=== PATIENT | male | born 1975 | race Caucasian/White ===

== ENCOUNTER 2019-04-15 22:13 | Emergency (ER) | payer MEDICAID, SELFPAY ==
[2019-04-15 22:14] VITALS: BP 164/92; BP 170/93; PULSE 93; PULSE 95; RESP 16; RESP 22; TEMP 36.7; O2SAT 95; O2SAT 96; BMI 19.8
--- NOTE | 2019-04-15 22:59 | ED.VIS.GEN ---
History of Present Illness Chief Complaint: Weakness Informant: Patient Narrative: Patient stated that he had nausea and vomiting tonight. He woke up from a sleep this evening and felt nauseated had multiple episodes of emesis. He currently does not feel like he needs to puke anymore. He thinks he got it all out. He denies any abdominal pain. Patient stated he is an alcoholic and drinks up to 30 beers per day. Today he had an appointment to have an MRI of his brain in the morning. They are working him up for possible Parkinson's per patient. Patient stated for the last year plus he has had shakes worse in his lower extremities. Patient stated he denies any cirrhosis of his liver but thinks he is done some damage to his liver and kidneys due to his excessive alcohol use. Today he only drank 3 beers. He does not think he is withdrawing at this time but is concerned that he may. Past Medical History - Allergies and Home Meds Allergies/Adverse Reactions: Allergies hydrocodone Allergy (Verified 04/15/19 22:20) Hives Primary Care Physician: Sandeep Stovall DO [NON CLINICAL AFFILIATE] - Jean Burnett MD [NON-STAFF] - [employer] [STAFF PHYSICIAN] - Prior records reviewed: Yes Past Medical History: - - Alcoholism Surgical History: noncontributory Lives: With Family Alcohol: Heavy Drugs: None Review of Systems General: Denies: Chills, Fever, Sweats Eyes: Denies: Visual changes - bilaterally, Diplopia ENT: Denies: Rhinorrhea, Sore throat Cardiovascular: Denies: Chest pain, Palpitations Respiratory: Denies: Dyspnea, Cough, Dyspnea on exertion Gastrointestinal: Reports: Nausea, Vomiting. Denies: Abdominal pain, Diarrhea, Melena, Hematochezia Genitourinary: Denies: Dysuria, Hematuria, Frequency Musculoskeletal: Denies: Back pain, Extremity Pain Skin: Denies: Rash, Wounds Neurological: Reports: Weakness, - - Chronic tremor to his lower extremities. Denies: Headache, Numbness Physical Exam Vital Signs/Narrative: Vital Signs Temp Pulse Resp BP Pulse Ox 04/15/19 22:14 98.1 F 93 22 H 170/93 H 95 General: Well nourished, Well developed, No Acute Distress Head: Normocephalic, Atraumatic Eyes: Perrl, EOMI ENT: Moist mucous membranes, No rhinorrhea Neck: Supple, Nontender Cardiovascular: Regular rate, Regular rhythm, No murmurs Respiratory: No distress, CTA bilaterally, Chest nontender Abdomen: Soft, Nontender, Nondistended, Normal bowel sounds Back: Nontender, Normal Inspection Extremities: Nontender, No edema, - - Mild tremor to the bilateral lower extremities. He does come and go. Skin: Normal color, No rash Neurological: Alert, Oriented x3, Cranial nerves II-XII grossly intact, Normal Strength, Normal Sensation Psychological: Normal affect, Normal Mood Diagnostic/Tx/Re-eval - Medical Decision Making Given IV fluids and Zofran. Given a dose of Ativan to keep him out of withdrawal. Lab work obtained patient felt much better after treatment. Was able to fall asleep. No further vomiting. Lab work shows evidence of alcoholic liver disease bili bilirubin is 1.2. AST is 89. Alk phos 128. Patient has low platelets at 53,000. Nothing to compare this to in our system. I have a feeling this is from his early liver cirrhosis. He is instructed to follow-up as an outpatient. Will be given a referral to gastroenterology. We will also follow-up with his family doctor. Instructed to try to curb his drinking. Given information for outpatient referral. I do not feel he needs to be admitted and he is not having any signs of withdrawal. While at rest he has no tremor. Amada the case also with his who is aware of the lab findings and referral patterns for outpatient follow-up ED Disposition - Plan for ED Patient: Disposition: Home or Assisted Living Diagnosis: Cirrhosis, Alcoholism, Nausea and vomiting, Thrombocytopenia Instructions: Understanding Alcoholism, Cirrhosis of the Liver Prescriptions: Ondansetron [Zofran Odt] 4 mg PO Q8H PRN PRN #10 tab PRN Reason: Nausea Prescription Printed Referrals: Jean Burnett MD [NON-STAFF] - Sandeep Stovall DO [NON CLINICAL AFFILIATE] - [employer] [STAFF PHYSICIAN] -
[2019-04-15] MEDS: Ondansetron 4 MG/2 ML Vial IV (23:12)
[2019-04-15] MEDS: LORazepam 2 MG/ML Syringe IV (23:12)
[2019-04-15] MEDS: 0.9% Normal Saline 1,000 ML 1000 ML IV (23:12)
[2019-04-15 23:14] VITALS: BP 154/92; PULSE 78; RESP 16; O2SAT 94
[2019-04-15 23:26] LABS: Absolute Lymphocyte Count 2.73 X10^3/ul (0.83-4.51); Absolute Neutrophil Count 2.4 X10^3/uL (2.0-7.7); Basophil% 1.7 % (0-1); Eosinophil# 0.23 X10^3/uL; Eosinophils% 3.9 % (0-5); Hematocrit 44.8 % (40-54); Hemoglobin 15.5 g/dl (13.0-16.5); Lymphocyte # 2.73 X10^3/ul (4.0); Lymphocyte % 45.8 % (19-41); Mean Corp Hgb Conc 34.6 g/gl (32-36); Mean Corpuscular Hgb 33.3 pg (27.0-32.0); Mean Corpuscular Volume 96.3 fL (80-94); Mean Platelet Vol. 11.4 fl (6.2-12.0); Monocyte# 0.48 X10^3/uL; Monocyte% 8.1 % (0-10); Neutrophil # 2.41 X10^3/uL (2.7-7.7); Neutrophil % 40.3 % (47-70); POSITIVE COUNT NO; POSITIVE DIFFERENTIAL NO; POSITIVE MORPHOLOGY NO; Platelet Count 53 K/mm3 (150-450); RBC Distribution Width SD 49.5 fl (35.1-43.9); Red Blood Count 4.65 M/mm3 (4.6-6.2)
[2019-04-15 23:35] LABS: ALB/GLOB Ratio 0.6 RATIO (0.9-2.4); AST(SGOT) 89 U/L (15-37); Alanine Aminotransfer ALT/SGPT 49 U/L (16-61); Albumin, Serum 3.3 g/dL (3.2-5.0); Alkaline Phosphatase 128 U/L (45-117); Anion Gap 8 (5-15); BUN 3 mg/dL (7-18); BUN/Creat Ratio 4.5 RATIO (10-20); Calcium,Total 8.7 mg/dL (8.5-10.1); Chloride 104 mmol/L (98-107); Creatinine, Serum 0.67 mg/dL (0.70-1.30); EST Glomerular Filtration Rate 137 mL/min (>60); Est Glom Filt Rate - Afr Amer 166 mL/min (>60); Estimated Creatinine Clearance 131.94 ml/min; Globulin 5.7 g/dL (2.2-4.2); Glucose 112 mg/dL (74-106); Lipase 283 U/L (73-393); Potassium 3.6 mmol/L (3.5-5.1); Sodium Level 138 mmol/L (136-145)
[2019-04-16] VITALS: BP 121/70; PULSE 77; RESP 16; O2SAT 93
[2019-04-16 01:00] VITALS: BP 128/86; PULSE 86; RESP 16
[2019-04-16 01:08] VITALS: BP 122/86; PULSE 80; RESP 16
== END 2019-04-16 01:17 | disposition home or self-care (01) ==
PROVIDERS: Emergency Provider Emergency Medicine; Family Provider Family Medicine; PCP Family Medicine
DX: K70.30 Alcoholic cirrhosis of liver without ascites (principal); F10.20 Alcohol dependence, uncomplicated; D69.6 Thrombocytopenia, unspecified; R11.2 Nausea with vomiting, unspecified
CPT/HCPCS: 80053; 83690; 85025; 96361; 96374; 96375; 99285; J7030; J2405

== ENCOUNTER 2019-04-18 17:16 | Observation (INO) | payer MEDICAID, SELFPAY ==
[2019-04-18 17:18] VITALS: BP 159/93; PULSE 95; RESP 17; TEMP 36.9; O2SAT 96; BMI 22.4
--- NOTE | 2019-04-18 17:22 | ED.RN ---
PT IS BEING ASSESSED BY PROVIDER. PT DENIES CURRENT THOUGHTS OF HURTING HIMSELF OR OTHER NOW. HAS HAD THOUGHT IN PAST BUT NOT NOW. PT IS STUTTERING WORDS AND DIFFICULT TO UNDERSTAND. DR. RAMSEY DENIES HAVING SITTER AT BEDSIDE.
--- NOTE | 2019-04-18 17:25 | ED.VISSUMM ---
- ER Visit Summary Date of Service: 04/18/19 Chief Complaint: Questionable alcohol withdrawal, request detox History of Present Illness: The patient is a 43 M who presents with questionable alcohol withdrawal and requesting detox. He states he normally drinks 15-18 beers a day. He only drinks 6 today. He has never been to rehab before. He wants to go to rehab and get detox from alcohol because he is tired of the drinking. He denies any history of any withdrawal seizures. He states that he keeps defecating on himself. He had an outpatient MRI and the [facility] is working him up for Parkinson's. He was seen here a few days ago for weakness and told the physician at that time he drinks 30 beers a day. Physical Examination: Vital signs reviewed. HEENT exam unremarkable. Heart is regular rate and rhythm without murmurs. Lungs are clear to auscultation. Abdomen is soft and nontender. Extremities reveal no edema. Skin exam normal. Neurologic exam normal, other than the fact that he is acutely intoxicated Test Results: CAT scan of the head unremarkable. Labs show a platelet count of 56 which is chronic. Total bilirubin 0.61, AST is 85, alkaline phosphatase 123. His alcohol level is 468 Emergency Department Course and Treatment: The patient states that he only drank 6 beers today but he is so intoxicated because he continuously drinks every day all day. He did fall in the bathroom here in the emergency department so a CAT scan of his head was obtained and was unremarkable. He states that he cannot stop drinking at home because he gets very symptomatic very quickly. I discussed with the hospitalist and she was willing to admit the patient and will start treatment when he starts having symptoms of withdrawal. Treatment Plan: [] Disposition: Admit Impression: Alcohol intoxication, dependence, weakness, thrombocytopenia This note was generated with Zapya[employer] software. It may contain incorrect words, spelling, and punctuation that were not noted in review of the chart prior to signing ED Disposition - Plan for ED Patient: Referrals: David Rouse MD [Primary Care Provider] -
--- NOTE | 2019-04-18 17:41 | CT_ITS ---
STUDY: CT BRAIN WITHOUT CONTRAST REASON FOR EXAM: Male, 43 years old. Alcohol withdrawal. RADIATION DOSAGE (If Supplied By Facility): CTDIvol = ( 44.99 ) mGy, DLP = ( 779.24 ) mGycm TECHNIQUE: Transaxial CT imaging of the brain was performed without administration of intravenous contrast material. Individualized dose optimization techniques were used for this CT. COMPARISON: No relevant priors. FINDINGS: Normal soft tissue structures. Normal calvarium. Normal size ventricles and extra-axial spaces for the patient's age. Normal white matter tracts of the cerebral hemispheres. Normal basal ganglia and thalami. Normal brainstem. Normal cerebellum. There is no intracranial hemorrhage. There are no findings of an acute ischemic infarction. Normal visualized paranasal sinuses. CT/Brain/Head without Contrast IMPRESSION: No acute intracranial process. Electronically Signed: Marla Barba MD at 18:23 EDT Tel , Service support ,
[2019-04-18 17:43] LABS: Absolute Lymphocyte Count 3.69 X10^3/ul (0.83-4.51); Absolute Neutrophil Count 2.6 X10^3/uL (2.0-7.7); Basophil# 0.12 X10^3/uL; Basophil% 1.7 % (0-1); Eosinophil# 0.29 X10^3/uL; Eosinophils% 4.1 % (0-5); Hematocrit 44.4 % (40-54); Hemoglobin 15.2 g/dl (13.0-16.5); Lymphocyte # 3.69 X10^3/ul (4.0); Mean Corp Hgb Conc 34.2 g/gl (32-36); Mean Corpuscular Hgb 33.2 pg (27.0-32.0); Mean Corpuscular Volume 96.9 fL (80-94); Mean Platelet Vol. 11.7 fl (6.2-12.0); Monocyte# 0.44 X10^3/uL; Monocyte% 6.2 % (0-10); Neutrophil # 2.56 X10^3/uL (2.7-7.7); POSITIVE COUNT NO; POSITIVE DIFFERENTIAL NO; POSITIVE MORPHOLOGY NO; Platelet Count 56 K/mm3 (150-450); RBC Distribution Width SD 49.9 fl (35.1-43.9); Red Blood Count 4.58 M/mm3 (4.6-6.2); White Blood Count 7.1 K/mm3 (4.4-11.0)
--- NOTE | 2019-04-18 17:54 | ED.RN ---
pt was assisted to bathroom to have bowel movement. Pt refused help. raising voice and cussing at RN. Pt was refusing to have bowel movement with staff in the room. pt set in front of toilet and assisted standing for toilet. RN stood with door open. Loud noise heard. pt fell striking head on sink plumbing. denies pain or concerns from falling. Dr. Rodriguez aware. CT ordered. Edward RN, Imelda RN in to help get patient up from floor. bruising noted to l posterior arm, r elbow. Pt family tells nurse at this time pt has already fallen 2 x times.
[2019-04-18 18:00] LABS: AST(SGOT) 85 U/L (15-37); Alanine Aminotransfer ALT/SGPT 41 U/L (16-61); Albumin, Serum 3.2 g/dL (3.2-5.0); Alkaline Phosphatase 123 U/L (45-117); Anion Gap 6 (5-15); BUN 1 mg/dL (7-18); BUN/Creat Ratio 1.4 RATIO (10-20); Bilirubin, Direct 0.61 mg/dL (0.00-0.30); Calcium,Total 8.4 mg/dL (8.5-10.1); Chloride 106 mmol/L (98-107); EST Glomerular Filtration Rate 130 mL/min (>60); Est Glom Filt Rate - Afr Amer 157 mL/min (>60); Estimated Creatinine Clearance 127.24 ml/min; Globulin 5.6 g/dL (2.2-4.2); Glucose 120 mg/dL (74-106); Lipase 230 U/L (73-393); Potassium 3.5 mmol/L (3.5-5.1); Protein, Total 8.8 g/dL (6.4-8.2); Sodium Level 140 mmol/L (136-145)
[2019-04-18 18:17] VITALS: BP 172/140; PULSE 97; RESP 18; O2SAT 98
--- NOTE | 2019-04-18 19:30 | HP.PCM_ITS ---
Problem List (1) Alcohol withdrawal delirium, acute, hyperactive Status: Acute (2) Alcohol abuse Status: Chronic (3) Tobacco use Status: Chronic (4) GERD (gastroesophageal reflux disease) Status: Chronic History of Present Illness Date of Admission: 04/18/19 Chief Complaint: Acute EtOH Withdrawal The patient is a 43 y/o M w/ PMHx: GERD, EtOH Abuse (15-18 Tall boys daily), Tobacco use who presents to the [facility] on 04/18/19 w/ noted acute EtOH withdrawal, onset starting in the afternoon with self imposed reduction in his intake secondary to desired treatment with last EtOH intake 1-3 hours prior to ED presentation with onset of nausea, tremors, agitation, tactile disturbances. Patient interested in attaining sober status. He notes that he has been through EtOH withdrawal once prior and denied any history of seizures but does note as with his current status he does tend to be extremely irritated and angry. Discussed admission and treatment plan to which patient was amenable with planned [facility] program evaluation on Saturday given presentation. Work-up in the ED included T 98.4, heart rate 95, BP 159/93, respiratory rate 17, 96% on room air, CBC with WBC 7.1, hemoglobin 15.2, platelet 56 without market left shift, CMP with glucose 120, direct bilirubin 0.61, AST 85, ALT 41, alk phos 123, lipase 230, initial ethyl alcohol upon presentation for 468 with increased CIWA scoring upon evaluation per Hospitalist with evidence initiation of withdrawal given heavy EtOH intake history as noted. Past Medical History Past Medical History (Chronic Problems): Chronic Problems Alcohol abuse (Chronic) Tobacco use (Chronic) GERD (gastroesophageal reflux disease) (Chronic) Allergies hydrocodone Allergy (Verified 04/18/19 17:21) Hives Home Medications: Ambulatory Orders Medication Instructions Recorded NK 04/18/19 Surgical History: no surgical history Psychiatric History: No pertinent psych hx Lives: Spouse/ Significant Other Smoking Status: Current every day smoker - 1/2-1 ppd cigarette tobacco use QOD. Tobacco Use: Cigarettes Alcohol: Heavy - 12-18 Tall Boys (5.8%) daily Drugs: None - *Family History Maternal History Items: - - Patient notes a maternal family history of heart disease. Paternal History Items: - - Patient notes a paternal family history of heart disease, MD, colon cancer, possibly Parkinson's disease. Review of Systems Constitutional: Reports: Anorexia, Malaise, Weakness, Fatigue. Denies: Chills, Fever, Weight Change HEENT: Reports: Visual Changes. Denies: Head Aches, Sinus Congestion, Sinus Drainage Cardiovascular: Denies: Chest Pain, Palpitations Respiratory: Denies: Cough, Shortness of breath at rest, Sputum production Gastrointestinal: Denies: Abdominal Pain, Nausea, Vomiting Genitourinary: Denies: Dysuria Musculoskeletal: Reports: Back Pain, Joint Pain. Denies: Joint Tenderness Skin: Denies: Rash, Wounds Neurological: Reports: Balance problems, Tremor. Denies: Focal weakness, Numbness, Tingling Psychiatric: Reports: Anxiety. Denies: Depression, Homicidal Ideations, Suicidal Ideations Hematologic/ Lymphatic: Reports: Easy Bruising, Easy Bleeding VTE Information - Inpt Only VTE Present on Admission: No VTE Mechan Device Prophylaxis: SCD's VTE Pharm Prophylaxis ordered?: No Reason prophylaxis not ordered:: Medical Contraindication Patient Problems: Active and Suspected Problems Alcohol withdrawal delirium, acute, hyperactive (Acute) Subjective: Seated upright in the ED bed, agitated, irritable, tremors evident. Objective: Physical Examination: General: awake, alert, oriented to place, person, year, irritable, agitated, tremors evident, intermittently cooperative, seated upright in ED bed. Skin: normal color, turgor, no icterus, cyanosis. HEENT: AT/NC, EOMI, PERRLA, dry MM, no carotid bruits or JVD noted. Lungs: CTA bilaterally, poor effort, moderate decrease BL bases, no rales, ronchi or wheezing. Heart: Mildly tachycardic with regular rhythm; no gallop, rub audible. Abdomen: soft, NTTP, ND, normal BS, + HM. Extremities: no cyanosis, clubbing, or edema. Neurological: patient awake, alert, oriented as noted; cognitive function suspected to be decreased from baseline intact; pupils equally reactive to light and accomodation; cranial nerves II-XII grossly normal, moving all 4 extremities, no focal deficits, strength severely global decrease secondary to acute presentation, tremors evident, agitated, anxious. Psychiatric: affect appears agitated, anxious, no acute evidence of depressive feelings. - Physical Exam Vital Signs Temp Pulse Resp BP Pulse Ox 98.4 F 97 18 172/140 H 98 04/18/19 17:18 04/18/19 18:17 04/18/19 18:17 04/18/19 18:17 04/18/19 18:17 Oxygen Delivery Method Room Air Weight: 147 lb 4.301 oz Body Mass Index (BMI) 22.4 Laboratory Tests Past 24 Hrs 04/18/19 04/18/19 04/18/19 17:30 17:30 17:30 WBC 7.1 RBC 4.58 L Hgb 15.2 Hct 44.4 MCV 96.9 H MCH 33.2 H MCHC 34.2 RDW 14.0 RDW Differential 49.9 H Plt Count 56 L MPV 11.7 Immature Gran % (Auto) 0.000 Neut % (Auto) 36.0 L Lymph % (Auto) 52.0 H Crook % (Auto) 6.2 Eos % (Auto) 4.1 Baso % (Auto) 1.7 H Absolute Neuts (auto) 2.6 Absolute Lymphs (auto) 3.69 Total Counted Not Reportable Sodium 140 Potassium 3.5 Chloride 106 Carbon Dioxide 28.0 Anion Gap 6 BUN 1 L Creatinine 0.70 Estim Creat Clear Calc 127.24 Est GFR (MDRD) Af Amer 157 Est GFR (MDRD) Non-Af 130 BUN/Creatinine Ratio 1.4 L Glucose 120 H Calcium 8.4 L Total Bilirubin 0.90 Direct Bilirubin 0.61 H AST 85 H ALT 41 Alkaline Phosphatase 123 H Total Protein 8.8 H Albumin 3.2 Globulin 5.6 H Lipase 230 Ethyl Alcohol 468.0 H* Assessment/Plan All Active Problems Alcohol withdrawal delirium, acute, hyperactive (Acute) Intoxication (Acute) The patient is a 43 y/o M w/ PMHx: GERD, EtOH Abuse (15-18 Tall boys daily), Tobacco use who presents to the [facility] on 04/18/19 w/ noted acute EtOH withdrawal, onset starting in the afternoon with self imposed reduction in his intake secondary to desired treatment with last EtOH intake 1-3 hours prior to ED presentation with onset of nausea, tremors, agitation, tactile disturbances. (1) Acute EtOH Withdrawal: Will admit to [facility] on telemetry, routine labs obtained per ED as noted, will initiate and continue on [facility] service protocol with taper course of librium, as needed Seroquel, Catapres, Bentyl, Vistaril, IV fluids, IV antiemetics, Tylenol as needed for pain. Once patient clinically improved and completion of taper nearing will plan [facility] assistance for transition to next level of rehabilitation care. Mag, phos pending. Maintain on CIWA protocol. (2) Tobacco Abuse: Encouraged cessation, inpatient consultation per RT, NR if desired. (3) GERD: Famotidine. (4) Chronic Thrombocytopenia: Admission Plts 56, likely chronic, secondary to EtOH abuse. (5) DVT prophylaxis: TEDs, hold any chemoprophylaxis given thrombocytopenia, likely chronic. Code Visit Inpatient E&M: 87569 Init Hosp L3
[2019-04-18 19:36] VITALS: BP 156/111; RESP 18; O2SAT 97
[2019-04-18 20:25] LABS: Amphetamine Urine VISTA NEGATIVE (<1000 ng/mL); Barbiturate Urine VISTA NEGATIVE (< 200 ng/mL); Benzodiazepine Urine VISTA NEGATIVE (< 200 ng/mL); Cocaine Urine VISTA NEGATIVE (< 300 ng/mL); Ecstacy Urine VISTA NEGATIVE (< 500 ng/mL); Methadone Urine VISTA NEGATIVE (< 300 ng/mL); PCP Urine VISTA NEGATIVE (< 25 ng/mL); THC Urine VISTA NEGATIVE (< 50 ng/mL); Vista UDS pH Range 6
[2019-04-18 20:37] VITALS: BMI 19.5
[2019-04-18 21:00] VITALS: BP 137/86; PULSE 84; RESP 16; TEMP 36.7
[2019-04-18 21:09] VITALS: BMI 19.6
[2019-04-18 21:13] LABS: Magnesium 1.9 mg/dL (1.6-2.6); Phosphorus 3.2 mg/dL (2.5-4.9)
[2019-04-18 21:20] VITALS: O2SAT 97
[2019-04-18] MEDS: 0.9% NaCl Peripheral Flush Adult/Peds IV (21:21)
[2019-04-18] MEDS: Lactated Ringers 1,000 ML 125 ML IV (21:21)
[2019-04-18] MEDS: chlordiazePOXIDE 25 MG Capsule PO (21:22)
[2019-04-18] MEDS: hydrOXYzine PAM 25 MG Capsule 50 MG PO (21:22)
[2019-04-18] MEDS: Ibuprofen 600 MG Tablet PO (21:38)
[2019-04-18] MEDS: Methocarbamol 750 MG Tablet PO (21:38)
[2019-04-18] MEDS: traZODone 50 MG Tablet PO (22:10)
[2019-04-18] MEDS: Famotidine 20 MG Tablet PO (22:10)
[2019-04-19 01:08] VITALS: BP 114/73; PULSE 82; RESP 16; TEMP 36.6
[2019-04-19] MEDS: chlordiazePOXIDE 25 MG Capsule PO ×4 (03:14→22:54)
[2019-04-19 05:01] VITALS: BP 103/61; PULSE 89; RESP 16; TEMP 36.9
[2019-04-19] MEDS: 0.9% NaCl Peripheral Flush Adult/Peds IV (05:05)
[2019-04-19] MEDS: Famotidine 20 MG Tablet PO ×2 (08:15→22:54)
[2019-04-19] MEDS: Folic Acid 1 MG Tablet PO (08:15)
[2019-04-19] MEDS: Methocarbamol 750 MG Tablet PO ×2 (08:15→19:43)
[2019-04-19] MEDS: Multivitamins,Therapeutic Tablet 1 TABLET PO (08:15)
[2019-04-19] MEDS: Thiamine Hydrochloride 100 MG Tablet PO (08:15)
[2019-04-19 08:22] VITALS: BP 109/70; PULSE 85; RESP 16; TEMP 36.8; O2SAT 95
--- NOTE | 2019-04-19 08:57 | PCM.PROGNOTE ---
Patient Problems: Active and Suspected Problems Alcohol withdrawal delirium, acute, hyperactive (Acute) Subjective: The patient is a 43-year-old male with a past medical history of GERD, ethanol abuse and tobacco dependence who presented to the emergency department at [facility] on 04/18/2019 complaining of nausea, tremors, agitation, tactile disturbances. His last ingestion of EtOH was 1 to 3 hours prior to presenting to the emergency room and he was cutting down in an effort to get sober. He denies any history of seizures with alcohol withdrawal in the past. He was agreeable to admission to the [facility]. Vital signs at presentation to the emergency room were temp 98.4, pulse rate 95, blood pressure 159/93, respiratory rate 17 and he was 96 to 90% saturated on room air. CBC was remarkable for a low platelet count at 56,000. CMP showed a total bilirubin of 0.9, AST of 85, ALT of 41 and an alkaline phosphatase of 123. Lipase was 230. Magnesium and phosphorus were within normal limits. Ethyl alcohol level was 468. He was admitted to [facility] with a diagnosis of acute alcohol withdrawal however he was intoxicated at the time of presentation to the emergency room and was not in alcohol withdrawal. CT brain in the emergency department showed no acute intracranial process. He is interested in [facility] and the [facility] protocol for medical stabilization for alcohol withdrawal was initiated. He will be seen by the [facility] marketing representative on Saturday. Afebrile since admission Vital signs stable He has been drinking since he was 15. He drinks everyday, usually 14 beers a day. Has never had a seizure. Has never been to rehab or AA. Recently he has been having problems with gait instability and has had multiple falls. He was seen at the [facility] outpatient center and an MRI of the brain was ordered and was done at the [facility] facility but, they do not know the results. He has an appt with a neurologist on May 09. He has been forgetful and tremulous. Tells me that he has been diagnosed with cirrhosis but, does not know how this dx was made. Bilirubin is normal and his transaminases are only mildly elevated. PT/INR was not checked. There is a very strong FH of alcoholism. He has also recently been incontinent. Has not been eating properly and is losing weight. - Physical Exam General: Alert, Cooperative, - - very tremulous HEENT: Atraumatic, PERRLA, EOMI, Normocephalic Oral: Moist Mucosa Neck: Supple, No JVD, Trachea Midline Lungs: Clear to auscultation - anterior Cardiovascular: Regular rate, Regular Rhythm, Normal S1, Normal S2, No murmurs, No rub noted, No Gallop Abdomen: Soft, Non Tender, Non-Distended, Hepatomegaly Extremities: No clubbing, No cyanosis, No edema Skin: - - Multiple bruises on his extremities in varying stages of healing Musculoskeletal: Muscle Wasting Neurological: Cranial nerves II-XII grossly intact, Neuro grossly intact, - - having trouble with finger nose and heel aquino but, not clear if this is due to alcohol withdrawal or neurologic disease Psych/Mental Status: Flat Affect Vital Signs Temp Pulse Resp BP Pulse Ox 98.3 F 85 16 109/70 95 04/19/19 08:22 04/19/19 08:22 04/19/19 08:22 04/19/19 08:22 04/19/19 08:22 Oxygen Delivery Method Room Air Weight: 144 lb 6.444 oz Body Mass Index (BMI) 19.5 Intake and Output for Last 24 Hours 04/17/19 04/18/19 04/19/19 23:59 23:59 23:59 Intake Total 1352 / 1352 Balance 1352 / 1352 Laboratory Tests Past 24 Hrs 04/18/19 04/18/19 04/18/19 17:30 17:30 17:30 WBC 7.1 RBC 4.58 L Hgb 15.2 Hct 44.4 MCV 96.9 H MCH 33.2 H MCHC 34.2 RDW 14.0 RDW Differential 49.9 H Plt Count 56 L MPV 11.7 Immature Gran % (Auto) 0.000 Neut % (Auto) 36.0 L Lymph % (Auto) 52.0 H Hand % (Auto) 6.2 Eos % (Auto) 4.1 Baso % (Auto) 1.7 H Absolute Neuts (auto) 2.6 Absolute Lymphs (auto) 3.69 Total Counted Not Reportable Sodium 140 Potassium 3.5 Chloride 106 Carbon Dioxide 28.0 Anion Gap 6 BUN 1 L Creatinine 0.70 Estim Creat Clear Calc 127.24 Est GFR (MDRD) Af Amer 157 Est GFR (MDRD) Non-Af 130 BUN/Creatinine Ratio 1.4 L Glucose 120 H Calcium 8.4 L Phosphorus Magnesium Total Bilirubin 0.90 Direct Bilirubin 0.61 H AST 85 H ALT 41 Alkaline Phosphatase 123 H Total Protein 8.8 H Albumin 3.2 Globulin 5.6 H Lipase 230 Urine Opiates Screen Urine Methadone Screen Ur Barbiturates Screen Ur Phencyclidine Scrn Ur Amphetamines Screen U Methamphetamin-MDMA U Benzodiazepines Scrn Urine Cocaine Screen U Cannabinoids Screen Ur Drug Screen Comment Ethyl Alcohol 468.0 H* 04/18/19 04/18/19 17:30 19:56 WBC RBC Hgb Hct MCV MCH MCHC RDW RDW Differential Plt Count MPV Immature Gran % (Auto) Neut % (Auto) Lymph % (Auto) Hand % (Auto) Eos % (Auto) Baso % (Auto) Absolute Neuts (auto) Absolute Lymphs (auto) Total Counted Sodium Potassium Chloride Carbon Dioxide Anion Gap BUN Creatinine Estim Creat Clear Calc Est GFR (MDRD) Af Amer Est GFR (MDRD) Non-Af BUN/Creatinine Ratio Glucose Calcium Phosphorus 3.2 Magnesium 1.9 Total Bilirubin Direct Bilirubin AST ALT Alkaline Phosphatase Total Protein Albumin Globulin Lipase Urine Opiates Screen NEGATIVE Urine Methadone Screen NEGATIVE Ur Barbiturates Screen NEGATIVE Ur Phencyclidine Scrn NEGATIVE Ur Amphetamines Screen NEGATIVE U Methamphetamin-MDMA NEGATIVE U Benzodiazepines Scrn NEGATIVE Urine Cocaine Screen NEGATIVE U Cannabinoids Screen NEGATIVE Ur Drug Screen Comment Ethyl Alcohol Medical Necessity - Tobacco Use Smoking Status: Current every day smoker Tobacco Use: Cigarettes Assessment/Plan All Active Problems Alcohol withdrawal delirium, acute, hyperactive (Acute) Intoxication (Acute) Impressions 1. Alcohol intoxication 2. Alcohol dependence 3. encephalopathy - suspect this is likely due to ETOH. Wernicke's? He has cerebral atrophy and ventriculomegaly 4. alcoholic hepatitis - lab is not really consistent with cirrhosis....will check a PT/INR 5. [id number] enhancing lesion in the L internal auditory canal suspicious for Schwannoma on MRI recently. Also with mild generalized parenchymal loss and ventriculomegaly 6. thrombocytopenia - likely secondary to the toxic effects of ETOH on BM Continue chlordiazepoxide taper Continue thiamine and folic acid continue PT/OT Will need to consult for schwannoma Will meet with the [facility] rep tomorrow Code Visit Inpatient E&M: 47891 Subs Hosp L2
[2019-04-19 11:03] VITALS: BP 134/83; PULSE 66; RESP 16; TEMP 36.8; O2SAT 93
--- NOTE | 2019-04-19 11:56 | CT_ITS ---
STUDY: CT ABDOMEN AND PELVIS WITH CONTRAST REASON FOR EXAM: Male, 43 years old. Hepatomegaly RADIATION DOSAGE (If Supplied By Facility): CTDIvol = ( 10.63 ) mGy, DLP = ( 414.25 ) mGycm TECHNIQUE: Transaxial images were obtained from the dome of the diaphragm to the symphysis pubis without oral contrast. 100CC IV Isovue 300 was administered. Sagittal and coronal images were reconstructed. Individualized dose optimization techniques were used for this CT. COMPARISON: None. FINDINGS: There is a small right pleural effusion associated with minimal dependent consolidation within the right lower lobe. The visualized portions of the heart are within normal limits. There is decreased attenuation of the liver which is heterogenous. There is free fluid within the right upper quadrant. There is mild gallbladder wall thickening and increased enhancement associated with pericholecystic fluid. There are scattered calcifications within the spleen consistent with underlying granulomas. Normal pancreas. There are prominent gastrohepatic lymph nodes Normal bilateral adrenal glands. Normal right kidney. Normal left kidney. Normal visualized stomach. Normal small intestine. The colon is incompletely distended. There is circumferential wall thickening of the ascending, distal descending and sigmoid colon. The appendix is visualized and appears normal. There is diffuse atherosclerotic calcification of the abdominal aorta, without a demonstrated aneurysm. Normal inferior vena cava. Normal retroperitoneum. Normal urinary bladder. There is free fluid within the pelvis. Normal abdominal wall. There are diffuse degenerative changes of the visualized thoracic and lumbar spine. CT/Abdomen/Pelvis WITH Contrast IMPRESSION: Heterogenous liver that is partially low in attenuation, may be secondary to fatty infiltration and/or hepatic congestion. Free fluid within the right upper quadrant and pelvis. Mild gallbladder wall thickening and pericholecystic fluid which may be reactive however consider right upper quadrant ultrasound for further evaluation. Prominent gastrohepatic lymph nodes, likely reactive. Atherosclerosis. Circumferential wall thickening of the ascending, descending and sigmoid colon which may be partially secondary to its incompletely distended state however cannot exclude a history of colitis. Small right pleural effusion associated with dependent consolidation within the right lower lobe. Electronically Signed: Marla Barba MD at 16:02 EDT Tel , Service support ,
[2019-04-19 12:25] LABS: International Normalized Ratio 1.4; Prothrombin Time (Protime)PT. 17.1 SECONDS (11.7-14.9)
--- NOTE | 2019-04-19 13:16 | NURSING ---
pt to ct scan
[2019-04-19] MEDS: Ibuprofen 600 MG Tablet PO (13:47)
[2019-04-19 13:58] VITALS: BP 140/83; PULSE 71; RESP 16; TEMP 37.1; O2SAT 97
[2019-04-19 19:57] VITALS: BP 135/77; PULSE 62; RESP 18; TEMP 37.3
[2019-04-19] MEDS: traZODone 50 MG Tablet PO (22:54)
[2019-04-20] VITALS (8 sets, daily range): BP systolic 114–147; BP diastolic 63–84; PULSE 46–75; RESP 16–18; TEMP 36.7–37.5; O2SAT 96–99
[2019-04-20] MEDS: chlordiazePOXIDE 25 MG Capsule PO ×3 (06:55→22:10)
[2019-04-20] MEDS: Thiamine Hydrochloride 100 MG Tablet PO (09:54)
[2019-04-20] MEDS: Famotidine 20 MG Tablet PO ×2 (09:54→22:10)
[2019-04-20] MEDS: Folic Acid 1 MG Tablet PO (09:54)
[2019-04-20] MEDS: Multivitamins,Therapeutic Tablet 1 TABLET PO (09:54)
[2019-04-20] MEDS: Methocarbamol 750 MG Tablet PO ×2 (09:58→19:39)
[2019-04-20] MEDS: Ibuprofen 600 MG Tablet PO (09:59)
[2019-04-20] MEDS: Dicyclomine 10 MG Capsule 20 MG PO (15:08)
[2019-04-20] MEDS: QUEtiapine 25 MG Tablet PO (15:08)
--- NOTE | 2019-04-20 20:19 | PCM.PROGNOTE ---
Patient Problems: Active and Suspected Problems Alcohol withdrawal delirium, acute, hyperactive (Acute) Subjective: Afebrile, vital signs stable. 96 to 99% saturated on room air. refusing PT and also refusing to get up to the recliner. No hallucinations. Having some tremulousness. No nausea and no vomiting. No diarrhea, denies abdominal pain. - Physical Exam General: Alert, Oriented x3, Cooperative, - - Lying in bed when I entered the room and he appears to be very calm Oral: Moist Mucosa Lungs: Clear to auscultation Cardiovascular: Regular rate, Regular Rhythm, Normal S1, Normal S2, No murmurs, No Gallop Abdomen: Bowel Sounds Present, Soft, Non Tender, Non-Distended Extremities: No clubbing, No cyanosis, No edema Neurological: Cranial nerves II-XII grossly intact Vital Signs Temp Pulse Resp BP Pulse Ox 98.8 F 75 18 114/63 99 04/20/19 18:00 04/20/19 18:00 04/20/19 18:00 04/20/19 18:00 04/20/19 14:56 Oxygen Delivery Method Room Air Weight: 144 lb 6.444 oz Body Mass Index (BMI) 19.5 Intake and Output for Last 24 Hours 04/18/19 04/19/19 04/20/19 23:59 23:59 23:59 Intake Total 1952 / 1952 1540 / 1540 Output Total 500 / 500 450 / 450 Balance 1452 / 1452 1090 / 1090 Medical Necessity - Tobacco Use Smoking Status: Current every day smoker Tobacco Use: Cigarettes Assessment/Plan All Active Problems Alcohol withdrawal delirium, acute, hyperactive (Acute) Intoxication (Acute) Impressions 1. Alcohol intoxication 2. Alcohol dependence 3. encephalopathy - suspect this is likely due to ETOH. Wernicke's? He has cerebral atrophy and ventriculomegaly 4. alcoholic hepatitis - lab is not really consistent with cirrhosis....will check a PT/INR 5. [id number] enhancing lesion in the L internal auditory canal suspicious for Schwannoma on MRI recently. Also with mild generalized parenchymal loss and ventriculomegaly 6. thrombocytopenia - likely secondary to the toxic effects of ETOH on BM 7. Fatty infiltration of the liver 8. Free fluid in the right upper quadrant and pelvis likely secondary to ascites related to liver disease. Small right pleural effusion. Continue chlordiazepoxide taper Continue thiamine and folic acid continue PT/OT - pt refusing Dr. Smith does not do surgery for schwannoma....the pt has an appt to see a neurosurgeon in [place] and he was encouraged to keep that appt. Code Visit Inpatient E&M: 31456 Subs Hosp L2
[2019-04-20] MEDS: traZODone 50 MG Tablet PO (22:10)
[2019-04-21] MEDS: 0.9% NaCl Peripheral Flush Adult/Peds IV ×2 (00:56→05:02)
[2019-04-21 02:08] VITALS: BP 149/76; PULSE 61; RESP 16; TEMP 36.7
[2019-04-21] MEDS: QUEtiapine 25 MG Tablet PO (02:11)
[2019-04-21] MEDS: hydrOXYzine PAM 25 MG Capsule 50 MG PO (04:10)
[2019-04-21] MEDS: LORazepam 2 MG/ML Syringe 1 MG IV (05:02)
--- NOTE | 2019-04-21 22:25 | PCM.DC.SUM ---
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 Electronically Signed: Marla Barba MD at 18:23 EDT Tel , Service support , Abdomen/Pelvis CT 04/19/19 11:56 IMPRESSION: Heterogenous liver that is partially low in attenuation, may be secondary to fatty infiltration and/or hepatic congestion. Free fluid within the right upper quadrant and pelvis. Mild gallbladder wall thickening and pericholecystic fluid which may be reactive however consider right upper quadrant ultrasound for further evaluation. Prominent gastrohepatic lymph nodes, likely reactive. Atherosclerosis. Circumferential wall thickening of the ascending, descending and sigmoid colon which may be partially secondary to its incompletely distended state however cannot exclude a history of colitis. Small right pleural effusion associated with dependent consolidation within the right lower lobe. Electronically Signed: Marla Barba MD at 16:02 EDT Tel , Service support , Consultations 04/18/19 20:34 Consult: [facility] Routine Consulting Provider: Consulted Physician Type:: Other * Specify below * Reason for consult:: EtOH acute withdrawal admit Operations: None Procedures: None Summary of Care Provided: The patient is a 43-year-old male with a past medical history of GERD, long standing ethanol abuse (started at the age of 15) and tobacco dependence who presented to the emergency department at [facility] on 04/18/2019 complaining of nausea, tremors, agitation, tactile disturbances. His last ingestion of EtOH was 1 to 3 hours prior to presenting to the emergency room and he was cutting down in an effort to get sober. He denied any history of seizures with alcohol withdrawal in the past. He was agreeable to admission to the [facility]. Vital signs at presentation to the emergency room were temp 98.4, pulse rate 95, blood pressure 159/93, respiratory rate 17 and he was 96 to 90% saturated on room air. CBC was remarkable for a low platelet count at 56,000. CMP showed a total bilirubin of 0.9, AST of 85, ALT of 41 and an alkaline phosphatase of 123. Lipase was 230. Magnesium and phosphorus were within normal limits. Ethyl alcohol level was 468. He was admitted to [facility] with a diagnosis of acute alcohol withdrawal however he was intoxicated at the time of presentation to the emergency room and was not in alcohol withdrawal. CT brain in the emergency department showed no acute intracranial process but, there was cerebral atrophy and ventriculomegaly. The [facility] protocol for ETOH withdrawal was initiated. He told me that he recently had an MRI of his head at [facility] for ataxia and we were able to obtain the report and it showed a 5mm X 3mm schwannoma in the L internal auditory canal. I discussed the results of the MRI with the pt and he told me he already had an appt with a neurosurgeon at the [facility] on 05/09. He seemed to be doing well with the Librium taper but at 05:48 on 04/21 he decided to leave A. I suspect he was just starting to have withdrawal sx since the ETOH at admission was 468 and he was intoxicated and not in withdrawal at admission. He left prior to me arriving at his room to discuss DC with him. - Physical Exam Vital Signs Temp Pulse Resp BP Pulse Ox 98.0 F 61 16 149/76 H 99 04/21/19 02:08 04/21/19 02:08 04/21/19 02:08 04/21/19 02:08 04/20/19 14:56 Oxygen Delivery Method Room Air Weight: 144 lb 6.444 oz Body Mass Index (BMI) 19.5 Intake and Output for Last 24 Hours 04/19/19 04/20/19 04/21/19 23:59 23:59 23:59 Intake Total 195 / 1951 1540 / 1540 1000 / 1000 Output Total 500 / 500 450 / 450 1600 / 1600 Balance 1452 / 1452 1090 / 1090 -600 / -600 Home Medications: Medications to take at Discharge NK 04/18/19 Primary Care Physician: David Rouse MD [Primary Care Provider] - Disposition: Against Medical Advice Minutes spent on discharge:: 20 Patient Condition:: Poor Medical Necessity - Tobacco Use Smoking Status: Current every day smoker Tobacco Use: Cigarettes Meaningful Use Info Meaningful Use Diagnoses (Choose all that apply): None applicable Code Visit Inpatient E&M: 13988 Disch Hosp
--- OUTSIDE RECORDS SUMMARY | 2019-07-20 09:41 | XMS RPT_ITS | CCD ---
:1975 External Reference #:[id number] Author Organization [facility] Care Team Providers Name Role Phone Unavailable Unavailable Unavailable Results Result Name Value Range Unit Interpretation Flag Date Location progress on 2019-06 PROGRESS HNO ID: [id number] Normal 07-10-2019 [facility] Author: Tanya Rojas LPN ([id number]) Service: ? Author Type: ? Type: Progress Notes Filed: 07/10/2019 9:44 AM Note Text: Patient presents for Twinrix vaccine. Denies any problems at this time. Tolerated injection well. Tanya Rojas LPN cnnurse on [facility] Nurse Visit (FAMPWS) Normal [address] [place] [address] [facility] CHRISTOPHER SMITH ([id number]) [address] [facility] Time Provider Department ([id number]) 07/10/19 10:00 AM MT NURSE FAMPWS During your visit today, we recorded the following informati on about you: Tanya Rojas LPN 07/10/2019 9:44 AM Signed Patient presents for Twinrix vaccine. Denies any problems at this time. Tolerated injection well. Tanya Rojas LPN Referring Provider: NELSY ROUSE) [[id number]] Allergies As of Date: 07/10/2019 Noted Allergy Reaction VICODIN (HYDROCODONE-ACETAMINOPHE*04/03/2019 4 - Hives Date Reviewed: 06/24/2019 Reviewed by: Asya Moore MA - Fully Assessed Reason for Visit: Imm/Inj [58] Primary Visit Diagnosis:Need for vaccination [Z23] Prescriptions as of 07/10/2019 Sig: UMECLIDINIUM 62.5 MCG/ACTUATI* Inhale 1 Puff as instructed o * ALBUTEROL SULFATE HFA 90 MCG/* Inhale 2 Puffs as instructed * Patient not taking: Reported on 06/24/2019 THIAMINE HCL (VITAMIN B1) 100* Take 1 tablet by mouth once d * Problem List As Of Date 07/10/2019 Noted Resolved ASTHMA UNSPECIFIED [J45.909] INVALID FOR* ALLERGIC RHINITIS NOS [J30.9] INVALID FOR* TOBACCO USE DISORDER [F17.200] INVALID FOR* Ataxia [R27.0] INVALID FOR* Moderate protein-calorie malnutrition (HCC) [E4*INVALID FOR* Hepatitis C [B19.20] Alcohol abuse [F10.10] HTN (hypertension) [I10] Liver lesion [K76.9] INVALID FOR* More... Myelomalacia (HCC) [G95.89] More... 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 Performed By: #### UTOX2 ### #[facility], [place] [phone] Barbiturates, Urine Negative Negative Normal 06-24-2019 [facility] ([id number]) Comment: Result Comment: Cutoff thres hold at 200 ng/mL. Performed By: #### UTOX2 ### #[facility], [place] [phone] Benzodiazepines, Ur Negative Negative Normal 06-24-2019 [facility] ([id number]) Comment: Result Comment: Cutoff thres hold at 200 ng/mL. Performed By: #### UTOX2 ### #[facility] [address], [place] [phone] Cannabinoids, Urine Negative Negative Normal 06-24-2019 [facility] ([id number]) Comment: Result Comment: Cutoff thres hold at 50 ng/mL. Performed By: #### UTOX2 ### #[place] [address] [address] [place] [phone] Cocaine, Urine Negative Negative Normal 06-24-2019 [facility] ([id number]) Comment: Result Comment: Cutoff thres hold at 300 ng/mL. Performed By: #### UTOX2 ### #[place] [phone] Ethanol, Urine <11 <11 Normal 06-24-2019 [facility] ([id number]) Comment: Performed By: #### UTOX2 ### #[place] [phone] Opiates, Urine Negative Negative Normal 06-24-2019 [facility] ([id number]) Comment: Result Comment: Cutoff thres hold at 300 ng/mL. Performed By: #### UTOX2 ### #[place] [phone] Oxycodone, Urine Negative Negative Normal 06-24-2019 [facility] ([id number]) Comment: Result Comment: Cutoff thres hold at 100 ng/mL. Comment: Immunoassay screen only. Mixed C[employer] Liv[employer] Farmer ss reactivity with other substances can occur with immunoassay screening. Detection of any drug(s) in this urine toxicology panel is presumptive only. These tests are for med ical purposes only and shoul d not be used for compliance monitoring, legal, or forensic use. Samples should be within nor mal physiological conditions (e.g. pH). This assay does not include adulteration/specimen validity testing. In clinical settings, confir matory testing is at the practitioner's discretion [1]. If clinically indicated, confirmation by high specificity, quantitative methodology, which includes adulteration/speci men validity testing, may be requested on the same specimen through Client Services ([phone]) if contacted within 48 hours of initial testing. [1]Substance Abuse and [facility] Services Administration (2012). Clinical Drug Testing in Primary Care Technical Assistance Publication Series 32. Department of Health and Human Services, [place], p.10. Performed By: #### UTOX2 ### #[facility] [address] [place], [place] [phone] Phencyclidine, Urine Negative Negative Normal 9 [facility] ([id number]) Comment: Result Comment: Cutoff thres hold at 25 ng/mL. Performed By: #### UTOX2 ### #[facility] [address] [place], [place] [phone] progress on 2019-05 PROGRESS HNO ID: [id number] Normal 06-24-2019 [facility] Author: Stephanie Swann [place] ([id number]) Service: ? Author Type: Nurse Practitioner Type: Progress Notes Filed: 06/30/2019 4:25 PM Note Text: NAME: Christopher Smith AGE: [age] year old Patient is referred in consultation by Nelsy Hearn) Chelsey steel for an opinion regarding Hepatitis C and my final recommendations w ill be communicated back to the requesting physician by way of lissette ed Medical Record. PRESENTING COMPLAINT AND HISTORY HPI: Christopher Smith is a pleasant 44 year old year old male w ho presents with chronic hepatitis C/ETOH Cirrhosis. The patient's risk factors for the contraction of viral hepatitis include intranasal cocain e use, tattoos, alcohol and high risk sexual behavior. The hepatiti s C [place] 1a [place] [address] [place]/ml. PMHx includes HTN, COPD, Hepatitis C, Alcohol abuse, Asthma. In the past, the patient underwent a work-up for hepatitis C which included: no workup. He has not been treated for hepatitis C (naive to therapy). Recent MRI Liver shows Cirrhosis, no focal liver l esion found. Mr. Smith was hospitalized from 04/21/2019 to 04/24/2019 for impaired mobility. Per hospital note Mr. Smith has substantial alcoh ol abuse history and was experiencing gait instability and recurrent falls. Per hospital note: Our workup is in process, but current data suggests that Mr. Smith's signs and symptoms are a result of alcohol abuse. 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 Smith's gai t instability - An anatomic variant cerebral arterial system, which leads to an apparent lesion in the corpus callosum but which is not a true abnorm ality according to our Radiologists The patient endorses jaundice and dark colored urine in the past. Patient denies RUQ pain, shortness of breath, signs of fluid retenti on, fever, chills, nausea, pale colored stools, constipation, diarrhea, hematemesis, melena, decreased appetite, muscle wasting, confusion, weigh t loss and fatigue Current MELD Na Score: 10 Complications of Cirrhosis: 1. Ascites: No 2. SBP: No 3. Non-bleeding varices: No 4. Variceal hemorrage: No 5. Portosystemic encephalopathy: No 6. Hepatorenal Syndrome: No 7. Hepatopulmonary Syndrome: No 8. Hepatic hydrothorax: No 9. Recurrent Cholangitis (PSC): No Patient states he has not had a drink in the past two months . He started drinking in his early teens, he drank from morning until he passed out at night, 24 oz cans of beer for at least 15 years. Started doi ng drugs around the same time started with marijuana, and did other d rugs intranasally sporadically if the drugs were around. PAST SURGICAL HISTORY Procedure Laterality Date - NONE PAST MEDICAL HISTORY Diagnosis Date - Alcohol abuse - COPD (chronic obstructive pulmonary disease) (HCC) - Emphysema lung (HCC) - Hepatitis C - HTN (hypertension) - Hyperbilirubinemia - Liver lesion 03/2019 CT - Myelomalacia (HCC) C5/6 - Thrombocytopenia (HCC) - Tobacco use - Unsteady gait - Vestibular schwannoma (HCC) Social History Socioeconomic History Marital status: Spouse name: Not on file Number of children: Not on file Years of education: Not on file Highest education level: Not on file Occupational History Not on file Social Needs Financial resource strain: Not on file Food insecurity: Worry: Not on file Inability: Not on file Transportation needs: Medical: Not on file Non-medical: Not on file Tobacco Use Smoking status: Current Every Day Smoker Packs/day: 1.00 Years: 33.00 Pack years: 33 Types: Cigarettes Quit date: 10/23/2007 Years since quittin.6 Smokeless tobacco: Never Used Substance and Sexual Activity Alcohol use: Not Currently Alcohol/week: 45.0 standard drinks Types: 18 Cans of Beer (12oz) per week Comment: daily - stopped 2 months ago 06/09/2019 Drug use: Not Currently Sexual activity: Not Currently Partners: Female Lifestyle Physical activity: Days per week: Not on file Minutes per session: Not on file Stress: Not on file Relationships Social connections: Talks on phone: Not on file Gets together: Not on file Attends caodaism service: Not on file Active member of club or organization: Not on file Attends meetings of clubs or organizations: Not on file Relationship status: Not on file Intimate partner violence: Fear of current or ex partner: Not on file Emotionally abused: Not on file Physically abused: Not on file Forced sexual activity: Not on file Other Topics Concerns: Not on file Social History Narrative Not on file Current Outpatient Medications Medication Sig Dispense Refill - umeclidinium (INCRUSE ELLIPTA) 62.5 mcg/actuation inhaler Inhale 1 Puff as instructed once daily. 1 Each 5 - albuterol HFA (VENTOLIN HFA) 90 mcg/actuation inhaler Inha le 2 Puffs as instructed every 4 hours as needed. (Patient not taking: Rep orted on 06/24/2019 ) 1 Inhaler 1 - thiamine (VITAMIN B1) 100 mg tablet Take 1 tablet by mouth once daily. 30 tablet 0 No current facility-administered medications for this visit. ALLERGIES Allergen Reactions - Vicodin [Hydrocodon* Hives FAMILY HISTORY Liver Problems: No Colitis: No Colon Cancer: No Other Cancers: No FAMILY HISTORY Problem Relation Age of Onset - other (lung cancer) Mother - Heart disease Father CABG x3 - Colon Cancer Father age 67 - Alcohol/Drug Father alcoholism - Parkinsonism Paternal Grandmother - Skin Cancer Sister - Heart disease Maternal Aunt - Stroke Maternal Aunt - Heart disease Maternal Uncle - Stroke Paternal Uncle - Cancer Paternal Uncle throat GENERAL ROS Colon polyps: No Colon cancer: No Other cancer: No Radiation / Chemotherapy: No Crohn's disease / Ulcerative colitis: No High cholesterol or triglycerides: Yes Ulcers: No Gallstones: No Hepatitis / jaundice: Yes Heart Disease: No Lung Disease: No Liver problems: Yes Thyroid disease: No Kidney stones: No Pancreatitis: Yes Diabetes: No Arthritis: No Rheumatic fever: No Gastrointestinal bleeding: No Depression or other mental illness: No Other personal illness: No PHYSICAL EXAMINATION BP 138/83 Pulse 70 Temp (Src) 98.3 (Oral) Ht 5' 10 (1 .78m) Wt 142 lb 12.8 oz (64.8kg) SpO2 98% BMI 20.49 kg/(m2). General Appearance: Well appearing, alert, in no acute distr ess, well-hydrated, well nourished, in wheelchair Eyes: Conjunctiva and sclera normal Oropharynx: Lips, tongue, and oral mucosa normal. There is n o thrush or oral ulcers. Lungs:breath sounds clear to auscultation bilaterally, no cr ackles, rhonchi, or wheezes Heart: regular rate and rhythm, no murmurs or gallops. Abdomen: not distended, normal bowel sounds, soft and depres sible, no guarding or rebound, no palpable mass, no organomegaly Extremities: no cyanosis or edema, slight tremors Skin: no jaundice, no spider angiomas, no palmar erythema Neuro:alert, oriented x 3, pleasant and in no acute distress , + asterixis Recent Labs: Hemoglobin (g/dL) Date Value 06/09/2019 16.1 Hematocrit (%) Date Value 06/09/2019 50.0 WBC (k/uL) Date Value 06/09/2019 9.03 Glucose (mg/dL) Date Value 06/09/2019 74 Potassium (mmol/L) Date Value 06/09/2019 4.7 Sodium (mmol/L) Date Value 06/09/2019 138 Chloride (mmol/L) Date Value 06/09/2019 102 CO2 (mmol/L) Date Value 06/09/2019 23 Creatinine (mg/dL) Date Value 06/09/2019 0.74 BUN (mg/dL) Date Value 06/09/2019 6 Anion Gap (mmol/L) Date Value 06/09/2019 13 Calcium (mg/dL) Date Value 06/09/2019 10.2 Albumin (g/dL) Date Value 06/09/2019 3.7 (L) Bilirubin, Total (mg/dL) Date Value 06/09/2019 0.6 Bilirubin, Conjug (mg/dL) Date Value 04/21/2019 0.7 (H) Alkaline Phosphatase (U/L) Date Value 06/09/2019 88 AST (U/L) Date Value 06/09/2019 36 ALT (U/L) Date Value 06/09/2019 17 Protein, Total (g/dL) Date Value 06/09/2019 8.4 (H) MELD-Na score: 10 at 04/23/2019 7:46 AM MELD score: 10 at 04/23/2019 7:46 AM Calculated from: Serum Creatinine: 0.79 mg/dL (Rounded to 1 mg/dL) at 04/23/20 19 7:46 AM Serum Sodium: 141 mmol/L (Rounded to 137 mmol/L) at 9 7:46 AM Total Bilirubin: 1.2 mg/dL at 04/23/2019 7:46 AM INR(ratio): 1.3 at 04/21/2019 11:25 PM Age: 43 years Imaging MRI Liver 06/18/2019 IMPRESSION: Cirrhosis. No focal liver lesion is found. Serum alpha-fetop rotein measurement is suggested. FINDINGS: Liver: No focal liver lesion is found. Some of the T1-weight ed imaging sequences show 2 focal bright signal areas posteriorly in th e right lobe of the liver, 4:46, which may be due to flow artifact. No en hancing focal liver lesions are noted. Some generalized inhomogeneity of l iver enhancement is presumably due to fibrosis associated with ci rrhosis. Lobulated liver contour and prominent left and caudate lobes consistent with cirrhosis. Recanalization of the umbilical vein consist ent with some degree of portal venous hypertension. Biliary tract: ? ? ?The common bile duct is normal in course and caliber. ?No filling defect is identified within the common duct. Gallbladder: Unremarkable Pancreatic duct: The visualized portions of the pancreatic d uct are normal. Spleen: No lesion is identified. Pancreas: The pancreas enhances normally and is without foca l lesions. Adrenal glands: No mass is identified Kidneys: The visualized portions of the kidneys are normal. Mildly prominent portacaval lymph nodes are again noted. Thi s can be seen with liver disease. Assessment IMPRESSION Mr. Smith is a 44 year old with chronic hepatitis C genotyp e 1a who comes for treatment recommendations. He had liver fibrosis and act ivity labs drawn that showed Fibrosis stage.F He has had the following liver related complications fatigue and jaundice. He is immune for neither hepatitis A or B. He is here for hepatitis treatment and acc ording to the patient and family, this is the first they have heard about cirrhosis. Recent MRI liver showed cirrhosis, no focal liver lesion. -I have explained the natural history of hepatitis C to the patient and mode of transmission. I have explained the current insurance guidelines regarding treatment of hepatitis C. -Discussed the natural history of liver disease, up to and i ncluding cirrhosis -Long discussion about regular follow up for cirrhosis (at [facility] every 6 months) to include labs, imaging, HCC screening and EV surve illance. Patient is deciding whether he would like to be followed her e or locally. -Discussed a healthy, Mediterranean type diet with lean prot eins, fresh fruits and vegetables, low carb and low sugar -Discussed the importance of NO Alcohol and discussed resour ghada available to help him quit PLAN (K70.30) Alcoholic cirrhosis of liver without ascites (HCC) (primary encounter diagnosis) -Colonoscopy to screen for cancer -EGD Banding to screen for EVs -AMA, DAVIAN, A1A, CMV, EBV IGM, EBV IGG to rule out causes of li8ver disease -US Abd RUQ for liver morphology and HCC screening in six mo nths (B18.2) Chronic hepatitis C without hepatic coma (HCC) -Urine toxicity screen x 3 -HCV Quant for latest viral load -Liver fibrosis and activity for fibrosis level Return to office here or locally in 6 months. During this patient visit I have spent approximately 45 aletha orlin out of 55 in counseling regarding LAF diet, smoking cessation, exercis e, treatment options, medications, test results and coordinating care. Stephanie Swann, PERIANESTHESIA RN,STORAGE MANAGEMENT ARCHITECT June 24, 2019 4:05 PM mitochondrial ab pnl on 2019-06-24 Mitochondrial Ab Pnl Negative Negative Normal 9 [facility] ([id number]) Comment: Result Comment: Normal range : negative at a 1:20 serum dilution. Performed By: #### EBVM, PRADIP O, HCQPCR, ANAIFS, CMVQNT, EBVG, ANABLL, LIVFIB ####[facility] [id number] [place], [place] [phone] liver fibro and acti on 2019-06-24 Alpha2 Macroglobulin 499 106-279 mg/dL High 9 [facility] ([id number]) Comment: Performed By: #### EBVM, PRADIP O, HCQPCR, ANAIFS, CMVQNT, EBVG, ANABLL, LIVFIB ####[facility] [id number], [place] [phone] ALT [Catalytic activity/Vol] 49 9-46 U/L High 0 06-24-2019 [facility] ([id number]) Comment: Performed By: #### EBVM, PRADIP O, HCQPCR, ANAIFS, CMVQNT, EBVG, ANABLL, LIVFIB ####[facility] [id number], [place] [phone] Apolipoprotein A-I 100 94-176 mg/dL Normal 06-24-2019 [facility] [Mass/Vol] [place] ([id number]) Comment: Performed By: #### EBVM, PRADIP O, HCQPCR, ANAIFS, CMVQNT, EBVG, ANABLL, LIVFIB ####[facility] Labor[facility] [id number] [place] [phone] Bilirubin [Mass/Vol] 0.7 0.2-1.2 mg/dL Normal 9 [facility] ([id number]) Comment: Performed By: #### EBVM, PRADIP O, HCQPCR, ANAIFS, CMVQNT, EBVG, ANABLL, LIVFIB ####[facility] [id number] [place], [place] [phone] Fibrosis Interp SEE NOTE Normal 06-24-2019 [facility] ([id number]) Comment: Result Comment: (NOTE) severe fibrosis Fibro Test Score Metavir Sco re 0.00-0.21 F0 no fibrosis 0.22-0.27 F0-F1 0.28-0.31 F1 minimal fibrosi s 0.32-0.48 F1-F2 0.49-0.58 F2 moderate fibros is 0.59-0.72 F3 advanced fibros is 0.73-0.74 F3-F4 0.75-1.00 F4 severe fibrosis Performed By: #### EBVM, PRADIP O, HCQPCR, ANAIFS, CMVQNT, EBVG, ANABLL, LIVFIB ####[facility] [id number] [place] [phone] Fibrosis Score 0.83 Normal 06-24-2019 [facility] ([id number]) Comment: Performed By: #### EBVM, PRADIP O, HCQPCR, ANAIFS, CMVQNT, EBVG, ANABLL, LIVFIB ####[facility] [id number] [place] [address] Fibrosis Stage F4 Normal 06-24-2019 [facility] ([id number]) Comment: Performed By: #### EBVM, PRADIP O, HCQPCR, ANAIFS, CMVQNT, EBVG, ANABLL, LIVFIB ####[facility] [id number] [place] [phone] Footnote SEE NOTE Normal 06-24-2019 [facility] ([id number]) Comment: Result Comment: (NOTE) The reliability of results i s dependent on compliance with the preanalytical and analytical conditions recommended by [employer]. The tests have to be deferre d for: acute hemolysis, acute hepatitis, acute inflammation, extra he patic cholestasis. The advice of a specialist should be sought for interpretation in chronic hemolysis and Gilbert's syndrome. The test interpretation is not validated in liver transplant patients. I solated extreme values of one of the components should lead to ca ution in interpreting the results. In case of discordance between a bio psy result and a test, it is recommended to seek the advice of a spec ialist. The causes of these discordances could be due to a flaw of th e test or to a flaw in the biopsy: i.e. a liver biopsy has a 33% varia bility rate for one fibrosis stage. FibroTest is interpretable f or chronic hepatitis B and C, alcoholic and non alcoholic steatosis. ActiTest is interpretable for chronic hepatitis B and C. The performance characterist ics have been determined by [facility] e, [place]. It has not been cleared or approved by the U .S. Food and Drug Administration. Performance characteristics refer to the analytical performance of the test. [employer], [employer], e associated logo, [employer] and all associated [employer] t[employer] torre are the registered trademarks of [employer]. All critical access hospital democrat torre - (R) and (TM) - are the property of their respective owners. (C) 5353-2092 [employer]. All rights res erved. Test Performed at: [facility] [place] [facility] [address] [facility], [place] [address] Sanam Joyce MD, PhD, ABDIRIZAK Performed By: #### EBVM, PRADIP O, HCQPCR, ANAIFS, CMVQNT, EBVG, ANABLL, LIVFIB ####[facility] [id number] [place] [phone] Gamma glutamyl transferase 59 3-95 U/L Normal [facility] [Catalytic activity/Vol] [place] ([id number]) Comment: Performed By: #### EBVM, PRADIP O, HCQPCR, ANAIFS, CMVQNT, EBVG, ANABLL, LIVFIB ####[facility] [id number] [place], [place] [phone] Haptoglobin 104 43-212 mg/dL Normal 06-24-2019 [facility] ([id number]) Comment: Performed By: #### EBVM, PRADIP O, HCQPCR, ANAIFS, CMVQNT, EBVG, ANABLL, LIVFIB ####[facility] [id number] [place] [phone] NecroinflamAct Grade SEE NOTE Normal 9 [facility] ([id number]) Comment: Result Comment: (NOTE) Result: A1-A2 Performed By: #### EBVM, PRADIP O, HCQPCR, ANAIFS, CMVQNT, EBVG, ANABLL, LIVFIB ####[facility] [id number] [place], [place] [phone] NecroinflamAct Score 0.47 Normal 201 9 [facility] ([id number]) Comment: Performed By: #### EBVM, PRADIP O, HCQPCR, ANAIFS, CMVQNT, EBVG, ANABLL, LIVFIB ####[facility] [id number] [place], [place] [phone] Necroinflamm Interp SEE NOTE Normal 06-24-2019 [facility] ([id number]) Comment: Result Comment: (NOTE) minimal activity ActiTest Score Metavir Score 0.00-0.17 A0 no activity 0.18-0.29 A0-A1 0.30-0.36 A1 minimal activit y 0.37-0.52 A1-A2 0.53-0.60 A2 significant act ivity 0.61-0.62 A2-A3 0.63-1.00 A3 severe activity Performed By: #### EBVM, PRADIP O, HCQPCR, ANAIFS, CMVQNT, EBVG, ANABLL, LIVFIB ####[facility] [id number], [place] [phone] Reference ID [id number] Normal 06-24-2019 [facility] ([id number]) Comment: Performed By: #### EBVM, PRADIP O, HCQPCR, ANAIFS, CMVQNT, EBVG, ANABLL, LIVFIB ####[facility] [id number] [place], [place] [phone] hepatitis c rna on 2019-06-24 Hepatitis C RNA [id number] IU/mL Critically abnormal 05-29 [facility] ([id number]) Comment: Result Comment: INTERPRETATI ON: Positive for HCV RNA by PCR. The Linear Range of this ass ay is 15 IU/mL to 100,000,000 IU/mL. Reference Range: Negative fo r HCV RNA Performed By: #### EBVM, PRADIP O, HCQPCR, ANAIFS, CMVQNT, EBVG, ANABLL, LIVFIB ####[facility] Labor[facility] [id number] [place], [place] [phone] ebv igm antibody on 2019-06-24 EBV VCA IgM <0.2 Normal 06-24-2019 [facility] ([id number]) Comment: Result Comment: AI VALUES AR E INTERPRETED FOLLOWS: NEGATIVE SPECIMENS <=0.8 EQUIVOCAL SPECIMENS 0.9 TO 1 .0 POSITIVE SPECIMENS >=1.1 The magnitude of the reporte d IgM level cannot be correlated to an endpoint titer (or clinical status). Performed By: #### EBVM, PRADIP O, HCQPCR, ANAIFS, CMVQNT, EBVG, ANABLL, LIVFIB ####[facility] [id number] [place], [place] [phone] EBV VCA IgM, Qual Negative Negative Normal 06-24-[address] [facility] ([id number]) Comment: Result Comment: EBV VCA IgM antibodies are not detectable. Performed By: #### EBVM, PRADIP O, HCQPCR, ANAIFS, CMVQNT, EBVG, ANABLL, LIVFIB ####[facility] [id number] [place], [place] [phone] ebv igg antibody on 2019-06-24 EBV VCA IgG >8.0 Normal 06-24-2019 [facility] ([id number]) Comment: Result Comment: AI VALUES AR E INTERPRETED FOLLOWS: NEGATIVE SPECIMENS <=0.8 EQUIVOCAL SPECIMENS 0.9 TO 1 .0 POSITIVE SPECIMENS >=1.1 Antibody index (AI) values r eflect qualitative changes in antibody concentration that cannot be associated with clinical condition or disease state. Performed By: #### EBVM, PRADIP O, HCQPCR, ANAIFS, CMVQNT, EBVG, ANABLL, LIVFIB ####[facility] [id number] [place], [place] [phone] EBV VCA IgG, Positive Negative Critically abnormal 06-24- 019 [facility] ([id number]) Comment: Result Comment: Specimen is positive for EBV VCA IgG antibody. A positive test result presumes a curre nt or past infection with EBV. Other EBV serology assays such as the EBV VCA IgM should be performed to confirm serologic status, active acu te, past or indeterminate infection for EBV-associated infectious mo nonucleosis. Performed By: #### EBVM, PRADIP O, HCQPCR, ANAIFS, CMVQNT, EBVG, ANABLL, LIVFIB ####[facility] [id number] [place], [place] [phone] cnov on 2019-06-24 CNOV Office Visit (GASTA5) Normal 06-24-20 [facility] CHRISTOPHER SMITH ([id number]) 1975 [facility] Date Time Provider Department ([id number]) 06/24/19 4:15 PM STEPHANIE SWANN (CHRISTIANNE) GASTA5 During your visit today, we recorded the following informati on about you: Temperature Pulse Blood pressure Weight 98.3 degrees 70/minute 138/83 64.8 kg Height 1.778 m Stephanie Swann APRN, CNP 06/30/2019 4:25 PM Signed NAME: Christopher Smith AGE: [age] year old Patient is referred in consultation by Nelsy Hearn) Chelsey steel for an opinion regarding Hepatitis C and my final recommendations will be communicated back to the requesting physician by way of shared Medical Re cord. PRESENTING COMPLAINT AND HISTORY HPI: Christopher Smith is a pleasant 44 year old year old male who presents with chronic hepatitis C/ETOH Cirrhosis. The patient's risk facto rs for the contraction of viral hepatit is include intranasal cocaine use, tattoos, alcohol and high risk sexual behavior. The hepatitis C genotype is 1 [place] [address] IU/ml. PMHx includes HTN, COPD, Hepatiti s C, Alcohol abuse, Asthma. In the past, the patient und erwent a work-up for hepatitis C which included: no workup. He has not been treated for hepatitis C (naive to th erapy). Recent MRI Liver shows Cirrhosis, no focal liver lesion found. Mr. Smith was hospitalized from 04/21/20 to 04/24/2019 for impaired mobility. Per hospital note Mr. Smith has substantial alcohol abuse h istory and was experiencing gait instability and recurrent falls. Per hospital note: Our workup is in process, bu t current data suggests that Mr. Smith's signs and symptoms are a result of alcohol abuse. Newly identified fin dings include: - Cerebellar atrophy, which can be a result of alcohol abuse - Alcoholic hepatitis, improving compared with April 03 lab testing - C5/C6 myelomalacia, which we suspect to be a result of rec urrent falls - A 5x3mm left internal auditory canal l esion suspicious for Schwannoma, which we believe to be minimally related to Mr. Smith's gait inst ability - An anatomic variant cerebral arterial system, which leads to an apparent lesion in the corpus callosum but which is not a true abnormality according to our Radiologists The patient endorses jaundice and dark colored urine in the past. Patient denies RUQ pain, shortness of breath, si gns of fluid retention, fever, chills, nausea, pale colored stools, constipation, diarrhea, hematem esis, melena, decreased appetite, muscle wasting, confusion, weight loss a nd fatigue Current MELD Na Score: 10 Complications of Cirrhosis: 1. Ascites: No 2. SBP: No 3. Non-bleeding varices: No 4. Variceal hemorrage: No 5. Portosystemic encephalopathy: No 6. Hepatorenal Syndrome: No 7. Hepatopulmonary Syndrome: No 8. Hepatic hydrothorax: No 9. Recurrent Cholangitis (PSC): No Patient states he has not had a drink in the past two months . He started drinking in his early teens, he drank from morning until he passed out at night, 24 oz cans of beer for at least 15 years. Started d oing drugs around the same time started with marijuana, and did other drugs in tranasally sporadically if the drugs were around. PAST SURGICAL HISTORY Procedure Laterality Date - NONE PAST MEDICAL HISTORY Diagnosis Date - Alcohol abuse - COPD (chronic obstructive pulmonary disease) (HCC) - Emphysema lung (HCC) - Hepatitis C - HTN (hypertension) - Hyperbilirubinemia - Liver lesion 03/2019 CT - Myelomalacia (HCC) C5/6 - Thrombocytopenia (HCC) - Tobacco use - Unsteady gait - Vestibular schwannoma (HCC) Social History Socioeconomic History Marital status: Spouse name: Not on file Number of children: Not on file Years of education: Not on file Highest education level: Not on file Occupational History Not on file Social Needs Financial resource strain: Not on file Food insecurity: Worry: Not on file Inability: Not on file Transportation needs: Medical: Not on file Non-medical: Not on file Tobacco Use Smoking status: Current Every Day Smoker Packs/day: 1.00 Years: 33.00 Pack years: 33 Types: Cigarettes Quit date: 10/23/2007 Years since quittin.6 Smokeless tobacco: Never Used Substance and Sexual Activity Alcohol use: Not Currently Alcohol/week: 45.0 standard drinks Types: 18 Cans of Beer (12oz) per week Comment: daily - stopped 2 months ago 06/09/2019 Drug use: Not Currently Sexual activity: Not Currently Partners: Female Lifestyle Physical activity: Days per week: Not on file Minutes per session: Not on file Stress: Not on file Relationships Social connections: Talks on phone: Not on file Gets together: Not on file Attends caodaism service: Not on file Active member of club or organization: Not on file Attends meetings of clubs or organizations: Not on file Relationship status: Not on file Intimate partner violence: Fear of current or ex partner: Not on file Emotionally abused: Not on file Physically abused: Not on file Forced sexual activity: Not on file Other Topics Concerns: Not on file Social History Narrative Not on file Current Outpatient Medications Medication Sig Dispense Refill - umeclidinium (INCRUSE ELLIPTA) 62.5 mcg/actuation in haler Inhale 1 Puff as instructed once daily. 1 Each 5 - albuterol HFA (VENTOLIN HFA) 90 mcg/actuation inhaler Inha le 2 Puffs as instructed every 4 hours as needed. (Pat ient not taking: Reported on 06/24/2019 ) 1 Inhaler 1 - thiamine (VITAMIN B1) 100 mg tablet Take 1 tablet by once daily. 30 tablet 0 No current facility-administered medications for this visit. ALLERGIES Allergen Reactions - Vicodin [Hydrocodon* Hives FAMILY HISTORY Liver Problems: No Colitis: No Colon Cancer: No Other Cancers: No FAMILY HISTORY Problem Relation Age of Onset - other (lung cancer) Mother - Heart disease Father CABG x3 - Colon Cancer Father age 67 - Alcohol/Drug Father alcoholism - Parkinsonism Paternal Grandmother - Skin Cancer Sister - Heart disease Maternal Aunt - Stroke Maternal Aunt - Heart disease Maternal Uncle - Stroke Paternal Uncle - Cancer Paternal Uncle throat GENERAL ROS Colon polyps: No Colon cancer: No Other cancer: No Radiation / Chemotherapy: No Crohn's disease / Ulcerative colitis: No High cholesterol or triglycerides: Yes Ulcers: No Gallstones: No Hepatitis / jaundice: Yes Heart Disease: No Lung Disease: No Liver problems: Yes Thyroid disease: No Kidney stones: No Pancreatitis: Yes Diabetes: No Arthritis: No Rheumatic fever: No Gastrointestinal bleeding: No Depression or other mental illness: No Other personal illness: No PHYSICAL EXAMINATION BP 138/83 Pulse 70 Temp (Src) 98.3 (Oral) Ht 5' 10 (1.78m) Wt 142 lb 12.8 oz (64.8kg) SpO2 98% BMI 20.49 kg/(m2). General Appearance: Well uriel earing, alert, in no acute distress, well-hydrated, well nourished, in wheelchair Eyes: Conjunctiva and sclera normal Oropharynx: Lips, tongue, and oral mucosa normal. Ther e is no thrush or oral ulcers. Lungs:breath sounds clear to auscultation bilaterally, no crackles, rhonchi, or wheezes Heart: regular rate and rhythm, no murmurs or gallops. Abdomen: not distended, normal bowel marlen nds, soft and depressible, no guarding or rebound, no palpable mass, no organomegaly Extremities: no cyanosis or edema, slight tremors Skin: no jaundice, no spider angiomas, no palmar erythema Neuro:alert, oriented x 3, pleasant and in no acute distress , + asterixis Recent Labs: Hemoglobin (g/dL) Date Value 06/09/2019 16.1 Hematocrit (%) Date Value 06/09/2019 50.0 WBC (k/uL) Date Value 06/09/2019 9.03 Glucose (mg/dL) Date Value 06/09/2019 74 Potassium (mmol/L) Date Value 06/09/2019 4.7 Sodium (mmol/L) Date Value 06/09/2019 138 Chloride (mmol/L) Date Value 06/09/2019 102 CO2 (mmol/L) Date Value 06/09/2019 23 Creatinine (mg/dL) Date Value 06/09/2019 0.74 BUN (mg/dL) Date Value 06/09/2019 6 Anion Gap (mmol/L) Date Value 06/09/2019 13 Calcium (mg/dL) Date Value 06/09/2019 10.2 Albumin (g/dL) Date Value 06/09/2019 3.7 (L) Bilirubin, Total (mg/dL) Date Value 06/09/2019 0.6 Bilirubin, Conjug (mg/dL) Date Value 04/21/2019 0.7 (H) Alkaline Phosphatase (U/L) Date Value 06/09/2019 88 AST (U/L) Date Value 06/09/2019 36 ALT (U/L) Date Value 06/09/2019 17 Protein, Total (g/dL) Date Value 06/09/2019 8.4 (H) MELD-Na score: 10 at 04/23/2019 7:46 AM MELD score: 10 at 04/23/2019 7:46 AM Calculated from: Serum Creatinine: 0.79 mg/dL (Rounded to 1 mg/dL) at 04/23/20 19 7:46 AM Serum Sodium: 141 mmol/L (Rounded to 137 mmol/L) at 9 7:46 AM Total Bilirubin: 1.2 mg/dL at 04/23/2019 7:46 AM INR(ratio): 1.3 at 04/21/2019 11:25 PM Age: 43 years Imaging MRI Liver 06/18/2019 IMPRESSION: Cirrhosis. No focal liver lesion is found. Serum alpha-fetop rotein measurement is suggested. FINDINGS: Liver: No focal liver lesion is found. Some of the T1-weight ed imaging sequences show 2 focal bright signal areas posteriorly in th e right lobe of the liver, 4:46, which may be due to flow artifact. No en hancing focal liver lesions are noted. Some generalized inhomogeneity of l iver enhancement is presumably due to fibrosis associated with ci rrhosis. Lobulated liver contour and prominent left and caudate lobes consistent with cirrhosis. Recanalization of the umbilical vein consist ent with some degree of portal venous hypertension. Biliary tract: ? ? ?The common bile duct is normal in course and caliber. ?No filling defect is identified within the common duct. Gallbladder: Unremarkable Pancreatic duct: The visualized portions of the pancreatic d uct are normal. Spleen: No lesion is identified. Pancreas: The pancreas enhances normally and is without foca l lesions. Adrenal glands: No mass is identified Kidneys: The visualized portions of the kidneys are normal. Mildly prominent portacaval lymph nodes are again noted. Thi s can be seen with liver disease. Assessment IMPRESSION Mr. Smith is a 44 year old with chronic hepatitis C genotype 1a who comes for treatment recommendations. He had liver fibrosis and activity labs drawn that showed Fibrosis stage.F He has had the following liver related complications fatigue and jaundice. He is immune for neither hepatitis A or B. He is here for hepatitis treatment and according to the patient a nd family, this is the first they have heard about cirrhosis. Recent MRI live r showed cirrhosis, no focal liver lesion. -I have explained the [place] history of hepatitis C to the patient and mode of transmission. I have explained the current insurance guideli [facility] regarding treatment of hepatitis C. -Discussed the natural history of liver disease, up to and including cirrhosis -Long discussion about regular follow up for cirrhosis (at [facility] every 6 months) to include labs, imaging, HCC screening and EV surveillance. Patient is deciding whether he would like to be followed here or [facility]. -Discussed a healthy, Mediterranean type diet with lean proteins, fresh fruits and vegetables, low carb and low sugar -Discussed the importance of NO Alcohol and discussed resources available to help him quit PLAN (K70.30) Alcoholic cirrhosis of liver wi thout ascites (HCC) (primary encounter diagnosis) -Colonoscopy to screen for cancer -EGD Banding to screen for EVs -AMA, DAVIAN, A1A, CMV, EBV IGM, EBV IGG to rule out causes of li8ver disease -US Abd RUQ for liver morphology and HCC screening in six mo nt (B18.2) Chronic hepatitis C without hepatic coma (HCC) -Urine toxicity screen x 3 -HCV Quant for latest viral load -Liver fibrosis and activity for fibrosis level Return to office here or locally in 6 months. During this patient visit I have spent approximately 4 5 minutes out of 55 in counseling regarding LAF diet, smoking c essation, exercise, treatment options, medications, test results and coordinating care. Stephanie Swann APRN,STORAGE MANAGEMENT ARCHITECT June 24, 2019 4:05 PM Stephanie Swann APRN,STORAGE MANAGEMENT ARCHITECT 06/24/2019 4:53 PM Addendum How to Prepare for Your Waterman noscopy Using Golytely, Nulytely, Trilyte or Colyte Preparations with Conscious Sedation IMPORTANT - Read These Instructions at Least 2 Weeks B efore your Colonoscopy Lay Instructions: ? Your bowel must be empty so that your doctor can clearly view your colon. Follow all of the instructions in this handout EXACTLY as they are written. If you do NOT follow the directions for when to start drinki ng the bowel preparation, your colonoscopy WILL be cancelled. ? Do NOT eat any solid food the ENTIRE day before your colon oscopy. ? Buy your bowel preparation at least 5 days before your col onoscopy. ? Do NOT mix the solution until the day before your colonosc opy. Designated Campground Caretaker on the Day of Your Exam A responsible family member or friend MUST come with y ou to your colonoscopy and REMAIN in the endoscopy area until y ou are discharged. You are NOT ALLOWED to drive, take a taxi or bus, or leave the Endoscopy C enter ALONE. If you do not have a responsible funeral limousine driver (family member or friend ) with you to take you home, you exam cannot be done with sedation and will be canc elled. Medications Some of the medications you take may need to be stopped or adjusted before your colonoscopy. You MUST call the doctor who ordered any of the following medicines at least 2 weeks before your colonoscopy. ? Blood thinners - such as Coumadin (warfarin), Plavix (clopidogrel), Ticlid (ticlopidine hydrochloride), Agrylin (anagrelide), Xarelto ( Rivaroxaban), Pradaxa (Dabigatran), Eliquis (Apixaban), and Effient (Prasu grel). ? Insulin or diabetes pills. Please call the doctor that monitors your glucose levels. Your insulin dosage may need to be adjusted due to t he diet restrictions required with this bowel pr eparation. (Please bring your diabetes medicines with you on the day of your procedure.) If you take aspirin, take it and ALL other medications presc ribed by your doctor. On the day of your colonoscopy, take your medicati ons with a sip of water. Five (5) Days Before Your Colonoscopy ? Do NOT take medicines that stop diarrhea - such as I modium, Kaopectate, or Pepto Bismol. ? Do NOT take fiber supplements - such as Metamucil, Citruce l, or Perdiem. ? Do NOT take products that contain iron - such as mul ti-vitamins (the label lists what is in the products). ? Do NOT take Vitamin E. Buy the prescription bowel preparation solution at your [facility] pharmacy or drugstore pharmacy. Three (3) Days Before Your Colonoscopy ? Do NOT eat high-fiber food s - such as popcorn, beans, seeds (flax, sunflower, quinoa), multigrain bread, nuts, salad/vegetables, or fresh and dried fruit. One (1) Day Before Your Colonoscopy Only drink clear liquids the ENTIRE DAY before your colono scopy. Do NOT eat any solid foods. Drink at least 8 ounces of clear liquids ev chance hour after waking up. The clear liquids you can drink include: ? Water, apple, or white grape juice; broth; coffee or tea (without milk or creamer); clear carbonated beverages such as vimal carloz or lemon-[place] soda; Gatorade or other sports drinks (not red); Raf-Aid or other flavored drinks (not red). You may eat plain jello or other gelatins (not red) or pop sicles (not red). Do NOT drink alcohol on the day before or the day of the pro cedure. When to Mix and Drink Your Bowel Prep Follow the instructions on the label. After mixi ng, place the solution in the refrigerator for a couple of hours before drinking. You may add the flavor pack that came with the bowel preparation. Do NOT add ice, s ugar or any flavorings to the solution. Morning Appointment (Before 12 noon) Step 1: ? Start drinking the bowel preparation at 6 PM the evening b efore your colonoscopy. Drink an 8-oz glass of bowel preparation every 10 minutes for a total of 8 glasses. ? You may continue to drink clear liquids until bedtime. Step 2: The day of the colonoscopy (4 hours before your exam ). ? Drink an 8-oz glass of bowel preparation every 10 mi nutes for a total of 8 glasses. ? You may continue to drink clear liquids up to 2 hours befo re your exam. If you take aspirin, take it and ALL other presc ribed medicines with a sip of water on the day of your colonoscopy. Afternoon Appointment (After 12 noon) ? Start drinking the bowel preparation at 6 AM the day of your colonoscopy. Drink an 8-oz glass of bowel preparation every 10 minutes. Y ou must finish drinking the solution by 9 AM. ? You may continue to drink clear liquids up to 2 hours befo re your exam. If you take aspirin, take it and ALL other presc ribed medicines with a sip of water on the day of your colonoscopy. Have bloodwork done and urine screen on the first floor toda y Schedule EGD and colonoscopy soon Call me when you complete last urine toxicity screen Schedule return to clinic in six months, here or locally, schedule ultrasound for the same day and have bloodwork drawn. Thank you for allowing me to care for you today, please cont act me Stephanie Swann APRN,STORAGE MANAGEMENT ARCHITECT Return to clinic in 6 months Referring Provider: NELSY ROUSE) [[id number]] Allergies As of Date: 06/24/2019 Noted Allergy Reaction VICODIN (HYDROCODONE-ACETAMINOPHE*04/03/2019 4 - Hives Date Reviewed: 06/24/2019 Reviewed by: Asya Moore MA - Fully Assessed Reason for Visit: New Patient [[id number]] Cmt: Hepatitis C Primary Visit Diagnosis:Alcoholic cirrhosis of liver without ascites (HCC) [K70.30] Other Visit Diagnosis:Chronic hepatitis C without hepa tic coma (HCC) [B18.2] Order(s):[] peg 3350-Electrolytes (GOLYTE LY) 236-22.74-6.74 -5.86 gram suspensionTake 4,000 mL by mouth one time only for 1 dose. R efer to printed prep instructions from your doctor.Disp: 1 BottleRfl : 0 INSERT IV ([place], [place]) [[id number]] Order #: [id number]: 1 FUTURE IV DISCONTINUE [[id number]] Order #: [id number]: 1 FUTURE INSERT IV ([place]) [[id number]] Order #: [id number]: 1 MITOCHONDRIAL AB PNL SCRN [SQMITO] Order #: [id number] FUTUR E DAVIAN BY IFA SCREEN [SQANAIFS] Order #: [id number] FUTURE ALPHA-1 ANTITRYPSIN NAUN [QLUL5OV] Order #: [id number] FUTUR E CMV DNA DETECTION AND QUANT [SQCMVQNT] Order #: [id number] F UTURE VINCE-MARK VCA IGM [SQEBVM] Order #: [id number] FUTURE VINCE-MARK VCA IGG [SQEBVG] Order #: [id number] FUTURE EGD BANDING [[id number]] Order #: [id number] FUTURE COLONOSCOPY SCRN NOT HIGH RISK [[id number]] Order #: [id number] FUTURE TOX SCREEN ROUT UR [SQUTOX2] Order #: [id number] STANDING HCV QUANT RNA BY PCR [SQHCQPCR] Order #: [id number] FUTURE LIVER FIBROSIS AND ACTIVITY [SQLIVFIB] Order #: [id number] F UTURE US ABD RT UPPER QUADRANT [[id number]] Order #: [id number] FUTUR E Prescriptions as of 06/24/2019 Sig: UMECLIDINIUM 62.5 MCG/ACTUATI* Inhale 1 Puff as instructed o * PEG 3350-ELECTROLYTES 236 GRA* Take 4,000 mL by mouth one ti * ALBUTEROL SULFATE HFA 90 MCG/* Inhale 2 Puffs as instructed * Patient not taking: Reported on 06/24/2019 THIAMINE HCL (VITAMIN B1) 100* Take 1 tablet by mouth once d * Problem List As Of Date 06/24/2019 Noted Resolved ASTHMA UNSPECIFIED [J45.909] INVALID FOR* ALLERGIC RHINITIS NOS [J30.9] INVALID FOR* TOBACCO USE DISORDER [F17.200] INVALID FOR* Ataxia [R27.0] INVALID FOR* Moderate protein-calorie malnutrition (HCC) [E4*INVALID FOR* Hepatitis C [B19.20] Alcohol abuse [F10.10] HTN (hypertension) [I10] Liver lesion [K76.9] INVALID FOR* More... Myelomalacia (HCC) [G95.89] More... Tobacco use [Z72.0] Vestibular schwannoma (HCC) [D33.3] COPD (chronic obstructive pulmonary disease) (H* Other instructions from your clinician: How to Prepare for Your Colonoscopy Using Golytely, Nulytely , Trilyte or Colyte Preparations with Conscious Sedation IMPORTANT - Read These Instructions at Least 2 Weeks Before your Colonoscopy Lay Instructions: ? Your bowel must be empty so that your doctor can clearly v iew your colon. Follow all of the instructions in this handout EXACTL Y as they are written. If you do NOT follow the directions for when to start drinki ng the bowel preparation, your colonoscopy WILL be cancelled. ? Do NOT eat any solid food the ENTIRE day before your colon oscopy. ? Buy your bowel preparation at least 5 days before your col onoscopy. ? Do NOT mix the solution until the day before your colonosc opy. Designated Campground Caretaker on the Day of Your Exam A responsible family member or friend MUST come with you to your colonoscopy and REMAIN in the endoscopy area until you are d ischarged. You are NOT ALLOWED to drive, take a taxi or bus, or leave t Endoscopy Center ALONE. If you do not have a responsible funeral limousine driver (famil y member or friend) with you to take you home, you exam cannot be done w ith sedation and will be cancelled. Medications Some of the medications you take may need to be stopped or a djusted before your colonoscopy. You MUST call the doctor who ordered any o f the following medicines at least 2 weeks before your colonoscopy . ? Blood thinners - such as Coumadin (warfarin), Plavix (clop idogrel), Ticlid (ticlopidine hydrochloride), Agrylin (anagrelide), Xa relto (Rivaroxaban), Pradaxa (Dabigatran), Eliquis (Apixaban), and Effient (Prasugrel). ? Insulin or diabetes pills. Please call the doctor that mon itors your glucose levels. Your insulin dosage may need to be adjusted due to the diet restrictions required with this bowel preparation. (Ple ase bring your diabetes medicines with you on the day of your procedur e.) If you take aspirin, take it and ALL other medications presc ribed by your doctor. On the day of your colonoscopy, take your medication s with a sip of water. Five (5) Days Before Your Colonoscopy ? Do NOT take medicines that stop diarrhea - such as Imodium , Kaopectate, or Pepto Bismol. ? Do NOT take fiber supplements - such as Metamucil, Citruce l, or Perdiem. ? Do NOT take products that contain iron - such as multi-vit amins (the label lists what is in the products). ? Do NOT take Vitamin E. Buy the prescription bowel preparation solution at your [facility] pharmacy or drugstore pharmacy. Three (3) Days Before Your Colonoscopy ? Do NOT eat high-fiber foods - such as popcorn, beans, seed s (flax, sunflower, quinoa), multigrain bread, nuts, salad/vegetables , or fresh and dried fruit. One (1) Day Before Your Colonoscopy Only drink clear liquids the ENTIRE DAY before your colonosc opy. Do NOT eat any solid foods. Drink at least 8 ounces of clear liquid s every hour after waking up. The clear liquids you can drink include: ? Water, apple, or white grape juice; broth; coffee or tea ( without milk or creamer); clear carbonated beverages such as vimal carloz o r lemon-sac & [place] soda; Gatorade or other sports drinks (not red); Raf-Aid or other flavored drinks (not red). You may eat plain jello or other gelatins (not red) or popsi cles (not red). Do NOT drink alcohol on the day before or the day of the pro cedure. When to Mix and Drink Your Bowel Prep Follow the instructions on the label. After mixing, place th e solution in the refrigerator for a couple of hours before drinking. You may add the flavor pack that came with the bowel preparation. Do NOT add ice, sugar or any flavorings to the solution. Morning Appointment (Before 12 noon) Step 1: ? Start drinking the bowel preparation at 6 PM the evening b efore your colonoscopy. Drink an 8-oz glass of bowel preparation every 10 minutes for a total of 8 glasses. ? You may continue to drink clear liquids until bedtime. Step 2: The day of the colonoscopy (4 hours before your exam ). ? Drink an 8-oz glass of bowel preparation every 10 minutes for a total of 8 glasses. ? You may continue to drink clear liquids up to 2 hours befo re your exam. If you take aspirin, take it and ALL other prescribed medici kevin with a sip of water on the day of your colonoscopy. Afternoon Appointment (After 12 noon) ? Start drinking the bowel preparation at 6 AM the day of yo ur colonoscopy. Drink an 8-oz glass of bowel preparation every 10 minutes. You must finish drinking the solution by 9 AM. ? You may continue to drink clear liquids up to 2 hours befo re your exam. If you take aspirin, take it and ALL other prescribed medici kevin with a sip of water on the day of your colonoscopy. Have bloodwork done and urine screen on the first floor toda y Schedule EGD and colonoscopy soon Call me when you complete last urine toxicity screen Schedule return to clinic in six months, here or locally, sc jessie ultrasound for the same day and have bloodwork drawn. Thank you for allowing me to care for you today, please cont act me Stephanie Swann APRN, CNP Return to clinic in 6 months Prescriptions ordered this encounter Disp Refills Start End PEG 3350-ELECTROLYTES 236 GRAM-22.74* 1 [place]* 0 06/24/2019 Route: ORAL Sig: Take 4,000 mL by mouth one time only for 1 dose. Refe r to printed prep instructions from your doctor. Follow-up and Disposition History Recorded Encounter Status:Closed by STEPHANIE SWANN CNP on 06/30/19 cmv dna quant by pcr on 2019-06-24 CMV DNA (IU/mL) CMV DNA not detected by Normal 06-24-2019 [facility] PCR. [place] ([id number]) Comment: Result Comment: Linear Range 137 - 9,100,000 IU/mL (2.14 - 6.96 log IU/mL) Reference Range: Negative fo r CMV DNA Performed By: #### EBVM, PRADIP O, HCQPCR, ANAIFS, CMVQNT, EBVG, ANABLL, LIVFIB ####[facility] [id number] [place], [place] [phone] davian ifa titer bill on 2019-06-24 DAVIAN IFA Titer Bill Billed for services Normal 0 06-24-2019 [facility] ([id number]) Comment: Performed By: #### EBVM, PRADIP O, HCQPCR, ANAIFS, CMVQNT, EBVG, ANABLL, LIVFIB ####[facility] [id number] [place], [place] [phone] davian by ifa on 06-24 DAVIAN Pattern Homogeneous Normal 06-24-2019 [facility] ([id number]) Comment: Result Comment: Speckled Performed By: #### EBVM, PRADIP O, HCQPCR, ANAIFS, CMVQNT, EBVG, ANABLL, LIVFIB ####[facility] [id number], [place] [phone] DAVIAN Titer 1:160 Negative Critically abnormal 06-24-2019 [facility] ([id number]) Comment: Performed By: #### EBVM, PRADIP O, HCQPCR, ANAIFS, CMVQNT, EBVG, ANABLL, LIVFIB ####[facility] [id number], [place] [phone] Nuclear Ab IF (S) Positive Negative Critically abnormal [facility] [Titer] [place] ([id number]) Comment: Result Comment: Normal range : negative at <1:80 serum dilution. Performed By: #### EBVM, PRADIP O, HCQPCR, ANAIFS, CMVQNT, EBVG, ANABLL, LIVFIB ####[facility] [id number] [place], [place] [phone] alpha-1 antitryp gen on 2019-06-24 Alpha-1 Antitryp Int Result: No Variant Normal 06-24-2019 [facility] Detected in SERPINA1 [place] ([id number]) (PI*MM) Comment: Result Comment: Interpretation: DNA testing indicates that this patient does not have the S, Z, F, or I alleles of SERPINA1, the alpha-1 antitrypsin gene. Guidance: Genetic consultati on and counseling of at risk family members regarding this laboratory testing may be considered as clinically appropriate. Patients with no variants of SERPINA1 typically hav e serum alpha-1 antitrypsin levels between 102-254 mg/dL. If this patient has a serum alpha-1 antitrypsin level that is not consistent with this genotype and alpha-1 antitrypsin deficiency caused by a rare variant is clinically suspected, consider performing SERPINA1 gene sequencing. (NOTE) Method: Isolated genomic DNA from th e patient's blood specimen is evaluated for four variants in the alp montenegro-1 antitrypsin gene SERPINA1 (RefSeq [id number]; GRCh38/hg38) by multiplex polymerase chain reaction (PCR) followed by melting cu rve analysis. These include the two most common pathogenic variants: S (c.863A>T, p.Smt734Fui, g. [id number]), Z (c.1096G>A, p.Fau478Tlz, g .14980445), and the rarer variants: F (c.739C>T, p.Bjj461Van, g. [id number]), I (c.187C>T, p.Kgn01Spu, g.9 [id number]) Limitations: This Laboratory Developed Te st (LDT) is designed to detect the S, Z, F, and I alleles. The S and Z alleles comprise 95% of non-wild type genotypes. Uncommon variants or Single Nucleotide Polymorphisms may affect binding of LightMix? or LightSNiP? probes and may result in a false negative, false positi ve, or indeterminate result. Absence of the S, Z, F, and I alleles i s interpreted as PI*MM genotype. However, there are over 100 known rare variants of SERPINA1 that are not detected by this LDT. Th erefore, correlation of the genotype with the patient's serum alp montenegro-1 antitrypsin level and clinical manifestations is strongly r ecommended. Frequency of S, Z, F and I A lleles in the general population: S: Heterozygous 2%; Homozygo us 0.04% Z: Heterozygous 1%; Homozygo us 0.01% F: Heterozygous 0.3%; Homozy gous 0.001% I: Heterozygous 0.1%; Homozy gous unknown Allele frequency information was gathered from the [employer] (Ex[employer]) and includ es data from , , , and populations (suppo rting data in references). This LDT was developed and i ts performance characteristics determined by [facility]'s [facility] [place] ([facility]) . It has not been cleared or approved by the FDA. [facility] is regulate d under CLIA as qualified to perform high-complexity testing. Thi s LDT is used for clinical purposes. It should not be regarded as in vestigational or for research. References: Smita RA, Bryanna G, Efren gomes ML, Raffy M, Everett CE, K, Leila DK, Mikala SL, Bess BURRELL, Balbina OLIVO, Marisela C, Dilip J. The Diagnosis and Managemen t of Alpha-1 Antitrypsin Deficiency in the Adult. Chronic Obstr Pu lm Dis. 2016 Apr 02;3(3):668-682. Asher JA, Martinez ON, Jani wood ER, Giovana DG. a1-Antitrypsin phenotypes and associated se rum protein concentrations in a large clinical population. Chest. 2013 Jan;143(4):1000-8. Eugene A, Lu NA, Karely on CR, Radha FJ, Tad SJ, Kalpana AF. Molecular characterisati on of three upjzm-3-npgfhmaepzv deficiency variants: protein ase inhibitor (Pi) nullcardiff (Zov541----Avy); PiMmalton (Prc86----tuzpciwc ) and PiI (Iog39----Mga). Hum Liza. 1988;84(1):55-8. Felicitas EK and Smita RA . Clinical practice. Alpha1-antitrypsin deficiency. N Engl J Med. Apr 21;360(26):0282-57. Sinchon NJ, Koarnoldo F, Donn DANIEL. The significance of the F variant of ghbbp-3-iaausisoigb and uniq ue case report of a PiFF homozygote. BMC Pulm Med. 2013Jun 03;14:132. Balbina OLIVO, Rukhsana FL, and Stephanie Jeffries. Alpha-1 Antitrypsin Deficiency. 2005Aug 23 [Upd ated 2016November 15]. In: Douglas RA, Mike MP, Fabien TO, et al., editors . GeneReviews [Internet]. [place]): [facility], [place]; [phone]. Available from: http://www.ncbi.nlm.nih.gov/ books/LQC9822/ Performed By: #### HA1AT ### #[facility] [id number] [place], [place] [phone] HA1AT Reviewed By Reviewed by Rossi Tello 06-24-2019 [facility] Jhonatan Caldwell, Ph.D Genny marshall ([id number]) ([id number]) Comment: Performed By: #### HA1AT ### #[facility] [id number] [place], [place] [phone] obsolete on 2019-05 OBSOLETE Procedure (PULMWS) Normal 06-23-2019 [place] [facility] CHRISTOPHER SMITH ([id number]) 1975 M [facility] Time Provider Department ([id number]) 06/23/19 3:15 PM RESPIRATORY THERAPIST [facility] WSTRPULMWS During your visit today, we recorded the following informati on about you: Referring Provider: NELSY ROUSE) [[id number]] Allergies As of Date: 06/23/2019 Noted Allergy Reaction VICODIN (HYDROCODONE-ACETAMINOPHE*04/03/2019 4 - Hives Date Reviewed: 06/18/2019 Reviewed by: Sheba (Carlo Churchill - Fully Assessed Reason for Visit: Spirometry [191] Visit Diagnosis:Restrictive lung disease [J98.4] Order(s):LUNG VOLUMES [[id number]] Order #: [id number] Prescriptions as of 06/23/2019 Sig: TIOTROPIUM BROMIDE 2.5 MCG/AC* Inhale 2 Puffs as instructed * ALBUTEROL SULFATE HFA 90 MCG/* Inhale 2 Puffs as instructed * THIAMINE HCL (VITAMIN B1) 100* Take 1 tablet by mouth once d * Problem List As Of Date 06/23/2019 Noted Resolved ASTHMA UNSPECIFIED [J45.909] INVALID FOR* ALLERGIC RHINITIS NOS [J30.9] INVALID FOR* TOBACCO USE DISORDER [F17.200] INVALID FOR* Ataxia [R27.0] INVALID FOR* Moderate protein-calorie malnutrition (HCC) [E4*INVALID FOR* Hepatitis C [B19.20] Alcohol abuse [F10.10] HTN (hypertension) [I10] Liver lesion [K76.9] INVALID FOR* More... Myelomalacia (HCC) [G95.89] More... Tobacco use [Z72.0] Vestibular schwannoma (HCC) [D33.3] COPD (chronic obstructive pulmonary disease) (H* Encounter Status:Closed by OMEGA SHEBA CALLES on 06/23/19 progress on 2019-05 PROGRESS HNO ID: [id number] Normal 06-18-2019 [facility] Author: Carlo Willard (Rt) ([id number]) Service: ? Author Type: Graphic Technician Type: Progress Notes Filed: 06/18/2019 9:49 AM Note Text: Radiology Service Progress Note DATE OF SERVICE: June 18, 2019 TIME: 9:48 AM PATIENT IDENTITY VERIFICATION COMPLETED USING TWO (2) METHOD S: Patient confirmed name verbally and Date of . PATIENT GENDER DATA: Male PATIENT RELEVANT IMPLANT DATA REVIEWED: Yes ALLERGIES: Reviewed and unchanged CONTRAST ALLERGY: NO. EXAM: MRI - CONTRAST TYPE: GROUP II PERIPHERAL IV DATA: Ambulatory: A peripheral IV was started in the Right forearm with a Angio cath: 22 gauge. RADIOLOGY DEPARTMENT: MR; Exam(s) Completed: Body: Liver (ro utine) SIGNATURE: RT Montse PATIENT NAME: Christopher Smith DATE: June 18, 2019 TIME: 9:48 AM obsolete on 2019-05 OBSOLETE Procedure (PULMWS) Normal 06-18-2019 [place] [facility] CHRISTOPHER SMITH ([id number]) 1975 M [place] Date Time Provider Department () 06/18/19 10:00 AM RESPIRATORY THERAPIST [facility] VAMSHITRSHIRA During your visit today, we recorded the following informati on about you: Pulse Respiration Weight Height 98/minute 16/minute 63.5 kg 1.778 m Referring Provider: NELSY ROUSE) [[id number]] Allergies As of Date: 06/18/2019 Noted Allergy Reaction VICODIN (HYDROCODONE-ACETAMINOPHE*04/03/2019 4 - Hives Date Reviewed: 06/18/2019 Reviewed by: Carlo Flores (Tech) - Fully Assessed Reason for Visit: Spirometry [191] Visit Diagnosis:Pulmonary emphysema, unspecified emphysema type (HCC) [J43.9] Order(s):SPIROMETRY - BASELINE AND POST DILATOR [[id number]] Or jb #: [id number]. #:[id number] Prescriptions as of 06/18/2019 Sig: ALBUTEROL SULFATE HFA 90 MCG/* Inhale 2 Puffs as instructed * THIAMINE HCL (VITAMIN B1) 100* Take 1 tablet by mouth once d * Problem List As Of Date 06/18/2019 Noted Resolved ASTHMA UNSPECIFIED [J45.909] INVALID FOR* ALLERGIC RHINITIS NOS [J30.9] INVALID FOR* TOBACCO USE DISORDER [F17.200] INVALID FOR* Ataxia [R27.0] INVALID FOR* Moderate protein-calorie malnutrition (HCC) [E4*INVALID FOR* Hepatitis C [B19.20] Alcohol abuse [F10.10] HTN (hypertension) [I10] Liver lesion [K76.9] INVALID FOR* More... Myelomalacia (HCC) [G95.89] More... Tobacco use [Z72.0] Vestibular schwannoma (HCC) [D33.3] Encounter Status:Closed by SHEBA DUFF RRT on 06/18/19 mri liver wo/w ivcon on 2019-06-18 MRI LIVER WO/W * * *Final Report* * * Normal [facility] IVCON DATE OF EXAM: Jun 18 2019 9:57AM [place] ([id number]) [facility] 0727 - MRI LIVER WO/W IVCON / PROCEDURE REASON: Myelomalacia (HCC) * * * * Physician Interpretation * * * * MRI of the abdomen without and with intravenous contrast HISTORY: Myelomalacia (HCC) TECHNIQUE: Using the torso phased array coil, axial STIR, T1 weighted in- and jsx-rb-olmxx and coronal HASTE images were obtained. Moises w sensitive imaging through the portal vein was performed, as well. Then , using a 3-D GRE T1 weighted sequence, dynamic images were obtained b efore, during and after the administration of 13 cc intravenous Dotarem. Comparison: None FINDINGS: Liver: No focal liver lesion is found. Some of the T1-weight ed imaging sequences show 2 focal bright signal areas posteriorly in th e right lobe of the liver, 4:46, which may be due to flow artifact. No en hancing focal liver lesions are noted. Some generalized inhomogeneity of l iver enhancement is presumably due to fibrosis associated with ci rrhosis. Lobulated liver contour and prominent left and caudate lobes consistent with cirrhosis. Recanalization of the umbilical vein consist ent with some degree of portal venous hypertension. Biliary tract: The common bile duct is normal in course and caliber. No filling defect is identified within the common duct. Gallbladder: Unremarkable Pancreatic duct: The visualized portions of the pancreatic d uct are normal. Spleen: No lesion is identified. Pancreas: The pancreas enhances normally and is without foca l lesions. Adrenal glands: No mass is identified Kidneys: The visualized portions of the kidneys are normal. Mildly prominent portacaval lymph nodes are again noted. Thi s can be seen with liver disease. IMPRESSION: Cirrhosis. No focal liver lesion is found. Serum alpha-fetop rotein measurement is suggested. Meat Wrapper: PSCB Transcribe Date/Time: Jun 18 2019 11:24A Dictated by : ROJAS MORE MD This examination was interpreted and the report reviewed and electronically signed by: ROJAS MORE MD on Jun 18 2019 11:59AM EST [id number] progress on 2019-05 PROGRESS HNO ID: [id number] Normal 06-15-2019 [facility] Author: Zay Sharpe [place] ([id number]) Service: ? Author Type: Physician Type: Progress Notes Filed: 06/16/2019 11:38 AM Note Text: [facility] - NEW PATIENT EVALUATION Tana Tony APRN.STORAGE MANAGEMENT ARCHITECT [address] [facility] [address] Nelsy Rouse MD [address] [facility] [address] Tony: Thank you for refering Mr. Smith to our clinic today. As yo u know he is a 44 year old right-handed male who is seen in consultation fo r evaluation of ataxia. He is seen along with his family. History of Present Illness: He feels like he has already drunk a twelve-pack and he has not had any alcohol in 2 months. He had a MRI in March that showed at eula st mild generalized atrophy. He has not had issues with his hand fun ction or voice. In addition, the following Movement disorders-associated fea tures were evaluated: loss of balance: Yes: falls: Yes: but not in a few months. cognitive difficulties: No depression: No anxiety: Yes: sometimes urinary problems: No significant speech problems: No swallowing problems: No insomnia: Yes: excessive daytime sleepiness: Yes: Review of Systems: Review of Systems Constitutional: Negative for chills, fatigue, fever and rece nt unintentional weight change. HENT: Negative for drooling, dysphonia, hearing loss and tro uble swallowing. Tinitus L>R Eyes: Positive for vision loss. Negative for visual disturba nce, blurred vision, double vision, glaucoma, ptosis and visual disturban ce. Respiratory: Negative for cough, difficulty breathing, short ness of breath and wheezing. Cardiovascular: Negative for chest pain, leg swelling and pa lpitations. Gastrointestinal: Negative for abdominal pain, blood in stoo l, constipation, diarrhea, melena, nausea and vomiting. Endo/Heme/Allergies: Negative for diabetic symptoms, cold in tolerance, cold intolerance and thyroid problem. Genitourinary: Negative for difficulty urinating, dysuria, e nuresis, hematuria, kidney stones, polyuria and sexual dysfunction. Hematologic/Lymphatic: Positive for bruises/bleeds easily. N egative for anemia and adenopathy. Allergic/Immunologic: Negative for allergic reaction and cayden quent infections. Musculoskeletal: Positive for arthralgias, back pain and nec k pain. Negative for myalgias, muscle weakness and neck stiffness. Skin: Negative for diaphoresis and rash. Allergies: ALLERGIES Allergen Reactions - Vicodin [Hydrocodon* Hives Current Medications: Current Outpatient Medications: albuterol HFA (VENTOLIN HFA) 90 mcg/actuation inhaler Inhale 2 Puffs as instructed every 4 hours as needed. thiamine (VITAMIN B1) 100 mg tablet Take 1 tablet by mouth o nce daily. No current facility-administered medications for this visit. Past Medical and Surgical History: has a past medical history of Alcohol abuse, Emphysema lung (HCC), Hepatitis C, HTN (hypertension), Hyperbilirubinemia, Liver l esion (03/2019), Myelomalacia (HCC), Thrombocytopenia (HCC), Tobac co use, Unsteady gait, and Vestibular schwannoma (HCC). has a past surgical history that includes none. In addition, the patient denies a history of exposure to dop amine receptor blocking agents, denies history of encephalitis/meningitis a nd denies significant exposure to insecticides/ pesticides/ heavy meta ls/ carbon monoxide Social History: Social History Socioeconomic History Marital status: Spouse name: Not on file Number of children: Not on file Years of education: Not on file Highest education level: Not on file Occupational History Not on file Social Needs Financial resource strain: Not on file Food insecurity: Worry: Not on file Inability: Not on file Transportation needs: Medical: Not on file Non-medical: Not on file Tobacco Use Smoking status: Current Every Day Smoker Packs/day: 1.00 Years: 33.00 Pack years: 33 Types: Cigarettes Quit date: 10/23/2007 Years since quittin.6 Smokeless tobacco: Never Used Substance and Sexual Activity Alcohol use: Not Currently Alcohol/week: 45.0 standard drinks Types: 18 Cans of Beer (12oz) per week Comment: daily - stopped 2 months ago 06/09/2019 Drug use: Not Currently Sexual activity: Not Currently Partners: Female Lifestyle Physical activity: Days per week: Not on file Minutes per session: Not on file Stress: Not on file Relationships Social connections: Talks on phone: Not on file Gets together: Not on file Attends caodaism service: Not on file Active member of club or organization: Not on file Attends meetings of clubs or organizations: Not on file Relationship status: Not on file Intimate partner violence: Fear of current or ex partner: Not on file Emotionally abused: Not on file Physically abused: Not on file Forced sexual activity: Not on file Other Topics Concerns: Not on file Social History Narrative Not on file Family History: family history includes Alcohol/Drug in his father; Cancer i n his paternal uncle; Colon Cancer in his father; Heart disease in his fath er, maternal aunt, and maternal uncle; Parkinsonism in his paternal grand mother; Skin Cancer in his sister; Stroke in his maternal aunt and patern al uncle; lung cancer in his mother. In addition, the patient denies any family history of PD/par kinsonism, tremor, other involuntary movement disorders. Objective: Vital Signs: BP 136/90 (BP Site: Left Arm, BP Position: Sitting, BP Cuff Size: Regular Adult) Pulse 90 Ht 177.8 cm (5' 10) Wt 64 kg (141 lb) SpO2 98% BMI 20.23 kg/m? General Medical Examination: General Description of Patient: Well appearing, comfortable and Thin Head:normocephalic, atraumatic Neck:No bruits, full range of movement, supple Cardiac: Regular rate and rhythm, no murmur Extremities: No leg edema, pulses intact, no rash or venous stasis changes. Neurological Exam Mental Status Awake, alert and oriented to person, place and time. Recent and remote memory are intact. Speech is normal. Language is fluent with no aphasia. Attention and concentration are normal. Fund of knowledge is appropriate for level of education. Cranial Nerves CN II: Visual acuity is normal. Visual morgan full to confro ntation. Right funduscopic exam: disc intact. Left funduscopic exam: disc i ntact. CN III, IV, : Extraocular movements intact bilaterally. Ny stagmus present: Normal lids and orbits bilaterally. Pupils equal ro und and reactive to light bilaterally. CN V: Facial sensation is normal. CN VII: Full and symmetric facial movement. CN VIII: Hearing is normal. CN IX, X: Palate elevates symmetrically. Normal gag reflex. CN XI: Shoulder shrug strength is normal. CN XII: Tongue midline without atrophy or fasciculations. He has significant nystagmus to lateral gaze R>L at 15 deg o ff midline. Motor Normal muscle bulk throughout. Normal muscle tone. The follo wing abnormal movements were seen: Strength is 5/5 throughout all four ext remities. Finger dexterity is impaired on the left>right there is no g lobal bradykinesia. Tone is normal. Foot tapping is off L>R. . Sensory Light touch is normal in upper and lower extremities. Propri oception is normal in upper and lower extremities. Reflexes Right Left Brachioradialis 2+ 2+ Biceps 2+ 2+ Triceps 2+ 2+ Patellar 2+ 2+ Achilles 2+ 2+ Plantar Downgoing Downgoing Coordination Right: Vpgtwp-cr-ftdt abnormality: Jfpz-po-sbek abnormality: Left: Xtsynl-kb-esbd abnormality: Aivu-xe-ochh abnormality: Ataxic L>R arm on FNF. There is dysdidokokinesia L>R. Heel t o Damon is off significantly L>R.. Gait Casual gait: Wide stance. Hesitant and ataxic gait. Romberg is present. Severe ataxia, wide based. Assessment and Plan: Mr. Smith is a right-handed 44 year old male with severe at axia and history of signficant alcoholism now sober for 2 months. 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 The following are the current problems noted and addressed d uring this visit: Ataxia (primary encounter diagnosis) Plan: 1. Cerebellar ataxia - I discussed the diagnosis and etiolog y and recommended safety precautions for falls. Medical decision making was high complexity due to patient's , multiple symptoms The total time spent on the patient care was 60 with greater than 50% of the time spent on counseling regarding alcoholic cerebellar degeneration. I tried to answer all of the patient's questions and concern s during this visit. Thank you for allowing me to be part of the clinical care of this patient! I look forward to continued participation in the patient?s c are with you. Please do not hesitate to call with any questions. Sincerely, Zay Sharpe MD [facility] on 2019-06-15 CNOV Office Visit ([id number]) Normal 06-15-20 [place] [facility] CHRISTOPHER SMITH ([id number]) 1975 M [place] Date Time Provider Department ([id number]) 06/15/19 3:00 PM ZAY SHARPE NREU10 During your visit today, we recorded the following informati on about you: Pulse Blood pressure Weight Height 90/minute 136/90 64 kg 1.778 m Zay Sharpe MD 06/16/2019 11:38 AM Signed [facility] - NEW PATIENT EVALUATION Tana Tony, PERIANESTHESIA RN.STORAGE MANAGEMENT ARCHITECT [address] [facility] [place] [address] Nelsy Rouse MD [address] [facility] [id number] Tony: Thank you for refering Mr. Smith to our clinic today. As you know he is a 44 year old right-handed male who is seen in consultation for e valuation of ataxia. He is seen along with his family. History of Present Illness: He feels like he has already drunk a twelve-pack and he has not had any alcohol in 2 months. He had a MRI in March that showed at eula mild generalized atrophy. He has not had issues with his hand f unction or voice. In addition, the following Movement disorders-associated fea tures were evaluated: loss of balance: Yes: falls: Yes: but not in a few months. cognitive difficulties: No depression: No anxiety: Yes: sometimes urinary problems: No significant speech problems: No swallowing problems: No insomnia: Yes: excessive daytime sleepiness: Yes: Review of Systems: Review of Systems Constitutional: Negative for chills, fatigue, fever an d recent unintentional weight change. HENT: Negative for drooling, dysphonia, hearing loss a nd trouble swallowing. Tinitus L>R Eyes: Positive for vision loss. Negative for visual disturba nce, blurred vision, double vision, glaucoma, ptosis and visual disturban ce. Respiratory: Negative for cough, difficu lty breathing, shortness of breath and wheezing. Cardiovascular: Negative for chest pain, leg swelling and pa lpitations. Gastrointestinal: Negative for abdominal pain, blood i n stool, constipation, diarrhea, melena, nausea and vomiting. Endo/Heme/Allergies: Negative for diabetic symptoms, cold intolerance, cold intolerance and thyroid problem. Genitourinary: Negative for difficulty urinating, dysuria, enuresis, hematuria, kidney stones, polyuria and sexual dysfunction. Hematologic/Lymphatic: Positive for brui ses/bleeds easily. Negative for anemia and adenopathy. Allergic/Immunologic: Negative for allergic reac tion and frequent infections. Musculoskeletal: Positive for arthralgias, back pain a nd neck pain. Negative for myalgias, muscle weakness and neck stiffness. Skin: Negative for diaphoresis and rash. Allergies: ALLERGIES Allergen Reactions - Vicodin [Hydrocodon* Hives Current Medications: Current Outpatient Medications: albuterol HFA (VENTOLIN HFA) 90 mcg/actuation inhaler Inhale 2 Puffs as instructed every 4 hours as needed. thiamine (VITAMIN B1) 100 mg tablet Take 1 tablet by mouth o nce daily. No current facility-administered medications for this visit. Past Medical and Surgical History: has a past medical history of Alcohol abuse, Emphysema lung (HCC), Hepatitis C, HTN (hypertension), Hyper bilirubinemia, Liver lesion (03/2019), Myelomalacia (HCC), Thrombocytopenia (HCC), Tobacco use, Unsteady gait, a nd Vestibular schwannoma (HCC). has a past surgical history that includes none. In addition, the patient denies a history of exposure to dop amine receptor blocking agents, denies history of encephalitis/meningitis a nd denies significant exposure to inse cticides/ pesticides/ heavy metals/ carbon monoxide Social History: Social History Socioeconomic History Marital status: Spouse name: Not on file Number of children: Not on file Years of education: Not on file Highest education level: Not on file Occupational History Not on file Social Needs Financial resource strain: Not on file Food insecurity: Worry: Not on file Inability: Not on file Transportation needs: Medical: Not on file Non-medical: Not on file Tobacco Use Smoking status: Current Every Day Smoker Packs/day: 1.00 Years: 33.00 Pack years: 33 Types: Cigarettes Quit date: 10/23/2007 Years since quittin.6 Smokeless tobacco: Never Used Substance and Sexual Activity Alcohol use: Not Currently Alcohol/week: 45.0 standard drinks Types: 18 Cans of Beer (12oz) per week Comment: daily - stopped 2 months ago 06/09/2019 Drug use: Not Currently Sexual activity: Not Currently Partners: Female Lifestyle Physical activity: Days per week: Not on file Minutes per session: Not on file Stress: Not on file Relationships Social connections: Talks on phone: Not on file Gets together: Not on file Attends caodaism service: Not on file Active member of club or organization: Not on file Attends meetings of clubs or organizations: Not on file Relationship status: Not on file Intimate partner violence: Fear of current or ex partner: Not on file Emotionally abused: Not on file Physically abused: Not on file Forced sexual activity: Not on file Other Topics Concerns: Not on file Social History Narrative Not on file Family History: family history includes Alcohol/Drug in his father; Cancer i n his paternal uncle; Colon Cancer in his father; Heart disease in his father, maternal aunt, and maternal uncle; Parkinsonism in his paternal grand mother; Skin Cancer in his sister; Stroke in his maternal aunt and paternal uncle; lung cancer in his mother. In addition, the patient denies any fami ly history of PD/parkinsonism, tremor, other involuntary movement disorders. Objective: Vital Signs: BP 136/90 (BP Site: Left Arm, BP Position: Sitting, BP Cuff Size: Regular Adult) Pulse 90 Ht 177.8 cm (5' 10) Wt 64 kg (141 lb) SpO2 98% BMI 20.23 kg/m? General Medical Examination: General Description of Patient: Well appearing, comfortable and Thin Head:normocephalic, atraumatic Neck:No bruits, full range of movement, supple Cardiac: Regular rate and rhythm, no murmur Extremities: No leg edema, pulses intact, no rash or venou s stasis changes. Neurological Exam Mental Status Awake, alert and oriented to person, place and t larisa. Recent and remote memory are intact. Speech is normal . Language is fluent with no aphasia. Attention and concentration are normal. Fund of knowledge is appropriate f or level of education. Cranial Nerves CN II: Visual acuity is normal. Visual morgan full to confro ntation. Right funduscopic exam: disc intact. Left funduscopic exam: disc i ntact. CN III, IV, : Extraocular movements intact bilateral ly. Nystagmus present: Normal lids and orbits bilaterally. Pupils equal round and reactive to light bilaterally. CN V: Facial sensation is normal. CN VII: Full and symmetric facial movement. CN VIII: Hearing is normal. CN IX, X: Palate elevates symmetrically. Normal gag reflex. CN XI: Shoulder shrug strength is normal. CN XII: Tongue midline without atrophy or fasciculations. He has significant nystagmus to lateral gaze R>L at 15 deg o ff midline. Motor Normal muscle bulk throughout. Normal muscle tone. The follo wing abnormal movements were seen: Strength is 5/5 throughout all four ext remities. Finger dexterity is impaired on the left>right there is no global bradykinesia. Tone is normal. Foot tapping is off L>R. . Sensory Light touch is normal in upper and lower extremities. Proprioception is normal in upper and lower extremities. Reflexes Right Left Brachioradialis 2+ 2+ Biceps 2+ 2+ Triceps 2+ 2+ Patellar 2+ 2+ Achilles 2+ 2+ Plantar Downgoing Downgoing Coordination Right: Eyhqnz-qz-uwpy abnormality: Rwfe-iy-zxgb abnormality: Left: Edgymr-dz-ixog abnormality: Ycsx-lf-kkkw abnormality: Ataxic L>R arm on FNF. There is dysdidokokinesia L>R. Heel t o Damon is off significantly L>R.. Gait Casual gait: Wide stance. Hesitant and ataxic gait. Romberg is present. Severe ataxia, wide based. Assessment and Plan: Mr. Smith is a right-handed 44 year old male with severe ataxia and history of signficant alcoholism now sober for 2 months. He has l eft greater than right appendicular and truncal ataxia and nystagmus consistent wit h alcoholic cerebellar degeneration with an MRI with moderate cerebral a nd cerebellar atrophy. The following are the current problems noted and addressed during this visit: Ataxia (primary encounter diagnosis) Plan: 1. Cerebellar ataxia - I discussed the diagnosis and etiology and recommended safety precautions for falls. Medical decision making was high complexity due to patient's, multiple symptoms The total time spent on the patient care was 60 with g reater than 50% of the time spent on counseling regarding alcoholic cer ebellar degeneration. I tried to answer all of the patient's questions and concerns during this visit. Thank you for allowing me to be part of the clinical c are of this patient! I look forward to continued participation in the patient?s care with you. Please do not hesitate to call with any questions. Sincerely, MD Zay Wolfe MD 06/15/2019 3:15 PM Addendum 1. You have cerebellar ataxia of your arms and legs L>R cons istent with alcoholic cerebellar degeneration for chronic alcohol use. 2. Its important to not drink at all anymore and its e xcellent that you have been abstinent. 3. Use a walker to walk safely Zay Sharpe MD Referring Provider: PODLOGTANA SILVERMAN ([facility]) [[id number]] Allergies As of Date: 06/15/2019 Noted Allergy Reaction VICODIN (HYDROCODONE-ACETAMINOPHE*04/03/2019 4 - Hives Date Reviewed: 06/15/2019 Reviewed by: Tiffanie Swann Ma - Fully Assessed Reason for Visit: New Patient Evaluation [154] Primary Visit Diagnosis:Ataxia [R27.0] Prescriptions as of 06/15/2019 Sig: ALBUTEROL SULFATE HFA 90 MCG/* Inhale 2 Puffs as instructed * THIAMINE HCL (VITAMIN B1) 100* Take 1 tablet by mouth once d * Problem List As Of Date 06/15/2019 Noted Resolved ASTHMA UNSPECIFIED [J45.909] INVALID FOR* ALLERGIC RHINITIS NOS [J30.9] INVALID FOR* TOBACCO USE DISORDER [F17.200] INVALID FOR* Ataxia [R27.0] INVALID FOR* Moderate protein-calorie malnutrition (HCC) [E4*INVALID FOR* Hepatitis C [B19.20] Alcohol abuse [F10.10] HTN (hypertension) [I10] Liver lesion [K76.9] INVALID FOR* More... Myelomalacia (HCC) [G95.89] More... Tobacco use [Z72.0] Vestibular schwannoma (HCC) [D33.3] Other instructions from your clinician: 1. You have cerebellar ataxia of your arms and legs L>R cons istent with alcoholic cerebellar degeneration for chronic alcohol use. 2. Its important to not drink at all anymore and its excelle nt that you have been abstinent. 3. Use a walker to walk safely Zay Sharpe MD Encounter Status:Closed by ZAY SHARPE on 06/16/19 progress on 2019-05 PROGRESS HNO ID: [id number] Normal 06-09-2019 [facility] Author: Nelsy Hearn) Nasim Billings ([id number]) Service: ? Author Type: Physician Type: Progress Notes Filed: 06/09/2019 5:00 PM Note Text: Chief Complaint No chief complaint on file. HPI hCristopher Smith is a 44 year old male who presents here t justa for establish care visit and hospital follow up. Patient recently admitted to [facility] from 04/21 to for alcohol abuse, loss of balance, falls, and LE weakness after signing out of [facility] a few days prior. Hospital course below: HOSPITAL COURSE: Christopher Smith is a 43 year old gentleman with PMHx signif icant for substantial alcohol abuse (15-18 beers per day), tobacco abu se, and recently discovered likely vestibular schwannoma who present ed to [facility] with recurrent falls, progressive gait instability, and bilateral lower extremity weakness. ? Summary By Problem List: #Gait disturbance #BLE weakness #Vertigo #Horizontal Nystagmus #Pseudobulbar affect? - Difficulty walking?and maintaining balance, started 1 year ago getting worse -?Since past 3 weeks?can't walk without support and would fa ll. ?Repeated falls in past 3 weeks. Denies LOC during falls. - Gait slapping?with bounce in step which evolved into marsha bility to lift legs off the floor ie magnetic gait with small shuffling s teps?per family - Per family reported seeing people on the floor and hearing screaming noises while was admitted at the OSH. Continues to have com plete personality change per family which improved moderately wit hin 1-2 days.? - O/E has BLE weakness?5/5 strength, no sensory loss, negati ve babinski, positive for?resting?tremor, altered finger nose test, horiz ontal nystagmus was quite prominent on admission but improved over 24 hours. - Feeling of room spinning while trying to get up on most oc casions and occasionally with his head still - Has hearing loss B/L -could be occupational, says more on R side - Has tinnitus on AND off -high pitched - B/L jerk nystagmus on horizontal movement - EOMI, PERRLA - Labs: Liver enzymes trending down compared to ~3 weeks ago (Tbili 2.6>1.8, ALT 204>26, AST 374>63) - Imaging: MRI Spine demonstrates mild to moderate myelomala palmer at C5/C6 level. MRI brain concerning for L vestibular schwannoma and cerebellar atrophy. - BEM negative for sz's - CT Chest/abdomen/pelvis demonstrates upper lobe paraseptal bullous emphysema along with indeterminate hyperdense lesions in aj er. - Neuro workup: HIV, syphilis IgG negative. Cu and cerulopla smin wnl.? Assessment: - Presumed multifactorial etiology contributing to above pre sentation; Vestibular schwannoma may explain some of the balance issues and hearing loss, however, I suspect that the C5/C6 myelomalacia, cerebe llar atrophy 2/2 alcohol abuse. Plan: - F/u workup as recommended ( HTLV, HTLV, anti-FORREST, Lyme). - Replete Thiamine and folate outpatient - F/u with [facility] brain tumor and NSGY (Dr. John Piper) for possible outpatient surgical intervention. - F/u with PCP to establish home health care ? #Vestibulocochlear Schwannoma - OSH MRI done on 04/15: Parenchymal volume loss with mild ve ntriculomegaly with 5x3mm enhancing lesion in Left internal auditory canal suspicious for vestibular schwannoma w/o mass effect. - Neurosurgery consulted in ED says no acute neurosurgical i ntervention at this time w/ Neurology consult and outpatient follow up Plan: -?No need for acute neurosurgical intervention - Outpatient f/u requested with [facility] center? ? ? #Alcoholism #Thrombocytopenia #Hyperbilirubinemia #Alcoholic hepatitis- improving? -last drink last week per patient - Labs: Liver enzymes trended down compared to ~3 weeks ago (Tbili 2.6>1.8, ALT 204>26, AST 374>63) - ?No concern for DT since VSS -?Platelets 45k with gradual upward trend - T. Bili 1.8, Conjugated Bili 0.7 - ALT 26, AST 63 - Albumin 4.1 - Ammonia WNL, No Asterixis O/E, No RUQ pain - Imaging: CT chest/abdomen/pelvis demonstrates indeterminat e hyperdense lesions in the liver, small volume ascites, portal venous co llaterals suggestive of phTN - Likely consequence of alcoholic hepatitis which is now imp roving. I expect his liver enzymes to continue trending down and plate let counts to rise.? Plan: - Recommend outpatient hepatology f/u (request made) -?CTM - Thiamine repletion outpatient - Counseled patient on alcohol cessation, recommend f/u with PCP for further management ? #Tobacco use Plan: -Recommend smoking cessation according to patient motivation ? #Hip pain -Most likely from fall at OSH - No concerns for fracture Plan: - NTD ? ? Transitions of Care Critical Issues: SPECIALIST FOLLOW-UP: Brain tumor center, PCP, Hepatology, n eurosurgery LAY MEDICATION CHANGES: New Medications: Thiamine ? LABS AND PROCEDURES PENDING AT DISCHARGE: Lyme PCR, HTLV, He darrius metals, Hep C Quant RNA, Anti-FORREST ? CONSULTING TEAMS DURING HOSPITALIZATION: Neurosurgery, Neuro logy ? PATIENT CONDITION AT DISCHARGE: Stable ? DISCHARGE DISPOSITION: Home with Home Health Care Patient following up with PT/OT with home health. Coming out to house every other day. States he is on his feet he is still off ba siomara. Using cane for balance. Has not had any falls since discharge. Has follow up with neurology scheduled for schwannoma in 6 days. Discussed diagnosis of hepatitis C with recent abnormal labs . Denies history of IV drug use or sexual contacts with hep C. Sister has hepatitis C. Not immune to hepatitis B. Does not remember being vaccin ated for hepatitis A. States he has been vaccinated for pneumonia. Reviewed CT abd/pelvis showing liver lesions which require f /u MRI. Also had CT chest showing emphysematous changes. Smoking about a pack per day for more than 30 years. Refusing help with cessation at this time. Admits to dry cough in the morning without SOB or wheezing. Needs repeat blood work to f/u on thrombocytopenia. Denies b leeding/easy bruising symptoms. Patient states that he has been sober from alcohol since linette und 04/21. Is not following up with AA, [facility], or [facility]. Does not wa nt information. States that he does not have any cravings for a lcohol at this time. Past medical history, appointments, medications, allergies r eviewed. Previous Medical History PAST MEDICAL HISTORY Diagnosis Date - Alcohol abuse - Emphysema lung (HCC) - Hepatitis C - HTN (hypertension) - Hyperbilirubinemia - Liver lesion 03/2019 CT - Myelomalacia (HCC) C5/6 - Thrombocytopenia (HCC) - Tobacco use - Unsteady gait - Vestibular schwannoma (HCC) Previous Surgical History No past surgical history on file. Family History FAMILY HISTORY Problem Relation Age of Onset - other (lung cancer) Mother - Heart disease Father - Colon Cancer Father - Parkinsonism Paternal Grandmother Patient Allergies ALLERGIES Allergen Reactions - Vicodin [Hydrocodon* Hives Current Medications Current Outpatient Medications on File Prior to Visit: thiamine (VITAMIN B1) 100 mg tablet Take 1 tablet by mouth t hree times daily for 7 days. thiamine (VITAMIN B1) 100 mg tablet Take 1 tablet by mouth o nce daily. No current facility-administered medications on file prior t o visit. Social History Social History Socioeconomic History Marital status: Spouse name: Not on file Number of children: Not on file Years of education: Not on file Highest education level: Not on file Occupational History Not on file Social Needs Financial resource strain: Not on file Food insecurity: Worry: Not on file Inability: Not on file Transportation needs: Medical: Not on file Non-medical: Not on file Tobacco Use Smoking status: Current Every Day Smoker Packs/day: 1.50 Years: 40.00 Pack years: 60 Types: Cigarettes Quit date: 10/23/2007 Years since quittin.6 Smokeless tobacco: Never Used Substance and Sexual Activity Alcohol use: Not Currently Alcohol/week: 45.0 standard drinks Types: 18 Cans of Beer (12oz) per week Comment: daily - stopped 2 months ago 06/09/2019 Drug use: Not Currently Sexual activity: Not on file Lifestyle Physical activity: Days per week: Not on file Minutes per session: Not on file Stress: Not on file Relationships Social connections: Talks on phone: Not on file Gets together: Not on file Attends caodaism service: Not on file Active member of club or organization: Not on file Attends meetings of clubs or organizations: Not on file Relationship status: Not on file Intimate partner violence: Fear of current or ex partner: Not on file Emotionally abused: Not on file Physically abused: Not on file Forced sexual activity: Not on file Other Topics Concerns: Not on file Social History Narrative Not on file Review of Symptoms REVIEW OF SYSTEMS GENERAL: No weight loss, malaise or fevers RESPIRATORY: See HPI CARDIOVASCULAR: Negative for chest pain, leg swelling, hyper tension, CHF or palpitations GI: No nausea, vomiting, or diarrhea SKIN: Negative for lesions, rash, and itching EXAM: BP 132/86 Pulse 82 Resp 16 Ht 178.5 cm (5' 10.28) W t 64.4 kg (142 lb) BMI 20.22 kg/m? General Appearance: Well appearing, alert, in no acute distr ess, well-hydrated, well nourished.. Skin: Skin color, texture, turgor normal, no suspicious rash es or lesions. Lungs: lungs clear to auscultation. No wheezing, rhonchi, ra les. Heart: RRR without murmur, gallop, or rubs. No ectopy. Abdomen: Normal abdominal exam, Abdomen soft, non-tender. [place] wel sounds normal. No masses, organomegaly. Extremities: No deformities, edema, skin discoloration, club aki or cyanosis. Good capillary refill. . Health Maintenance List ANNUAL PCP TEAM CHRONIC DISEASE VISIT due on 1992 ONE PNEUMOVAX PRIOR TO AGE 65 due on 1993 LIPID SCREEN due on 2009 INFLUENZA(1) due on 06/28/2019 DTAP,TDAP,TD(2 - Td) due on 04/03/2020 BP CONTROLLED (<130/80) due on 04/03/2020 DIABETES SCREEN due on 04/24/2022 Data reviewed Component Latest Ref Rng AND Units 04/21/2019 04/22/2019201804/24/2019 WBC 3.70 - 11.00 k/uL 4.39 3.94 4.94 3.73 RBC 4.20 - 6.00 m/uL 4.73 4.10 (L) 4.15 (L) 4.11 (L) Hemoglobin 13.0 - 17.0 g/dL 15.8 13.7 13.5 13.5 Hematocrit 39.0 - 51.0 % 46.1 41.0 40.6 40.5 MCV 80.0 - 100.0 fL 97.5 100.0 97.8 98.5 MCH 26.0 - 34.0 pG 33.4 33.4 32.5 32.8 MCHC 30.5 - 36.0 g/dL 34.3 33.4 33.3 33.3 RDW-CV 11.5 - 15.0 % 13.7 14.1 13.9 14.0 Platelet Count 150 - 400 k/uL 45 (L) 51 (L) 62 (L) 69 (L) MPV 9.0 - 12.7 fL 12.5 12.6 13.0 (H) 12.9 (H) Neut% % 62.8 Abs Neut (ANC) 1.45 - 7.50 k/uL 2.74 Lymph% % 24.8 Abs Lymph 1.00 - 4.00 k/uL 1.09 Talbot% % 8.0 Abs Talbot <0.87 k/uL 0.35 Eosin% % 3.0 Abs Eosin <0.46 k/uL 0.13 Baso% % 1.4 Abs Baso <0.11 k/uL 0.06 Nucleated Reds 0 /100 WBC 0.0 Absolute nRBC <0.01 k/uL <0.01 <0.01 <0.01 <0.01 Diff Type Auto Diff Color Yellow Savanna (A) Clarity Clear Clear Glucose, Urine Negative mg/dL Negative Bilirubin, Urine Negative Negative Ketones, Urine Negative Negative Specific Meta, Ur 1.005 - 1.030 1.013 Hemoglobin/Blood,Ur Negative Negative pH, Urine 4.5 - 8.0 7.0 Protein, Urine Negative mg/dL Negative Urobilinogen Normal Elevated (A) Nitrites Negative Negative Leukest Negative Negative Comments SEE COMMENT Urine Omar Comment SEE COMMENT WBC, Urine 0 - 5 /HPF 0-5 RBC, Urine 0 - 3 /HPF 0-3 Epithelial Cells /HPF SEE COMMENT Protein, Total 6.3 - 8.0 g/dL 8.7 (H) 7.0 7.1 Albumin 3.9 - 4.9 g/dL 4.1 3.2 (L) 3.0 (L) Calcium 8.5 - 10.2 mg/dL 10.0 8.9 9.0 9.3 Bilirubin, Total 0.2 - 1.3 mg/dL 1.8 (H) 1.2 1.0 Alkaline Phosphatase 38 - 113 U/L 110 92 108 AST 14 - 40 U/L 63 (H) 60 (H) 51 (H) Glucose 74 - 99 mg/dL 105 (H) 89 88 113 (H) BUN 9 - 24 mg/dL 5 (L) 4 (L) 5 (L) 8 (L) Creatinine 0.73 - 1.22 mg/dL 0.67 (L) 0.74 0.79 0.72 (L) Sodium 136 - 144 mmol/L 140 144 141 142 Potassium 3.7 - 5.1 mmol/L 3.7 3.8 4.2 3.8 Chloride 97 - 105 mmol/L 106 (H) 109 (H) 107 (H) 107 (H) CO2 22 - 30 mmol/L 25 24 22 22 Anion Gap 9 - 18 mmol/L 9 11 12 13 ALT 10 - 54 U/L 26 22 19 eGFR- >60 >60 >60 >60 eGFR-All Other Races . >60 >60 >60 >60 Phencyclidine Negative Negative Benzodiazepines Urine Negative Preliminary positive. (A) Cocaine Urine Negative Negative Amphetamines Negative Negative Cannabinoids, Urine Negative Negative Opiates Negative Negative Barbiturates Negative Negative Ethanol, Urine <11 mg/dL <11 Oxycodone, Urine Negative Negative Bilirubin, Conjug <0.2 mg/dL 0.7 (H) Hep B Core Ab, Total Negative Negative Hep C Antibody IA Negative Positive (A) Hep B Surface Ag Negative Negative Hep B Surface Ab, Qual Negative Negative HIV 12 Combo (Ag/Ab) Non Reactive Non Reactive HIV-1/2 AB Test Not Indicated HIV Interpretation Negative Arsenic, Blood 0.0 - 12.0 ug/L <10.0 Lead 0.0 - 4.9 ug/dL <2.0 Mercury Blood 0.0 - 10.0 ug/L <2.5 PT Sec 9.7 - 13.0 sec 13.0 PT INR 0.9 - 1.3 1.3 Syphilis IgG Qualitative Nonreactive Nonreactive Syphilis IgG AI <0.2 Vitamin E-alpha 6.0 - 23.0 mg/L 6.9 Vitamin E-gamma 0.3 - 3.2 mg/L 1.6 Ammonia 16 - 60 umol/L 35 Magnesium 1.7 - 2.3 mg/dL 1.8 APTT 23.0 - 32.4 sec 28.9 Phosphorus 2.7 - 4.8 mg/dL 3.1 Ethanol <11 mg/dL <11 Vitamin B12 232 - 1,245 pg/mL 827 Vitamin B1 (TDP), Whole Blood 84.0 - 213.0 nmol/L 294.0 (H) Folate >4.7 ng/mL 13.4 Ceruloplasmin 15 - 30 mg/dL 23 Copper 70 - 140 ug/dL 101 HTLV I/II Ab Screen Negative Negative TSH 0.400 - 5.500 uU/mL 2.740 Borrelia sp. PCR NOT DETECTED Glutamic Acid Decarboxylase Ab <5.0 IU/mL <5.0 HCV RNA by PCR IU/mL 49 (A) ASSESSMENT/PLAN: 1. Hepatitis C virus infection without hepatic coma, unspeci fied chronicity - ICD9: 070.70, ICD10: B19.20 (primary diagnosis) Obtain genotype and refer to hepatology for treatment. Discu ssed he needs to remain off of alcohol indefinitely. - HEPATITIS C GENOTYPE - CONSULT TO HEPATOLOGY - COMP METABOLIC PANEL 2. Alcohol abuse - ICD9: 305.00, ICD10: F10.10 Sober for 1 1/2 months. Refusing information for AA, [facility], or [facility]. Would like to continue on his own for now. 3. Myelomalacia (HCC) - ICD9: 336.8, ICD10: G95.89 Recommendations per neurology next week. - MRI LIVER WO/W IVCON - IV CONTRAST (RADIOLOGY PROCEDURE) 4. Liver lesion - ICD9: 573.8, ICD10: K76.9 Obtain MRI and refer to hepatology for further evaluation if needed. Discussed with history of hepatitis C could be malignant whi ch is why further imaging is required. - CONSULT TO HEPATOLOGY 5. Tobacco use - ICD9: 305.1, ICD10: Z72.0 - Cessation encouraged. - Physiologic and physical aspects of tobacco addiction as w ell as strategies for quitting were discussed. - Counseling was given focusing on the harmful effects of th is addiction especially given the patient's medical condition(s) which wi ll be worsened because of the chemicals in tobacco. - ALBUTEROL SULFATE HFA 90 MCG/ACTUATION AEROSOL INHALER 6. Vestibular schwannoma (HCC) - ICD9: 225.1, ICD10: D33.3 Recommendations per neurology. 7. Thrombocytopenia (HCC) - ICD9: 287.5, ICD10: D69.6 Denies bruising or easy bleeding symptoms. Recheck CBC. Abst ain from alcohol. - CONSULT TO HEPATOLOGY - CBC + DIFF 8. Pulmonary emphysema, unspecified emphysema type (HCC) - I CD9: 492.8, ICD10: J43.9 Albuterol PRN for dry cough. Obtain PFTs. Recommended smokin g cessation. - ALBUTEROL SULFATE HFA 90 MCG/ACTUATION AEROSOL INHALER - SPIROMETRY - BASELINE AND POST DILATOR 9. Unsteady gait - ICD9: 781.2, ICD10: R26.81 Continue PT/OT and f/u with neurology next week. Continue us e of cane for balance. 10. Essential hypertension - ICD9: 401.9, ICD10: I10 - good control - Encouraged dietary sodium restriction/DASH diet - Recommended regular aerobic exercise. - Reviewed risks of HTN and principles of treatment - Goal of BP <140/90 11. Need for vaccination - ICD9: V05.9, ICD10: Z23 - HEPATITIS A VACCINE ADULT IM - HEPATITIS B VACC ADULT DOSAGE (3 DOSE SCHED) IM USE - HEPA/HEPB VACCINE ADULT IM I spent 40 minutes in the visit, with more than 50% of the t otal [id number] time of the visit in counseling / coordination of care. Nelsy Rouse MD hepatitis c genotype on 2019-06-09 Hep C Genotype 1a Critically abnormal 06-09 [facility] ([id number]) Comment: Performed By: #### Genny RIVERA MP, HEPGEN ####[facility] [id number] [place] [address] [phone] comp metabolic panel on 2019-06-09 Albumin [Mass/Vol] 3.7 3.9-4.9 g/dL Low 06-09-2019 [facility] ([id number]) Comment: Performed By: #### Genny RIVERA MP, HEPGEN ####[facility] [place] [address] [phone] ALP [Catalytic activity/Vol] 88 38-113 U/L Normal 0 06-09-2019 [facility] ([id number]) Comment: Performed By: #### Genny RIVERA MP, HEPGEN ####[facility] [place] [address] [phone] ALT [Catalytic activity/Vol] 17 10-54 U/L Normal 0 06-09-2019 [facility] ([id number]) Comment: Performed By: #### Genny RIVERA MP, HEPGEN ####[facility] [address] [place] [address] [phone] Anion gap [Moles/Vol] 13 9-18 mmol/L Normal 06-09-20 19 [facility] ([id number]) Comment: Performed By: #### Genny RIVERA MP, HEPGEN ####[facility] [address] [address] [phone] AST [Catalytic activity/Vol] 36 14-40 U/L Normal 0 06-09-2019 [facility] ([id number]) Comment: Performed By: #### NICOLE C MP, HEPGEN ####[facility] [address] [address] [phone] Bilirubin [Mass/Vol] 0.6 0.2-1.3 mg/dL Normal 9 [facility] ([id number]) Comment: Performed By: #### Genny RIVERA MP, HEPGEN ####[place] [address] [place] [address] [phone] Calcium [Mass/Vol] 10.2 8.5-10.2 mg/dL Normal 06-09-2019 [facility] ([id number]) Comment: Performed By: #### Genny RIVERA MP, HEPGEN ####[place] [address] [address] [place] [address] [phone] Chloride [Moles/Vol] 102 97-105 mmol/L Normal 9 [facility] ([id number]) Comment: Performed By: #### Genny RIVERA MP, HEPGEN ####[place] [address] [address] [place] [address] [phone] CO2 [Moles/Vol] 23 22-30 mmol/L Normal 06-09-2019 [facility] ([id number]) Comment: Performed By: #### Genny RIVERA MP, HEPGEN ####[place] [address] [place] [address] [phone] Creatinine [Mass/Vol] 0.74 0.73-1.22 mg/dL Normal 06-09-20 19 [facility] ([id number]) Comment: Performed By: #### Genny RIVERA MP, HEPGEN ####[place] [address] [place] [address] [phone] eGFR- Amer. >60 Normal 06-09-2019 [facility] ([id number]) Comment: Performed By: #### Genny RIVERA MP, HEPGEN ####[place] [address] [place] [address] [phone] GFR/1.73 sq M predicted >60 mL/min/{1.73_m2} Normal 06-09-2019 [facility] among non-blacks MDRD [place] ([id number]) (S/P/Bld) [Vol rate/Area] Comment: Result Comment: eGFR (Estima delfin GFR) Units of measure: mL/min/1.73 meters squared eGFR is derived from the ree xpressed MDRD Study equation using the following parameters: serum creatinine, age, gender and race. The creatinine assay has been calibrated to be traceable to IDMS. An eGFR <60 mL/min/1.73m2 fo r >3 months is consistent with chronic kidney disease. Refer to KDOQI guidelines for clinical interpretation. In patients with unstable re nal function, e.g. those with acute kidney injury, the eGFR may not accurately reflect actual GFR. Performed By: #### Genny RIVERA MP, HEPGEN ####[facility] [address] [phone] Glucose [Mass/Vol] 74 74-99 mg/dL Normal 06-09-2019 [facility] ([id number]) Comment: Result Comment: The [place] Diabetes Association (ADA) provides guidance for cutoff values for fasting glucose and random glucose. The ADA defines fasting as no caloric intake for at least 8 hours. Fas ting plasma glucose results between 100 to 125 mg/dL indicate increased risk for diabetes (prediabetes). Fasting plasma glucose resul ts greater than or equal to 126 mg/dL meet the criteria for diagnosis of diabetes. In the absence of unequivocal hyperglycemia, results should be confirmed by repeat testing. In a patient with classic s ymptoms of hyperglycemia or hyperglycemic crisis, random plasma glucose results greater than or equal to 200 mg/dL meet the criteria for diagnosis of diabetes. Reference: Standards of [facility] in Diabetes 2016, [place] Diabetes Association. Diabetes Care. 2016.39(Suppl 1). Performed By: #### Genny RIVERA MP, HEPGEN ####[facility] [address] [place] [address] [phone] Potassium [Moles/Vol] 4.7 3.7-5.1 mmol/L Normal 06-09-20 [facility] (75074) Comment: Performed By: #### Genny RIVERA MP, HEPGEN ####[facility] [address] [place] [address] [phone] Protein [Mass/Vol] 8.4 6.3-8.0 g/dL High 06-09-2019 [facility] ([id number]) Comment: Performed By: #### CBCGenny DWYER MP, HEPGEN ####[facility] [address] [place] [address] [phone] Sodium [Moles/Vol] 138 136-144 mmol/L Normal 06-09-2019 [facility] ([id number]) Comment: Performed By: #### CBCDIF C MP, HEPGEN ####[facility] [address] [place] [address] [phone] Urea nitrogen [Mass/Vol] 6 9-24 mg/dL Low 06-09 [facility] ([id number]) Comment: Performed By: #### CBCDIFGenny MP, HEPGEN ####[facility] [address] [place] [address] [phone] cnov on 2019-06-09 [facility] Office Visit (FAMPWS) Normal 06-09-[address] [place] [address] [facility] CHRISTOPHER SMITH ([id number]) 1975 [facility] Date Time Provider Department ([id number]) 06/09/19 3:00 PM NELSY ROUSE) FAMPWS During your visit today, we recorded the following informati on about you: Pulse Respiration Blood pressure Weight 82/minute 16/minute 132/86 64.4 kg Height 1.785 m Nelsy Rouse MD 06/09/2019 5:00 PM Addendum Chief Complaint No chief complaint on file. JOHNSON Smith is a 44 year old male who presents here today for establish care visit and hospital follow up. Patient recently admitted to [facility] main campus from 04/21 to for alcohol abuse, loss of balance, falls, and LE weakness a fter signing out of [facility] a few days prior. 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 ? Summary By Problem List: #Gait disturbance #BLE weakness #Vertigo #Horizontal Nystagmus #Pseudobulbar affect? - Difficulty walking?and maintaining bal ance, started 1 year ago getting worse -?Since past 3 weeks?can't w alk without support and would fall. ?Repeated falls in past 3 weeks. Denies LOC during falls. - Gait slapping?with bounce in step which evolved into inability to lift legs off the floor ie magnetic gait with small shuffling steps? per family - Per family reported seeing people on the floor and hearing screaming noises while was admitted at the OSH. Continues to have complete personality change per family which improved moderately within 1-2 days.? - O/E has BLE weakness?5/5 strength, no sensory loss, negati ve babinski, positive for?resting?tremor, altered finger nose test, horizontal nystagmus was quite prominent on admission but improved over 24 hours. - Feeling of room spinning while trying to get up on most oc casions and occasionally with his head still - Has hearing loss B/L -could be occupational, says more on R side - Has tinnitus on AND off -high pitched - B/L jerk nystagmus on horizontal movement - EOMI, PERRLA - Labs: Liver enzymes trending down compared to ~3 wee ks ago (Tbili 2.6>1.8, ALT 204>26, AST 374>63) - Imaging: MRI Spine demonst rates mild to moderate myelomalacia at C5/C6 level. MRI brain concerning for L vestibular schwannoma and cerebel lar atrophy. - BEM negative for sz's - CT Chest/abdomen/pelvis demonstrates u pper lobe paraseptal bullous emphysema along with indeterminate hyperdense lesions in liver. - Neuro workup: HIV, syphilis IgG negative. Cu and cerulopla smin wnl.? Assessment: - Presumed multifactorial etiology contributing to above pre sentation; Vestibular schwannoma may explain some o f the balance issues and hearing loss, however, I suspect that the C5/C6 myelom alacia, cerebellar atrophy 2/2 alcohol abuse. Plan: - F/u workup as recommended ( HTLV, HTLV, anti-FORREST, Lyme). - Replete Thiamine and folate outpatient - F/u with [facility] brain tumor and NSGY (Dr. John Piper) for possible outpatient surgical intervention. - F/u with PCP to establish home health care ? #Vestibulocochlear Schwannoma - OSH MRI done on 04/15: Pare nchymal volume loss with mild ventriculomegaly with 5x3mm enhancing lesion in Left internal auditory canal suspi cious for vestibular schwannoma w/o mass effect. - Neurosurgery consulted in ED says no acute neurosurgical intervention at this time w/ Neurology consult and outpatient follow up Plan: -?No need for acute neurosurgical intervention - Outpatient f/u requested with [facility]? ? ? #Alcoholism #Thrombocytopenia #Hyperbilirubinemia #Alcoholic hepatitis- improving? -last drink last week per patient - Labs: Liver enzymes trende d down compared to ~3 weeks ago (Tbili 2.6>1.8, ALT 204>26, AST 374>63) - ?No concern for DT since VSS -?Platelets 45k with gradual upward trend - T. Bili 1.8, Conjugated Bili 0.7 - ALT 26, AST 63 - Albumin 4.1 - Ammonia WNL, No Asterixis O/E, No RUQ pain - Imaging: CT chest/abdomen/pelvis demonstrates indeterminat e hyperdense lesions in the liver, small volume ascites, portal venous co llaterals suggestive of phTN - Likely consequence of alcoholic hepatitis which is n ow improving. I expect his liver enzymes to continue trending down and platelet cou nts to rise.? Plan: - Recommend outpatient hepatology f/u (request made) -?CTM - Thiamine repletion outpatient - Counseled patient on alcohol cessation, recommend f/ u with PCP for further management ? #Tobacco use Plan: -Recommend smoking cessation according to patient motivation ? #Hip pain -Most likely from fall at OSH - No concerns for fracture Plan: - NTD ? ? Transitions of Care Critical Issues: SPECIALIST FOLLOW-UP: Brain tumor center, PCP, Hepatology, n eurosurgery LAY MEDICATION CHANGES: New Medications: Thiamine ? LABS AND PROCEDURES PENDING AT DISCHARGE: Lyme P CR, HTLV, Heavy metals, Hep C Quant RNA, Anti-FORREST ? CONSULTING TEAMS DURING HOSPITALIZATION: Neurosurgery, Neuro logy ? PATIENT CONDITION AT DISCHARGE: Stable ? DISCHARGE DISPOSITION: Home with Home Health Care Patient following up with PT/OT with home health. Coming o ut to house every other day. States he is on his feet he is still off balanc e. Using cane for balance. Has not had any falls since discharge. Has fo llow up with neurology scheduled for schwannoma in 6 days. Discussed diagnosis of hepat itis C with recent abnormal labs. Denies history of IV drug use or sexual contacts with hep C. [place] to[place]o has hepatitis C. Not immune to hepatitis B. Does not remember being vaccinat ed for hepatitis A. States he has been vaccinated for pneumonia. Reviewed CT abd/pelvis showi ng liver lesions which require f/u MRI. Also had CT chest showing emphysematous changes. Smoking about a pack per day for more than 30 years. Refusing help with cessation at this time. Admits to dry cough in the morning without SOB or wheezing. Needs repeat blood work to f/u on thrombocytopenia. Denies b leeding/easy bruising symptoms. Patient states that he has been sober from alcohol sin ce around 04/21. Is not following up with [facility], Michelle, or [facility]. Does not want information. States that he does not have any cravings for alcohol at this time. Past medical history, appointments, medications, allergies r akashwedella. Previous Medical History PAST MEDICAL HISTORY Diagnosis Date - Alcohol abuse - Emphysema lung (HCC) - Hepatitis C - HTN (hypertension) - Hyperbilirubinemia - Liver lesion 03/2019 CT - Myelomalacia (HCC) C5/6 - Thrombocytopenia (HCC) - Tobacco use - Unsteady gait - Vestibular schwannoma (HCC) Previous Surgical History No past surgical history on file. Family History FAMILY HISTORY Problem Relation Age of Onset - other (lung cancer) Mother - Heart disease Father - Colon Cancer Father - Parkinsonism Paternal Grandmother Patient Allergies ALLERGIES Allergen Reactions - Vicodin [Hydrocodon* Hives Current Medications Current Outpatient Medications on File Prior to Visit: thiamine (VITAMIN B1) 100 mg tablet Take 1 tablet by m outh three times daily for 7 days. thiamine (VITAMIN B1) 100 mg tablet Take 1 tablet by mouth o nce daily. No current facility-administered medications on file prior t o visit. Social History Social History Socioeconomic History Marital status: Spouse name: Not on file Number of children: Not on file Years of education: Not on file Highest education level: Not on file Occupational History Not on file Social Needs Financial resource strain: Not on file Food insecurity: Worry: Not on file Inability: Not on file Transportation needs: Medical: Not on file Non-medical: Not on file Tobacco Use Smoking status: Current Every Day Smoker Packs/day: 1.50 Years: 40.00 Pack years: 60 Types: Cigarettes Quit date: 10/23/2007 Years since quittin.6 Smokeless tobacco: Never Used Substance and Sexual Activity Alcohol use: Not Currently Alcohol/week: 45.0 standard drinks Types: 18 Cans of Beer (12oz) per week Comment: daily - stopped 2 months ago 06/09/2019 Drug use: Not Currently Sexual activity: Not on file Lifestyle Physical activity: Days per week: Not on file Minutes per session: Not on file Stress: Not on file Relationships Social connections: Talks on phone: Not on file Gets together: Not on file Attends caodaism service: Not on file Active member of club or organization: Not on file Attends meetings of clubs or organizations: Not on file Relationship status: Not on file Intimate partner violence: Fear of current or ex partner: Not on file Emotionally abused: Not on file Physically abused: Not on file Forced sexual activity: Not on file Other Topics Concerns: Not on file Social History Narrative Not on file Review of Symptoms REVIEW OF SYSTEMS GENERAL: No weight loss, malaise or fevers RESPIRATORY: See HPI CARDIOVASCULAR: Negative for chest pain, leg swelling, hyp ertension, CHF or palpitations GI: No nausea, vomiting, or diarrhea SKIN: Negative for lesions, rash, and itching EXAM: BP 132/86 Pulse 82 Resp 16 Ht 178.5 cm (5' 10.28) W t 64.4 kg (142 lb) BMI 20.22 kg/m? General Appearance: Well uriel earing, alert, in no acute distress, well-hydrated, well nourished.. Skin: Skin color, texture, turgor normal, no suspicious rash es or lesions. Lungs: lungs clear to auscultation. No wheezing, rhonchi, ra les. Heart: RRR without murmur, gallop, or rubs. No ectopy. Abdomen: Normal abdominal exam, Abdomen soft, non-tender. Bowel sounds normal. No masses, organomegaly. Extremities: No deformities, edema, skin discolo ration, clubbing or cyanosis. Good capillary refill. . Health Maintenance List ANNUAL PCP TEAM CHRONIC DISEASE VISIT due on 1992 ONE PNEUMOVAX PRIOR TO AGE 65 due on 1993 LIPID SCREEN due on 2009 INFLUENZA(1) due on 06/28/2019 DTAP,TDAP,TD(2 - Td) due on 04/03/2020 BP CONTROLLED (<130/80) due on 04/03/2020 DIABETES SCREEN due on 04/24/2022 Data reviewed Component Latest Ref Rng AND Units 04/21/2019 04/22/2019201804/24/2019 WBC 3.70 - 11.00 k/uL 4.39 3.94 4.94 3.73 RBC 4.20 - 6.00 m/uL 4.73 4.10 (L) 4.15 (L) 4.11 (L) Hemoglobin 13.0 - 17.0 g/dL 15.8 13.7 13.5 13.5 Hematocrit 39.0 - 51.0 % 46.1 41.0 40.6 40.5 MCV 80.0 - 100.0 fL 97.5 100.0 97.8 98.5 MCH 26.0 - 34.0 pG 33.4 33.4 32.5 32.8 MCHC 30.5 - 36.0 g/dL 34.3 33.4 33.3 33.3 RDW-CV 11.5 - 15.0 % 13.7 14.1 13.9 14.0 Platelet Count 150 - 400 k/uL 45 (L) 51 (L) 62 (L) 69 (L) MPV 9.0 - 12.7 fL 12.5 12.6 13.0 (H) 12.9 (H) Neut% % 62.8 Abs Neut (ANC) 1.45 - 7.50 k/uL 2.74 Lymph% % 24.8 Abs Lymph 1.00 - 4.00 k/uL 1.09 Talbot% % 8.0 Abs Talbot <0.87 k/uL 0.35 Eosin% % 3.0 Abs Eosin <0.46 k/uL 0.13 Baso% % 1.4 Abs Baso <0.11 k/uL 0.06 Nucleated Reds 0 /100 WBC 0.0 Absolute nRBC <0.01 k/uL <0.01 <0.01 <0.01 <0.01 Diff Type Auto Diff Color Yellow Savanna (A) Clarity Clear Clear Glucose, Urine Negative mg/dL Negative Bilirubin, Urine Negative Negative Ketones, Urine Negative Negative Specific Meta, Ur 1.005 - 1.030 1.013 Hemoglobin/Blood,Ur Negative Negative pH, Urine 4.5 - 8.0 7.0 Protein, Urine Negative mg/dL Negative Urobilinogen Normal Elevated (A) Nitrites Negative Negative Leukest Negative Negative Comments SEE COMMENT Urine Omar Comment SEE COMMENT WBC, Urine 0 - 5 /HPF 0-5 RBC, Urine 0 - 3 /HPF 0-3 Epithelial Cells /HPF SEE COMMENT Protein, Total 6.3 - 8.0 g/dL 8.7 (H) 7.0 7.1 Albumin 3.9 - 4.9 g/dL 4.1 3.2 (L) 3.0 (L) Calcium 8.5 - 10.2 mg/dL 10.0 8.9 9.0 9.3 Bilirubin, Total 0.2 - 1.3 mg/dL 1.8 (H) 1.2 1.0 Alkaline Phosphatase 38 - 113 U/L 110 92 108 AST 14 - 40 U/L 63 (H) 60 (H) 51 (H) Glucose 74 - 99 mg/dL 105 (H) 89 88 113 (H) BUN 9 - 24 mg/dL 5 (L) 4 (L) 5 (L) 8 (L) Creatinine 0.73 - 1.22 mg/dL 0.67 (L) 0.74 0.79 0.72 (L) Sodium 136 - 144 mmol/L 140 144 141 142 Potassium 3.7 - 5.1 mmol/L 3.7 3.8 4.2 3.8 Chloride 97 - 105 mmol/L 106 (H) 109 (H) 107 (H) 107 (H) CO2 22 - 30 mmol/L 25 24 22 22 Anion Gap 9 - 18 mmol/L 9 11 12 13 ALT 10 - 54 U/L 26 22 19 eGFR- >60 >60 >60 >60 eGFR-All Other Races . >60 >60 >60 >60 Phencyclidine Negative Negative Benzodiazepines Urine Negative Preliminary positive. (A) Cocaine Urine Negative Negative Amphetamines Negative Negative Cannabinoids, Urine Negative Negative Opiates Negative Negative Barbiturates Negative Negative Ethanol, Urine <11 mg/dL <11 Oxycodone, Urine Negative Negative Bilirubin, Conjug <0.2 mg/dL 0.7 (H) Hep B Core Ab, Total Negative Negative Hep C Antibody IA Negative Positive (A) Hep B Surface Ag Negative Negative Hep B Surface Ab, Qual Negative Negative HIV 12 Combo (Ag/Ab) Non Reactive Non Reactive HIV-1/2 AB Test Not Indicated HIV Interpretation Negative Arsenic, Blood 0.0 - 12.0 ug/L <10.0 Lead 0.0 - 4.9 ug/dL <2.0 Mercury Blood 0.0 - 10.0 ug/L <2.5 PT Sec 9.7 - 13.0 sec 13.0 PT INR 0.9 - 1.3 1.3 Syphilis IgG Qualitative Nonreactive Nonreactive Syphilis IgG AI <0.2 Vitamin E-alpha 6.0 - 23.0 mg/L 6.9 Vitamin E-gamma 0.3 - 3.2 mg/L 1.6 Ammonia 16 - 60 umol/L 35 Magnesium 1.7 - 2.3 mg/dL 1.8 APTT 23.0 - 32.4 sec 28.9 Phosphorus 2.7 - 4.8 mg/dL 3.1 Ethanol <11 mg/dL <11 Vitamin B12 232 - 1,245 pg/mL 827 Vitamin B1 (TDP), Whole Blood 84.0 - 213.0 nmol/L 294.0 (H) Folate >4.7 ng/mL 13.4 Ceruloplasmin 15 - 30 mg/dL 23 Copper 70 - 140 ug/dL 101 HTLV I/II Ab Screen Negative Negative TSH 0.400 - 5.500 uU/mL 2.740 Borrelia sp. PCR NOT DETECTED Glutamic Acid Decarboxylase Ab <5.0 IU/mL <5.0 HCV RNA by PCR IU/mL 49 (A) ASSESSMENT/PLAN: 1. Hepatitis C virus infection without hepatic c nela, unspecified chronicity - ICD9: 070.70, ICD10: B19.20 (primary diagnosis) Obtain genotype and refer to hepatology for treatment. Discussed he needs to remain off of alcohol indefinitely. - HEPATITIS C GENOTYPE - CONSULT TO HEPATOLOGY - COMP METABOLIC PANEL 2. Alcohol abuse - ICD9: 305.00, ICD10: F10.10 Sober for 1 1/2 months. Refusing information for AA, [facility], or [facility]. Would like to continue on his own for now. 3. Myelomalacia (HCC) - ICD9: 336.8, ICD10: G95.89 Recommendations per neurology next week. - MRI LIVER WO/W IVCON - IV CONTRAST (RADIOLOGY PROCEDURE) 4. Liver lesion - ICD9: 573.8, ICD10: K76.9 Obtain MRI and refer to hepatology for f urther evaluation if needed. Discussed with history of hepatitis C could be mal ignant which is why further imaging is required. - CONSULT TO HEPATOLOGY 5. Tobacco use - ICD9: 305.1, ICD10: Z72.0 - Cessation encouraged. - Physiologic and physical aspects of tobacco ad diction as well as strategies for quitting were discussed. - Counseling was given focusing on the harmful effects of th is addiction especially given the patient's medical condition(s) which wi ll be worsened because of the chemicals in tobacco. - ALBUTEROL SULFATE HFA 90 MCG/ACTUATION AEROSOL INHALER 6. Vestibular schwannoma (HCC) - ICD9: 225.1, ICD10: D33.3 Recommendations per neurology. 7. Thrombocytopenia (HCC) - ICD9: 287.5, ICD10: D69.6 Denies bruising or easy bleeding symptoms. Reche ck CBC. Abstain from alcohol. - CONSULT TO HEPATOLOGY - CBC + DIFF 8. Pulmonary emphysema, unspecified emph ysema type (HCC) - ICD9: 492.8, ICD10: J43.9 Albuterol PRN for dry cough. Obtain PFTs. Recommended smokin g cessation. - ALBUTEROL SULFATE HFA 90 MCG/ACTUATION AEROSOL INHALER - SPIROMETRY - BASELINE AND POST DILATOR 9. Unsteady gait - ICD9: 781.2, ICD10: R26.81 Continue PT/OT and f/u with neurology next week. Continue us e of cane for balance. 10. Essential hypertension - ICD9: 401.9, ICD10: I10 - good control - Encouraged dietary sodium restriction/DASH diet - Recommended regular aerobic exercise. - Reviewed risks of HTN and principles of treatment - Goal of BP <140/90 11. Need for vaccination - ICD9: V05.9, ICD10: Z23 - HEPATITIS A VACCINE ADULT IM - HEPATITIS B VACC ADULT DOSAGE (3 DOSE SCHED) IM USE - HEPA/HEPB VACCINE ADULT IM I spent 40 minutes in the visit, with more than 50% of the total [id number] time of the visit in counseling / coordination of care. Nelsy Rouse MD Referring Provider: SELF [[id number]] Allergies As of Date: 06/09/2019 Noted Allergy Reaction VICODIN (HYDROCODONE-ACETAMINOPHE*04/03/2019 4 - Hives Date Reviewed: 06/09/2019 Reviewed by: Nelsy Hearn) Nasim - Fully Assessed Primary Visit Diagnosis:Hepatitis C virus infection without hepatic coma, unspecified chronicity [B19.20] Other Visit Diagnoses:Alcohol abuse [F10.10] Myelomalacia (HCC) [G95.89] Liver lesion [K76.9] Tobacco use [Z72.0] Vestibular schwannoma (HCC) [D33.3] Thrombocytopenia (HCC) [D69.6] Pulmonary emphysema, unspecified emphysema type (HCC) [J43.9] Unsteady gait [R26.81] Essential hypertension [I10] Need for vaccination [Z23] Order(s):HEPATITIS C GENOTYPE [SQHEPGEN] Order #: [id number] FUTURE MRI LIVER WO/W IVCON [[id number]] Order #: [id number] FUTURE iv contrast (will be provided with radiology test)MRI Liver Inject, intravenously, once for 1 dose. No IV access, insert saline lock prior to the beginning of sedation, infusion, injection of i maging exam. Discontinue saline lock post exam. If Pt. has a centra l line or IVAD, may access for administration according to line specif ic nursing protocol. Once exam is complete flush line and de-access acc ording to line specific nursing protocol in the MR contrast administra tion guidelines link.Disp: 1 EachRfl: 0 CONSULT TO HEPATOLOGY [[id number]] Order #: [id number]: 1 COMP METABOLIC PANEL [SQCMP] Order #: [id number] FUTURE CBC + DIFF [SQCBCDIF] Order #: [id number] FUTURE albuterol HFA (VENTOLIN HFA) 90 mcg/actuation inhalerInhale 2 Puffs as instructed every 4 hours as needed.Disp: 1 InhalerRfl: 1 SPIROMETRY - BASELINE AND POST DILATOR [[id number]] Order #: [id number] FUTURE HEPA/HEPB VACCINE ADULT IM [[id number]] Order #: [id number] Prescriptions as of 06/09/2019 Sig: IV CONTRAST (RADIOLOGY PROCED* MRI Liver Inject, intravenous * ALBUTEROL SULFATE HFA 90 MCG/* Inhale 2 Puffs as instructed * THIAMINE HCL (VITAMIN B1) 100* Take 1 tablet by mouth once d * Problem List As Of Date 06/09/2019 Noted Resolved ASTHMA UNSPECIFIED [J45.909] INVALID FOR* ALLERGIC RHINITIS NOS [J30.9] INVALID FOR* TOBACCO USE DISORDER [F17.200] INVALID FOR* Ataxia [R27.0] INVALID FOR* Moderate protein-calorie malnutrition (HCC) [E4*INVALID FOR* Hepatitis C [B19.20] Alcohol abuse [F10.10] HTN (hypertension) [I10] Liver lesion [K76.9] INVALID FOR* More... Myelomalacia (HCC) [G95.89] More... Tobacco use [Z72.0] Vestibular schwannoma (HCC) [D33.3] Prescriptions ordered this encounter Disp Refills Start End IV CONTRAST (RADIOLOGY PROCEDURE) 1 Ea* 0 06/09/2019 019 Class: In Office Sig: MRI Liver Inject, intravenously, once for 1 dose. No IV access, insert saline lock prior to the beginning of sedation, infusion, in jection of imaging exam. Discontinue saline lock post exam. If Pt. has a central line or IVAD, may access for administration according to robert e specific nursing protocol. Once exam is complete flush line and de-ac cess according to line specific nursing protocol in the MR contra st administration guidelines link. ALBUTEROL SULFATE HFA 90 MCG/ACTUATI* 1 In* 1 06/09/2019 Cmt: Generic or brand: dispense inhaler preferre d by patient/insurance unless PHIL flag is selected. Route: INHALATION Sig: Inhale 2 Puffs as instructed every 4 hours as needed. Medications Discontinued During This Encounter thiamine (VITAMIN B1) 100 mg tablet 21 t* 0 04/29/2019 06/09/20 19 Class: Print RX Route: ORAL Sig: Take 1 tablet by mouth three times daily for 7 days. Disc: Reason for discontinue is not on file. Disposition: Return in about 3 months (around 09/09/2019). Follow-up and Disposition History Recorded Encounter Status:Closed by NELSY ROUSE MD on 9 cbc and differential on 2019-06-09 Abs Baso 0.14 <0.11 k/uL High 06-09-2019 [facility] ([id number]) Comment: Performed By: #### CBCDIF, C MP, HEPGEN ####[place] [id number] [address] [phone] Abs Talbot 0.65 <0.87 k/uL Normal 06-09-2019 [facility] ([id number]) Comment: Performed By: #### CBCDIF, C MP, HEPGEN ####[facility] [place] [address] [phone] Abs Neut 4.28 1.45-7.50 k/uL Normal 06-09-2019 [facility] (48271) Comment: Performed By: #### CBCDIF, C MP, HEPGEN ####[facility] [place] [address] [phone] Absolute nRBC <0.01 <0.01 Normal 06-09-2019 [facility] (89200) Comment: Performed By: #### CBCDIF, C MP, HEPGEN ####[facility] [address] [address] [phone] Basophils/100 WBC (Bld) 1.6 % Normal 2018 [facility] (39851) Comment: Performed By: #### CBCDIF, C MP, HEPGEN ####[facility]issa [place] [phone] DTYPE Auto Diff Normal 06-09-2019 [facility] (48709) Comment: Performed By: #### CBCDIF, C MP, HEPGEN ####[place] [address] [address] Eosinophils (Bld) [#/Vol] 0.89 <0.46 k/uL High 05-28 [facility] (11453) Comment: Performed By: #### CBCDIF, C MP, HEPGEN ####[place] [address] [address] [place] [address] Eosinophils/100 WBC (Bld) 9.9 % Normal 05-28 [facility] (09120) Comment: Performed By: #### CBCDIF, C MP, HEPGEN ####[place] [address] [address] [place] [address] Erythrocyte distribution 12.8 11.5-15.0 % Normal 06-09 [facility] width (RBC) [Ratio] [place] (04975) Comment: Performed By: #### CBCDIF, C MP, HEPGEN ####[place] [address] [address] [place] [address] Hematocrit (Bld) [Volume 50.0 39.0-51.0 % Normal 06-09 [facility] fraction] [place] (20680) Comment: Performed By: #### CBCDIF, C MP, HEPGEN ####[place] [address] [address] [place] [address] Hemoglobin (Bld) 16.1 13.0-17.0 g/dL Normal 06-09-2019 [facility] [place] [Mass/Vol] [place] ([id number]) Comment: Performed By: #### CBCDIF, C MP, HEPGEN ####[place] [address]level[place] [address] Lymphocytes (Bld) [#/Vol] 3.05 1.00-4.00 k/uL Normal 05-28 [facility] (74039) Comment: Performed By: #### CBCDIF, C MP, HEPGEN ####[facility] [address]level[address] [place] [address] [phone] Lymphocytes/100 WBC (Bld) 33.8 % Normal 05-28 [facility] (69926) Comment: Performed By: #### CBCDIF, C MP, HEPGEN ####[facility] [address] [phone] MCH (RBC) [Entitic mass] 31.9 26.0-34.0 pG Normal 06-09 [facility] (88334) Comment: Performed By: #### CBCDIF, C MP, HEPGEN ####[place] [address] [address] [place] [address] [phone] MCHC (RBC) [Mass/Vol] 32.2 30.5-36.0 g/dL Normal 06-09-20 [facility] (68332) Comment: Performed By: #### CBCDIF, C MP, HEPGEN ####[place] [address] [address] [address] [phone] MCV (RBC) [Entitic vol] 99.0 80.0-100.0 fL Normal 06-09 [facility] (88721) Comment: Performed By: #### CBCDIF, C MP, HEPGEN ####[place] [address] [place] [address] [phone] Monocytes/100 WBC (Bld) 7.2 % Normal 2018 [facility] (20642) Comment: Performed By: #### CBCDIF, C MP, HEPGEN ####[facility] [place] [address] Neutrophils/100 WBC (Bld) 47.5 % Normal 05-28 [facility] (73916) Comment: Performed By: #### CBCDIF, C MP, HEPGEN ####[facility] [place] [address] [phone] NRBCs 0.0 0 /100 WBC Normal 06-09-2019 [facility] (12410) Comment: Performed By: #### CBCDIF C MP, HEPGEN ####[place] [address] [phone] Platelet mean volume 11.8 9.0-12.7 fL Normal 9 [facility] (d) [Entitic vol] [place] (10239) Comment: Performed By: #### CBCDIF, C MP, HEPGEN ####[place] [address] [phone] Platelets (d) [#/Vol] 162 150-400 k/uL Normal 2018 [facility] (79319) Comment: Performed By: #### CBCDIF, C MP, HEPGEN ####[place] [address] [phone] RBC (Bld) [#/Vol] 5.05 4.20-6.00 m/uL Normal 06-09-[address] [facility] (39738) Comment: Performed By: #### CBCDIF, C MP, HEPGEN ####[place] [address] [phone] WBC (d) [#/Vol] 9.03 3.70-11.00 k/uL Normal 06-09-2019 [facility] (05299) Comment: Performed By: #### CBCDIF, C MP, HEPGEN ####[place] [address] [phone] progress on 2019-03 PROGRESS HNO ID: [id number] Normal 04-24-2019 [place] Author: DO Canelo Garvin Res Service: General Internal Medicine [place] Author Type: Resident ([id number]) Type: Progress Notes Filed: 04/24/2019 8:37 AM Note Text: Attestation signed by Conor Sanford at 04/24/2019 1:06 PM [facility] STAFF PHYSICIAN NOTE OF PERSONAL INVOLVEMENT IN CARE I have reviewed the progress note obtained and documented by the resident and I personally participated in the lay components. Patient dis cussed with house staff on rounds; seen and ex amined separately. The following comments revise or confirm relevant lay components of their note. Please see my addendum to Mr Daniel Smith's discharge summary for my thoughts on his care today. Detailed plan per house staff note. I remain available for questions/discussion, if helpful. SIGNATURE: Conor Sanford MD PAGER: [phone] DATE of SERVICE: 04/24/2019 TIME of SERVICE: 1:05 PM Progress Note (Please page [phone] during the day, and the on-call pager [phone] from 5 PM to 7 AM weekdays and 3 PM to 7 AM weekends) SERVICE DATE: 04/24/2019 SERVICE TIME: 6:36 AM Patient Summary Interval History: - No acute events overnight, HDS - Vitals: Bradycardic (HR 47-60), otherwise VSS. - Imaging: MRI Spine demonstrates mild to moderate myelomala palmer at C5/C6 level. MRI brain concerning for L vestibular schwannoma and cerebellar atrophy. - CT Chest/abdomen/pelvis demonstrates upper lobe paraseptal bullous emphysema along with indeterminate hyperdense lesions in aj er. - Neuro workup: HIV, syphilis IgG negative. Cu and cerulopla smin wnl. Plan: - Appreciate neurosurgery recs, no acute intervention at thi s time. Schedule outpatient f/u with Dr. John Piper and brain tumor center for vestibular schwannoma - Neurology following, appreciate recs. F/u workup as recomm ended (Vitamin E, HTLV, anti-FORREST, Lyme). - Dispo: Skilled for acute rehab but patient would like to g o home today. Will set up home health care. Physical Exam Patient Vitals for the past 24 hrs: BP Temp Temp src Pulse Resp SpO2 04/24/19 0426 148/83 36.4 ?C (97.6 ?F) Oral (!) 53 18 97 % 04/24/19 0014 135/78 36.8 ?C (98.3 ?F) Oral 62 18 97 % 04/23/19 1932 155/83 37 ?C (98.6 ?F) Oral (!) 53 18 100 % 04/23/19 1646 154/71 37 ?C (98.6 ?F) Oral (!) 46 17 100 % 04/23/19 1257 107/60 37 ?C (98.6 ?F) Oral (!) 53 17 100 % 04/23/19 0845 153/69 36.9 ?C (98.4 ?F) Oral (!) 50 17 100 % GENERAL:?Alert, Moderate Distress, Uncooperative,?AAO X 3 ?b ut agitated SKIN:?Positive findings:?Ecchymosis:?Left arm HEAD/SINUSES:?No significant findings EYES:?PERRLA, EOMI, Positives:?Nystagmus improved. NECK:?No jugulovenous distention, Supple, No thyromegaly LUNGS:?Lungs clear to auscultation, Good diaphragmatic excur kristal CARDIAC:?Normal S1 and S2; no rubs, murmurs, or gallops EXTREMITIES:?Left arm echhymosis, no edema, Normal capillary refill NEURO:?Negative findings:?No asterixis,?rapid alternating mo vements normal,?negative babinski, no sensory loss.?2 b/l patellar a nd BrRad reflexes. Light touch/proprioception sensation intact. Finge r to nose intact b/l. CN II-XII grossly intact. Positive findings: disoriented, resting tremor,?altered fing er to nose test,?muscular weakness in BLE , Strength 5/5 in LE and 5/5 in UE. No muscle atrophy. +? Labs CBC, Coags, BMP, Mg, Phos Recent Labs 04/23/19 0746 04/22/19 0747 04/21/19 2325 04/21/19 1510 WBC 4.94 3.94 -- 4.39 HB 13.5 13.7 -- 15.8 HCT 40.6 41.0 -- 46.1 PLT 62* 51* -- 45* INR -- -- 1.3 -- APTT -- -- 28.9 -- NA 141 144 -- 140 K 4.2 3.8 -- 3.7 CHLOR 107* 109* -- 106* CO2 22 24 -- 25 BUN 5* 4* -- 5* CREAT 0.79 0.74 -- 0.67* GLUC 88 89 -- 105* CA 9.0 8.9 -- 10.0 MG -- -- -- 1.8 P -- -- 3.1 -- Liver Function, Amylase, AND Lipase Recent Labs 04/23/19 0746 04/21/19 1510 TPROT 7.0 8.7* ALB 3.2* 4.1 ALT 22 26 AST 60* 63* ALKPHOS 92 110 TBILI 1.2 1.8* Cardiac Enzymes ABGs Assessment and Plan Mr. Smith is a 43 year old Male with PMHx significant for a lcohol abuse,?tobacco abuse and recently diagnosed likely vestibula r schwannoma?who comes in with gait disturbance,?vertigo, and nystagmus. ? #Gait disturbance #BLE weakness #Vertigo #Horizontal Nystagmus #Pseudobulbar affect - Difficulty walking?and maintaining balance, started 1 year ago getting worse -?Since past 3 weeks?can't walk without support and would fa ll. ?Repeated falls in past 3 weeks. Denies LOC during falls. - Gait slapping with bounce in step which evolved into marsha bility to lift legs off the floor ie magnetic gait with small shuffling s teps per family - Per family reported seeing people on the floor and hearing screaming noises while was admitted at the OSH. Continues to have com plete personality change per family. - O/E has BLE weakness 5/5 strength, no sensory loss, negati ve babinski, positive for resting tremor, altered finger nose test, - Feeling of room spinning while trying to get up on most oc casions and occasionally with his head still - Has hearing loss B/L -could be occupational, says more on R side - Has tinnitus on AND off -high pitched - B/L jerk nystagmus on horizontal movement - EOMI, PERRLA - Labs: Liver enzymes trending down compared to ~3 weeks ago (Tbili 2.6>1.8, ALT 204>26, AST 374>63) - Imaging: MRI Spine demonstrates mild to moderate myelomala palmer at C5/C6 level. MRI brain concerning for L vestibular schwannoma and cerebellar atrophy. - CT Chest/abdomen/pelvis demonstrates upper lobe paraseptal bullous emphysema along with indeterminate hyperdense lesions in aj er. - Neuro workup: HIV, syphilis IgG negative. Cu and cerulopla smin wnl. Assessment: - Presumed multifactorial etiology contributing to above pre sentation; Vestibular schwannoma may explain some of the balance issues and hearing loss, however, I suspect that the C5/C6 myelomalacia, cerebe llar atrophy, and even lesion seen in the corpus callosum are all 2/2 alco hol abuse. Primary [employer] lymphoma may also cause corpus callosum lesions, but CLOCCS (cytotoxic lesions of the corpus callosum) 2/2 alcohol toxic ity may also explain this and tie together his other imaging findings and presentation. Plan: - Appreciate neurosurgery recs, no acute intervention at thi s time. Schedule outpatient f/u with Dr. John Piper and brain tumor center for vestibular schwannoma - Neurology following, appreciate recs. F/u workup as recomm ended (Vitamin E, HTLV, anti-FORREST, Lyme). - Replete Thiamine ? #Vestibulocochlear Schwannoma - OSH MRI done on 04/15: Parenchymal volume loss with mild ve ntriculomegaly with 5x3mm enhancing lesion in Left internal auditory canal suspicious for vestibular schwannoma w/o mass effect. - Neurosurgery consulted in ED says no acute neurosurgical i ntervention at this time w/ Neurology consult and outpatient follow up Plan: - No need for acute neurosurgical intervention, will schedul e f/u with [facility] ? ? #Alcoholism #Thrombocytopenia #Hyperbilirubinemia #Alcoholic hepatitis- improving -last drink last week per patient - Labs: Liver enzymes trending down compared to ~3 weeks ago (Tbili 2.6>1.8, ALT 204>26, AST 374>63) - No concern for DT since VSS -?Platelets 45k - T. Bili 1.8, Conjugated Bili 0.7 - ALT 26, AST 63 - Albumin 4.1 - Ammonia WNL, No Asterixis O/E, No RUQ pain Assessment: - Likely consequence of alcoholic hepatitis which is now imp roving. I expect his liver enzymes to continue trending down and plate let counts to rise. Plan: - CTM - Thiamine/folate repletion ? #Tobacco use Plan: -Nicotine patch ? #Hip pain -Most likely from fall at OSH - No concerns for fracture ? ? ? #Code status - Full # Diet - Regular # VTE PPx - SubQ heparin 5000u q12h # Dispo Planning - Pending clinical course ? Molly Dewey DO PGY-1 Internal Medicine Pager # [phone] ? SIGNATURE: Molly Dewey DO PATIENT NAME: Christopher Smith DATE: April 24, 2019 TIME: 6:36 AM PAGER: [phone] Note: These recommendations are not final until staffed by surendra lovell comp metabolic panel on 2019-04-24 Albumin [Mass/Vol] 3.0 3.9-4.9 g/dL Low 04-24-2019 [facility] (21366) Comment: Performed By: #### CMP, CBC ####[address] [phone] ALP [Catalytic activity/Vol] 108 38-113 U/L Normal 0 04-24-2019 [facility] (49867) Comment: Performed By: #### CMP, CBC ####[facility] [place] [address] [phone] ALT [Catalytic activity/Vol] 19 10-54 U/L Normal 0 04-24-2019 [facility] (75519) Comment: Performed By: #### CMP, CBC ####[facility] [place] [address] [phone] Anion gap [Moles/Vol] 13 9-18 mmol/L Normal 04-24-20 19 [facility] (15867) Comment: Performed By: #### CMP, CBC ####[address], [place] [phone] AST [Catalytic activity/Vol] 51 14-40 U/L High 0 04-24-2019 [facility] (53897) Comment: Performed By: #### CMP, CBC ####[place] [address] [address], [place] [phone] Bilirubin [Mass/Vol] 1.0 0.2-1.3 mg/dL Normal 9 [facility] (03628) Comment: Performed By: #### CMP, CBC ####[place] [address] [address] [place], [place] [phone] Calcium [Mass/Vol] 9.3 8.5-10.2 mg/dL Normal 04-24-2019 [facility] (48390) Comment: Performed By: #### CMP, CBC ####[address] [phone] Chloride [Moles/Vol] 107 97-105 mmol/L High 9 [facility] (07085) Comment: Performed By: #### CMP, CBC ####[place] [address] [address] [place], [place] [phone] CO2 [Moles/Vol] 22 22-30 mmol/L Normal 04-24-2019 [facility] (39515) Comment: Performed By: #### CMP, CBC ####[place] [address] [address] [place], [place] [phone] Creatinine [Mass/Vol] 0.72 0.73-1.22 mg/dL Low 04-24-20 19 [facility] (70664) Comment: Performed By: #### CMP, CBC ####[place] [address] [address] [place], [place] [phone] eGFR- Amer. >60 Normal 04-24-2019 [facility] (86017) Comment: Performed By: #### CMP, CBC ####[place] [address] [place], [place] [phone] GFR/1.73 sq M predicted >60 mL/min/{1.73_m2} Normal 04-24-2019 [facility] among non-blacks MDRD [place] (13132) (S/P/Bld) [Vol rate/Area] Comment: Result Comment: eGFR (Estima delfin GFR) Units of measure: mL/min/1.73 meters squared eGFR is derived from the ree xpressed MDRD Study equation using the following parameters: serum creatinine, age, gender and race. The creatinine assay has been calibrated to be traceable to IDMS. An eGFR <60 mL/min/1.73m2 fo r >3 months is consistent with chronic kidney disease. Refer to KDOQI guidelines for clinical interpretation. In patients with unstable re nal function, e.g. those with acute kidney injury, the eGFR may not accurately reflect actual GFR. Performed By: #### CMP, CBC ####[facility] [place], [place] [phone] Glucose [Mass/Vol] 113 74-99 mg/dL High 04-24-2019 [facility] (59283) Comment: Result Comment: The [place] Diabetes Association (ADA) provides guidance for cutoff values for fasting glucose and random glucose. The ADA defines fasting as no caloric intake for at least 8 hours. Fas ting plasma glucose results between 100 to 125 mg/dL indicate increased risk for diabetes (prediabetes). Fasting plasma glucose resul ts greater than or equal to 126 mg/dL meet the criteria for diagnosis of diabetes. In the absence of unequivocal hyperglycemia, results should be confirmed by repeat testing. In a patient with classic s ymptoms of hyperglycemia or hyperglycemic crisis, random plasma glucose results greater than or equal to 200 mg/dL meet the criteria for diagnosis of diabetes. Reference: Standards of [facility] in Diabetes 2016, [place] Diabetes Association. Diabetes Care. 2016.39(Suppl 1). Performed By: #### CMP, CBC ####[facility] [place], [place] [phone] Potassium [Moles/Vol] 3.8 3.7-5.1 mmol/L Normal 06 [facility] (91179) Comment: Performed By: #### CMP, CBC ####[place] [address] [address], [place] [phone] Protein [Mass/Vol] 7.1 6.3-8.0 g/dL Normal 04-24-2019 [facility] (11258) Comment: Performed By: #### CMP, CBC ####[place] [address] [address], [place] [phone] Sodium [Moles/Vol] 142 136-144 mmol/L Normal 04-24-2019 [facility] (06614) Comment: Performed By: #### CMP, CBC ####[place] [address] [address], [place] [phone] Urea nitrogen [Mass/Vol] 8 9-24 mg/dL Low 04-24 [facility] (44377) Comment: Performed By: #### CMP, CBC ####[place] [address] [address], [place] [phone] cbc on 2019-04-24 Absolute nRBC <0.01 <0.01 Normal 04-24-2019 [facility] (15956) Comment: Performed By: #### CMP, CBC ####[address] [phone] Erythrocyte distribution 14.0 11.5-15.0 % Normal 04-24 [facility] width (RBC) [Ratio] [place] (19804) Comment: Performed By: #### CMP, CBC ####[place] [address] [address], [place] [phone] Hematocrit (Bld) [Volume 40.5 39.0-51.0 % Normal 04-24 [facility] fraction] [place] (50689) Comment: Performed By: #### CMP, CBC ####[place] [address] [address], [place] [phone] Hemoglobin (Bld) 13.5 13.0-17.0 g/dL Normal 04-24-2019 [facility] [place] [Mass/Vol] [place] (07306) Comment: Performed By: #### CMP, CBC ####[address], [place] [phone] MCH (RBC) [Entitic mass] 32.8 26.0-34.0 pG Normal 04-24 [facility] (79482) Comment: Performed By: #### CMP, CBC ####[address], [place] [phone] MCHC (RBC) [Mass/Vol] 33.3 30.5-36.0 g/dL Normal 04-24-20 19 [facility] (76051) Comment: Performed By: #### CMP, CBC ####[address], [place] [phone] MCV (RBC) [Entitic vol] 98.5 80.0-100.0 fL Normal 04-24 [facility] (49537) Comment: Performed By: #### CMP, CBC ####[address], [place] [phone] Platelet mean volume (Bld) 12.9 9.0-12.7 fL High [facility] [Entitic vol] (90606 ) Comment: Performed By: #### CMP, CBC ####[address], [place] [phone] Platelets (Bld) [#/Vol] 69 150-400 k/uL Low 2018 [facility] (48151) Comment: Result Comment: No clot dete cted. Performed By: #### CMP, CBC ####[address], [place] [phone] RBC (Bld) [#/Vol] 4.11 4.20-6.00 m/uL Low 04-24-[address] [facility] (12728) Comment: Performed By: #### CMP, CBC ####[facility] [address] [place], [place] [phone] WBC (Bld) [#/Vol] 3.73 3.70-11.00 k/uL Normal 04-24-2019 [facility] (45261) Comment: Performed By: #### CMP, CBC ####[facility] [address] [place], [place] [phone] case managem on 201 07-03-28 CASE MANAGEM HNO ID: [id number] Normal 04-24-20 [facility] Author: Joanna Fang (Sw) [place] ([id number]) Service: ? Author Type: Screwmaker Automatic Type: Care Mgt Progress Note Filed: 04/24/2019 2:26 PM Note Text: CARE MANAGEMENT DISCHARGE NOTE SERVICE DATE: 04/24/2019 SERVICE TIME: 1:57 PM LOS: 3 days Admission Date: 04/21/2019 DISCHARGE ARRANGEMENT (list agency and phone number) [facility] - Nursing, PT, OT, Social Work and Aide Provider: [facility] CAREGIVER ASSESSMENT: Caregiver is ready, willing and able to meet the patient's n eeds as recommended by the inter-professional team? Yes Patient's transition needs and plan for meeting these needs: Pt to have new HHC and assistance from family at home. Does the patient have an acute stroke diagnosis, or has the patient had a stroke during this admission? No HANDOFF COMMUNICATION: Pt to establish new PCP who will follow for HHC orders at d/ c. TRANSPORTATION ARRANGEMENTS: Car w/ . ADDITIONAL CONTACT RESOURCES: N/A Plan for d/c to home today with HHC to be provided by [facility]. DORETHA updated pt, MD, and bedside RN. Please contact Case Management for any additional needs prior to discharge. Than k you! SIGNATURE: ARI Esteban PATIENT NAME: Christopher Smith DATE: April 24, 2019 TIME: 1:57 PM PAGER/CONTACT #: [phone] CASE MANAGEM HNO ID: [id number] Normal 06-28-[address] [place] [address] Author: Joanna Neri) Annalisa Billings ([id number]) Service: ? 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 Has no preference. States to send out based on insurance acceptance . Needs Prior to Discharge: Accepting Facility PT and OT recommends [facility]. Pt and stating that they want to return home and that pt has 24 hour supervision. Pt and are agreeab le to [facility], but are declining [facility] or SNF placement at this time. Referrals se nt based on location and agencies that accept pt's insurance, waiting on responses. Pt's stating she is leaving the hospital today and does n't want to leave him here by himself. Medical Team aware of pt wanting to leave today. Pt also needs PCP to follow for [facility] orders, as his primary c are doctor is no longer practicing. Updated Medical Team with this informa tion. DORETHA will continue to follow for care coordination. Please bandar l or page if any questions or concerns arise. SIGNATURE: ARI Esteban PATIENT NAME: Christopher Smith DATE: April 24, 2019 TIME: 9:22 AM PAGER/CONTACT #: [phone] therapy nt on 04-23 THERAPY HNO ID: [id number] Normal 04-23-2019 [facility] Author: Imelda (Ot/L) [facility] Service: Occupational Therapy [place] Author Type: Occupational Therapist ([id number]) Type: Therapy (PT/OT/Speech/Resp) Filed: 04/23/2019 4:29 PM Note Text: Occupational Therapy Evaluation SERVICE DATE: 04/23/2019 SERVICE TIME: 1526 to 1600 ROOM: [place] [address] Recommended Discharge Disposition: Acute Rehab Justification For Post Acute Needs: Anticipate that patient will require daily (5x/wk) skilled therapy in a post-acute facility nadege tillman at the time of acute hospital discharge;Anticipate patient will tolerate 3 hours of daily therapy at the time of admission to post-acute setting ;Good family support;Living the community premorbidly;Medically complex Anticipated Discharge Needs: Physical Assist at Home;Supervi kristal at Home;Equipment Physical Assist at Home for: Transfers;Finances;Cleaning;Laundry;Ambulation;Medication Management;Stairs;Safety;Self Care;Shopping;Transportation;M eals Supervision at Home due to: Decreased safety awareness OT Recommendations to Nursing: With assist of 1 person;OOB f or meals;To Bathroom for ADL?s /and or Toileting OT 6 Clicks Score: 18 Precautions/Activity Restrictions: Fall Risk;Bed/Chair Alarm ASSESSMENT: 43year old male presenting with gait disturbance ,?vertigo, and nystagmus. Patient demonstrating decreased strength, enduran ce, functional transfers, functional mobility, safety awareness and ability to perform ADLs/IADLs impacting overall independence and safety. Pt. Wo uld benefit from further visual and cognitive assessment. Patient receptive to education provided this date however pt expressing that he wants to leave hospital today and do outpatient ther apy near his home in [place]. Based on patient current level of function, home set up and caregiver support, patient would benefit from ACUTE REHA B discharge. Following in house occupational therapy during current admis kristal, patient would benefit from continued skilled and intensive occupatio nal therapy services to increase overall independence and safety. Patient Disposition at Start of Session: Supine in Bed;Call Adams in Reach;Bed Alarm;Family Present Patient Disposition at End of Session: Supine in Bed;Call Be ll in Reach;Bed Alarm;Family Present Tolerated Full Session Occupational Therapy Problem List: Cognitive Deficit;Educati on Deficit;Pain;Safety Deficits;Impaired Self Care;Decreased Ac tivity Tolerance;Functional Mobility Impairment;Balance Impaired Patient /Caregiver Goals: Go Home Goals for Plan of Care: Able to perform HEP with: Modified Independent Grooming with: Stand By Assistance(standing) Upper Body Bathing with: Set Up Upper Body Dressing with: Set Up Lower Body Bathing with: Minimal Assistance Lower Body Dressing with: Minimal Assistance Toilet Hygiene with: Stand By Assistance Chair Transfer with: Contact Guard Assistance Toilet Transfer with: Contact Guard Assistance Tolerate (minutes of functional activity): 30(EOB or OOB act ivity) Functional Activity with: Contact Guard Assistance Demonstrate Positive Coping Strategies with: Modified Jasmin ndent Demonstrate Competence With Education with: Solange barroso Increased Awareness of Cognitive Impairments as Related to A DL's/IADL's: Verbalized;Demonstrated Progress Toward Goals: Progressing as expected Rehab Potential: Good PLAN: Treatment Frequency (times per week): 3(1) Current admission Treatment Interventions: Education;Self Care / Home Manageme nt;Energy Conservation Training;Strengthening;Functional Mobility Rei nick;Balance Training;Neuromuscular Re-education;Cognitive Training Plan of Care developed with: Patient;Family TREATMENT INTERVENTIONS: Therapy Diagnosis: Decreased activities of daily living (ADL );Reduced mobility-other Interventions Provided: Evaluation;Self Longterm Management (43682) $ Evaluation-Moderate (40478) Billed Units: 1 unit Self Longterm Management (75959) Treatment Minutes: 19 1 unit Skilled Intervention(s): Educated pt on role of OT, POC and recs. Educated pt on AR s etting. Pt. Verbalized understanding of education; pt reporting he wants to d/c to home today. RN aware. Bed mobility-pt educated on technique and sequencing. Cues p rovided for proper tech. Completing with SBA. Functional transfers-pt instructed to push with UE's from st able surface versus pulling on walker. Instructed to feel surface posteri or to legs prior to reaching back with UE's in prep for sitting. Comple ting with MIN A for sit to stand and MOD A for transfers overall. Grooming in standing at sink side with walker-pt performed g rooming task at sink, instructed to bring walker closer to counter top, t o lean body against counter and to place hands on counter surface versus on walker to promote safety. Completing with CGA. Discussed AE and DME for home setting to promote safety and indep with ADL's. Total Timed Code Treatment Minutes: 19 Total Treatment Time (minutes): 34 SUBJECTIVE: Current Hospital Course: Chart reviewed; Mr. 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 PAST MEDICAL HISTORY Diagnosis Date - Alcohol abuse - HTN (hypertension) - Tobacco use Reason for Occupational Therapy Consult: Safety assessment Relevant Past Medical History: Alcohol abuse, HTN, tobacco Patient Report: I want to go home. I have kids who can help me so I don't fall. I don't need to be here. Home Environment Patient Lives With: Family Assistance Available: 24 Hour Entry To Home: With Rail Number Of Stairs Into Home: 14 Number Of Stairs To Bed/Bath: 1 Tub/Shower Type: tubshower Laundry: family does Equipment Owned: Cane;Shower Chair;Wheeled Walker(Can borrow powered w/c if needed) Prior Functional Level: Required Assistance;History of Falls (4 falls in 3 weeks) Assistance Required With: Transfers;Finances;Ambulation;Cleaning;Laundry;Medication Management;Stairs;Safety;Self Care;Shopping;Transportation Prior Functional Level Comments: Ind prior 3 weeks. Needs as sist with all ADLs/amb/stairs since about 3 weeks per pt(Pt. was working ) OBJECTIVE: Cognition/Communication Deficits Orientation Deficits: (intact) Responsiveness: Alert;Awake;Agitated(mild agitation) Follows Commands: 2-step Commands;Cueing Needed Cueing to Follow Commands: Moderate Executive Function Deficits: Safety Awareness;Insight to Deficits;Sequencing;Problem Solving Sequencing Deficit: Minimal impairment Insight to Deficits: Maximum impairment Problem Solving Deficit: Minimal impairment Safety Awareness Deficit: Moderate impairment CURRENT FUNCTIONAL STATUS: Current Activities of Daily Living Assist Level Feeding Set Up Grooming Contact Guard Assistance(standing) Bathing Upper Body Minimal Assistance Bathing Lower Body Moderate Assistance Dressing Upper Body Minimal Assistance Dressing Lower Body Moderate Assistance Toileting Contact Guard Assistance Functional Mobility Assist Level Rolling Supine to Sit Stand By Assistance Sit to Supine Stand By Assistance Scooting Sit to Stand Minimal Assistance Stand to Sit Minimal Assistance Bed to Chair Toilet/Commode Moderate Assistance Functional Mobility Moderate Assistance Wheeled Walker Please see discipline specific clinical documentation [facility] for complete details for this therapy evaluation/treatment. SIGNATURE: Imelda Chowdary OT/Nesha PATIENT NAME: Christopher howard DATE: April 23, 2019 TIME: 4:23 PM THERAPY HNO ID: [id number] Normal 04-23-2019 [facility] Author: Claire (Pt) [facility] Service: Physical Therapy [place] Author Type: Physical Therapist ([id number]) Type: Therapy (PT/OT/Speech/Resp) Filed: 04/23/2019 1:10 PM Note Text: Physical Therapy Evaluation SERVICE DATE: 04/23/2019 SERVICE TIME: 1100 to 1210 ROOM: [place] [address] Recommended Discharge Disposition: Acute Rehab Recommended Discharge Disposition Comments: Currently high f all risk Justification For Post Acute Needs: Anticipate patient will tolerate 3 hours of daily therapy at the time of admission to post-acut e setting;Medically complex;Good sitting tolerance;Good family support Anticipated Discharge Needs: Physical Assist at Home;Supervi kristal at Home;Equipment Physical Assist at Home for: Transfers;Finances;Cleaning;Laundry;Ambulation;Medication Management;Stairs;Safety;Self Care;Shopping;Transportation;M eals Supervision at Home due to: Decreased safety awareness Recommended Discharge Equipment: To Be Determined PT Recommendations to Nursing: Ambulate with device;To bathr oom;Transfer to/from chair;OOB for Meals;With assist of 1 person Device: Wheeled Walker PT 6 Clicks Score: 16 Precautions/Activity Restrictions: Fall Risk;Bed/Chair Alarm ASSESSMENT : Patient presents with onset of gait instability for about 3 weeks. Per MRI has C5-6 myelomalacia and suspected Vestibular Schwannoma. C urrently going through conservative treatment. Per spouse pt was independen t with all ADLs/amb prior to about 3 weeks. Currently ataxic and unstea dy with mobility in upright with need for mod tactile and verbal cue s. Spouse involved and willing to assist. Currently demonstrates impai red balance, strength, functional mobility and activity tolerance. Requir es skilled PT for increasing functional mobility and safety with mobility. Patient Disposition at Start of Session: Supine in Bed;Call Adams in Reach;Family Present Patient Disposition at End of Session: Supine in Bed;Call Be ll in Reach;Family Present Tolerated Full Session Physical Therapy Problem List: Decreased Activity Tolerance; Decreased Strength;Functional Mobility Impairment;Balance Impaired;Saf ety Deficits;Education Deficit Patient /Caregiver Goals: Go Home Goals for Plan of Care: Able to perform HEP with: Set Up Transfer supine to/from sit with: Set Up Transfer sit to/from stand with: Supervision Ambulate with: Stand By Assistance Distance: 300feet Device: Wheeled Walker Ambulate up and down steps with: Contact Guard Assistance Number of steps: 14 Device: Rail;Hand Held Assist Transfer: Demonstrates all functional transfers with Supervi kristal Progress Toward Goals: Progressing as expected Rehab Potential: Excellent PLAN: Treatment Frequency (times per week): 4(1) Current admission Treatment Interventions: Education;Energy Conservation Training;Strengthening;Functional Mobility Training;Balance Training;Neuromuscular Re-education Plan of Care developed with: Patient;Family TREATMENT INTERVENTIONS: Therapy Diagnosis: Ataxic gait Interventions Provided: Evaluation;Therapeutic Activity (37527);Therapeutic Exercise (56354);Gait Training (71609) $ Evaluation-Low (80154) Billed Units: 1 unit Therapeutic Exercise (23423) Treatment Minutes: 15 1 unit Skilled Intervention(s): Instruction in therapeutic exercise Performed VORx1 and VORx 2 exercises. Handout given and explained the importance of cont the exercised to improve with occasional intermittent D izziness. Discussed frequency, technique. Therapeutic Activity (32648) Treatment Minutes: 10 1 unit Skilled Intervention(s):Educated pt on role of PT, need for mobility assessment, Plan of care, D/c needs, fall risk, up with assi stance only. Pt agitated and asking to leave initially. PT attempted to e ducate and with help of spouse's input pt agreeable to work with therap y. Instructed patient in supine to and from sit pushing with up per extremities to sit up with cues on technique. No complain of dizziness. Educated on pause between change on position. Instruction in sit to and from stand technique with proper h and placement and body positioning at edge of bed/chair with cues on techn ique. Performed sit<>stand mass practice with and without the walk er. Performed standing dyn activities without/without walker stepping in p lace, side stepping, postural correction with verbal and tactile cues. Able to use restroom with spouse assisting and cues on trans fers. Educated on up with [facility] staff, using call light. Gait Training (29943) Treatment Minutes: 30 2 units Skilled Intervention(s): Instruction in sequencing, gait pat tern, Instruction in correction of gait deviations, Instruction in use of equipment, cues for sequence and pattern and with verbal and tactile cues on technique. Ambulation short distance without FOREX TRADER with FOREX TRADER and max verbal and tactile cues on sequencing. Performed ambulation with walker with slight improvement in the gait with cont need for cues to clear the lt foot and distance from the walker. Total Timed Code Treatment Minutes: 55 Total Treatment Time (minutes): 70 SUBJECTIVE: Current Hospital Course: Chart reviewed; 43 year old admitte d with gait instability for one year with 3 weeks of precipitous decline as well as hallucinations and personality changes. Exam shows marked at axia and moderate spasticity of lower more than upper limbs. MRI brai n OSH showed suspected vestibular schwannoma - per our review also concer n for enhancing lesion in anterior corpus callosum and significant atrophy including in cerebellum. MRI cervical spine shows C5-6 myelo malacia at level of degenerative changes. Concern for mix of cerebellar ataxia and myelopathy with overlapping cognitive decline and possible p seudobulbar affect. Likely at least some component is related to alcohol abuse. Reason for Physical Therapy Consult : safety assessment Relevant Past Medical History: Alcohol abuse, HTN, tobacco Patient Report: Agreeable to PT session. Spouse present thro ughout the session. Home Environment Patient Lives With: Family Assistance Available: 24 Hour Entry To Home: With Rail Number Of Stairs Into Home: 14 Number Of Stairs To Bed/Bath: 1 Tub/Shower Type: tubshower Laundry: family does Equipment Owned: Cane;Shower Chair;Wheeled Walker(Can borrow powered w/c if needed) Prior Functional Level: Required Assistance;History of Falls (4 falls in 3 weeks) Assistance Required With: Transfers;Finances;Ambulation;Cleaning;Laundry;Medication Management;Stairs;Safety;Self Care;Shopping;Transportation Prior Functional Level Comments: Ind prior 3 weeks. Needs as sist with all ADLs/amb/stairs since about 3 weeks per pt OBJECTIVE: CURRENT FUNCTIONAL STATUS: Current Functional Mobility Assist Level Additional Informat ion Rolling Stand By Assistance Supine to Sit Contact Guard Assistance(leaning to right) Sit to Supine Contact Guard Assistance Scooting Stand By Assistance Sit to Stand Minimal Assistance Stand to Sit Moderate Assistance Bed to Chair Toilet/Commode Minimal Assistance Gait Moderate Assistance(progressed to min assist with walke r) Gait Device: Wheeled Walker Gait Distance (feet): 70feetx 2, 30feet x 2 Stairs (Not safe to assess yet) Curb Step Car Transfer Gait Deviations Left Lower Extremity: Foot clearance decreas ed;Step length decreased General Gait Deviations: Flexed trunk posture;Step length decreased;Umair decreased;Non-functional gait speed;Shuffl ing Gait;Narrow Base of Support(max tactile cues) Balance: Static Sitting;Dynamic Sitting;Static Standing;Nevaeh omar Standing Static Sitting Balance: Supervision Dynamic Sitting Balance: Stand By Assistance Static Standing Balance: Contact Guard Assistance Dynamic Standing Balance: Moderate Assistance JH-HLM: 7: Walk 25 feet or more Please see discipline specific clinical documentation [facility] for complete details for this therapy evaluation/treatment. SIGNATURE: Claire Xiao PT PATIENT NAME: Christopher Smith DATE: April 23, 2019 TIME: 1:00 PM THERAPY HNO ID: [id number] Normal 04-23-2019 [facility] Author: Adrianna ProctorPt) [facility] Service: Physical Therapy [place] Author Type: Physical Therapist ([id number]) Type: Therapy (PT/OT/Speech/Resp) Filed: 04/23/2019 9:22 AM Note Text: PHYSICAL THERAPY MISSED VISIT SERVICE DATE: 04/23/2019 SERVICE TIME: 917 to 917 ROOM: [place] [address] Attempted Evaluation. Patient not seen due to Another servic e at bedside. Physical therapy will re-attempt evaluation as able. SIGNATURE: Adrianna Galvan PT PATIENT NAME: Christopher garcia DATE: April 23, 2019 TIME: 9:21 AM progress on 2019-03 PROGRESS HNO ID: [id number] Normal 04-23-2019 [facility] Author: TAVO Esquivel (Ct) [place] ([id number]) Service: Radiology Author Type: Clinical Graphic Technician Type: Progress Notes Filed: 04/23/2019 9:42 AM Note Text: Radiology Service Progress Note PATIENT NAME: Christopher Smith DATE OF SERVICE: April 23, 2019 TIME: 9:38 AM PATIENT IDENTITY VERIFICATION COMPLETED USING TWO (2) METHOD S: Patient confirmed name verbally, ID Band and Date of . PATIENT GENDER DATA: Male PATIENT RELEVANT IMPLANT DATA REVIEWED: Yes RADIOLOGY DEPARTMENT: CT; Exam(s) Completed: Chest Abdomen P ap PERIPHERAL IV DATA: Inpatient: see LDA documentation SIGNED BY: TAVO Esquivel April 23, 2019 9:38 AM PROGRESS HNO ID: [id number] Normal 04-23-2019 [facility] Author: Molly Dewey DO [place] ([id number]) Service: General Internal Medicine Author Type: Resident Type: Progress Notes Filed: 04/23/2019 8:30 AM Note Text: Attestation signed by Conor Sanford at 04/23/2019 2:15 PM [facility] STAFF PHYSICIAN NOTE OF PERSONAL INVOLVEMENT IN CARE I have reviewed the progress note obtained and documented by the resident and I personally participated in the lay compo adriana. Patient seen and discussed with house staff on rounds. The following comments revise o r confirm relevant lay components of their note. Mr. Smith again expressed his desire to return home d uring our conversation this morning. Our conversation with Koki was more productive; we were able to share with her our hypotheses and our workup in process. I am grateful to our Neurology colleagues for their in volvement. I doubt the hypothesized lymphoma, but pedro deleon obtained a CT this morning. Intracranial lymphoma remains possible. Detailed plan per house staff note. I remain available for questions/discussion, if helpful. SIGNATURE: Conor Sanford MD PAGER: [phone] DATE of SERVICE: 04/23/2019 TIME of SERVICE: 2:04 PM Progress Note (Please page [phone] during the day, and the on-call pager [phone] from 5 PM to 7 AM weekdays and 3 PM to 7 AM weekends) SERVICE DATE: 04/23/2019 SERVICE TIME: 6:16 AM Patient Summary Interval History: - No acute events overnight, HDS - Vitals: Bradycardic (HR 47-60), otherwise VSS. - Labs: Liver enzymes trending down compared to ~3 weeks ago (Tbili 2.6>1.8, ALT 204>26, AST 374>63) - Imaging: MRI Spine demonstrates mild to moderate myelomala palmer at C5/C6 level. MRI brain concerning for L vestibular schwannoma and cerebellar atrophy. Plan: - Presumed multifactorial etiology contributing to above pre sentation; Vestibular schwannoma may explain some of the balance issues and hearing loss, however, I suspect that the C5/C6 myelomalacia, cerebe llar atrophy, and even lesion seen in the corpus callosum are all 2/2 alco hol abuse. Primary PLATFORM CONSULTANT lymphoma may also cause corpus callosum lesions, but CLOCCS (cytotoxic lesions of the corpus callosum) 2/2 alcohol toxic ity may better explain this and tie together his other imaging findings and presentation. - Neurology following, appreciate recs. F/u workup as recomm ended (Vitamin E, Cu, HIV, HTLV, syphlis, HTLV, anti-FORREST, Lyme, CT C/A/P). May consider paraneoplastic panel pending results. Physical Exam Patient Vitals for the past 24 hrs: BP Temp Temp src Pulse Resp SpO2 04/23/19 0500 141/70 36.9 ?C (98.5 ?F) Oral 60 18 97 % 04/22/19 2355 145/85 36.9 ?C (98.5 ?F) Oral 60 18 99 % 04/22/19 1946 108/56 36.9 ?C (98.5 ?F) Oral (!) 52 16 100 % 04/22/19 1557 138/68 36.7 ?C (98.1 ?F) Oral (!) 47 16 100 % 04/22/19 0820 135/65 36.6 ?C (97.9 ?F) Oral (!) 51 18 100 % GENERAL: Alert, Moderate Distress, Uncooperative, AAO X 3 bu t agitated SKIN: Positive findings: Ecchymosis: Left arm HEAD/SINUSES: No significant findings EYES: PERRLA, EOMI, Positives Horizontal Nystagmus NECK: No jugulovenous distention, Supple, No thyromegaly LUNGS: Lungs clear to auscultation, Good diaphragmatic excur kristal CARDIAC: Normal S1 and S2; no rubs, murmurs, or gallops EXTREMITIES: Left arm echhymosis, no edema, Normal capillary refill NEURO: Negative findings: No asterixis, rapid alternating mo vements normal, negative babinski, no sensory loss. Positive finding s: disoriented, intention tremor, altered finger to nose test, muscular weakness in BLE , Strength 5/5 in LE and 5/5 in UE. No muscl e atrophy. +2 b/l patellar and BrRad reflexes. Light touch/proprioception sensation intact. Finger to nose intact b/l. CN II-XII grossly intact. Labs CBC, Coags, BMP, Mg, Phos Recent Labs 04/22/19 0747 04/21/19 2325 04/21/19 1510 WBC 3.94 -- 4.39 HB 13.7 -- 15.8 HCT 41.0 -- 46.1 PLT 51* -- 45* INR -- 1.3 -- APTT -- 28.9 -- NA 144 -- 140 K 3.8 -- 3.7 CHLOR 109* -- 106* CO2 24 -- 25 BUN 4* -- 5* CREAT 0.74 -- 0.67* GLUC 89 -- 105* CA 8.9 -- 10.0 MG -- -- 1.8 P -- 3.1 -- Liver Function, Amylase, AND Lipase Recent Labs 04/21/19 1510 TPROT 8.7* ALB 4.1 ALT 26 AST 63* ALKPHOS 110 TBILI 1.8* Cardiac Enzymes ABGs Imaging MRI Full Spine 04/22/19 No spinal lesion or abnormal enhancement. ? Mild spondylosis of the cervical, thoracic, and lumbar spine without high-grade canal or neural foraminal stenosis. ? Mild T2/IR hyperintensity in the cervical cord at level C5-C 6, likely mild myelomalacia. ? Anatomic Thoracic/Lumbar Variant: [id number] thoracic vertebra e to accommodate counting discrepancies from the craniocervical a nd lumbosacral junctions. L4-5 is considered the level of the i liac crest and there are 5 lumbar-type vertebrae. Type I degenerative e ndplate changes posteriorly and eccentric to the right at C6-C7. RUQ U/S 04/22/19 IMPRESSION: MILD HEPATIC STEATOSIS. NO GALLSTONES OR BILIARY DILATATION. NO SPLENOMEGALY Assessment and Plan Mr. Smith is a 43 year old Male with PMHx significant for a lcohol abuse, tobacco abuse and recently diagnosed likely vestibular schwa nnoma who comes in with gait disturbance, vertigo, and nystagmus. #Gait disturbance #BLE weakness #Vertigo #Horizontal Nystagmus #Pseudobulbar affect - Difficulty walking and maintaining balance, started 1 year ago getting worse - Since past 3 weeks can't walk without support and would fa ll. Repeated falls in past 3 weeks. Denies LOC during falls. - Gait slapping with bounce in step which evolved into marsha bility to lift legs off the floor ie magnetic gait with small shuffling s teps per family - Per family reported seeing people on the floor and hearing screaming noises while was admitted at the OSH. Continues to have com plete personality change per family. - O/E has BLE weakness 5/5 strength, no sensory loss, negati ve babinski, positive for resting tremor, altered finger nose test, - Feeling of room spinning while trying to get up on most oc casions and occasionally with his head still - Has hearing loss B/L -could be occupational, says more on R side - Has tinnitus on AND off -high pitched - B/L jerk nystagmus on horizontal movement - EOMI, PERRLA - Labs: Liver enzymes trending down compared to ~3 weeks ago (Tbili 2.6>1.8, ALT 204>26, AST 374>63) - Imaging: MRI Spine demonstrates mild to moderate myelomala palmer at C5/C6 level. MRI brain concerning for L vestibular schwannoma and cerebellar atrophy. - BEM negative for sz's Assessment: - Presumed multifactorial etiology contributing to above pre sentation; Vestibular schwannoma may explain some of the balance issues and hearing loss, however, I suspect that the C5/C6 myelomalacia, cerebe llar atrophy, and even lesion seen in the corpus callosum are all 2/2 alco hol abuse. Primary [employer] lymphoma may also cause corpus callosum lesions, but CLOCCS (cytotoxic lesions of the corpus callosum) 2/2 alcohol toxic ity may also explain this and tie together his other imaging findings and presentation. Plan: - Neurology following, appreciate recs. F/u workup as recomm ended (Vitamin E, Cu, HIV, HTLV, syphlis, HTLV, anti-FORREST, Lyme, CT C/A/P). May consider paraneoplastic panel pending results. - Replete Thiamine ? #Vestibulocochlear Schwannoma - OSH MRI done on 04/15: Parenchymal volume loss with mild ve ntriculomegaly with 5x3mm enhancing lesion in Left internal auditory canal suspicious for vestibular schwannoma w/o mass effect. - Neurosurgery consulted in ED says no acute neurosurgical i ntervention at this time w/ Neurology consult and outpatient follow up Plan: - No need for acute neurosurgical intervention, will schedul e f/u with [facility] ? #Alcoholism #Thrombocytopenia #Hyperbilirubinemia #Alcoholic hepatitis- improving -last drink last week per patient - Labs: Liver enzymes trending down compared to ~3 weeks ago (Tbili 2.6>1.8, ALT 204>26, AST 374>63) - No concern for DT since VSS - Platelets 45k - T. Bili 1.8, Conjugated Bili 0.7 - ALT 26, AST 63 - Albumin 4.1 - Ammonia WNL, No Asterixis O/E, No RUQ pain Assessment: - Likely consequence of alcoholic hepatitis which is now imp roving. I expect his liver enzymes to continue trending down and plate let counts to rise. Plan: - CTM - Thiamine/folate repletion ? #Tobacco use Plan: -Nicotine patch ? #Hip pain -Most likely from fall at OSH - No concerns for fracture #Code status - Full # Diet - Regular # VTE PPx - SubQ heparin 5000u q12h # Dispo Planning - Pending clinical course Molly Dewey DO PGY-1 Internal Medicine Pager # [phone] SIGNATURE: Molly Dewey DO PATIENT NAME: Christopher Smith DATE: April 23, 2019 TIME: 6:16 AM PAGER: [phone] Note: These recommendations are not final until staffed by surendra lovell hepatitis remote panel on 2019-04-23 HBsAg Negative Negative Normal 04-23-2019 [facility] ([id number]) Comment: Performed By: #### HCQPCR, C BC, CMP, HREMOP ####[facility] [address] [place], [place] [phone] Hep B Core Ab,Total Negative Negative Normal 04-23-2019 [facility] ([id number]) Comment: Performed By: #### HCQPCR, C BC, CMP, HREMOP ####[facility] [address] [place], [place] [phone] Hepatitis C Ab IA Positive Negative Critically abnormal [facility] ([id number]) Comment: Result Comment: Confirmation with Hepatitis C RNA has been ordered and charged. Performed By: #### HCQPCR, C BC, CMP, HREMOP ####[facility] [address] [place], [place] [phone] HepB Surface Ab,Qual Negative Negative Normal 9 [facility] ([id number]) Comment: Result Comment: NEGATIVE Performed By: #### HCQPCR, C BC, CMP, HREMOP ####[facility] [address] [place], [place] [phone] hepatitis c rna on 2019-04-23 Hepatitis C RNA 49 IU/mL Critically abnormal 03-29 [facility] ([id number]) Comment: Result Comment: INTERPRETATI ON: Positive for HCV RNA by PCR. The Linear Range of this ass ay is 15 IU/mL to 100,000,000 IU/mL. Reference Range: Negative fo r HCV RNA Performed By: #### HCQPCR, C BC, CMP, HREMOP ####[facility] [address] [place], [place] [phone] ct chest w ivcon on 2019-04-23 CT CHEST W * * *Final Report* * * Normal 2018 [facility] IVCON DATE OF EXAM: Apr 23 2019 9:43AM [place] ([id number]) [facility] [place] 0539 - CT CHEST W IVCON / PROCEDURE REASON: Lung nodule(s) * * * * Physician Interpretation * * * * EXAMINATION: CHEST CT WITH CONTRAST CLINICAL HISTORY: Lung nodule(s) Technique: Spiral CT acquisition of the chest from the thora cic inlet to the upper abdomen following IV contrast. MQ: [id number] Contrast: 135 mL Omnipaque [address] Dose-Length Product: 510 mGy*cm CT Dose Reduction Employed: Automated exposure control (AEC) Comparison: None, correlation with chest radiograph dated RESULT: Limitations: None. Lines, tubes, and devices: None. Lung parenchyma and pleura: On lung windows, moderate upper lobe paraseptal and bullous emphysematous changes with mild centr ilobular emphysematous lucencies also seen. The lung bases are relati vely spared, aside from minimal subpleural lucencies suggestive of parase ptal emphysema and lingular level bullous lesion. Minimal retaine d secretions noted to layer in the trachea. Tiny bronchial div erticula noted, most likely in the distal left upper lobe bronchus. T iny nodular lesion along right superior major fissure, image 81, probabl y represents an intrapulmonary lymph node. Punctate peripheral right uppe r lobe nodule noted on image 94. Punctate nodular opacity in the le ft upper lobe, is probably calcified. Mild posterior dependent atelec tatic opacities noted, greater on the right lower lobes. No pleural effusion. No pneumothorax. Thoracic inlet, heart, and mediastinum: Visualized portions of the thyroid appear small, and may be mildly atrophic. No axillar y or supraclavicular lymphadenopathy meeting size criteria noted. Intrathoracically, 10 mm (short axis) right hilar lymph node noted on image 94 series 2. Other adjacent subcentimeter lymph nodes are noted. Additional subcentimeter mediastinal and hilar and perihilar noted. Calcified subcarinal and right inferior interlobar level lym ph nodes noted, related to old granulomatous infection. Atherosclerotic calcifications of the aorta and its branches noted. Some luminal narrowing of the left common carotid artery and orig in of right brachiocephalic artery with slightly irregular aortic arch atherosclerotic plaques noted. Common origins of the right brachiocephalic and left common carotid arteries noted, an a natomic variant. No intraluminal filling defects noted within the pu lmonary arteries to the level of the lobar vessels. Normal caliber a jama and pulmonary trunk noted. No coronary artery calcifications. No rmal heart size noted. No pericardial effusion. Esophagus is unremarkab le. Bones and soft tissues: Chest wall soft tissues are unremark able. On bone window images, degenerative changes of the spine not ed. Right third, fifth, sixth, eighth healed rib fracture deformities are noted, and tuber height loss involving T9 and possibly T8 vertebra noted. Minimal scoliosis. Upper abdomen: Complete abdominal evaluation is deferred. QB_Y IMPRESSION: 1. Upper lobe predominant paraseptal and bullous emphysema n oted. Tiny indeterminate pulmonary nodules. No follow-up imaging is req uired. In the light of emphysema, a follow-up chest CT could be obtain ed in 12 months. 2. Borderline enlarged right hilar lymph node (presumably re active). Old granulomatous disease. Meat Wrapper: JAUN Transcribe Date/Time: Apr 23 2019 9:50A Dictated by : HAYLIE HYLTON MD This examination was interpreted and the report reviewed and electronically signed by: HAYLIE HYLTON MD on Apr 23 2019 10:11AM EST [id number] ct abd/pel w ivcon on 2019-04-23 CT ABD/PEL W * * *Final Report* * * Normal 06- [facility] IVCON DATE OF EXAM: Apr 23 2019 9:43AM [place] ([id number]) [facility] [place] 0530 - CT ABD/PEL W IVCON / PROCEDURE REASON: Mass or lump, abdomen pelvis * * * * Physician Interpretation * * * * CT ABDOMEN AND PELVIS WITH IV CONTRAST HISTORY: Lesion suspicious for brain metastases, evaluation for primary neoplasm TECHNIQUE: CT abdomen and pelvis performed using standard te chnique Contrast: IV: 135 mL of Omnipaque 300 Oral: 50ML Omnipaque [address] Radiation dose: Integrated Dose-length product (DLP) for this visit = 510 mGy*cm. CT Dose Reduction Employed: Automated exposure control (AEC) COMPARISON: None. RESULT: Lower thorax: A chest CT performed will be reported separate ly. Liver: There are a few scattered hyperdense, predominantly s ubcentimeter lesions, for example: -Anterior left hepatic lobe (2:14) - posterior right hepatic dome (2:14) -1.1 cm segment VIII (3:29) Biliary: No bile duct dilation. Spleen: No mass. No splenomegaly. Pancreas: No mass or duct dilation. Adrenals: No mass. Kidneys: No mass, calculus or hydronephrosis. Vasculature: The celiac axis and SMA are patent. The portal vein and branches, splenic vein, and SMV are patent. There are athero sclerotic calcifications without aneurysmal dilation. There is a recan nulized periumbilical vein as well as paraesophageal varices. GI tract: No dilation or wall thickening. Appendix within no rmal limits. Lymph nodes: Borderline enlarged retroperitoneal nodes, for example, 0.7 cm aortocaval node (2:56) and 0.9 cm periportal node (2:39). Mesentery/Peritoneum: Small volume ascites. No loculated flu id collection. Pelvis: Small volume pelvic ascites. No mass. Bones/Soft Tissues: No osseous metastatic disease. IMPRESSION: INDETERMINANT HYPERDENSE LESIONS IN THE LIVER. SUGGEST FURTH ER EVALUATION WITH LIVER MRI. SMALL VOLUME ASCITES AND PORTAL VENOUS COLLATERALS, SUGGESTI NG PORTAL HYPERTENSION. BORDERLINE ENLARGED RETROPERITONEAL NODES, NONSPECIFIC BUT L IKELY REACTIVE. Meat Wrapper: JAUN Transcribe Date/Time: Apr 23 2019 9:55A Dictated by : GEE ARRIAGA MD This examination was interpreted and the report reviewed and electronically signed by: GEE ARRIAGA MD on Apr 23 2019 10:10AM EST [id number] consult on CONSULT HNO ID: [id number] Normal 04-23-2019 [facility] Author: John Piper [place] ([id number]) Service: Neurosurgery Author Type: Physician Type: Consults Filed: 04/24/2019 11:02 AM Note Text: --- NEUROSURGERY CONSULT HISTORY AND PHYSICAL EXAMINATION PLEASE DO NOT REMOVE FROM THE CHART OR MODIFY PRINTED COPY Patient Name: Christopher Smith CONSULTED BY: medicine/neurology CONSULTED FOR: cervical stenosis CHIEF COMPLAINT: Gait imbalance HPI: 43 year old male PMH of heavy smoker, EtOH abuse (>15 b eers/day), 1 year of gait imbalance and and occasional shocks of pain int o R arm and shoulder, 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 Nsgy previously consulted for the new L vestib schwannoma with re cs for outpatient followup and MRI c/t/l spine. MRI 04/22 demonstrat ing mod/severe canal stenosis at C5/6 from herniated disc and po sterior ligamentous hypertrophy, T2 signal change in cord at these l evels. Nsgy reconsulted to comment on spine pathology PAST MEDICAL HISTORY: PAST MEDICAL HISTORY Diagnosis Date - Alcohol abuse - HTN (hypertension) - Tobacco use PAST SURGICAL HISTORY: History reviewed. No pertinent surgical history. FAMILY HISTORY: FAMILY HISTORY Problem Relation Age of Onset - other (lung cancer) Mother - Heart disease Father - Colon Cancer Father - Parkinsonism Paternal Grandmother SOCIAL HISTORY: Social History Socioeconomic History Marital status: Spouse name: Not on file Number of children: Not on file Years of education: Not on file Highest education level: Not on file Social Needs Financial resource strain: Not on file Food insecurity - worry: Not on file Food insecurity - inability: Not on file Transportation needs - medical: Not on file Transportation needs - non-medical: Not on file Occupational History Not on file Tobacco Use Smoking status: Current Every Day Smoker Packs/day: 1.50 Years: 40.00 Pack years: 60 Types: Cigarettes Quit date: 10/23/2007 Years since quittin.5 Smokeless tobacco: Never Used Substance and Sexual Activity Alcohol use: Yes Alcohol/week: 27.0 oz Types: 18 Cans of Beer (12oz) per week Comment: daily Drug use: Not Currently Sexual activity: Not on file Other Topics Concerns: Not on file Social History Narrative Not on file MEDICATIONS: No prescriptions on file. Current Facility-Administered Medications Medication Dose Route Frequency - NaCl 0.9% 3-5 mL 3-5 mL INTRAVENOUS q 12 H - thiamine 500 mg in NaCl 0.9% 50 mL 500 mg INTRAVENOUS q 8 H Followed by - [START ON 2019] thiamine 200 mg in NaCl 0.9% 50 mL 20 0 mg INTRAVENOUS q 8 H Followed by - [START ON 04/29/2019] thiamine 100 mg tab(s) (VITAMIN B1) 10 0 mg ORAL TID - nicotine 7 mg/24 hr 1 Patch (NICODERM) 1 Patch TRANSDERMAL DAILY And - nicotine -- REMOVE patch OTHER DAILY And - nicotine - verify patch OTHER q 8 H - haloperidol lactate 5 mg injection (HALDOL) 5 mg INTRAMUSC ULAR q 6 H PRN - iv contrast (radiology procedure) INTRAVENOUS DIRECTED PRN ALLERGIES: ALLERGIES Allergen Reactions - Vicodin [Hydrocodon* Hives COMPLETE REVIEW OF SYSTEMS: See HPI PHYSICAL EXAM: BP 155/83 Pulse (!) 53 Temp 37 ?C (98.6 ? F) (Oral) Resp 18 Ht 182.9 cm (6') Wt 65.6 kg (144 lb 10 oz) SpO 2 100% BMI 19.61 kg/m? NAD, AAO x 3 CN grossly intact Strength: RUE: 4+ throughout except HI 4 (baseline hand fractures, cut ligaments) LUE: 4+ throughout RLE: HF 5 KE 5 DF 5 EHL 5 PF 5 LLE: HF 5 KE 5 DF 5 EHL 5 PF 5 SILT in all dermatomes Hoffmans none Clonus none Babinski downgoing Reflexes: brisk BUE, 2+ BLE, symmetric Gait: able to stand with minor assistance, unstable on feet. Ambulation deferred DATA: Radiology: MRI c spine as detailed above Laboratory: CBC, Coags, BMP, Mg, Phos Recent Labs 04/23/19 0746 04/22/19 0747 04/21/19 2325 04/21/19 1510 WBC 4.94 3.94 -- 4.39 HB 13.5 13.7 -- 15.8 HCT 40.6 41.0 -- 46.1 PLT 62* 51* -- 45* INR -- -- 1.3 -- APTT -- -- 28.9 -- NA 141 144 -- 140 K 4.2 3.8 -- 3.7 CHLOR 107* 109* -- 106* CO2 22 24 -- 25 BUN 5* 4* -- 5* CREAT 0.79 0.74 -- 0.67* GLUC 88 89 -- 105* CA 9.0 8.9 -- 10.0 MG -- -- -- 1.8 P -- -- 3.1 -- ASSESSMENT AND PLAN: 43 year old male PMH of heavy smoker, E Conor abuse (>15 beers/day), 1 year of gait imbalance and and occasional shoc ks of pain into R arm and shoulder, recently diagnosed L vestibular angela wannoma and signficant cerebellar atrophy, currently admitted to medicin e service. Nsgy previously consulted for the new L vestib schwannoma wi recs for outpatient followup and MRI c/t/l spine. MRI 04/22 demonstrat ing mod/severe canal stenosis at C5/6 from herniated disc and po sterior ligamentous hypertrophy, T2 signal change in cord at these l evels. Nsgy reconsulted to comment on spine pathology - no indication for acute neurosurgical intervention at this time - patient's cervical pathology can be worked up outpatient i f patient desires; may be a surgical candidate - would recommend outpatient follow up with staff listed bel ow - neurosurgery signing off, please page with additional ques tions/concerns Rest per primary. Please page NSGY with any exam change. Above plan discussed with chief Dr. Cuco Pollock and Staff Dr Daniel Piper. SIGNATURE: Iggy Vuong MD PGY-2 [id number] Neurosurgery Pager: [phone] 04/23/2019 Please page [phone] after 6 PM and on weekends Staff note, I have reviewed the history and repeated the physical exam. I have reviewed the imaging, medical decision making and I agree. Cervical stenosis not clear if myelopathy will see as outpatient, no need for any intervention at this point John Piper MD comp metabolic panel on 2019-04-23 Albumin [Mass/Vol] 3.2 3.9-4.9 g/dL Low 04-23-2019 [facility] ([id number]) Comment: Performed By: #### HCQPCR, C BC, CMP, HREMOP ####[facility] [address] [place] [phone] ALP [Catalytic activity/Vol] 92 38-113 U/L Normal 0 04-23-2019 [facility] ([id number]) Comment: Performed By: #### HCQPCR, C BC, CMP, HREMOP ####[facility] [place] [phone] ALT [Catalytic activity/Vol] 22 10-54 U/L Normal 0 04-23-2019 [facility] ([id number]) Comment: Performed By: #### HCQPCR, C BC, CMP, HREMOP ####[facility] [address] [place] [phone] Anion gap [Moles/Vol] 12 9-18 mmol/L Normal 04-23-20 19 [facility] ([id number]) Comment: Performed By: #### HCQPCR, C BC, CMP, HREMOP ####[facility] [address] [place] [phone] AST [Catalytic activity/Vol] 60 14-40 U/L High 0 04-23-2019 [facility] ([id number]) Comment: Performed By: #### HCQPCR, C BC, CMP, HREMOP ####[facility] [address] [place], [place] [phone] Bilirubin [Mass/Vol] 1.2 0.2-1.3 mg/dL Normal 9 [facility] ([id number]) Comment: Performed By: #### HCQPCR, C BC, CMP, HREMOP ####[facility] [place], [place] [phone] Calcium [Mass/Vol] 9.0 8.5-10.2 mg/dL Normal 04-23-2019 [facility] ([id number]) Comment: Performed By: #### HCQPCR, C BC, CMP, HREMOP ####[place] [address] [place] [phone] Chloride [Moles/Vol] 107 97-105 mmol/L High 9 [facility] ([id number]) Comment: Performed By: #### HCQPCR, C BC, CMP, HREMOP ####[place] [address] [place] [phone] CO2 [Moles/Vol] 22 22-30 mmol/L Normal 04-23-2019 [facility] ([id number]) Comment: Performed By: #### HCQPCR, C BC, CMP, HREMOP ####[place] [address] [place], [place] [phone] Creatinine [Mass/Vol] 0.79 0.73-1.22 mg/dL Normal 04-23-20 19 [facility] ([id number]) Comment: Performed By: #### HCQPCR, C BC, CMP, HREMOP ####[place] [address] [place], [place] [phone] eGFR- Amer. >60 Normal 04-23-2019 [facility] ([id number]) Comment: Performed By: #### HCQPCR, C BC, CMP, HREMOP ####[place] [address] [place], [place] [phone] GFR/1.73 sq M predicted >60 mL/min/{1.73_m2} Normal 04-23-2019 [facility] among non-blacks [facility] ([id number]) (S/P/Bld) [Vol rate/Area] Comment: Result Comment: eGFR (Estima delfin GFR) Units of measure: mL/min/1.73 meters squared eGFR is derived from the ree xpressed MDRD Study equation using the following parameters: serum creatinine, age, gender and race. The creatinine assay has been calibrated to be traceable to IDMS. An eGFR <60 mL/min/1.73m2 fo r >3 months is consistent with chronic kidney disease. Refer to KDOQI guidelines for clinical interpretation. In patients with unstable re nal function, e.g. those with acute kidney injury, the eGFR may not accurately reflect actual GFR. Performed By: #### HCQPCR, C BC, CMP, HREMOP ####[facility] [address] [place], [place] [phone] Glucose [Mass/Vol] 88 74-99 mg/dL Normal 04-23-2019 [facility] ([id number]) Comment: Result Comment: The [place] Diabetes Association (ADA) provides guidance for cutoff values for fasting glucose and random glucose. The ADA defines fasting as no caloric intake for at least 8 hours. Fas ting plasma glucose results between 100 to 125 mg/dL indicate increased risk for diabetes (prediabetes). Fasting plasma glucose resul ts greater than or equal to 126 mg/dL meet the criteria for diagnosis of diabetes. In the absence of unequivocal hyperglycemia, results should be confirmed by repeat testing. In a patient with classic s ymptoms of hyperglycemia or hyperglycemic crisis, random plasma glucose results greater than or equal to 200 mg/dL meet the criteria for diagnosis of diabetes. Reference: Standards of [facility] in Diabetes 2016, [place] Diabetes Association. Diabetes Care. 2016.39(Suppl 1). Performed By: #### HCQPCR, C BC, CMP, HREMOP ####[facility] [address] [place], [place] [phone] Potassium [Moles/Vol] 4.2 3.7-5.1 mmol/L Normal 04-23-20 [facility] ([id number]) Comment: Performed By: #### HCQPCR, C BC, CMP, HREMOP ####[facility] [address] [place], [place] [phone] Protein [Mass/Vol] 7.0 6.3-8.0 g/dL Normal 04-23-2019 [facility] ([id number]) Comment: Performed By: #### HCQPCR, C BC, CMP, HREMOP ####[facility] [place], [place] [phone] Sodium [Moles/Vol] 141 136-144 mmol/L Normal 04-23-2019 [facility] ([id number]) Comment: Performed By: #### HCQPCR, C BC, CMP, HREMOP ####[facility] [place] [phone] Urea nitrogen [Mass/Vol] 5 9-24 mg/dL Low 04-23 [facility] ([id number]) Comment: Performed By: #### HCQPCR, C BC, CMP, HREMOP ####[place] [address] [place] [phone] cbc on 2019-04-23 Absolute nRBC <0.01 <0.01 Normal 04-23-2019 [facility] ([id number]) Comment: Performed By: #### HCQPCR, C BC, CMP, HREMOP ####[facility] [place] [phone] Erythrocyte distribution 13.9 11.5-15.0 % Normal 04-23 [facility] width (RBC) [Ratio] [place] ([id number]) Comment: Performed By: #### HCQPCR, C BC, CMP, HREMOP ####[facility] [address] [place], [place] [phone] Hematocrit (Bld) [Volume 40.6 39.0-51.0 % Normal 04-23 [facility] fraction] [place] ([id number]) Comment: Performed By: #### HCQPCR, C BC, CMP, HREMOP ####[facility] [address] [place], [place] [phone] Hemoglobin (Bld) 13.5 13.0-17.0 g/dL Normal 04-23-2019 [facility] [Mass/Vol] [place] ([id number]) Comment: Performed By: #### HCQPCR, C BC, CMP, HREMOP ####[facility] [address] [place], [place] [phone] MCH (RBC) [Entitic mass] 32.5 26.0-34.0 pG Normal 04-23 [facility] ([id number]) Comment: Performed By: #### HCQPCR, C BC, CMP, HREMOP ####[place] [address] [place] [phone] MCHC (RBC) [Mass/Vol] 33.3 30.5-36.0 g/dL Normal 04-23-20 19 [facility] ([id number]) Comment: Performed By: #### HCQPCR, C BC, CMP, HREMOP ####[place] [address] [place] [phone] MCV (RBC) [Entitic vol] 97.8 80.0-100.0 fL Normal 04-23 [facility] [facility] ([id number]) Comment: Performed By: #### HCQPCR, C BC, CMP, HREMOP ####[place] [address] [place], [place] [phone] Platelet mean volume (Bld) 13.0 9.0-12.7 fL High [facility] [Entitic vol] ([id number] ) Comment: Performed By: #### HCQPCR, C BC, CMP, HREMOP ####[place] [address] [place], [place] [phone] Platelets (Bld) [#/Vol] 62 150-400 k/uL Low 2018 [facility] ([id number]) Comment: Result Comment: No clot dete cted. Performed By: #### HCQPCR, C BC, CMP, HREMOP ####[place] [id number] [place] [phone] RBC (Bld) [#/Vol] 4.15 4.20-6.00 m/uL Low 04-23-[address] [facility] ([id number]) Comment: Performed By: #### HCQPCR, C BC, CMP, HREMOP ####[facility] [address] [place], [place] [phone] WBC (Bld) [#/Vol] 4.94 3.70-11.00 k/uL Normal 04-23-2019 [facility] ([id number]) Comment: Performed By: #### HCQPCR, C BC, CMP, HREMOP ####[facility] [place], [place] [phone] vitamin e on 04-22 Vitamin E-alpha 6.9 6.0-23.0 mg/L Normal 04-22-2019 [facility] ([id number]) Comment: Performed By: #### SERFOL, C MP, B12, ALCO, CBCDIF #### [facility] [address] [place], [place] [address] Vitamin E-gamma 1.6 0.3-3.2 mg/L Normal 04-22-2019 [facility] ([id number]) Comment: Result Comment: This test wa s developed and its performance characteristics determined by [facility]'s [facility] [place] ( [facility]). It has not been cleared or a pproved by the FDA. [facility] is regulated under CLIA as qualified to perform high complexity testing. This test is used for clinic al purposes. It should not be regarded as investigational or for research. Performed By: #### SERFOL, C MP, B12, ALCO, CBCDIF #### [facility] [address] [place], [place] [phone] vitamin b12 on 2018 Cobalamin (Vitamin B12) 451 836-1488 pg/mL Normal 2018 [facility] [Mass/Vol] [place] ([id number]) Comment: Performed By: #### SERFOL, C MP, B12, ALCO, CBCDIF #### [facility] [address] [place], [place] [address] vitamin b1, whole bl on 2019-04-22 Vitamin B1 (TDP), WB 294.0 84.0-213.0 nmol/L High 04-22-20 19 [facility] ([id number]) Comment: Result Comment: This assay m easures the concentration of thiamine diphosphate (TDP), the primary active form of vitamin B1. Approximately 90 percent of vitamin B1 present in whole blood is TDP. Thiamine and thiamine monophosphate, which comprise the remaining 10 percent, are not measured. This test was developed and its performance characteristics determined by [facility]'s [facility] [place] ( [facility]). It has not been cleared or a pproved by the FDA. [facility] is regulated under CLIA as qualified to perform high complexity testing. This test is used for clinic al purposes. It should not be regarded as investigational or for research. Performed By: #### SERFOL, C MP, B12, ALCO, CBCDIF #### [facility] [address] [place], [place] [address] us abd spleen -nb o n 2019-04-22 US ABD SPLEEN * * *Final Report* * * Normal [facility] -NB DATE OF EXAM: Apr 22 2019 9:11AM [place] ([id number]) [facility] 1232 - US ABD SPLEEN -NB / PROCEDURE REASON: Cirrhosis or Fatty Liver * * * * Physician Interpretation * * * * EXAMINATION: RIGHT UPPER QUADRANT AND SPLEEN ULTRASOUND CLINICAL HISTORY: Cirrhosis or Fatty Liver TECHNIQUE: Sonography of the right upper quadrant and spleen was performed. Images were obtained and stored in a permanent ar Zooplusve. MQ: URUQ_1 COMPARISON: None RESULT: Pancreas: Normal sonographic appearance. Portions obscured: tail Liver: Echotexture: Normal, homogeneous. Echogenicity: Mildly increased Surface contour: Smooth Lesions: None. Biliary: No intrahepatic biliary duct dilation. CBD: 0.5 cm at the hilum. Gallbladder: Normal caliber -Contents: No cholelithiasis -Wall: Normal -Other: No pericholecystic fluid. Right Kidney: No hydronephrosis. Ascites: None. Spleen: The craniocaudal length of the spleen is 9.9 cm, nor mal. There are no splenic lesions. 2 x 0.6 x 1.8 cm peripancreatic lymph node. IMPRESSION: MILD HEPATIC STEATOSIS. NO GALLSTONES OR BILIARY DILATATION. NO SPLENOMEGALY Meat Wrapper: [facility] Transcribe Date/Time: Apr 22 2019 9:14A Dictated by : DONIS CHADWICK JR, MD This examination was interpreted and the report reviewed and electronically signed by: DONIS CHADWICK JR, MD on Apr 22 2019 9:19AM EST [id number] us abd right upper quadrant on 2019-04-22 US ABD RIGHT * * *Final Report* * * Normal 03-29 [facility] UPPER QUADRANT DATE OF EXAM: Apr 22 2019 9:05AM [place] ([id number]) U 1032 - US ABD RIGHT UPPER QUADRANT / 15 PROCEDURE REASON: Cirrhosis or Fatty Liver * * * * Physician Interpretation * * * * EXAMINATION: RIGHT UPPER QUADRANT AND SPLEEN ULTRASOUND CLINICAL HISTORY: Cirrhosis or Fatty Liver TECHNIQUE: Sonography of the right upper quadrant and spleen was performed. Images were obtained and stored in a permanent ar chive. MQ: URUQ_1 COMPARISON: None RESULT: Pancreas: Normal sonographic appearance. Portions obscured: tail Liver: Echotexture: Normal, homogeneous. Echogenicity: Mildly increased Surface contour: Smooth Lesions: None. Biliary: No intrahepatic biliary duct dilation. CBD: 0.5 cm at the hilum. Gallbladder: Normal caliber -Contents: No cholelithiasis -Wall: Normal -Other: No pericholecystic fluid. Right Kidney: No hydronephrosis. Ascites: None. Spleen: The craniocaudal length of the spleen is 9.9 cm, nor mal. There are no splenic lesions. 2 x 0.6 x 1.8 cm peripancreatic lymph node. IMPRESSION: MILD HEPATIC STEATOSIS. NO GALLSTONES OR BILIARY DILATATION. NO SPLENOMEGALY Meat Wrapper: [facility] Transcribe Date/Time: Apr 22 2019 9:14A Dictated by : DONIS CHADWICK JR, MD This examination was interpreted and the report reviewed and electronically signed by: DONIS CHADWICK JR, MD on Apr 22 2019 9:19AM EST [id number] tsh on 2019-04-22 TSH Qn 2.740 0.400-5.500 uU/mL Normal 04-22-2019 [facility] ([id number]) Comment: Performed By: #### SERFOL, C MP, B12, ALCO, CBCDIF #### [facility] [address] [place] [address] toxicology screen,ur on 2019-04-22 Amphetamines, Urine Negative Negative Normal 04-22-2019 [facility] ([id number]) Comment: Result Comment: Cutoff thres hold at 1000 ng/mL. Performed By: #### SERFOL, C MP, B12, ALCO, CBCDIF #### [place] [address] Barbiturates, Urine Negative Negative Normal 04-22-2019 [facility] ([id number]) Comment: Result Comment: Cutoff thres hold at 200 ng/mL. Performed By: #### SERFOL, C MP, B12, ALCO, CBCDIF #### [place] [address] Benzodiazepines, Ur Preliminary Negative Critically [address] [place] [address] positive. Formerly [facility], 1928–1983 ([id number]) Comment: Result Comment: Cutoff thres hold at 200 ng/mL. Performed By: #### SERFOL, C MP, B12, ALCO, CBCDIF #### [place] [address] [place] [address] Cannabinoids, Urine Negative Negative Normal 04-22-2019 [facility] ([id number]) Comment: Result Comment: Cutoff thres hold at 50 ng/mL. Performed By: #### SERFOL, C MP, B12, ALCO, CBCDIF #### [facility] [address] [place] [address] Cocaine, Urine Negative Negative Normal 04-22-2019 [facility] ([id number]) Comment: Result Comment: Cutoff thres hold at 300 ng/mL. Performed By: #### SERFOL, C MP, B12, ALCO, CBCDIF #### [facility] [address] [place] [address] Ethanol, Urine <11 <11 Normal 04-22-2019 [facility] ([id number]) Comment: Performed By: #### SERFOL, C MP, B12, ALCO, CBCDIF #### [facility] [address] [place] [address] Opiates, Urine Negative Negative Normal 04-22-2019 [facility] ([id number]) Comment: Result Comment: Cutoff thres hold at 300 ng/mL. Performed By: #### SERFOL, C MP, B12, ALCO, CBCDIF #### [facility] [address] [place] [address] Oxycodone, Urine Negative Negative Normal 04-22-2019 [facility] ([id number]) Comment: Result Comment: Cutoff thres hold at 100 ng/mL. Comment: Immunoassay screen only. Mixed Crop And Livestock Farmer ss reactivity with other substances can occur with immunoassay screening. Detection of any drug(s) in this urine toxicology panel is presumptive only. These tests are for med ical purposes only and shoul d not be used for compliance monitoring, legal, or forensic use. Samples should be within nor mal physiological conditions (e.g. pH). This assay does not include adulteration/specimen validity testing. In clinical settings, confir matory testing is at the practitioner's discretion [1]. If clinically indicated, confirmation by high specificity, quantitative methodology, which includes adulteration/speci men validity testing, may be requested on the same specimen through Client Services ([phone]) if contacted within 48 hours of initial testing. [1]Substance Abuse and Menta l Health Services Administration (2012). Clinical Drug Testing in Primary Care Technical Assistance Publication Series 32. Department of Health and Human Services, [place], p.10. These tests were developed a nd their performance characteristics determined by [facility]'s [facility] [place] ([facility]). They have not been cleared or a pproved by the FDA. [facility] is regulated under CLIA as qualified to perform high complexity testing. These tests are used for cli nical purposes. They should not be regarded as investigational or for research. Performed By: #### SERFOL, C MP, B12, ALCO, CBCDIF #### [facility] [address] [place] [phone] Phencyclidine, Urine Negative Negative Normal 9 [facility] ([id number]) Comment: Result Comment: Cutoff thres hold at 25 ng/mL. Performed By: #### SERFOL, C MP, B12, ALCO, CBCDIF #### [facility] [address] [place] [phone] syphilis igg with conf on 2019-04-22 Syphilis IgG <0.2 Normal 04-22-2019 [facility] ([id number]) Comment: Result Comment: Antibody ind ex is interpreted as follows: Non reactive SPECIMENS <=0.8 Weak reactive SPECIMENS 0.9 to 5.9 Reactive SPECIMENS >=6.0 Performed By: #### SYPHGX, H IV12C ####[facility] [place] [address] [phone] Syphilis IgG, Qual Nonreactive Nonreactive Normal 019 [facility] ([id number]) Comment: Result Comment: No serologic al evidence of infection with T. pallidum. Performed By: #### SYPHGX, H IV12C ####[facility] [place] [address] [phone] protime on PT Coag (PPP) [Time] 1.3 0.9-1.3 s Normal 9 [facility] ([id number]) Comment: Result Comment: Vitamin K An tagonist (VKA) Therapeutic Range: INR 2 to 3 (Target INR of 2.5) Note: For patients treated w ith VKA drugs, such as warfarin, the [place] [employer] 2012 Guideline recommends a therapeutic INR range of 2 to 3 (target INR of 2.5). This recommendation includes high-risk patients with antiphospholipid syndrome with previous arterial or venous thromboembolism, current-generation mechanical or bioprosthetic aortic heart valve replacement. Note: Patients with diesel trailer mechanic al aortic valve replacement and additional risk factors for thromboembolic events (atrial fibrillation, previous thromboembolism, LV dysfunction, hypercoagulable conditions) or an older generation mecha nical AVR (i.e., ball in-Cage) or any mechanical MVR should have a INR therapeutic range of 2.5 to 3.5 (target INR of 3). Sawyer ENG, et al. Chest 2012 , 141:7S-47S Larissa RA, et al. [facility] 20 , 70: 252-289 Performed By: #### Genny BYRD MP, B12, ALCO, CBCDIF #### [facility] [address] [place] [phone] PT Coag (PPP) [Time] 13.0 9.7-13.0 sec Normal 9 [facility] ([id number]) Comment: Performed By: #### Genny BYRD MP, B12, ALCO, CBCDIF #### [facility] [address] [place], [place] [address] progress on 2019-03 PROGRESS HNO ID: [id number] Normal 04-22-2019 [facility] Author: Gianni Rodarte) MADIHA Gaffney [place] ([id number]) Service: Radiology Author Type: Registered Nurse Type: Progress Notes Filed: 04/22/2019 1:10 PM Note Text: Radiology Service Progress Note DATE OF SERVICE: April 22, 2019 TIME: 1:09 PM PATIENT WEIGHT: 144LBS PATIENT IDENTITY VERIFICATION COMPLETED USING TWO (2) METHOD S: Patient confirmed name verbally and Date of . PATIENT GENDER DATA: Male ALLERGIES: Reviewed and unchanged CONTRAST ALLERGY: NO. EXAM: MRI - CONTRAST TYPE: GROUP II IV SITE: Inpatient - refer to LDA documentation IV SITE APPEARANCE: Clean,Dry and Intact SIGNATURE: Gianni Gaffney RN PATIENT NAME: Christopher cueto DATE: April 22, 2019 TIME: 1:09 PM PROGRESS HNO ID: [id number] Normal 04-22-2019 [facility] Author: Jacki Biggs) Julia [place] ([id number]) Service: ? Author Type: Coin Machine Supervisor Type: Progress Notes Filed: 04/22/2019 9:12 AM Note Text: Radiology Service Progress Note PATIENT NAME: Christopher Smith DATE OF SERVICE: April 22, 2019 TIME: 9:11 AM PATIENT IDENTITY VERIFICATION COMPLETED USING TWO (2) METHOD S: Patient confirmed name verbally and ID band matches.. PATIENT GENDER DATA: Male PATIENT RELEVANT IMPLANT DATA REVIEWED: Not Applicable RADIOLOGY DEPARTMENT: Ultrasound PERIPHERAL IV DATA: Not applicable SIGNED BY: Jacki Dumont RDMS April 22, 2019 9:11 AM phosphorus on 04-22 Phosphate [Mass/Vol] 3.1 2.7-4.8 mg/dL Normal 9 [facility] ([id number]) Comment: Performed By: #### SERFOL, C MP, B12, ALCO, CBCDIF #### [facility] [address] [place] [address] nutrition on 04-22 NUTRITION HNO ID: [id number] Normal 04-22-2019 [place] Author: [facility] Service: Nutrition Therapy [place] Author Type: Registered Dietitian ([id number]) Type: Nutrition Filed: 04/22/2019 2:18 PM Note Text: NUTRITION THERAPY INITIAL ASSESSMENT SERVICE DATE: 04/22/2019 SERVICE TIME: 11:30 RECOMMENDED MALNUTRITION DIAGNOSIS: MODERATE PROTEIN-CALORIE MALNUTRITION In the context of Social/Environmental Circumstance based on : Subcutaneous Fat Loss: Moderate Loss Muscle Loss: Moderate Loss NUTRITION CARE PLAN: Problem, Etiology and Signs/Symptoms: Excessive alcohol intake related to addiction as evidence by muscle and fat loss, history excessive intake and tremors. Intervention: Continue regular diet HS snack Coordination of Care: [facility] staff please open all containers at meal times Monitor and Evaluation: Goal: Meet >75% of estimated needs Discharge Nutrition Recommendations: Diet: Regular diet-no alcohol. Per HPI:43 year old male with history of asthma, recently di agnosed vestibular schwannoma and alcohol abuse (14 to 18 beers/day, last drink 7 days ago per patient). He is admitted for management of symp toms thought to be associated with the vestibular schwannoma (difficulty ambulating, frequent falls, headaches, nausea, vomiting, dizziness, garner ge in vision, and slurred speech x 3 months)- Candis Roper MD04/21 Patient visited and pleasant , eating lunch. Denies allergie s to food though has a preference to avoid spinach (removed from diet) . No problem chewing, swallowing. Currently no nausea, vomiting, diarrhea , constipation or reflux noted. States appetite is currently good. Likes hi s beer and is going to quit (8 days sober now) Laying on his side to eat s tating he is more comfortable this way. Social Work assisted with opening containers. (shaking). Noticeable bruising from previous falls. Orders Placed This Encounter DIET REGULAR Standing Status: Standing Number of Occurrences: 1 GI symptoms: none Nutrition Abdominal Exam: and abdomen is soft ANTHROPOMETRICS Height: 182.9 cm (6') Admission Weight: 66.7 kg (147 lb) Current Weight: 65.6 kg (144 lb 10 oz) Body mass index is 19.61 kg/m?. normal reports 9# weight loss -unable to verify per record. Last Wt 04/21/19 : 65.6 kg (144 lb 10 oz) 04/03/19 : 66 kg (145 lb 6.4 oz) 06/16/12 : 64.9 kg (143 lb) 03/17/12 : 64.5 kg (142 lb 3.2 oz) 04/28/09 : 67.6 kg (149 lb) 03/04/09 : 66.2 kg (146 lb) 01/07/09 : 68.5 kg (151 lb) 10/12/08 : 70.8 kg (156 lb) 03/17/08 : 67.1 kg (148 lb) 12/22/07 : 67.1 kg (148 lb) 11/13/07 : 69.4 kg (153 lb) 10/03/07 : 68.9 kg (152 lb) 08/15/07 : 65.8 kg (145 lb) 04/14/07 : 65.3 kg (144 lb) 04/02/07 : 68.9 kg (152 lb) 04/09/06 : 63.5 kg (140 lb) 01/02/06 : 67.1 kg (148 lb) 12/11/05 : 65.8 kg (145 lb) Resting Metabolic Rate: 1586 Estimated kilocalorie needs: 2 kilocalories determined by Clay-St. Jeor x 1.3 Estimated protein needs: 66-79 grams determined by 1.0-1.2 g /kg Actual weight Estimated fluid needs: 2061 milliliters based on 1 mL per martin al NUTRITION FOCUSED PHYSICAL EXAM: Subcutaneous Fat Loss Orbital Unable to determine at this time Triceps Moderate Mid-axillary at the iliac crest No fat loss Muscle Loss Locations: Temporalis Mild Pectoralis No muscle loss Deltoids No muscle loss Interosseous No muscle loss Latissimus dorsi, trapezius Unable to determine at this time Quadriceps Moderate Gastrocnemius Severe Potential micronutrient deficiency revealed in: Unable to de termine at this time Edema: No Ascites: No Assessment of Functional Status: Functional capacity is unre lated to nutrition status Temperature Max in 24 hours: Temp (24hrs), Av.7 ?C (98.1 ?F), Min:36.7 ?C (98 ?F), Max:36.8 ?C (98.3 ?F) BP 133/72 Pulse (!) 57 Temp 36.7 ?C (98 ?F) (Oral) Res p 20 Ht 182.9 cm (6') Wt 65.6 kg (144 lb 10 oz) SpO2 98% BMI 1 9.61 kg/m? Recent Labs 04/22/19 0747 04/21/19 2325 04/21/19 1510 GLUC -- -- 105* BUN -- -- 5* CREAT -- -- 0.67* NA -- -- 140 K -- -- 3.7 CHLOR -- -- 106* CO2 -- -- 25 ALB -- -- 4.1 P -- 3.1 -- HB 13.7 -- 15.8 HCT 41.0 -- 46.1 WBC 3.94 -- 4.39 MG -- -- 1.8 Potential Signs of Inflammation: hyperglycemia ALLERGIES Allergen Reactions - Vicodin [Hydrocodon* Hives Current Facility-Administered Medications Medication Dose Route Frequency - diazePAM 5 mg tab(s) (VALIUM) 5 mg ORAL ONCE - iv contrast (radiology procedure) INTRAVENOUS DIRECTED PRN - iv contrast (radiology procedure) INTRAVENOUS DIRECTED PRN - iv contrast (radiology procedure) INTRAVENOUS DIRECTED PRN - dextrose 5% in NaCl 0.9% iv infusion 125 mL/hr INTRAVENOUS CONTINUOUS - NaCl 0.9% 3-5 mL 3-5 mL INTRAVENOUS q 12 H - thiamine 500 mg in NaCl 0.9% 50 mL 500 mg INTRAVENOUS q 8 H - nicotine 7 mg/24 hr 1 Patch (NICODERM) 1 Patch TRANSDERMAL DAILY And - nicotine -- REMOVE patch OTHER DAILY And - nicotine - verify patch OTHER q 8 H Vitamin and Mineral Labs in the past year: Recent Labs 04/03/19 1730 B12 968 MNT Billing Type: Initial Assess/15 min 3 units SIGNATURE: Salome Allen RD LD PATIENT NAME: Christopher howard DATE: April 22, 2019 TIME: 10:22 AM PAGER: [phone] mri thoracic spine wo/w ivcon on 2019-04-22 MRI THORACIC * * *Final Report* * * Normal 03-29 [facility] SPINE WO/W IVCON * * * SEE BOTTOM OF REPORT FOR ADDENDED TEXT * * * [place] ([id number]) DATE OF EXAM: Apr 22 2019 2:22PM QBM 0326 - MRI THORACIC SPINE WO/W IVCON / 0284 PROCEDURE REASON: Mass or lump, spine * * * * Physician Interpretation * * * * * * * * * * * * ORIGINAL REPORT * * * * * * * * EXAMINATION: MRI THORACIC SPINE WO/W IVCON, MRI CERVICAL SPI NE WO/W IVCON, MRI LUMBAR SPINE WO/W IVCON CLINICAL HISTORY: 43-year-old male with 2 weeks of vertigino us symptoms and progressive bilateral lower extremity weakness and gait instability, and now 2 days of hypophonia and slurred speech. Concern for neuropathic process secondary to possible metabolic exposure or deficien cy. Concern for lower neuraxial lesion in the setting of bilateral lower extremity weakness TECHNIQUE: Routine cervical, thoracic and lumbar spine MR pr otocol with and without contrast. MQ: MTSWO_3 Contrast media: IV administration of 13 ml of Dotarem COMPARISON: None available RESULT: CERVICAL: Counting reference: Craniocervical junction. Anatomic Varian ts: None. Alignment: There is straightening of the normal cervical aspen dotic curvature. There is grade 1 retrolisthesis of C4 on C5, and minimal retrolisthesis of C5 on C6. Craniocervical junction: Craniocervical junction is normal. Cord: Mild T2/IR hyperintensity in the cord at level C5-C6, likely mild myelomalacia. Bone marrow signal/fracture: Type I degenerative endplate ch anges at C5-C6 eccentric to the left. No evidence of pathologic marro w infiltration. No evidence of prior fracture. Cervical soft tissues: The paraspinal soft tissues are withi n normal limits. C2-C3: Canal and foramina are patent. C3-C4: Canal and foramina are patent. C4-C5: Mild disc space loss with minimal posterior. Canal an d foramina are patent. C5-C6: Moderate disc space loss with left paracentral disc o steophyte complex mildly flattening the ventral thecal sac eccentric t o the left with overall mild to moderate spinal canal narrowing. Facet and uncovertebral hypertrophy resulting in moderate left neural foraminal stenosis. Right neural foramen remains patent. C6-C7: Mild disc space loss. Posterior disc osteophyte compl ex and ligamentous hypertrophy contributing to mild spinal canal st enosis. Facet and uncovertebral hypertrophy result in mild left neur al foraminal stenosis. Right neural foramen is patent. C7-T1: Canal and foramina are patent. THORACIC: Counting reference: Lumbosacral junction. For the purposes o f this report, anatomic variants: L4-5 is considered the level of t he iliac crest and there are 5 lumbar-type vertebrae. Anatomic Varian t: [id number] thoracic vertebrae to accommodate counting discrepancies fro m the craniocervical and lumbosacral junctions. Alignment: Increased kyphotic curvature at T8 and T9 levels. No spondylolisthesis. Mild levocurvature of the lower thoracic spine. Cord: The visualized cord is within normal limits of signal intensity and morphology. Bone marrow signal/fracture: No evidence of pathologic marro w infiltration. There is mild anterior wedging deformities of T8 and T9 which appears chronic. Thoracic paraspinal soft tissues: The paraspinal soft tissue s are within normal limits. Canal and foramina: There are multilevel degenerative endpla te changes with Schmorl's nodes most prominent T8-T10 with mild-moderat e disc space loss. Small disc bulge at T8-T9 without canal stenosis. The thoracic canal and neural foramina are patent. LUMBAR: Counting reference: Lumbosacral junction. For the purposes o f this report, L4-5 is considered the level of the iliac crest and there are 5 lumbar-type vertebrae. Anatomic variant: [id number] thoracic v ertebrae to accommodate counting discrepancies from the craniocervical a nd lumbosacral junctions. Alignment: Alignment is anatomic. Bone marrow signal/fracture: No evidence of pathologic marro w infiltration. No evidence of prior fracture. Conus: The conus is within normal limits of signal intensity and morphology and terminates at the level of the L1 inferior en dplate. Paraspinal soft tissues: Paraspinal soft tissues are within normal limits. T13-L1: Canal and foramina are patent. L1-L2: Canal and foramina are patent. L2-L3: Canal and foramina are patent L3-L4: Small broad-based disc bulge without canal stenosis. Neural foramina are patent. L4-L5: Small broad-based disc bulge with minimal posterior e ndplate and mild bilateral facet hypertrophy. Canal and foramina rem ain patent. L5-S1: Minimal disc bulge without canal stenosis. Neural for doyle are patent. There are endplate degenerative changes with Schmorl's nodes at multiple levels, most prominent in the lower lumbar spine. The disc s paces are preserved. Sacrum and iliac wings: The visualized sacrum and iliac wing s are within normal limits. The presacral soft tissues are normal in appearance. IMPRESSION: No spinal lesion or abnormal enhancement. Mild spondylosis of the cervical, thoracic, and lumbar spine without high-grade canal or neural foraminal stenosis. Mild T2/IR hyperintensity in the cervical cord at level C5-C 6, likely mild myelomalacia. Anatomic Thoracic/Lumbar Variant: [id number] thoracic vertebra e to accommodate counting discrepancies from the craniocervical a nd lumbosacral junctions. L4-5 is considered the level of the i liac crest and there are 5 lumbar-type vertebrae. * * * * * * * * ADDENDUM #1 * * * * * * * * Type I degenerative endplate changes posteriorly and eccentr ic to the right at C6-C7. Meat Wrapper: JAUN Transcribe Date/Time: Apr 22 2019 4:05P Dictated by : MANSOOR RAYO MD This examination was interpreted and the report reviewed and electronically signed by: MANSOOR RAYO MD on Apr 22 2019 3:54PM EST This document has been addended by: MANSOOR RAYO MD on Mar 292018 4:06PM EST [id number] mri lumbar spine wo/w ivcon on 2019-04-22 MRI LUMBAR * * *Final Report* * * Normal 2018 [facility] SPINE WO/W * * * SEE BOTTOM OF REPORT FOR ADDENDED TEXT * * * [place] ([id number]) IVCON DATE OF EXAM: Apr 22 2019 2:22PM QBM 0304 - MRI LUMBAR SPINE WO/W IVCON / 85 PROCEDURE REASON: Mass or lump, spine * * * * Physician Interpretation * * * * * * * * * * * * ORIGINAL REPORT * * * * * * * * EXAMINATION: MRI THORACIC SPINE WO/W IVCON, MRI CERVICAL SPI NE WO/W IVCON, MRI LUMBAR SPINE WO/W IVCON CLINICAL HISTORY: 43-year-old male with 2 weeks of vertigino us symptoms and progressive bilateral lower extremity weakness and gait instability, and now 2 days of hypophonia and slurred speech. Concern for neuropathic process secondary to possible metabolic exposure or deficien cy. Concern for lower neuraxial lesion in the setting of bilateral lower extremity weakness TECHNIQUE: Routine cervical, thoracic and lumbar spine MR pr otocol with and without contrast. MQ: MTSWO_3 Contrast media: IV administration of 13 ml of Dotarem COMPARISON: None available RESULT: CERVICAL: Counting reference: Craniocervical junction. Anatomic Varian ts: None. Alignment: There is straightening of the normal cervical aspen dotic curvature. There is grade 1 retrolisthesis of C4 on C5, and minimal retrolisthesis of C5 on C6. Craniocervical junction: Craniocervical junction is normal. Cord: Mild T2/IR hyperintensity in the cord at level C5-C6, likely mild myelomalacia. Bone marrow signal/fracture: Type I degenerative endplate ch anges at C5-C6 eccentric to the left. No evidence of pathologic marro w infiltration. No evidence of prior fracture. Cervical soft tissues: The paraspinal soft tissues are withi n normal limits. C2-C3: Canal and foramina are patent. C3-C4: Canal and foramina are patent. C4-C5: Mild disc space loss with minimal posterior. Canal an d foramina are patent. C5-C6: Moderate disc space loss with left paracentral disc o steophyte complex mildly flattening the ventral thecal sac eccentric t o the left with overall mild to moderate spinal canal narrowing. Facet and uncovertebral hypertrophy resulting in moderate left neural foraminal stenosis. Right neural foramen remains patent. C6-C7: Mild disc space loss. Posterior disc osteophyte compl ex and ligamentous hypertrophy contributing to mild spinal canal st enosis. Facet and uncovertebral hypertrophy result in mild left neur al foraminal stenosis. Right neural foramen is patent. C7-T1: Canal and foramina are patent. THORACIC: Counting reference: Lumbosacral junction. For the purposes o f this report, anatomic variants: L4-5 is considered the level of t he iliac crest and there are 5 lumbar-type vertebrae. Anatomic Varian t: [id number] thoracic vertebrae to accommodate counting discrepancies fro m the craniocervical and lumbosacral junctions. Alignment: Increased kyphotic curvature at T8 and T9 levels. No spondylolisthesis. Mild levocurvature of the lower thoracic spine. Cord: The visualized cord is within normal limits of signal intensity and morphology. Bone marrow signal/fracture: No evidence of pathologic marro w infiltration. There is mild anterior wedging deformities of T8 and T9 which appears chronic. Thoracic paraspinal soft tissues: The paraspinal soft tissue s are within normal limits. Canal and foramina: There are multilevel degenerative endpla te changes with Schmorl's nodes most prominent T8-T10 with mild-moderat e disc space loss. Small disc bulge at T8-T9 without canal stenosis. The thoracic canal and neural foramina are patent. LUMBAR: Counting reference: Lumbosacral junction. For the purposes o f this report, L4-5 is considered the level of the iliac crest and there are 5 lumbar-type vertebrae. Anatomic variant: [id number] thoracic v ertebrae to accommodate counting discrepancies from the craniocervical a nd lumbosacral junctions. Alignment: Alignment is anatomic. Bone marrow signal/fracture: No evidence of pathologic marro w infiltration. No evidence of prior fracture. Conus: The conus is within normal limits of signal intensity and morphology and terminates at the level of the L1 inferior en dplate. Paraspinal soft tissues: Paraspinal soft tissues are within normal limits. T13-L1: Canal and foramina are patent. L1-L2: Canal and foramina are patent. L2-L3: Canal and foramina are patent L3-L4: Small broad-based disc bulge without canal stenosis. Neural foramina are patent. L4-L5: Small broad-based disc bulge with minimal posterior e ndplate and mild bilateral facet hypertrophy. Canal and foramina rem ain patent. L5-S1: Minimal disc bulge without canal stenosis. Neural for doyle are patent. There are endplate degenerative changes with Schmorl's nodes at multiple levels, most prominent in the lower lumbar spine. The disc s paces are preserved. Sacrum and iliac wings: The visualized sacrum and iliac wing s are within normal limits. The presacral soft tissues are normal in appearance. IMPRESSION: No spinal lesion or abnormal enhancement. Mild spondylosis of the cervical, thoracic, and lumbar spine without high-grade canal or neural foraminal stenosis. Mild T2/IR hyperintensity in the cervical cord at level C5-C 6, likely mild myelomalacia. Anatomic Thoracic/Lumbar Variant: [id number] thoracic vertebra e to accommodate counting discrepancies from the craniocervical a nd lumbosacral junctions. L4-5 is considered the level of the i liac crest and there are 5 lumbar-type vertebrae. * * * * * * * * ADDENDUM #1 * * * * * * * * Type I degenerative endplate changes posteriorly and eccentr ic to the right at C6-C7. Meat Wrapper: PSCB Transcribe Date/Time: Apr 22 2019 4:05P Dictated by : MANSOOR RAYO MD This examination was interpreted and the report reviewed and electronically signed by: MANSOOR RAYO MD on Apr 22 2019 3:54PM EST This document has been addended by: MANSOOR RAYO MD on Mar 292018 4:06PM EST [id number] mri cervical spine wo/w ivcon on 2019-04-22 MRI CERVICAL * * *Final Report* * * Normal 03-29 [facility] SPINE WO/W IVCON * * * SEE BOTTOM OF REPORT FOR ADDENDED TEXT * * * [place] ([id number]) DATE OF EXAM: Apr 22 2019 2:22PM Q 0298 - MRI CERVICAL SPINE WO/W IVCON / 0283 PROCEDURE REASON: Mass or lump, spine * * * * Physician Interpretation * * * * * * * * * * * * ORIGINAL REPORT * * * * * * * * EXAMINATION: MRI THORACIC SPINE WO/W IVCON, MRI CERVICAL SPI NE WO/W IVCON, MRI LUMBAR SPINE WO/W IVCON CLINICAL HISTORY: 43-year-old male with 2 weeks of vertigino us symptoms and progressive bilateral lower extremity weakness and gait instability, and now 2 days of hypophonia and slurred speech. Concern for neuropathic process secondary to possible metabolic exposure or deficien cy. Concern for lower neuraxial lesion in the setting of bilateral lower extremity weakness TECHNIQUE: Routine cervical, thoracic and lumbar spine MR pr otocol with and without contrast. MQ: MTSWO_3 Contrast media: IV administration of 13 ml of Dotarem COMPARISON: None available RESULT: CERVICAL: Counting reference: Craniocervical junction. Anatomic Varian ts: None. Alignment: There is straightening of the normal cervical aspen dotic curvature. There is grade 1 retrolisthesis of C4 on C5, and minimal retrolisthesis of C5 on C6. Craniocervical junction: Craniocervical junction is normal. Cord: Mild T2/IR hyperintensity in the cord at level C5-C6, likely mild myelomalacia. Bone marrow signal/fracture: Type I degenerative endplate ch anges at C5-C6 eccentric to the left. No evidence of pathologic marro w infiltration. No evidence of prior fracture. Cervical soft tissues: The paraspinal soft tissues are withi n normal limits. C2-C3: Canal and foramina are patent. C3-C4: Canal and foramina are patent. C4-C5: Mild disc space loss with minimal posterior. Canal an d foramina are patent. C5-C6: Moderate disc space loss with left paracentral disc o steophyte complex mildly flattening the ventral thecal sac eccentric t o the left with overall mild to moderate spinal canal narrowing. Facet and uncovertebral hypertrophy resulting in moderate left neural foraminal stenosis. Right neural foramen remains patent. C6-C7: Mild disc space loss. Posterior disc osteophyte compl ex and ligamentous hypertrophy contributing to mild spinal canal st enosis. Facet and uncovertebral hypertrophy result in mild left neur al foraminal stenosis. Right neural foramen is patent. C7-T1: Canal and foramina are patent. THORACIC: Counting reference: Lumbosacral junction. For the purposes o f this report, anatomic variants: L4-5 is considered the level of t he iliac crest and there are 5 lumbar-type vertebrae. Anatomic Varian t: [id number] thoracic vertebrae to accommodate counting discrepancies fro m the craniocervical and lumbosacral junctions. Alignment: Increased kyphotic curvature at T8 and T9 levels. No spondylolisthesis. Mild levocurvature of the lower thoracic spine. Cord: The visualized cord is within normal limits of signal intensity and morphology. Bone marrow signal/fracture: No evidence of pathologic marro w infiltration. There is mild anterior wedging deformities of T8 and T9 which appears chronic. Thoracic paraspinal soft tissues: The paraspinal soft tissue s are within normal limits. Canal and foramina: There are multilevel degenerative endpla te changes with Schmorl's nodes most prominent T8-T10 with mild-moderat e disc space loss. Small disc bulge at T8-T9 without canal stenosis. The thoracic canal and neural foramina are patent. LUMBAR: Counting reference: Lumbosacral junction. For the purposes o f this report, L4-5 is considered the level of the iliac crest and there are 5 lumbar-type vertebrae. Anatomic variant: [id number] thoracic v ertebrae to accommodate counting discrepancies from the craniocervical a nd lumbosacral junctions. Alignment: Alignment is anatomic. Bone marrow signal/fracture: No evidence of pathologic marro w infiltration. No evidence of prior fracture. Conus: The conus is within normal limits of signal intensity and morphology and terminates at the level of the L1 inferior en dplate. Paraspinal soft tissues: Paraspinal soft tissues are within normal limits. T13-L1: Canal and foramina are patent. L1-L2: Canal and foramina are patent. L2-L3: Canal and foramina are patent L3-L4: Small broad-based disc bulge without canal stenosis. Neural foramina are patent. L4-L5: Small broad-based disc bulge with minimal posterior e ndplate and mild bilateral facet hypertrophy. Canal and foramina rem ain patent. L5-S1: Minimal disc bulge without canal stenosis. Neural for doyle are patent. There are endplate degenerative changes with Schmorl's nodes at multiple levels, most prominent in the lower lumbar spine. The disc s paces are preserved. Sacrum and iliac wings: The visualized sacrum and iliac wing s are within normal limits. The presacral soft tissues are normal in appearance. IMPRESSION: No spinal lesion or abnormal enhancement. Mild spondylosis of the cervical, thoracic, and lumbar spine without high-grade canal or neural foraminal stenosis. Mild T2/IR hyperintensity in the cervical cord at level C5-C 6, likely mild myelomalacia. Anatomic Thoracic/Lumbar Variant: [id number] thoracic vertebra e to accommodate counting discrepancies from the craniocervical a nd lumbosacral junctions. L4-5 is considered the level of the i liac crest and there are 5 lumbar-type vertebrae. * * * * * * * * ADDENDUM #1 * * * * * * * * Type I degenerative endplate changes posteriorly and eccentr ic to the right at C6-C7. Meat Wrapper: JAUN Transcribe Date/Time: Apr 22 2019 4:05P Dictated by : MANSOOR RAYO MD This examination was interpreted and the report reviewed and electronically signed by: MANSOOR RAYO MD on Apr 22 2019 3:54PM EST This document has been addended by: MANSOOR RAYO MD on Mar 292018 4:06PM EST [id number] htlv i/ii ab screen on 2019-04-22 HTLV I/II Ab Screen Negative Negative Normal 04-22-2019 [facility] ([id number]) Comment: Result Comment: (NOTE) Based on the non-reactive an ti-HTLV JAYMIE screen, the HTLV Western Blot is not indicated and th erefore not performed. INTERPRETIVE INFORMATION: HT LV I/II Antibodies w/Reflex to Confirm This assay should not be use d for blood donor screening, associated re-entry protocol s, or for screening Human Cell, Tissues and Cellular and Tis eneida-Based Products (HCT/P). Performed by [facility], [address] [place], [place] [address] [email or web address], Leonard Zazueta do, MD, Lab. Director Performed By: #### SERFOL, C MP, B12, ALCO, CBCDIF #### [facility] [address] [phone] [id number] ag +[id number] ab on 2019-04-22 HIV 12 Ag/Ab Non Reactive Non Reactive Normal 04-22-2019 [facility] ([id number]) Comment: Performed By: #### SYPHNOLAN H IV12C ####[facility] [address] [phone] HIV Interpretation Negative Normal 04-22-2019 [facility] ([id number]) Comment: Result Comment: No evidence of HIV-1 or HIV-2 infection. Should recent infection be suspected, repeat testing may be considered 2-3 weeks after this draw. HIV Information: [place] Rev. C ode 3701.243(E): This information has been di sclosed to you from confidential records protected from disclosure by state law. You shall make no further disclosure of this information without the specific, written, and i nformed release of the indiv idual to whom it pertains or as otherwise permitted by state law. A general authorization for the release of medical or other information is not sufficient for the purpose of the release of HIV test results or diagnoses. Performed By: #### SYPHGKayleigh H IV12C ####[place] [id number] [place] [address] [phone] HIV-1/2 Antibody Test Not Indicated Normal 03-29 [facility] ([id number]) Comment: Performed By: #### SYPHGKayleigh, H IV12C ####[place] [id number] [place] [address] [phone] heavy metls scrn,bld on 2019-04-22 Arsenic Blood <10.0 0.0-12.0 Normal 04-22-2019 [facility] ([id number]) Comment: Result Comment: (NOTE) INTERPRETIVE INFORMATION: Ar senic, Blood Elevated results may be due to skin or collection-related contamination, including the use of a noncertified metal-free collection/transport tube. I f contamination concerns exist due to elevated levels of blood ars enic, confirmation with a second specimen collected in a cert ified metal-free tube is recommended. Potentially toxic ranges for blood arsenic: Greater than or equal to 600 ug/L. Blood arsenic is for the det ection of recent exposure poisoning only. Blood arsenic levels i n healthy subjects vary considerably with exposure to arsenic in the diet and the environment. A 24-hour urine arsenic is use ful for the detection of chronic exposure. Test developed and character istics determined by [facility]. See Compliance Statement B: Explain My [facility].[employer]/CS Performed By: #### HEVMET ## ##[facility] [address] [place], [place] [phone] Lead Blood <2.0 0.0-4.9 Normal 04-22-2019 [facility] ([id number]) Comment: Result Comment: (NOTE) INTERPRETIVE INFORMATION: Le ad, Blood (Venous) Elevated results may be due to skin or collection-related contamination, including the use of a noncertified lead-free tube. If contamination concerns ex ist due to elevated levels of blood lead, confirmation with a se cond specimen collected in a certified lead-free tube is recommende d. Information sources for refe rence intervals and interpretive comments include the CDC Re sponse to the 2012 Advisory Committee on Childhood Lead Poisoning Prevention Report and the Recommendations for Medical Management of Adult Lead Exposure, Environmental Health Perspec tives, 2007. Thresholds and time intervals for retesting, med ical evaluation, and response vary by state and regulatory body. C ontact your State Department of Health and/or applicable regulatory agency for specific guidance on medical management recommend ations. Age Concentration Comment All ages 5-9.9 ug/dL Adverse health effects are possible, particularly in children under 6 years of age and women. Discuss health risks associated with continued lead exposure. For children and women who are or may become , reduce lead exposure. All ages 10-19.9 ug/dL Reduc ed lead exposure and increased biological monitoring are recommended. All ages 20-69.9 ug/dL Remov al from lead exposure and prompt medical evaluation are recommended. Consider chelation therapy when concentrations exceed 50 ug/dL and symptoms of lead toxicity are present. Less than 19 Greater than Cr itical. Immediate medical years of age 44.9 ug/dL eval uation is recommended. Consider chelation therapy when symptoms of lead toxicity are present. Greater than 19 Greater than Critical. Immediate medical years of age 69.9 ug/dL eval uation is recommended Consider chelation therapy when symptoms of lead toxicity are present. Test developed and character istics determined by [facility]. See Compliance Statement B: [facility]/CS Performed By: #### HEVMET ## ##[facility] [address] [place], [place] [phone] Mercury, Blood <2.5 0.0-10.0 Normal 04-22-2019 [facility] ([id number]) Comment: Result Comment: (NOTE) INTERPRETIVE INFORMATION: Me rcury, Blood Elevated results may be due to skin or collection-related contamination, including the use of a noncertified metal-free collection/transport tube. I f contamination concerns exist due to elevated levels of blood alpa cury, confirmation with a second specimen collected in a cert ified metal-free tube is recommended. Blood mercury levels predomi nantly reflect recent exposure and are most useful in the diagnosis of acute poisoning as blood mercury concentrations rise sharply and fall quickly over several days after ingestion. Blood pavel ntrations in unexposed individuals rarely exceed 20 ug/L. The p rovided reference interval relates to inorganic mercury concentrat ions. Dietary and non-occupational exposure to organic mercury forms may contribute to an elevated total mercury result. Clinic al presentation after toxic exposure to organic mercury may inclu de dysarthria, ataxia and constricted vision morgan with mercury b lood concentrations from 20 to 50 ug/L. Test developed and character istics determined by [facility]. See Compliance Statement B: [facility]/CS Performed by [facility] , [address] [place], [place] [address] [email or web address], Leonard Zazueta do, MD, Lab. Director Performed By: #### HEVMET ## ##[facility] [address] [place], [place] [phone] glutamic ac decar ab on 2019-04-22 Glutamic Ac Decar Ab <5.0 <5.0 Normal 9 [facility] ([id number]) Comment: Performed By: #### SERFOL, C MP, B12, ALCO, CBCDIF #### [facility] [address] [phone] folate, serum on 15-04-26 Folate [Mass/Vol] 13.4 >4.7 ng/mL Normal 04-22-[address] [facility] ([id number]) Comment: Performed By: #### SERFOL, C MP, B12, ALCO, CBCDIF #### [facility] [address] [place], [place] [address] ethanol on Ethanol [Mass/Vol] <11 <11 mg/dL Normal 04-22-2019 [facility] ([id number]) Comment: Performed By: #### SERFOL, C MP, B12, ALCO, CBCDIF #### [facility] [address] [place], [place] [address] copper on 2019-03-29 Copper 101 70-140 ug/dL Normal 04-22-2019 [facility] ([id number]) Comment: Result Comment: This test wa s developed and its performance characteristics determined by [facility]'s [facility] [place] ( [facility]). It has not been cleared or a pproved by the FDA. [facility] is regulated under CLIA as qualified to perform high complexity testing. This test is used for clinic al purposes. It should not be regarded as investigational or for research. Performed By: #### Genny RENTERIA OPPER ####[facility] [address] [place], [place] [address] [phone] consult on CONSULT HNO ID: [id number] Normal 04-22-2019 [facility] Author: Casandra Zarate [place] ([id number]) Service: Neurology General Author Type: Physician Type: Consults Filed: 04/22/2019 10:00 PM Note Text: INITIAL CONSULT - GENERAL NEUROLOGY SERVICE DATE: 04/22/2019 SERVICE TIME: 3:51 PM Team Requesting Consult: Louis Gunn Current Attending Provider: Conor Sanford Neu[facility] was asked by the team to evaluate Christopher garcia, a 43 year old male for a chief complaint of Weakness and hallucination s. Our recommendations of care will be communicated by shared medic al record. Reason for Evaluation: Weakness and Hallucinations Subjective HPI: This is Mr. Christopher Smith a 43 year old male who p resented to the [facility] initially with a chief complaint of wea kness. During his stay, the patient developed Weakness and hallucinations. His past medical history is notable for EtOH with 14-18 beer s per day since age 14, abuse and vestibular schwanomma Per records the patient's symptoms started approximately 1 y ear ago when he started to have gait disturbance with trouble maintaining balance and walking. This progressively worsened over the course of six months when he started having bilateral lower extremity weakness with diffi cult standing as well as a shuffling gait. During this period he also was suffering from B-symptoms including night sweats and weight loss. In tressa tion to these symptoms, he has also been experiencing vertigo with associa delfin tinnitus and hearing loss. In the past three weeks the patient has experiencing a signi ficant decline. He is now experiencing visual and auditory hallucin ations. Furthermore, per the family he has also had significant pers onality changes. These new symptoms prompted the family to present t o an [facility] ED where an MRI was performed that showed a left internal audit ory canal tumor suspicious of vestibular schwannoma. He was shortly th ereafter admitted for severe nausea and emesis. He left AMA morning o f 04/21 saying they were not giving any answers to his questions and presen delfin to [facility] ED for further evaluation. In the ED patient underwent underwen t CT scan was unremarkable. Current Facility-Administered Medications Medication Dose Route Frequency - dextrose 5% in NaCl 0.9% iv infusion 75 mL/hr INTRAVENOUS CONTINUOUS - NaCl 0.9% 3-5 mL 3-5 mL INTRAVENOUS q 12 H - thiamine 500 mg in NaCl 0.9% 50 mL 500 mg INTRAVENOUS q 8 H Followed by - [START ON 2019] thiamine 200 mg in NaCl 0.9% 50 mL 20 0 mg INTRAVENOUS q 8 H Followed by - [START ON 04/29/2019] thiamine 100 mg tab(s) (VITAMIN B1) 10 0 mg ORAL TID - nicotine 7 mg/24 hr 1 Patch (NICODERM) 1 Patch TRANSDERMAL DAILY And - nicotine -- REMOVE patch OTHER DAILY And - nicotine - verify patch OTHER q 8 H - iv contrast (radiology procedure) INTRAVENOUS DIRECTED PRN - iv contrast (radiology procedure) INTRAVENOUS DIRECTED PRN - iv contrast (radiology procedure) INTRAVENOUS DIRECTED PRN - haloperidol lactate 5 mg injection (HALDOL) 5 mg INTRAMUSC ULAR q 6 H PRN PAST MEDICAL HISTORY Diagnosis Date - Alcohol abuse - HTN (hypertension) - Tobacco use History reviewed. No pertinent surgical history. Social History Socioeconomic History Marital status: Spouse name: Not on file Number of children: Not on file Years of education: Not on file Highest education level: Not on file Social Needs Financial resource strain: Not on file Food insecurity - worry: Not on file Food insecurity - inability: Not on file Transportation needs - medical: Not on file Transportation needs - non-medical: Not on file Occupational History Not on file Tobacco Use Smoking status: Current Every Day Smoker Packs/day: 1.50 Years: 40.00 Pack years: 60 Types: Cigarettes Quit date: 10/23/2007 Years since quittin.5 Smokeless tobacco: Never Used Substance and Sexual Activity Alcohol use: Yes Alcohol/week: 27.0 oz Types: 18 Cans of Beer (12oz) per week Comment: daily Drug use: Not Currently Sexual activity: Not on file Other Topics Concerns: Not on file Social History Narrative Not on file FAMILY HISTORY Problem Relation Age of Onset - other (lung cancer) Mother - Heart disease Father - Colon Cancer Father - Parkinsonism Paternal Grandmother ALLERGIES Allergen Reactions - Vicodin [Hydrocodon* Hives REVIEW OF SYSTEMS: GENERAL: SEE HPI HEENT: Negative for headaches NECK: Negative for stiffness, lumps or significant neck swel ling RESPIRATORY: Negative for cough, wheezing or respiratory dis tress CARDIOVASCULAR: Negative for chest pain, syncope, lightheadn ess or heart racing GI: No nausea, vomiting, or diarrhea : Negative, No history of dysuria, frequency or incontinen ce MUSCULOSKELETAL: back pain SKIN: Negative for lesions, rash, and itching NEURO: See HPI Objective PHYSICAL EXAM: General Appearance: Well appearing, alert, in no acute distr ess, well-hydrated, well nourished. Skin: Skin color, texture, turgor normal, no suspicious rash es or lesions Head: Normocephalic, no masses, lesions, tenderness or abnor malities Ears: External ears normal, canals clear Nose/Sinuses: Nares normal, septum midline, mucosa normal, n o drainage or sinus tenderness Oropharynx: Lips, mucosa, and tongue normal, teeth and gums normal, oropharynx normal Neck: Supple, no adenopathy; thyroid symmetric, normal size, no bruits Lhermitte's Phenomenon: Negative Lungs: Lungs clear to auscultation. No wheezing, rhonchi, ra les Heart: RRR without murmur, gallop, or rubs. No ectopy Carotid Auscultation: Without bruits Abdomen: Normal abdominal exam, Abdomen soft, non-tender. [place] wel sounds normal. No masses, organomegaly Extremities: No deformities, edema, skin discoloration, club aki or cyanosis. Good capillary refill. Musculoskeletal: No joint swelling, deformity, or tenderness Peripheral Pulses: Normal Neurological: ? Mental Status: Follows commands. Cranial Nerves: CNII: Visual acuity normal, Visual morgan full to confrontat ion, No APD noted on exam CNIII, IV, : Pupils equal, round and reactive to light, fu ll extraoccular movements, without nystagmus CN V: Facial sensation intact bilaterally to fine touch and pinprick, masseter 5/5 CN VII: Facial muscles symmetric and strong, No noted facial droop CN VIII: Hears finger rub well bilaterally CN IX: Gag Reflex Not examined CN X: Palate elevates symmetrically CN XI: Full strength shoulder shrug bilaterally CN XII: Tongue protrusion full and midline ? Non-Dilated Fundiscopic Examination: Deferred Examination ? Motor Exam: Tone - Normal Bulk - no muscle atrophy Delt Biceps Triceps Wrist Ext Wrist Flex Finger Flex Finger Ext Finger Abd Finger Add Right 5/5 5/5 5/5 5/5 5/5 5/5 5/5 5/5 5/5 Left 5/5 5/5 5/5 5/5 5/5 5/5 5/5 5/5 5/5 Hip Flex Hip Ext BiFem (knee flex) Quads (knee ext) Gastroc (plantflx) TibAnt (Dorsiflx) TibPost (ank add) Ankle Eversion Ankle Inv ersion FlxHLong (ToeFlex) ExtHLong (ToeExt) Right 5/5 5/5 5/5 5/5 5/5 5/5 5/5 5/5 5/5 5/5 5/5 Left 5/5 5/5 5/5 5/5 5/5 5/5 5/5 5/5 5/5 5/5 5/5 Neck Flexors 5/5 Neck Extensors 5/5 REFLEXES Right Left Bicep 2/4 2/4 Tricep 2/4 2/4 BrRad 2/4 2/4 Knee 2/4 2/4 Ankle 2/4 2/4 Pathological Reflexes: Babinski: bilaterally Downward response Sen: bilaterally Negative ? Sensation: Intact to proprioception, pin-prick [pain], lig ht touch and vibratory sense. ? Coordination: Finger-to- nose-finger intact bilaterally an d [id number]-nppg intact bilaterally. ? Rapid Alternating Movements: Normal bilaterally LABS/DATA: WBC (k/uL) Date Value 04/22/2019 3.94 04/21/2019 4.39 04/03/2019 4.48 RBC (m/uL) Date Value 04/22/2019 4.10 04/21/2019 4.73 04/03/2019 4.91 Platelet Count (k/uL) Date Value 04/22/2019 51 04/21/2019 45 04/03/2019 66 BUN (mg/dL) Date Value 04/22/2019 4 04/21/2019 5 04/03/2019 3 Creatinine (mg/dL) Date Value 04/22/2019 0.74 04/21/2019 0.67 04/03/2019 0.66 Lab Results Component Value Date NEUTP 62.8 04/21/2019 ABSNEUT 2.74 04/21/2019 LYMPHP 24.8 04/21/2019 ABSLYMPH 1.09 04/21/2019 ABSMONO 0.35 04/21/2019 EODINP 3.0 04/21/2019 ABSEOSIN 0.13 04/21/2019 BASOP 1.4 04/21/2019 ABSBASO 0.06 04/21/2019 Lab Results Component Value Date PLT 51 04/22/2019 HB 13.7 04/22/2019 HCT 41.0 04/22/2019 ALB 4.1 04/21/2019 CA 8.9 04/22/2019 TBILI 1.8 04/21/2019 ALKPHOS 110 04/21/2019 AST 63 04/21/2019 GLUC 89 04/22/2019 BUN 4 04/22/2019 NA 144 04/22/2019 K 3.8 04/22/2019 CHLOR 109 04/22/2019 CO2 24 04/22/2019 ANION 11 04/22/2019 ALT 26 04/21/2019 No results found for: WSR, CRP, IGG No results found for: USCRP No results found for: CHOL No results found for: LDL No results found for: HDL No results found for: TG No results found for: HBA1C RECENT MICROBIOLOGY: Blood Cultures: Urine Cultures/UA: DATA: Diagnostic tests reviewed for today's visit: Most recent labs and imaging results. Impression/Recommendations This is Christopher Smith, a 43 year old male has a neurolo gical examination that is most concerning for gait abnormalities a nd hallucinations. Ataxia - Differential includes parkinsons vs cerebellar degeneratio n 2/2 EtOH abuse vs infection vs nutritional deficencies. - His B symptoms are concerning for possible underlying lymp dejon as well. - His altered mental status is much more challenging to pars e. He is AOx3. Allegedly was much more confused yesterday. Improved on exam today. Could be possible his symptoms are secondary to underlying vit def . Possible delirium component? Will continue to monitor. Plan: - Check: thiamine, B12, Folate, Cu, TSH, HIV, Syphilis, HTLV - Also can consider CT C/A/P for evaluation of possible unde rlying lymphoma SIGNATURE: Fritz Lion MD PATIENT NAME: Christopher Smith DATE: April 22, 2019 TIME: 3:36 PM PAGER/CONTACT #: [phone] [facility] STAFF PHYSICIAN NOTE OF PERSONAL INVOLVEMENT IN CARE I have reviewed the consult note obtained and documented by the resident and I personally participated in the lay components. I have discussed the case and management of the patient's care. The following com ments revise or confirm relevant lay components of the note. IMPRESSION: This is a 43 year old admitted with gait instabi lity for one year with 3 weeks of precipitous decline as well as hallucin ations and personality changes. Exam shows marked ataxia and moderate s pasticity of lower more than upper limbs. MRI brain OSH showed suspected vestibular schwannoma - per our review also concern for enhancing lesio n in anterior corpus callosum and significant atrophy including in cerebel lum. MRI cervical spine shows C5-6 myelomalacia at level of degenerat usjey changes. Concern for mix of cerebellar ataxia and myelopathy with ove rlapping cognitive decline and possible pseudobulbar affect. Likely a t least some component is related to alcohol abuse. PLAN: 1) MoCA to be done tomorrow 2) labs for B12, folate, Vitamin E, thiamine, copper, HIV, H TLV, syphilis, HTLV, anti-FORREST, Lyme 3) consider CT C/A/P due to weight loss and constitutional s ymptoms 4) consider paraneoplastic panel Casandra Zarate MD Beeper Number: [id number] Date of Service: April 22, 2019 Time of Service: 5PM CONSULT HNO ID: [id number] Normal 04-22-2019 [facility] Author: Candis Roper [place] ([id number]) Service: Psychiatry Author Type: Physician Type: Consults Filed: 04/22/2019 11:26 AM Note Text: PSYCHIATRY INITIAL CONSULTATION NOTE NAME: Christopher Smith SERVICE DATE: April 21, 2019 ASSESSMENT/FORMULATION: Mr. Smith is a 43 year old male with history of asthma, rec ently diagnosed vestibular schwannoma and alcohol abuse (14 to 18 beers/day, last drink 7 days ago per patient). He is admitted for manag ement of symptoms thought to be associated with the vestibular schwan noma (difficulty ambulating, frequent falls, headaches, nausea, v omiting, dizziness, change in vision, and slurred speech x 3 months). CIT called for patient wanting to leave AMA, primary team requesting as sistance in assessment of capacity. On my evaluation, the patient could not demonstrate an understanding of relevant medical issues, cou ld not demonstrate an appreciation of the likely consequences of th e choice or the alternatives, and was not able to rationally manipulate information provided. As such, decisional capacity is not presently meliton ined. Patient refused to answer questions regarding his alcohol use, and r efused a physical examination. He has BUE tremors present at rest. No severe fluctuations in pulse or BP. Per primary team, his last drin k was 7 days ago. He was admitted to an OSH (daughter reported VH at that time), left AMA today and was then admitted to [facility]. No Utox or BAL colle cted, so it is unclear whether he had a drink prior to admission. DIAGNOSIS: 1. Encephalopathy R/O Delirium Tremens vs alcohol withdrawal Global Assessment of Functionin-21 Behavior is consider ably influenced by delusions or hallucination or serious impairme nt in communication or judgment Clinical Global Impression--Severity of illness Scale: How ill is the patient at this time (taking into account his history, psychological circumstance, symptoms, behavior, impact of sy mptoms on functioning)? 5 = Markedly ill (intrusive symptoms, distinct ly impair social/occupational function) RECOMMENDATIONS: (Recommendations are not final until sam jesus) On my evaluation, the patient could not demonstrate an under standing of relevant medical issues, could not demonstrate an appreciati on of the likely consequences of the choice or the alternatives, and w as not able to rationally manipulate information provided. As such, decisio nal capacity is not presently retained. I would recommend that you attempt to establish the presence or absence of a legally identified proxy decision-maker (guardian, healthc are power of package sealer). The hierarchy of identification of substitute dec ision-makers in the [facility] is (in order) court-appointed legal gua rdian, health-care power of package sealer, spouse, majority of adult chi ldren, parents, majority of adult siblings, and nearest relative. Surendra meadows continue to assess the patient's capacity for this question over time . In the event the patient's medical condition changes and they regain [facility], they will be able to choose their medical treatment accordingly. ? Psychiatric medication recommendations: Haldol 5mg IV/IM q6hrs PRN for agitation Nicotine patch 21mg ? Diagnostic tests recommended: EKG Urine toxicology ? Continue CIWA to monitor signs of possible alcohol withdra wal ? Will be staffed within 24 hours For questions regarding this patient for today, [place] [phone]. After 5 PM and on weekends, please page Psychiatry On-Call P theron @ [phone]. STAFF REVIEW: Will discuss case with Psychiatry Staff Consulting Service: CIT REASON FOR CONSULTATION: CIT, patient wanting to leave AMA Identifying Information: Mr. Smith is a 43 year old male [place], [place]. HPI: He was admitted to the hospital for difficulty ambulati ng. 43 y/o M with history of asthma, recently diagnosed vestibul ar schwannoma and alcohol abuse. Patient is admitted for difficulty ambula ting, frequent falls, headaches, nausea, vomiting, dizziness, change in vis ion, and slurred speech for the past 3-4 months. He was admitted to a OS last week, and left AMA today morning due to concerns that he was not being treated appropriately. CIT was called due to patient wanting to leave AMA. Primary team present at bedside, requesting capacity evaluation. Patient states he is tired of being in the hospital, and tir ed of all the tests that are being run on him. With the help of his daught er, he is able to state that he has a tumor in his brain although at one po int he calls the tumor a kidney stone. He is unable to state which tests he has undergone, other than an MRI. He denies any plans for surgic al intervention (this is accurate, per neurosurgery note). He i s able to report the symptoms that initially brought him into the hosp ital. He states he has a brain bleed (per CT head, no evidence of hem orrhage) and states the bruising on his arms is due to his recent falls ( per admission note, bruises are due to blood draws at the OSH). He states he wants to leave the hospital because he is not getting any answers wit h regards to his treatment and he wants to go outside and smoke a cigaret te. He refuses a nicotine patch. Prior to this assessment, primary team dis cussed patients low platelet count and his risks associated with le aving the hospital. Patient is unable to recall any of this informatio n. He is unable to discuss the risks of leaving, other than his plan to call 911 if he starts feeling unwell. He denies any SI or HI. Patient refuses to answer any further questions, especially with regards to his substance use. He is irritable, terminates the interv iew. STRESSORS: hospitalization COLLATERAL INFORMATION: I spoke with primary team. Patient was reportedly drinks alcohol daily. His last drink was about 6 to 7 days ago (when he was admitted to the OSH). Utox was not d one upon admission to [facility] today. Patients daughter told the primary team that while the patie nt was at the OSH, he experienced hallucinations such as seeing small peo ple on the floor when he went to use the bathroom. It is unclear when e xactly this occurred. PSYCHIATRIC REVIEW OF SYMPTOMS: Patient refused to answer MEDICAL REVIEW OF SYSTEMS: Patient refused to answer PAST MEDICAL HISTORY Diagnosis Date - Alcohol abuse - HTN (hypertension) - Tobacco use History reviewed. No pertinent surgical history. PSYCHIATRIC HISTORY: Patient refused to answer Substance Abuse History: Alcohol: Patient refused to answer. Per Nsgy note, 14 to 18 beers per day (last drink 7 days ago) Marijuana: Patient refused to answer Cocaine: Patient refused to answer Opioids: Patient refused to answer OTHER SUBSTANCE USE: Patient refused to answer MEDICATIONS: Current Facility-Administered Medications Medication Dose Route Frequency - dextrose 5% in NaCl 0.9% iv infusion 125 mL/hr INTRAVENOUS CONTINUOUS - NaCl 0.9% 3-5 mL 3-5 mL INTRAVENOUS q 12 H - thiamine 500 mg in NaCl 0.9% 50 mL 500 mg INTRAVENOUS q 8 H Followed by - [START ON 2019] thiamine 200 mg in NaCl 0.9% 50 mL 20 0 mg INTRAVENOUS q 8 H Followed by - [START ON 04/29/2019] thiamine 100 mg tab(s) (VITAMIN B1) 10 0 mg ORAL TID - haloperidol lactate 5 mg injection (HALDOL) 5 mg INTRAMUSC ULAR ONCE - nicotine 7 mg/24 hr 1 Patch (NICODERM) 1 Patch TRANSDERMAL DAILY And - [START ON 04/22/2019] nicotine -- REMOVE patch OTHER DAILY And - [START ON 04/22/2019] nicotine - verify patch OTHER q 8 H ALLERGIES Allergen Reactions - Vicodin [Hydrocodon* Hives SOCIAL HISTORY: Patient refused to answer FAMILY HISTORY Problem Relation Age of Onset - other (lung cancer) Mother - Heart disease Father - Colon Cancer Father - Parkinsonism Paternal Grandmother Family Psychiatric History: Patient refused to answer Vital Signs: 04/21/19 1700 04/21/19 1800 04/21/19 1924 04/21/192003 BP: 140/70 137/78 136/74 138/79 Pulse: 68 65 63 (!) 55 Resp: Temp: 36.7 ?C (98 ?F) 36.8 ?C (98.3 ?F) TempSrc: Oral Oral SpO2: 99% 99% 99% 100% Weight: 65.6 kg (144 lb 10 oz) Height: 182.9 cm (6') PHYSICAL EXAMINATION: Muscle Tone/Strength: Tremor present at rest in bilateral up per extremities. Moved extremities against gravity. Neuro: unable to assess, patient refused Gait/Station: unable to assess, patient lying in bed MENTAL STATUS EXAMINATION: Appearance: Thin, male, casually dressed Behavior: Hostile Psychomotor: No psychomotor agitation. Cognition Level of Consciousness: Awake and alert. + fluctuation in wakefulness. Orientation: Person and Place Memory: Unable to Assess Attention/Concentration: Difficulty retaining attention, ref used to answer assessment questions Fund of Knowledge: UnAble to demonstrate an awareness of cur rent events. Mood: Being Irritable Affect: Mood-congruent and reactive within a normal range. Speech/Language: Appropriate tone, prosody, umair, phoneti cs, and syntax Thought Form: Coherent and Goal-directed. No loosening of as sociations. Thought Content: Vague at times Perceptual disturbances: Did not appear to respond to audito ry stimuli. Safety: Suicidal Ideations: No suicidal ideation, intent or plan. Homicidal Ideations: No homicidal ideation, intent or plan. Insight: Limited Judgment: Grossly impaired MINI-MENTAL STATUS EXAMINATION: Patient refused Lab Results Component Value Date/Time WBC 4.39 04/21/2019 03:10 PM RBC 4.73 04/21/2019 03:10 PM HCT 46.1 04/21/2019 03:10 PM MCV 97.5 04/21/2019 03:10 PM MCH 33.4 04/21/2019 03:10 PM MCHC 34.3 04/21/2019 03:10 PM RDWCV 13.7 04/21/2019 03:10 PM PLT 45 (L) 04/21/2019 03:10 PM NEUTP 62.8 04/21/2019 03:10 PM LYMPHP 24.8 04/21/2019 03:10 PM MONOP 8.0 04/21/2019 03:10 PM EODINP 3.0 04/21/2019 03:10 PM BASOP 1.4 04/21/2019 03:10 PM ABSNEUT 2.74 04/21/2019 03:10 PM ABSMONO 0.35 04/21/2019 03:10 PM ABSEOSIN 0.13 04/21/2019 03:10 PM ABSBASO 0.06 04/21/2019 03:10 PM GLUC 105 (H) 04/21/2019 03:10 PM NA 140 04/21/2019 03:10 PM K 3.7 04/21/2019 03:10 PM CHLOR 106 (H) 04/21/2019 03:10 PM BUN 5 (L) 04/21/2019 03:10 PM CREAT 0.67 (L) 04/21/2019 03:10 PM MG 1.8 04/21/2019 03:10 PM CO2 25 04/21/2019 03:10 PM TPROT 8.7 (H) 04/21/2019 03:10 PM ALB 4.1 04/21/2019 03:10 PM CA 10.0 04/21/2019 03:10 PM AST 63 (H) 04/21/2019 03:10 PM ALT 26 04/21/2019 03:10 PM ALKPHOS 110 04/21/2019 03:10 PM TBILI 1.8 (H) 04/21/2019 03:10 PM No results found for: UAMPH, UBARB, UBARB2, UBENZ, UQBUPRE, UQNORBUP, UCOC2, UQCANN, UOPI, UOXYC, UPCP, UTHC, THC, UETOH pH, Urine Date Value Ref Range Status 04/21/2019 7.0 4.5 - 8.0 Final Specific Meta, Ur Date Value Ref Range Status 04/21/2019 1.013 1.005 - 1.030 Final Glucose, Urine Date Value Ref Range Status 04/21/2019 Negative Negative mg/dL Final Bilirubin, Urine Date Value Ref Range Status 04/21/2019 Negative Negative Final Ketones, Urine Date Value Ref Range Status 04/21/2019 Negative Negative Final Hemoglobin/Blood,Ur Date Value Ref Range Status 04/21/2019 Negative Negative Final Protein, Urine Date Value Ref Range Status 04/21/2019 Negative Negative mg/dL Final Urobilinogen Date Value Ref Range Status 04/21/2019 Elevated (A) Normal Final Nitrites Date Value Ref Range Status 04/21/2019 Negative Negative Final WBC, Urine Date Value Ref Range Status 04/21/2019 0-5 0 - 5 /HPF Final SIGNATURE: Leilani Carrillo MD PATIENT NAME: Christopher Smith DATE: April 21, 2019 TIME: 10:53 PM PAGER/CONTACT#: [phone] Attending Note I evaluated the patient and personally participated in the k ey components. I agree with the resident's findings and plan as documented and have discussed the case and management of the patient's care with the resident. Signature: Candis Roper MD Date: 04/22/2019 Time: 11:25 AM ceruloplasmin on 20 15-04-26 Ceruloplasmin 23 15-30 mg/dL Normal 04-22-2019 [facility] ([id number]) Comment: Performed By: #### Genny RENTERIA OPPER ####[facility] [address] [place], [place] [address] [phone] cbc on 2019-04-22 Absolute nRBC <0.01 <0.01 Normal 04-22-2019 [facility] ([id number]) Comment: Performed By: #### SERFOL, C MP, B12, ALCO, CBCDIF #### [facility] [address] [place], [place] [address] Erythrocyte distribution 14.1 11.5-15.0 % Normal 04-22 [facility] width (RBC) [Ratio] [place] ([id number]) Comment: Performed By: #### SERFOL, C MP, B12, ALCO, CBCDIF #### [facility] [address] [place], [place] [address] Hematocrit (Bld) [Volume 41.0 39.0-51.0 % Normal 04-22 [facility] fraction] [place] ([id number]) Comment: Performed By: #### SERFOL, C MP, B12, ALCO, CBCDIF #### [facility] [address] [place], [place] [address] Hemoglobin (Bld) 13.7 13.0-17.0 g/dL Normal 04-22-2019 [facility] [place] [Mass/Vol] [place] ([id number]) Comment: Performed By: #### SERFOL, C MP, B12, ALCO, CBCDIF #### [facility] [address] [place], [place] [address] MCH (RBC) [Entitic mass] 33.4 26.0-34.0 pG Normal 04-22 [facility] ([id number]) Comment: Performed By: #### SERFOL, C MP, B12, ALCO, CBCDIF #### [facility] [address] [place], [place] [address] MCHC (RBC) [Mass/Vol] 33.4 30.5-36.0 g/dL Normal 04-22-20 19 [facility] ([id number]) Comment: Performed By: #### SERFOL, C MP, B12, ALCO, CBCDIF #### [facility] [address] [place], [place] [address] MCV (RBC) [Entitic vol] 100.0 80.0-100.0 fL Normal 04-22 [facility] ([id number]) Comment: Performed By: #### SERFOL, C MP, B12, ALCO, CBCDIF #### [facility] [address] [place], [place] [address] Platelet mean volume 12.6 9.0-12.7 fL Normal 9 [facility] (Bld) [Entitic vol] [place] ([id number]) Comment: Performed By: #### SERFOL, C MP, B12, ALCO, CBCDIF #### [facility] [address] [place], [place] [address] Platelets (Bld) [#/Vol] 51 150-400 k/uL Low 2018 [facility] ([id number]) Comment: Result Comment: No clot dete cted. Performed By: #### SERFOL, C MP, B12, ALCO, CBCDIF #### [facility] [address] [place] [address] RBC (Bld) [#/Vol] 4.10 4.20-6.00 m/uL Low 04-22-[address] [facility] ([id number]) Comment: Performed By: #### SERFOL, C MP, B12, ALCO, CBCDIF #### [facility] [address] [place], [place] [address] WBC (Bld) [#/Vol] 3.94 3.70-11.00 k/uL Normal 04-22-2019 [facility] ([id number]) Comment: Performed By: #### SERFONesha, C MP, B12, ALCO, CBCDIF #### [facility] [address] [place], [place] [address] case mgt init asses on 2019-04-22 CASE MGT INIT HNO ID: [id number] Normal 019 [facility] Author: Joanna Neri) Annalisa [place] ([id number]) Service: ? 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 No Advance Directive: Current Advance Directive: None General Manager Road Production Attempted to Assist with AD Completion: Yes Action: Education Provided;Patient Unwilling Health Literacy: 1. How often do you need to have someone help you when you r ead instructions, pamphlets, or other written material from your doctor or pharmacy? Sometimes - 3 2. How confident are you filling out medical forms by yourse lf? Somewhat - 3 If Patient scores > 3 on either question, the following inte rventions were put into place: Patient did not score > 3 FUNCTIONAL AND COGNITIVE/BEHAVIORAL PRIOR TO ADMISSION: Baseline Mental Status: Alert AND Oriented, Person, Place , Time and Situation Functional Status: Needs Assistance Does Patient Currently Receive Any Community Services or [facility] e Care? None Equipment Prior to Admission: Cane - Straight Walker Pt states he tries not to use these, which leads to him fall ing. Has the Patient Been in a Retirement Facility in the [place] days? No SOCIAL: Living Arrangement: Home Lives With: Spouse and Step-Daughter Financial Resources: Disabled Primary Contact: Extended Emergency Contact Information Primary Emergency Contact: Koki Smith Mobile Relation: Spouse Supportive: Yes Other Important Patient Contacts: None Caregiver Assessment: Caregiver is ready, willing and able to meet the patient's n eeds as recommended by the inter-professional team? Yes Patient's transition needs and plan for meeting these needs: Pt's needs at d/c are TBD. Does the patient have an acute stroke diagnosis, or has the patient had a stroke during this admission? No Medication Adherence: I am convinced of the importance of my prescription medicati on: Agree mostly - 0 I worry that my prescription medication will do more harm th an good to me Disagree mostly - 0 I feel financially burdened by my ghf-nw-dohibo expenses for my prescription medication: Disagree completely - 0 Patient is categorized as low risk < 2 Are you interested in bedside delivery of your medications? No Food Concerns: In the Last Month, Have You had Trouble Getting Food? No tro uble getting food During the Last Month, Have You Worried Whether Your Food Wo uld Run Out Before You Had Enough Money to Buy More? No Is the Patient Psychosocially Complex? Yes, refer to Social Work. SW to follow for pt's psychosocial needs. ASSESSMENT AND PLAN: Medical Needs: 2 or more chronic diseases Psychosocial Needs: ALCOHOL USE/ABUSE CAGE ASSESSMENT Two or More Affirmative Responses Suggest a Client is a Prob red Drinker. - Have you felt the need to cut down on your drinking? Yes - Do you feel annoyed by people complaining about your drink ing? Yes - Do you ever feel guilty about your drinking? No - Do you ever drink an eye-biofuels operations manager in the morning to relieve shakes? Sometimes Pt states that he typically drinks 14-18 beers per day and h as been sober for 8 days. FREEDOM OF CHOICE EXPLAINED: N/A POTENTIAL TRANSITION PLANS To Be Determined Per HANDP, Mr. Smith is a 43 year old Male with PMHx signi ficant for alcohol abuse, tobacco abuse and recently diagnosed likely v estibular schwannoma who comes in with gait disturbance w/ BLE weaknes s, vertigo, nystagmus, thrombocytopenia and hyperbilirubinemia and is ad mitted for further work up. Met with pt at bedside, introduced self and role of social w ork hospice case manager. Pt attempting to get out of bed without assistance and bed alarm going off. Nursing came in to assist with pt going to the re stroom. Pt asking why he is not able to get up on his own. Reviewed wit h pt falls risk protocol. Pt states he lives at home with his and his step-daughter who is 16 years old. When asking pt if he has fallen recently, pt laughed and said, falling a lot is an understa tement. Pt states that he has a walker and a cane at home, but he tries not to use them. Pt does admit to drinking 14-18 beers prior to admissi on and is tired of everyone asking him about his alcohol consumption. When asking pt if he's ever been in a recovery or treatment program [facility], he stated no. When asking pt if he is interested in going to treatment or being in a program or AA, he stated, i'm interested in quitting drinki ng, but not being in no program. Pt states that he has been sober for t he last 8 days and he is planning on not drinking any more once he returns home. PT consulted, will await recommendations. Pt states that his wi fe and step-daughter are here somewhere, but not sure where they went. Will await return to the room to discuss collateral information. SW will continue to follow for care coordination. Please bandar l or page if any questions or concerns arise. SIGNATURE: ARI Esteban PATIENT NAME: Christopher Smith DATE: April 22, 2019 TIME: 12:19 PM PAGER/CONTACT #: [phone] basic metabolic panl on 2019-04-22 Anion gap [Moles/Vol] 11 9-18 mmol/L Normal 04-22-20 [facility] ([id number]) Comment: Performed By: #### SERFOL, C MP, B12, ALCO, CBCDIF #### [facility] [address] [place], [place] [address] Calcium [Mass/Vol] 8.9 8.5-10.2 mg/dL Normal 04-22-2019 [facility] ([id number]) Comment: Performed By: #### SERFOL, C MP, B12, ALCO, CBCDIF #### [facility] [address] [place] [address] Chloride [Moles/Vol] 109 97-105 mmol/L High 9 [facility] ([id number]) Comment: Performed By: #### SERFOL, C MP, B12, ALCO, CBCDIF #### [facility] [address] [place], [place] [address] CO2 [Moles/Vol] 24 22-30 mmol/L Normal 04-22-2019 [facility] ([id number]) Comment: Performed By: #### SERFOL, C MP, B12, ALCO, CBCDIF #### [facility] [address] [place], [place] [address] Creatinine [Mass/Vol] 0.74 0.73-1.22 mg/dL Normal 04-22-20 19 [facility] ([id number]) Comment: Performed By: #### SERFOL, C MP, B12, ALCO, CBCDIF #### [facility] [address] [place] [address] eGFR- Amer. >60 Normal 04-22-2019 [facility] ([id number]) Comment: Performed By: #### SERFOL, C MP, B12, ALCO, CBCDIF #### [facility] [address] [place], [place] [address] GFR/1.73 sq M predicted >60 mL/min/{1.73_m2} Normal 04-22-2019 [facility] among non-blacks MDRD [place] ([id number]) (S/P/Bld) [Vol rate/Area] Comment: Result Comment: eGFR (Estima delfin GFR) Units of measure: mL/min/1.73 meters squared eGFR is derived from the ree xpressed MDRD Study equation using the following parameters: serum creatinine, age, gender and race. The creatinine assay has been calibrated to be traceable to IDMS. An eGFR <60 mL/min/1.73m2 fo r >3 months is consistent with chronic kidney disease. Refer to KDOQI guidelines for clinical interpretation. In patients with unstable re nal function, e.g. those with acute kidney injury, the eGFR may not accurately reflect actual GFR. Performed By: #### SERKENDALLL C MP, B12, ALCO, CBCDIF #### [facility] [address] [place], [place] [address] Glucose [Mass/Vol] 89 74-99 mg/dL Normal 04-22-2019 [facility] ([id number]) Comment: Result Comment: The [place] Diabetes Association (ADA) provides guidance for cutoff values for fasting glucose and random glucose. The ADA defines fasting as no caloric intake for at least 8 hours. Fas ting plasma glucose results between 100 to 125 mg/dL indicate increased risk for diabetes (prediabetes). Fasting plasma glucose resul ts greater than or equal to 126 mg/dL meet the criteria for diagnosis of diabetes. In the absence of unequivocal hyperglycemia, results should be confirmed by repeat testing. In a patient with classic s ymptoms of hyperglycemia or hyperglycemic crisis, random plasma glucose results greater than or equal to 200 mg/dL meet the criteria for diagnosis of diabetes. Reference: Standards of [facility] in Diabetes 2016, [place] Diabetes Association. Diabetes Care. 2016.39(Suppl 1). Performed By: #### SERDIANA C MP, B12, ALCO, CBCDIF #### [facility] [address], [place] [address] Potassium [Moles/Vol] 3.8 3.7-5.1 mmol/L Normal 04-22-20 19 [facility] ([id number]) Comment: Performed By: #### SERKENDALLL C MP, B12, ALCO, CBCDIF #### [facility] [address] [place], [place] [address] Sodium [Moles/Vol] 144 136-144 mmol/L Normal 04-22-2019 [facility] ([id number]) Comment: Performed By: #### SERFOL, C MP, B12, ALCO, CBCDIF #### [facility] [address] [place], [place] [address] Urea nitrogen [Mass/Vol] 4 9-24 mg/dL Low 04-22 [facility] ([id number]) Comment: Performed By: #### SERFONesha, C MP, B12, ALCO, CBCDIF #### [facility] [address] [place], [place] [address] aptt on 2019-04-22 aPTT Coag (Bld) [Time] 28.9 23.0-32.4 sec Normal 019 [facility] ([id number]) Comment: Result Comment: Unfractionat ed Heparin Therapeutic Ranges: Standard Heparin Nomogram: 5 3 to 78 seconds (anti-Xa level of 0.3 to 0.7 U/ml) Low Dose/ACS Nomogram: 49 to 67 seconds (anti-Xa level of 0.2 to 0.5 U/ml) Stroke Treatment Nomogram: 4 9 to 67 seconds (anti-Xa level of 0.2 to 0.5 U/ml) Note: The APTT therapeutic r feliciano has been determined for the current lot of laboratory APTT reagent in use throughout the [facility]. Performed By: #### SERKENDALLL, C MP, B12, ALCO, CBCDIF #### [facility] [address] [place], [place] [address] allied health on 15-04-26 [facility] HNO ID: [id number] Normal [address] [place] [address] Author: Demi Rosa (Tech) [place] ([id number]) Service: Radiology Author Type: Graphic Technician Type: Allied Health Filed: 04/22/2019 1:57 PM Note Text: Radiology Service Progress Note PATIENT NAME: Christopher Smith DATE OF SERVICE: April 22, 2019 TIME: 1:56 PM PATIENT IDENTITY VERIFICATION COMPLETED USING TWO (2) METHOD S: Patient confirmed name verbally, ID Band and Date of . PATIENT GENDER DATA: Male PATIENT RELEVANT IMPLANT DATA REVIEWED: Yes RADIOLOGY DEPARTMENT: MR; Exam(s) Completed: Spine: Cervical spine, Thoracic spine and Lumbar spine PERIPHERAL IV DATA: Inpatient: see LDA documentation SIGNED BY: LILI Marcano Tech April 22, 2019 1:56 PM urinalysis with microscopic on 2019-04-21 Bilirubin, Urine Negative Negative Normal 04-21-2019 [facility] ([id number]) Comment: Performed By: #### SERFOL, C MP, B12, ALCO, CBCDIF #### [facility] [address] [place] [address] Clarity (U) Clear Clear Normal 04-21-2019 [facility] ([id number]) Comment: Performed By: #### SERFOL, C MP, B12, ALCO, CBCDIF #### [facility] [address] [place] [address] Color (U) Savanna Yellow Critically abnormal 04-21-2019 [facility] ([id number]) Comment: Performed By: #### SERFOL, C MP, B12, ALCO, CBCDIF #### [place] [address] Comments SEE COMMENT Normal 04-21-2019 [facility] ([id number]) Comment: Result Comment: N/A Performed By: #### SERFOL, C MP, B12, ALCO, CBCDIF #### [place] [address] [place] [address] Epithelial cells LM.HPF SEE COMMENT Normal 03-29 [facility] (Urine sed) [#/Area] [place] ([id number]) Comment: Result Comment: Few Squamous Epithelial Cells Performed By: #### SERFOL, C MP, B12, ALCO, CBCDIF #### [facility] [address] [place] [address] Glucose Ql (U) Negative Negative Normal 04-21-2019 [facility] ([id number]) Comment: Performed By: #### SERFOL, C MP, B12, ALCO, CBCDIF #### [facility] [address] [place], [place] [address] Hemoglobin/Blood,Ur Negative Negative Normal 04-21-2019 [facility] ([id number]) Comment: Performed By: #### SERFOL, C MP, B12, ALCO, CBCDIF #### [facility] [address] [place] [address] Ketones Ql (U) Negative Negative Normal 04-21-2019 [facility] ([id number]) Comment: Performed By: #### SERFOL, C MP, B12, ALCO, CBCDIF #### [place] [address] Leukest Negative Negative Normal 04-21-2019 [facility] ([id number]) Comment: Performed By: #### SERFOL, C MP, B12, ALCO, CBCDIF #### [place] [address] Nitrite Ql (U) Negative Negative Normal 04-21-2019 [facility] ([id number]) Comment: Performed By: #### SERFOL, C MP, B12, ALCO, CBCDIF #### [place] [address] pH (Bld) 7.0 4.5-8.0 Normal 04-21-2019 [facility] ([id number]) Comment: Performed By: #### SERFOL, C MP, B12, ALCO, CBCDIF #### [place] [address] Protein (U) [Mass/Vol] Negative Negative mg/dL Normal 019 [facility] ([id number]) Comment: Performed By: #### SERFOL, C MP, B12, ALCO, CBCDIF #### [place] [address] RBC (U) [#/Vol] 0-3 0-3 Normal 04-21-2019 [facility] ([id number]) Comment: Performed By: #### SERFOL, C MP, B12, ALCO, CBCDIF #### [facility] [address] [place] [address] Specific Meta, Ur 1.013 1.005-1.030 Normal 019 [facility] ([id number]) Comment: Performed By: #### SERFOL, C MP, B12, ALCO, CBCDIF #### [facility] [address] [place] [address] Urine Omar Comment SEE COMMENT Normal 04-21-2019 [facility] ([id number]) Comment: Result Comment: N/A Performed By: #### SERFOL, C MP, B12, ALCO, CBCDIF #### [facility] [address] [place] [address] Urobilinogen Qn (U) Elevated Normal Critically abnormal 04-21-2019 [facility] ([id number]) Comment: Performed By: #### SERFOL, C MP, B12, ALCO, CBCDIF #### [facility] [address] [place] [address] WBC (Bld) [#/Vol] 0-5 0-5 Normal 04-21-[address] [facility] ([id number]) Comment: Performed By: #### SERFOL, C MP, B12, ALCO, CBCDIF #### [facility] [address] [place] [phone] progress on 2019-03 PROGRESS HNO ID: [id number] Normal 04-21-2019 [facility] Author: Eunice (Rt) Yael [place] ([id number]) Service: ? Author Type: Graphic Technician Type: Progress Notes Filed: 04/21/2019 4:23 PM Note Text: Radiology Service Progress Note PATIENT NAME: Christopher Smith DATE OF SERVICE: April 21, 2019 TIME: 4:16 PM PATIENT IDENTITY VERIFICATION COMPLETED USING TWO (2) METHOD S: Patient confirmed name verbally and Date of . PATIENT GENDER DATA: Male PATIENT RELEVANT IMPLANT DATA REVIEWED: Yes RADIOLOGY DEPARTMENT: CT; Exam(s) Completed: Brain PERIPHERAL IV DATA: Not applicable SIGNED BY: RT ZURI April 21, 2019 4:16 PM plan of care on 07-03-25 PLAN OF CARE HNO ID: [id number] Normal 04-21-20 19 [facility] Author: Romeo Longoria [place] ([id number]) Service: Hospital Medicine Author Type: Resident Type: Plan of Care Filed: 04/21/2019 9:36 PM Note Text: The patient was transferred into room G-17. We assumed car e of the patient. The patient will be admitted to [facility] under atte ohing physician Dr. Sanford Please page below with questions: First Call Rachel Mott Internal Medicine PGY-1 Pager [phone] Second Call Romeo Longoria MD Internal Medicine PGY-2 Pager [phone] magnesium on 04-21 Magnesium [Mass/Vol] 1.8 1.7-2.3 mg/dL Normal 9 [facility] ([id number]) Comment: Performed By: #### SERFOL, C MP, B12, ALCO, CBCDIF #### [facility] [address] [place] [address] history physical on 2019-04-21 HISTORY HNO ID: [id number] Normal 04-21-2019 [place] PHYSICAL Author: Rachel Wolff [facility] Service: General Internal Medicine [place] Author Type: Resident ([id number]) Type: HANDP Filed: 04/22/2019 2:58 AM Note Text: Attestation signed by Conor Sanford at 04/22/2019 1:59 PM [facility] STAFF PHYSICIAN NOTE OF PERSONAL INVOLVEMENT IN CARE I have reviewed the history and physical examination obtained and documented by the resident and I personally participated in the lay compon ents. Patient discussed with house staff on rounds; seen and examined sepa rately. The following comments revise or confirm relevant lay componen ts of their note. 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 It seems that Mr. Smith is not at his cognitive baseline, a nd Wernicke encephalopathy would unify his confusion and lucas maximilian. I presume he has already received supplemental thiami ne sometime in his course, but we are supplementing here as well. Alcoholic hepatitis would unify his elevated l iver enzymes, (probable) anorexia, and nausea, but even if he has alcoholi c hepatitis, neither his Maddrey DF nor his MELD would suggest steroids. Jimmy disease would unify a number of findings here, and is worth investig ating, but epidemiologically uncommon. I doubt that an alcohol withdrawal protocol will be of muc h benefit at this point in his course (hospita lized from 04/15-04/21, undetectable ethanol level on the evening of 04/21). We can stop CIWA. Mr. Smith does not seem to have capacity to leave AMA. Whil e he is hospitalized, we have asked our colleagues in Neurology to s ee him (?localization?). Our Psychiatry colleagues adjudged h im to lack capacity to leave overnight; we should be able to assess capacity going forward. And our Neurosurgery colleagues would prefer to assess his Schwannoma in clinic, which would be reasonable provided we do not think that to be the cause of his ataxia/falls. Detailed plan per house staff note. I remain available for questions/discussion, if helpful. SIGNATURE: Conor Sanford MD PAGER: [phone] DATE of SERVICE: 04/22/2019 TIME of SERVICE: 1:37 PM [facility] - [facility] team History and Physical Examination PRIMARY SERVICE: PATIENT NAME: Christopher Smith SERVICE DATE: 04/21/2019 SERVICE TIME: 9:22 PM HPI: Christopher Smith ( ) is a 43 year old male wit h pertinent PMH of - Alcoholism 14-18 beers per day since age 14, Last drink on 04/18 saturda y - Smoking 1.5 PPD since age 14 - HTN - recently diagnosed vestibular shwannoma Who presented to ED this evening with complaints of gait dis turbance, BLE weakness, episodic vertigo. Almost a year ago he started to have gait disturbance with t rouble in maintaining his balance while walking with occasional swayin g while walking and need to use support while getting up. It progres sively got worse and started getting worse over past six months. His ga it lately is slapping like and takes short steps. Since past 3 weeks he r eports inability to stand up on his own with BLE weakness and says needs his 's help to move around or need to use support while page ding up and walking. Denies lOC during/before falls. Patient also reports vertigo since past 6 months that has be en progressively getting worse. Vertigo is episodic, more so wh ile sitting up from the bed w/o N/V. Also reports episodic tinnitus that is not always accompanied by vertigo. Reports decreased hearing B/L, R>L s izzy always. He also reports vision issues since past 6 months with troub le with his near vision. Reports having night sweats, chills since past 6 months. Rep orts chronic cough but says that is because of his smoking. Denies recent increase in sputum productin or change in sputum quality. Reports 9lbs unintentional weight loss since 2 months. Reports yellowing of his skin and eyes since 1 week. Denies having seizures, chest pain, palpitations, LOC, abdom inal pain, urinary incontinence, bowel incontinence, trauma to back. 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 Reports using Mariju davian when was young but denies current use of any other recreational drugs . Lives with and step-daughter He underwent MRI head for his gait disturbances at [facility] ED on 04/15 where he was found to have left internal auditory canal tumor suspicious of vestibular schwannoma. On Wednesday 04/18 he was admitted to [facility] for complaints of nausea, severe NBNB em esis and severe headache after binge drinking. He reports having a fa ll over there in the bathroom and having hit his head to sink-denies LOC. Reports residual hip pain after fall and reports left arm bruise fro m that fall. He left AMA morning of 04/21 saying they were not giving any answers to his questions. Family also reports him having visual and government auditor y hallucinations yesterday at OSH. He came to [facility] ED in evening after family's requ est for evaluation of his ongoing issues. In ED, VS: BP 126/92, HR 107, RR16 Labs: WBC 4.39, Hb 15.8, Plts 45, Creat 0.67, Albumin 4.1, T . Bili 1.8 and Conj. Bili 0.[address] scan in ED that was unremarkable. Neuro surgery was consulted that recommended admission to Medicine with neurol ogy and hence patient was admitted to neurology for further evaluation and work up. RELEVANT PRIOR TESTING: Imaging: MRI Brain on 04/15: 5 x 3 mm enhancing lesion within the left internal auditory canal suspicious for a vestibular schwannoma. mild generalized parenchymal volume loss w/ Ventriculomegaly. PAST MEDICAL HISTORY Diagnosis Date - Alcohol abuse - HTN (hypertension) - Tobacco use History reviewed. No pertinent surgical history. FAMILY HISTORY Problem Relation Age of Onset - other (lung cancer) Mother - Heart disease Father - Colon Cancer Father - Parkinsonism Paternal Grandmother Social History Tobacco Use - Smoking status: Current Every Day Smoker Packs/day: 1.50 Years: 40.00 Pack years: 60.00 Types: Cigarettes Last attempt to quit: 10/23/2007 Years since quittin.5 - Smokeless tobacco: Never Used Substance Use Topics - Alcohol use: Yes Alcohol/week: 27.0 oz Types: 18 Cans of Beer (12oz) per week Comment: daily - Drug use: Not Currently ALLERGIES Allergen Reactions - Vicodin [Hydrocodon* Hives MEDICATIONS: PRIOR TO ADMISSION MEDICATIONS: No prescriptions on file. INPATIENT MEDICATIONS: Current Facility-Administered Medications Medication Dose Route Frequency - dextrose 5% in NaCl 0.9% iv infusion 125 mL/hr INTRAVENOUS CONTINUOUS - NaCl 0.9% 3-5 mL 3-5 mL INTRAVENOUS q 12 H - thiamine 500 mg in NaCl 0.9% 50 mL 500 mg INTRAVENOUS q 8 H Followed by - [START ON 2019] thiamine 200 mg in NaCl 0.9% 50 mL 20 0 mg INTRAVENOUS q 8 H Followed by - [START ON 04/29/2019] thiamine 100 mg tab(s) (VITAMIN B1) 10 0 mg ORAL TID - nicotine 7 mg/24 hr 1 Patch (NICODERM) 1 Patch TRANSDERMAL DAILY And - nicotine -- REMOVE patch OTHER DAILY And - nicotine - verify patch OTHER q 8 H - diazePAM 5 mg tab(s) (VALIUM) 5 mg ORAL ONCE REVIEW OF SYSTEMS: Constitutional: Positive for fever , significant weight loss , chills and night sweats HEENT: Negative for nasal discharge or nose bleeds, sore thr oat, difficulty swallowing, mouth lesions and hoarseness, Head Po sitive for headache and history of head trauma , Eyes Positive for visu al impairment and recent change in vision , Ears Positive for hearing loss , tinnitus Neck - Negative for lumps, goiter, pain and significant neck swelling Respiratory: Negative for wheezing, shortness of breath and chest pain and Positive for chronic cough Cardiovascular: Negative for chest pain, leg swelling or pal pitations Gastrointestinal: Negative for abdominal discomfort, blood i n stools or black stools or change in bowel habits Genitourinary: No history of dysuria, frequency, or incontin ence Endocrine: Negative for cold or heat intolerance, polyuria, polydipsia and goiter Hematologic: Negative for swollen nodes and Positive for bru ises easily Neurologic: Negative for syncope, seizures, paralysis, numbn ess or tingling of hands and numbness or tingling of feet and Posit sujey for headaches, dizziness and tremor Integumentary: Negative for lesions, rash, and itching. VITAL SIGNS: Patient Vitals for the past 24 hrs: BP Temp Temp src Pulse Resp SpO2 Height Weight 04/21/192003 138/79 36.8 ?C (98.3 ?F) Oral (!) 55 18 100 % 182.9 cm (6') 65.6 kg (144 lb 10 oz) 04/21/19 1924 136/74 36.7 ?C (98 ?F) Oral 63 18 99 % ? ? 06/25/19 1800 137/78 ? ? 65 20 99 % ? ? 04/21/19 1700 140/70 ? ? 68 20 99 % ? ? 04/21/19 1554 156/78 ? ? 66 20 96 % ? ? 04/21/19 1410 126/92 36.7 ?C (98.1 ?F) Oral (!) 107 16 100 % ? 66.7 kg (147 lb) Last 12 Encounter Wt Readings: Date: Wt: 04/21/2019 65.6 kg (144 lb 10 oz) 04/03/2019 66 kg (145 lb 6.4 oz) 06/16/2012 64.9 kg (143 lb) 03/17/2012 64.5 kg (142 lb 3.2 oz) 04/28/2009 67.6 kg (149 lb) 03/04/2009 66.2 kg (146 lb) 01/07/2009 68.5 kg (151 lb) 10/12/2008 70.8 kg (156 lb) 03/17/2008 67.1 kg (148 lb) 12/22/2007 67.1 kg (148 lb) 11/13/2007 69.4 kg (153 lb) 10/03/2007 68.9 kg (152 lb) PHYSICAL EXAM: GENERAL: Alert, Moderate Distress, Uncooperative, AAO X 3 bu t agitated SKIN: Positive findings: Ecchymosis: Left arm HEAD/SINUSES: No significant findings EYES: PERRLA, EOMI, Positives Horizontal Nystagmus EARS: External ears normal OROPHARYNX: Lips, mucosa, and tongue normal. Teeth and gums normal. Oropharynx normal. NECK: No jugulovenous distention, Supple, No thyromegaly LUNGS: Lungs clear to auscultation, Good diaphragmatic excur kristal CARDIAC: Normal S1 and S2; no rubs, murmurs, or gallops ABDOMEN: Negative findings: no scars, striae, dilated veins, rashes, or lesions, no masses palpable and Positive findings: firm, Pos itive bowel sounds EXTREMITIES: Left arm echhymosis, no edema, Normal capillary refill NEURO: Negative findings: No asterixis, rapid alternating mo vements normal, negative babinski, no sensory loss. Positive finding s: disoriented, intention tremor, altered finger to nose test, muscular weakness in BLE , Strength 4/5 in LE and 5/5 in UE. PULSES: 2+ radial The remainder of the physical exam is noncontributory. Body mass index is 19.61 kg/m?. INDWELLING CATHETERS: Other Lines/Drains: [address] LAB RESULTS: Recent Labs 04/21/19 2325 04/21/19 1510 WBC -- 4.39 HB -- 15.8 HCT -- 46.1 PLT -- 45* NA -- 140 K -- 3.7 CHLOR -- 106* CO2 -- 25 CREAT -- 0.67* BUN -- 5* GLUC -- 105* TPROT -- 8.7* ALB -- 4.1 MG -- 1.8 CA -- 10.0 ALKPHOS -- 110 TBILI -- 1.8* AST -- 63* ALT -- 26 APTT 28.9 -- INR 1.3 -- No results found for: TSH No results found for: HBA1C IMAGING RESULTS: MRI Brain on 04/15: 5 x 3 mm enhancing lesion within the left internal auditory canal suspicious for a vestibular schwannoma. mild generalized parenchymal volume loss w/ Ventriculomegaly. CT Onofre on 04/21: Unremarkable for acute process IMPRESSION: Mr. Smith is a 43 year old Male with PMHx significant for a lcohol abuse, tobacco abuse and recently diagnosed likely vestibular schwa nnoma who comes in with gait disturbance w/ BLE weakness, vertigo, nys tagmus, thrombocytopenia and hyperbilirubinemia and is admitted for further work up. ASSESSMENT AND PLAN: #Gait disturbance #BLE weakness #Vertigo #Horizontal Nystagmus - Difficulty walking and maintaining balance, started 1 year ago getting worse - Since past 3 weeks can't walk without support and would fa ll. Repeated falls in past 3 weeks. Denies LOC during falls. - Gait slapping or baby step like per family - O/E has BLE weakness 4/5 strength, no sensory loss, negati ve babinski, positive for intention tremor, altered finger nose test, Cou ld not appreciate rigidity - Feeling of room spinning while trying to get up on most oc casions and occasionally with his head still - Has hearing loss B/L -could be occupational, says more on R side - Has tinnitus on AND off -high pitched - B/L jerk nystagmus on horizontal movement - EOMI, PERRLA - D/D Metabolic- alcoholic cerebellar degeneration vs Wernic ke encephalopathy vs Vestibular schwannoma (but pt has B/L symp toms) - BLE weakness could be from spinal metastasis/involvement b ut unlikely with vestibular schwannoma Plan: - Neurology consult - Replete Thiamine - [facility] protocol - May consider ENT consult for hearing loss evaluation - May consider MRI Spine for evaluation for BLE weakness # 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 No conc gunner for DT since VSS Plan: - [facility]-Id protocol - CTM #Thrombocytopenia #Hyperbilirubinemia - Platelets 45k - T. Bili 1.8, Conjugated Bili 0.7 - ALT 26, AST 63 - Albumin 4.1 - Ammonia WNL, No Asterixis O/E, No RUQ pain - Could have underlying cirrhosis 2/2 chronic drinking that could be contributing to worsened mental status but has elevation in conjugated bili Plan: - RUQ US - Monitor for signs of active bleeding #Tobacco use Plan: -Nicotine patch #Hip pain -Most likely from fall at OSH - No concerns for fracture Plan: CTM Nutrition: Regular diet DVT PPX: ICDs GI PPX: None Code status: FULL This is a preliminary note which reflects the assessment of the medical student. Please note that above plan/note is not final until staffed by the attending physician. Renan Ramirez, MS4 - Acting Speed Runner, [facility] [id number] 04/21/2019 9:22 PM Brief Senior Addendum Subjective Mr. Christopher Smith is a 43 y/o man admitted to the Medicin e service for further management of ataxia, vestibular complaints in the s etting of recently diagnosed vestibular cochlear schwannoma. PMHx of: #HTN #Chronic Alcohol Abuse (14-18 beers per day, last drink 7 ho urs ago) #Tobacco Use (60 pack year current smoker) The patient first began to experience difficulty with ambula tion approximately 1 year ago. His symptoms progressed 6 months a go and he developed vision changes (near-sighted vision difficulty), n ausea, dizziness, imbalance with a shuffling gait. He also develope d right-sided tinnitus with some unilateral hearing loss. Over the last 3 weeks the patient and family note a total of 3 falls, all of which wer e unwittnessed. The patient states mechanical instability as t he cause for his falls and denies any /GI incontinence, loss of conscio usness associated with falling. 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 He saw a pro vider in [facility] and an MRI brain was obtained on 04/15/19, which show ed: enhancing lesions in the left auditory canal concerning for vestibuloc ochlear schwannoma along with mild generalized parenchymal volume lo ss and ventriculomegaly. The patient then presented to [facility] ED on 04/18 for nausea and NBNB emesis, during which time he also experienced a fall in the ED. CT B rain per family was unremarkable. He was admitted for further workup however left AMA on 04/21 because he was displeased with his care. He pres ented to [facility] ED later that day because he wants to know about his test r esults. Pertinent positives: Headache, easy bruising, unintentional weight loss of 9lbs in <2 months, 6 months of night sweats + chills Pertinent negatives: No fevers, no recent sick contacts. ED Course 156/78. HR 66 TMax 98.3F. 96% on RA. CMP: Na 140 / K 3.7 / BUN 5 / sCr 0.67 / TBili 1.8 / Alk Alex s 110 / AST 63 / ALT 26 Ammonia: 35 CBC: Hg 15.8 / WBC 4.39 / PLT 45 UA: -ve Leuk Est / -ve Nitrite / 0-5 WBC / Elevated urobilin ogen CT Brain: No acute traumatic abnormality The patient was seen by Neurosurgery in the ED and was deter mined to have no needs for acute surgical intervention. MRI of the CTL spi ne w/wo contrast was suggested. He was given fluids, banana bag and admitted to the regular nursing floor for further management. Upon arrival to the regular nursing floor the patient was af ebrile and hemodynamically stable. He initially was cooperative with ex am however became increasingly distressed because he could not leave to smoke a cigarette. The patient's family was present at bedside and s tated that he was not at his baseline. The patient repeatedly threatened t o go home, disconnected his IV, and removed his hospital gown. He demon strated a lack of insight into his medical condition and the risks of going home. A Code Cassie was called and the patient was assessed by Psychiatry at bedside who determined that the patient lack decision-making capacit y. Objective BP 138/79 Pulse (!) 55 Temp 36.8 ?C (98.3 ?F) (Oral) R mel 18 Ht 182.9 cm (6') Wt 65.6 kg (144 lb 10 oz) SpO2 100% B MT 19.61 kg/m? General: No acute distress. AANDOx3. HEENT: PERRLA. EOMi. Horizontal nystagmus bilaterally Neck: No JVD. No LAD. CV: Normal rate and rhythm. No murmurs or rubs auscultated. Resp: CTA b/l. No wheezing or crackles. Abdomen: Soft, nontender, nondistended abdomen. BSx4. Extremities: No pedal edema b/l. Skin: Bruising bilateral medial upper extremities Neuro: CN II-XII Grossly Intact. Strength 4+/5 in bilateral upper extremities, 3+/5 in bilateral lower extremities. Finger to nose and heel to damon intact bilaterally however motor slowing bilaterally . Assessment and Plan Mr. Christopher Smith is a 43 y/o man with HTN (unmedicated), chronic alcohol abuse, tobacco use admitted to the Medicine service for further management of ataxia, vestibular complaints in the setting o f recently diagnosed vestibular cochlear schwannoma. #Ataxia #falls Patient c/o 1 year of ataxia with progressive stepwise decli ne in functional status and onset of vestibular symptoms Clinical course complicated by 3 falls within the last 3 wee ks, unwitnessed but no LOC History notable for heavy EtOH use over 40 years Ddx: Metabolic encephalopathy vs Wernicke's encephalopathy v s Vestibular Schwannoma vs Movement disorder (though less likely given no tremor at rest or with intention, slowed but normal heel to damon and f chirag to nose) Plan - Bedside EEG monitoring - B12, thiamine, folate - Thiamine repletion - Neurology consultation - Strict fall precautions #Encephalopathy Patient with altered mentation per family, more pronounced o cameron last several days History notable for heavy EtOH use, 3 unwittnessed falls Upon admission, demanding to leave AMA however poor insight into clinical condition Evaluated by Psychiatry: Patient WITHOUT decision-making cap acity Last EtOH beverage on 04/18 Ddx: Wernicke's encephalopathy vs medication-induced vs EtOH withdrawal vs Seizure Plan - Haldol 5mg IV x1 for agitation - Bedside EEG monitoring - Thiamine repletion - [facility] protocol - Utox - EtOH - Neurology consultation #Vestibular Schwannoma MRI brain 04/15: enhancing lesions in the left auditory canal concerning for vestibulocochlear schwannoma along with mild generalized parenchymal volume loss and ventriculomegaly. Seen by Neurosurgery in the ED and was determined to have no needs for acute surgical intervention. Plan - MRI CTL Spine w/wo IV contrast to further evaluate BLE heidy tirado - Arrange outpatient follow-up with [facility] Brain [facility] center #Thrombocytopenia Admission labs notable for PLT 45 (66 on 04/03/19) History of chronic EtOH abuse Likely 2/2 alcoholic cirrhosis with possible portal hyperten kristal Plan - RUQ #Hyperbilirubinemia Admission labs notable for TBili 1.8 (conjugated Bili 0.7)/ UA with Elevated urobilinogen Patient's family notes some yellowing of eyes over the past few days though no scleral icterus appreciated on admission assessmen t Generalized mild abdominal pain on exam R factor 0.7 suggestive of cholestatic pattern Ddx: biliary obstruction vs cholestasis vs chronic hepatocel lular injury (Jimmy's given ataxia?) Plan - RUQ US - Can consider workup for Jimmy's Disease with serum copper and ceruloplasmin, 24 urinary copper excretion Chronic Medical Problems #HTN: Not on home medications. Continue to monitor hemodynam ic status. # VTE PPx: Holding given PLT <50k, Low risk per VTE calculat or # GI PPx: - # Diet: Regular # Dispo: Patient does NOT have decision making capacity. Nee ds PT/OT evaluation prior to discharge. # Code Status: Full Code Rachel Mott MD Internal Medicine, PGY-1 Pager: [phone] [employer] April 21, 2019 8:48 PM hepatic functn panel on 2019-04-21 Albumin [Mass/Vol] 4.1 3.9-4.9 g/dL Normal 04-21-2019 [facility] ([id number]) Comment: Performed By: #### SERFOL, C MP, B12, ALCO, CBCDIF #### [facility] [address] [place], [place] [address] ALP [Catalytic activity/Vol] 110 38-113 U/L Normal 0 - [facility] ([id number]) Comment: Performed By: #### SERFOL, C MP, B12, ALCO, CBCDIF #### [facility] [address] [place], [place] [address] ALT [Catalytic activity/Vol] 26 10-54 U/L Normal 0 - [facility] ([id number]) Comment: Performed By: #### SERFOL, C MP, B12, ALCO, CBCDIF #### [facility] [address] [place], [place] [address] AST [Catalytic activity/Vol] 63 14-40 U/L High 0 04-21-2019 [facility] ([id number]) Comment: Performed By: #### SERFOL, C MP, B12, ALCO, CBCDIF #### [facility] [address] [place], [place] [address] Bilirubin [Mass/Vol] 1.8 0.2-1.3 mg/dL High 9 [facility] ([id number]) Comment: Performed By: #### SERFOL, C MP, B12, ALCO, CBCDIF #### [facility] [address] [place], [place] [address] Bilirubin,Conjugated 0.7 <0.2 mg/dL High 9 [facility] ([id number]) Comment: Performed By: #### SERFOL, C MP, B12, ALCO, CBCDIF #### [facility] [address] [place] [address] Protein [Mass/Vol] 8.7 6.3-8.0 g/dL High 04-21-2019 [facility] ([id number]) Comment: Performed By: #### SERFOL, C MP, B12, ALCO, CBCDIF #### [facility] [address] [place], [place] [id number] ed prov note on 07-03-25 ED PROV NOTE HNO ID: [id number] Normal 04-21-20 19 [facility] Author: Adam Boyd MD [place] ([id number]) Service: Emergency Medicine Author Type: Physician Type: ED Provider Notes Filed: 04/23/2019 9:00 AM Note Text: ED Provider Note Patient Name: Christopher Smith SERVICE DATE: 04/21/19 History Patient presents with: Tumor 43-year-old male with past medical history of asthma and alc oholism who presents to the emergency department with concern for tumor has recently found on MRI of the brain. Patient reports that he has been having difficulty ambulating, frequent falls, headaches, nausea, vo miting, dizziness, change in vision, and slurred speech ?3-4 months. Patient is an alcoholic and is daily drinker. Last drink was a week ago . Patient was seen by primary care provider last week and was diagnose d with vestibular cochlear schwannoma. He denies any changes in hea ring. Patient was recently admitted to [facility] and left AMA this morning, stating that he didn't like the way he was yosef ated. He reports falling 2 days ago and hitting his head. He reports bruises on his bilateral upper extremities that he reports is from fall ing and from blood draws at [facility]. Denies fevers, chills, abdominal isabella n. PAST MEDICAL HISTORY Diagnosis Date - Alcohol abuse - HTN (hypertension) - Tobacco use History reviewed. No pertinent surgical history. FAMILY HISTORY Problem Relation Age of Onset - other (lung cancer) Mother - Heart disease Father - Colon Cancer Father - Parkinsonism Paternal Grandmother Social History Tobacco Use - Smoking status: Current Every Day Smoker Packs/day: 1.50 Years: 40.00 Pack years: 60.00 Types: Cigarettes Last attempt to quit: 10/23/2007 Years since quittin.5 - Smokeless tobacco: Never Used Substance and Sexual Activity - Alcohol use: Yes Alcohol/week: 27.0 oz Types: 18 Cans of Beer (12oz) per week Comment: daily - Drug use: Not Currently - Sexual activity: Not on file ALLERGIES Allergen Reactions - Vicodin [Hydrocodon* Hives Review of Systems Constitutional: Negative for chills and fever. HENT: Negative for congestion, ear pain and sore throat. Eyes: Positive for visual disturbance. Negative for photopho rod. Respiratory: Negative for cough, chest tightness and shortne ss of breath. Cardiovascular: Negative for chest pain. Gastrointestinal: Positive for nausea and vomiting. Negative for abdominal pain, blood in stool and diarrhea. Genitourinary: Negative for dysuria. Musculoskeletal: Positive for gait problem. Skin: Negative for color change, rash and wound. bruising Neurological: Positive for dizziness, tremors, speech diffic ulty and headaches. Negative for syncope, weakness, light-headedness and numbness. Hematological: Bruises/bleeds easily. Psychiatric/Behavioral: Negative. Physical Exam BP 138/79 Pulse 55 Temp (Src) 98.3 (Oral) Resp 18 Ht 6' 0 (1.83m) Wt 144 lb 10 oz (65.6kg) SpO2 100% BMI 19.61 kg/(m2). O2 Therapy: Room Air Physical Exam Constitutional: He is oriented to person, place, and time. H e appears well-developed and well-nourished. No distress. Well-nourished well-developed male sitting upright in bed in no apparent cardiac or respiratory distress. HENT: Head: Normocephalic and atraumatic. No august sign, raccoon sign, or hemotympanum bilaterally. Eyes: Pupils are equal, round, and reactive to light. Conjun ctivae and EOM are normal. No scleral icterus. Horizontal nystagmus seen bilaterally Neck: Normal range of motion. Neck supple. No midline tenderness of the C-spine. No paraspinal muscle t enderness bilaterally. No step-off. Cardiovascular: Regular rhythm and normal heart sounds. No murmur heard. Heart rate is tachycardic with regular rhythm. Pulmonary/Chest: Effort normal and breath sounds normal. No respiratory distress. He has no wheezes. He has no rales. He exhibits no tenderness. Lungs are clear to auscultation throughout bilaterally. No i ncreased work of breathing or respiratory distress. Abdominal: Soft. Bowel sounds are normal. There is tendernes s. There is no guarding. Abdomen is soft and flat and mildly tender diffusely. No gua rding or rebound. No CVA tenderness. Neurological: He is alert and oriented to person, place, and time. Speech is slurred. PERRLA intact. EOMs are intact bilaterall y, but horizontal nystagmus seen bilaterally. Patient isn't ataxic on bilateral finger to nose test and heel to damon test. No pronator drift of the bilateral upper extremities. Patient is unable to hold bilat eral legs up for 5 seconds without falling. Motor strength is diminished bilaterally throughout. Skin: Skin is warm and dry. He is not diaphoretic. No erythe ma. Bruising to the bilateral upper extremities Psychiatric: He has a normal mood and affect. Nursing note and vitals reviewed. Diagnostic Testing ED Labs Ordered and Reviewed CBC + DIFF - Abnormal; Notable for the following components: Result Value Ref Range Platelet Count 45 (*) 150 - 400 k/uL All other components within normal limits BASIC METABOLIC PNL - Abnormal; Notable for the following co mponents: Glucose 105 (*) 74 - 99 mg/dL BUN 5 (*) 9 - 24 mg/dL Creatinine 0.67 (*) 0.73 - 1.22 mg/dL Chloride 106 (*) 97 - 105 mmol/L All other components within normal limits HEPATIC FUNCTION PNL - Abnormal; Notable for the following c omponents: Bilirubin, Total 1.8 (*) 0.2 - 1.3 mg/dL Bilirubin, Conjug 0.7 (*) <0.2 mg/dL AST 63 (*) 14 - 40 U/L Protein, Total 8.7 (*) 6.3 - 8.0 g/dL All other components within normal limits URINALYSIS WITH MICROSCOPIC - Abnormal; Notable for the foll owing components: Color Savanna (*) Yellow Urobilinogen Elevated (*) Normal All other components within normal limits AMMONIA BLD MAGNESIUM BLD Procedures CT BRAIN WO IVCON Final Result IMPRESSION: No acute traumatic abnormality. Volume loss and minimal micr ovascular ischemic change. Meat Wrapper: PSCB Transcribe Date/Time: Apr 21 2019 4:35P Dictated by : EDMUNDO CORDERO MD This examination was interpreted and the report reviewed and electronically signed by: EDMUNDO CORDERO MD on Apr 21 2019 4:37PM EST US ABD RT UPPER QUADRANT (Results Pending) ED Course / Clinical Impression Clinical Impressions as of Apr 21 2302 Ataxia Alcoholism (HCC) Vestibular schwannoma (HCC) Impaired mobility MDM / Disposition / Plan MDM Vital signs were reviewed. Triage records were reviewed. Medical records were reviewed. Nursing notes were reviewed and incorporated. Initial VS: 04/21/19 1700 04/21/19 1800 04/21/19 1924 04/21/192003 BP: 140/70 137/78 136/74 138/79 Pulse: 68 65 63 (!) 55 Resp: Temp: 36.7 ?C (98 ?F) 36.8 ?C (98.3 ?F) TempSrc: Oral Oral SpO2: 99% 99% 99% 100% Weight: 65.6 kg (144 lb 10 oz) Height: 182.9 cm (6') 43 year old male presents with Multiple complaints including inability to ambulate, frequent falls, disequilibrium, dizziness. On exam , patient is well-appearing in no apparent distress. There is ataxia on n euro exam and significant nystagmus bilaterally. Recent MRI shows vestibul ar schwannoma. Patient recently had a fall with multiple bruise s on bilateral upper extremities and trauma to the head. Therefor e, CT scan was ordered. CT brain shows no acute intracranial process. U rinalysis is negative for infection. Ammonia level is within normal limit s. CBC shows thrombocytopenia. BMP is within normal limits. Hepatic funct ion panel shows elevated total bilirubin of 1.8. Magnesium is within n ormal limits. Neurosurgery was consulted. They have no further recommendat ions will obtaining spinal MRIs. Patient will be admitted to the medic ine team for further evaluation and management of his ataxia. Patient rec eived D5 normal saline, thiamine, multivitamin, and folic acid. Pt is afebrile, non-toxic and hemodynamically stable. Patient is admitted to the medicine team. Patient expressed understanding and consented to the a pepe plan. No barriers of communication were apparent and I answered all q uestions. The patient was ADMITTED TO: Regular nursing floor. Condition at time of disposition: stable SIGNATURE: NEENA Hernandez (Pa) 04/21/19 [id number] Attending Note I have personally performed a face to face assessment of the patient and have reviewed the PA/FARM EQUIPMENT ENGINEER note. My lay findings include: 43-year-old male presents with disequilibrium as detailed ab ove. He has a history of alcoholism but also recently had an MRI revealing a schwannoma. On exam there is bilateral horizontal nystagmus. He has diff use extremity weakness without lateralizing symptoms. No neurolo gic deficits. Neurosurgery was consulted and reviewed the MRI. They do not feel that this is likely the cause of his symptoms. Given his alcoholi sm a metabolic process, possibly Wernicke's,, is considered more likely. In the ED was given thiamine, folic acid, and a multivitamin. G iven his difficulty ambulating he was admitted to medical service for further evaluation and treatment. Other additions or changes: None Signature: Adam Boyd MD Date: 04/23/2019 Time: 8:57 AM Adam Boyd MD 04/23/19 0900 ed note on ED NOTE HNO ID: [id number] Normal 04-21-2019 [facility] Author: Aspen Rodarte) MADIHA David ([id number]) Service: Emergency Medicine Author Type: Registered Nurse Type: ED Notes Filed: 04/21/2019 7:42 PM Note Text: Report given to Farzana CLEARY. Bed ready [id number] ED NOTE HNO ID: [id number] Normal 04-21-2019 [facility] Author: Aspen Rodarte) MADIHA David ([id number]) Service: Emergency Medicine Author Type: Registered Nurse Type: ED Notes Filed: 04/21/2019 7:31 PM Note Text: Assumed care of pt. Pt currently calm and cooperative. Neuro intact. ABC intact, respirations even and unlabored, lungs clear. ABD so ft and non tender. BS active x4. VSS. Safety checks complete. will cont inue to monitor. ED NOTE HNO ID: [id number] Normal 04-21-2019 [facility] Author: Nelsy Medina ([id number]) Service: Emergency Medicine Author Type: House Piping Inspector and Graphic Technician Type: ED Notes Filed: 04/21/2019 3:23 PM Note Text: Labs were drawn and sent. ED NOTE HNO ID: [id number] Normal [facility]2019 [facility] [facility] Author: Beth Rodarte) MADIHA Fallon ([id number]) Service: Emergency Medicine Author Type: Registered Nurse Type: ED Notes Filed: 04/21/2019 2:10 PM Note Text: Pt to ED for second opinion of tumor in ear/brain. Difficult y ambulating, tremors, difficulty speaking and confusion per family at bed side. ct brain wo ivcon o n 2019-04-21 CT BRAIN WO * * *Final Report* * * Normal 04-21 [facility] IVCON DATE OF EXAM: Apr 21 2019 4:25PM [place] ([id number]) [facility] 0504 - CT BRAIN WO IVCON / PROCEDURE REASON: Head trauma, headache * * * * Physician Interpretation * * * * EXAMINATION: CT BRAIN WO IVCON CLINICAL HISTORY: Trauma TECHNIQUE: Serial axial images without IV contrast were obta ined from the vertex to the foramen magnum. MQ: CTBWO_3 CT Dose-Length Product (DLP): 776 mGy*cm CT Dose Reduction Employed: No dose reduction techniques wer e required COMPARISON: MRI 04/15/2019 RESULT: Post-operative change: None. Acute change: No evidence of an acute infarct or other acute parenchymal process. Hemorrhage: No evidence of acute intracranial hemorrhage. Mass Lesion / Mass Effect: There is no evidence of an intrac ranial mass or extraaxial fluid collection. No significant mass effect. Known small left IAC mass is not well seen on routine brain CT without c ontrast. Chronic change: Minimal nonspecific white matter change not significantly different from prior MR. Parenchyma: There is no significant volume loss. The brain p arenchyma is otherwise within normal limits for age. Ventricles: The ventricles are within normal limits of size and configuration for age. Paranasal sinuses and skull base: The visualized paranasal s inuses are grossly clear. The skull base and imaged soft tissues are un remarkable. IMPRESSION: No acute traumatic abnormality. Volume loss and minimal micr ovascular ischemic change. Meat Wrapper: JAUN Transcribe Date/Time: Apr 21 2019 4:35P Dictated by : EDMUNDO CORDERO MD This examination was interpreted and the report reviewed and electronically signed by: EDMUNDO CORDERO MD on Apr 21 2019 4:37PM EST [id number] consult on CONSULT HNO ID: [id number] Normal 04-21-2019 [facility] Author: Ge (Res) MD Lui [place] Service: Neurosurgery ([id number]) Author Type: Resident Type: Consults Filed: 04/21/2019 6:28 PM Note Text: NEUROSURGERY CONSULT HISTORY AND PHYSICAL EXAMINATION PLEASE DO NOT REMOVE FROM THE CHART OR MODIFY PRINTED COPY Patient Name: Christopher Smith CONSULTED BY: ED CONSULTED FOR: Vestibular Schwannoma CHIEF COMPLAINT: Dizziness HPI: 43 year old R-handed male with 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 Patient was at OSH for workup but left AMA after 7 day admission. He rep or medical personnel told him he may have some sort of parkinsonism. He went to OSH ED following his discharge where MRI revealed focal enhancin g lesion within the left internal auditory canal suspicious for a ves tibulocochlear schwannoma. 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 FAMILY HISTORY: No family history on file. SOCIAL HISTORY: Social History Socioeconomic History Marital status: Spouse name: Not on file Number of children: Not on file Years of education: Not on file Highest education level: Not on file Social Needs Financial resource strain: Not on file Food insecurity - worry: Not on file Food insecurity - inability: Not on file Transportation needs - medical: Not on file Transportation needs - non-medical: Not on file Occupational History Not on file Tobacco Use Smoking status: Passive Smoke Exposure - Never Smoker Smokeless tobacco: Never Used Substance and Sexual Activity Alcohol use: Yes Comment: ocassionaly Drug use: Not on file Sexual activity: Not on file Other Topics Concerns: Not on file Social History Narrative Not on file MEDICATIONS: No prescriptions on file. Current Facility-Administered Medications Medication Dose Route Frequency - dextrose 5% in NaCl 0.9% iv infusion 125 mL/hr INTRAVENOUS CONTINUOUS ALLERGIES: ALLERGIES Allergen Reactions - Vicodin [Hydrocodon* Hives COMPLETE REVIEW OF SYSTEMS: See HPI PHYSICAL EXAM: GCS: E4 V5 M6 AAO x 3, NAD Naming 3/3, repetition 2/2 PERRL, EOMI, notable bilateral horizontal nystagmus VF intact FS, TM Facial sensation intact bilaterally No drift RUE 5/5 RLE 4+/5 LUE 5/5 LLE 4+/5 SILT Dysmetria: bilateral finger to nose dysmetria noted Hoffmans none Clonus none Babinski downgoing Reflexes: diminished in BLE, hypotonic Gait: Not able to test DATA: Radiology: See HPI Laboratory: WBC (k/uL) Date Value 04/21/2019 4.39 RBC (m/uL) Date Value 04/21/2019 4.73 Hemoglobin (g/dL) Date Value 04/21/2019 15.8 Hematocrit (%) Date Value 04/21/2019 46.1 MCV (fL) Date Value 04/21/2019 97.5 MCH (pG) Date Value 04/21/2019 33.4 MCHC (g/dL) Date Value 04/21/2019 34.3 RDW-CV (%) Date Value 04/21/2019 13.7 Platelet Count (k/uL) Date Value 04/21/2019 45 (L) MPV (fL) Date Value 04/21/2019 12.5 Glucose (mg/dL) Date Value 04/21/2019 105 (H) BUN (mg/dL) Date Value 04/21/2019 5 (L) Creatinine (mg/dL) Date Value 04/21/2019 0.67 (L) Sodium (mmol/L) Date Value 04/21/2019 140 Potassium (mmol/L) Date Value 04/21/2019 3.7 Chloride (mmol/L) Date Value 04/21/2019 106 (H) CO2 (mmol/L) Date Value 04/21/2019 25 Protein, Total (g/dL) Date Value 04/21/2019 8.7 (H) Albumin (g/dL) Date Value 04/21/2019 4.1 Calcium (mg/dL) Date Value 04/21/2019 10.0 Alkaline Phosphatase (U/L) Date Value 04/21/2019 110 Bilirubin, Total (mg/dL) Date Value 04/21/2019 1.8 (H) AST (U/L) Date Value 04/21/2019 63 (H) ALT (U/L) Date Value 04/21/2019 26 URINALYSIS No results found for: PH, SPGR, UGLUC, UBILI, UKET, UHB, UPR OT, UROBIL, UWBC, SSA ASSESSMENT AND PLAN: 43 year old R-handed male with PMH sign ificant for chronic ETOH abuse (14-18 beers per day last drink 7 days ag o), 40 py history of smoking, presenting with 2 months head and BLE tr emors, 2 weeks of vertiginous symptoms and progressive bilateral lower extr emity weakness and gait instability, and now 2 days of hypophonia and slurr ed speech. Patient was at OSH for workup but left AMA after 7 day admis kristal. He reports medical personnel told him he may have some sort of parkinsonism. He went to OSH ED following his discharge where MRI revealed focal enhancing lesion within the left internal auditory canal ben picious for a vestibulocochlear schwannoma. MRI findings do not correlate with clinical symptoms. - no indication for acute neurosurgical intervention at this time - Concern for neuropathic process secondary to possible meta bolic exposure or deficiency - Would recommend admission to medicine with consult to neur ology - Can consider MRI of the CTL spine w/wo contrast as we tami ot rule out lower neuraxial lesion in the setting of BLE weakness. - Patient can follow up with [facility] followin g discharge for routine follow up for MRI Brain findings - Neurosurgery will sign off. Please do not hesitate to call with questions or concerns. Rest per primary. Above plan discussed with chief and (Staff) Dr. Ornelas. SIGNATURE: Ge Poe MD Neurosurgery, PGY-1 Pager# [phone] April 21, 2019 5:19 PM Please page [phone] after 6 PM and on weekends cbc and differential on 2019-04-21 Abs Baso 0.06 <0.11 k/uL Normal 04-21-2019 [facility] ([id number]) Comment: Performed By: #### SERFOL, C MP, B12, ALCO, CBCDIF #### [facility] [address] [place] [phone] Abs Talbot 0.35 <0.87 k/uL Normal 04-21-2019 [facility] ([id number]) Comment: Performed By: #### SERFOL, C MP, B12, ALCO, CBCDIF #### [facility] [address] [place] [phone] Abs Neut 2.74 1.45-7.50 k/uL Normal 04-21-2019 [facility] ([id number]) Comment: Performed By: #### SERFOL, C MP, B12, ALCO, CBCDIF #### [facility] [address] [place] [phone] Absolute nRBC <0.01 <0.01 Normal 04-21-2019 [facility] ([id number]) Comment: Performed By: #### SERFOL, C MP, B12, ALCO, CBCDIF #### [facility] [address] [place] [address] Basophils/100 WBC (Bld) 1.4 % Normal 2018 [facility] ([id number]) Comment: Performed By: #### SERFOL, C MP, B12, ALCO, CBCDIF #### [facility] [address] [place] [address] DTYPE Auto Diff Normal 04-21-2019 [facility] ([id number]) Comment: Performed By: #### SERFOL, C MP, B12, ALCO, CBCDIF #### [facility] [address] [place] [address] Eosinophils (Bld) [#/Vol] 0.13 <0.46 k/uL Normal 03-29 [facility] ([id number]) Comment: Performed By: #### SERFOL, C MP, B12, ALCO, CBCDIF #### [facility] [address] [place] [address] Eosinophils/100 WBC (Bld) 3.0 % Normal 03-29 [facility] ([id number]) Comment: Performed By: #### SERFOL, C MP, B12, ALCO, CBCDIF #### [facility] [address] [place] [address] Erythrocyte distribution 13.7 11.5-15.0 % Normal 04-21 [facility] width (RBC) [Ratio] [place] ([id number]) Comment: Performed By: #### SERFOL, C MP, B12, ALCO, CBCDIF #### [facility] [address] [place], [place] [address] Hematocrit (Bld) [Volume 46.1 39.0-51.0 % Normal 04-21 [facility] ([id number][facility] Comment: Performed By: #### SERFOL, C MP, B12, ALCO, CBCDIF #### [facility] [address] [place], [place] [address] Hemoglobin (Bld) 15.8 13.0-17.0 g/dL Normal 04-21-2019 [facility] [place] [Mass/Vol] [place] ([id number]) Comment: Performed By: #### SERFOL, C MP, B12, ALCO, CBCDIF #### [facility] [address] [place] [address] Lymphocytes (Bld) [#/Vol] 1.09 1.00-4.00 k/uL Normal 03-29 [facility] ([id number]) Comment: Performed By: #### SERFOL, C MP, B12, ALCO, CBCDIF #### [place] [address] Lymphocytes/100 WBC (Bld) 24.8 % Normal 03-29 [facility] ([id number]) Comment: Performed By: #### SERFOL, C MP, B12, ALCO, CBCDIF #### [address] [address] MCH (RBC) [Entitic mass] 33.4 26.0-34.0 pG Normal 04-21 [facility] ([id number]) Comment: Performed By: #### SERFOL, C MP, B12, ALCO, CBCDIF #### [place] [address] [place], [place] [address] MCHC (RBC) [Mass/Vol] 34.3 30.5-36.0 g/dL Normal 04-21-20 [facility] ([id number]) Comment: Performed By: #### SERFOL, C MP, B12, ALCO, CBCDIF #### [place] [address] MCV (RBC) [Entitic vol] 97.5 80.0-100.0 fL Normal 04-21 [facility] ([id number]) Comment: Performed By: #### SERFOL, C MP, B12, ALCO, CBCDIF #### [facility] [address] [place], [place] [address] Monocytes/100 WBC (Bld) 8.0 % Normal 2018 [facility] ([id number]) Comment: Performed By: #### SERFOL, C MP, B12, ALCO, CBCDIF #### [place] [address] Neutrophils/100 WBC (Bld) 62.8 % Normal 03-29 [facility] ([id number]) Comment: Performed By: #### SERFOL, C MP, B12, ALCO, CBCDIF #### [facility] [address] [place] [address] NRBCs 0.0 0 /100 WBC Normal 04-21-2019 [facility] ([id number]) Comment: Performed By: #### SERFOL, C MP, B12, ALCO, CBCDIF #### [facility] [address] [place], [place] [address] Platelet mean volume 12.5 9.0-12.7 fL Normal 9 [facility] (Bld) [Entitic vol] [place] ([id number]) Comment: Performed By: #### SERFOL, C MP, B12, ALCO, CBCDIF #### [facility] [address] [place] [address] Platelets (Bld) [#/Vol] 45 150-400 k/uL Low 2018 [facility] ([id number]) Comment: Result Comment: No clot dete cted. Performed By: #### SERFOL, C MP, B12, ALCO, CBCDIF #### [facility] [address] [place], [place] [address] RBC (Bld) [#/Vol] 4.73 4.20-6.00 m/uL Normal 04-21-[address] [facility] ([id number]) Comment: Performed By: #### SERFOL, C MP, B12, ALCO, CBCDIF #### [facility] [place], [place] [address] WBC (Bld) [#/Vol] 4.39 3.70-11.00 k/uL Normal 04-21-2019 [facility] ([id number]) Comment: Performed By: #### SERFOL, C MP, B12, ALCO, CBCDIF #### [facility] [address] [place] [address] basic metabolic panl on 2019-04-21 Anion gap [Moles/Vol] 9 9-18 mmol/L Normal 04-21-20 19 [facility] ([id number]) Comment: Performed By: #### SERFOL, C MP, B12, ALCO, CBCDIF #### [address] [address] Calcium [Mass/Vol] 10.0 8.5-10.2 mg/dL Normal 04-21-2019 [facility] ([id number]) Comment: Performed By: #### SERFOL, C MP, B12, ALCO, CBCDIF #### [facility] [address] [place] [address] Chloride [Moles/Vol] 106 97-105 mmol/L High 9 [facility] ([id number]) Comment: Performed By: #### SERFOL, C MP, B12, ALCO, CBCDIF #### [facility] [place], [place] [address] CO2 [Moles/Vol] 25 22-30 mmol/L Normal 04-21-2019 [facility] ([id number]) Comment: Performed By: #### SERFOL, C MP, B12, ALCO, CBCDIF #### [facility] [address] [place], [place] [address] Creatinine [Mass/Vol] 0.67 0.73-1.22 mg/dL Low 04-21-20 19 [facility] ([id number]) Comment: Performed By: #### SERFOL, C MP, B12, ALCO, CBCDIF #### [facility] [address] [place], [place] [address] eGFR- Amer. >60 Normal 04-21-2019 [facility] ([id number]) Comment: Performed By: #### SERFOL, C MP, B12, ALCO, CBCDIF #### [facility] [address] [place], [place] [address] GFR/1.73 sq M predicted >60 mL/min/{1.73_m2} Normal 04-21-2019 [facility] among non-blacks [facility] ([id number]) (S/P/Bld) [Vol rate/Area] Comment: Result Comment: eGFR (Estima delfin GFR) Units of measure: mL/min/1.73 meters squared eGFR is derived from the ree xpressed MDRD Study equation using the following parameters: serum creatinine, age, gender and race. The creatinine assay has been calibrated to be traceable to IDMS. An eGFR <60 mL/min/1.73m2 fo r >3 months is consistent with chronic kidney disease. Refer to KDOQI guidelines for clinical interpretation. In patients with unstable re nal function, e.g. those with acute kidney injury, the eGFR may not accurately reflect actual GFR. Performed By: #### SERFOL, C MP, B12, ALCO, CBCDIF #### [facility] [address] [place], [place] [address] Glucose [Mass/Vol] 105 74-99 mg/dL High 04-21-2019 [facility] ([id number]) Comment: Result Comment: The [place] Diabetes Association (ADA) provides guidance for cutoff values for fasting glucose and random glucose. The ADA defines fasting as no caloric intake for at least 8 hours. Fas ting plasma glucose results between 100 to 125 mg/dL indicate increased risk for diabetes (prediabetes). Fasting plasma glucose resul ts greater than or equal to 126 mg/dL meet the criteria for diagnosis of diabetes. In the absence of unequivocal hyperglycemia, results should be confirmed by repeat testing. In a patient with classic s ymptoms of hyperglycemia or hyperglycemic crisis, random plasma glucose results greater than or equal to 200 mg/dL meet the criteria for diagnosis of diabetes. Reference: Standards of [facility] in Diabetes 2016, [place] Diabetes Association. Diabetes Care. 2016.39(Suppl 1). Performed By: #### SERDIANA C MP, B12, ALCO, CBCDIF #### [facility] [address] [place], [place] [address] Potassium [Moles/Vol] 3.7 3.7-5.1 mmol/L Normal 04-21-20 19 [facility] ([id number]) Comment: Performed By: #### SERDIANA C MP, B12, ALCO, CBCDIF #### [facility] [address] [place], [place] [address] Sodium [Moles/Vol] 140 136-144 mmol/L Normal 04-21-2019 [facility] ([id number]) Comment: Performed By: #### SERFOL, C MP, B12, ALCO, CBCDIF #### [facility] [address] [place], [place] [address] Urea nitrogen [Mass/Vol] 5 9-24 mg/dL Low 04-21 [facility] ([id number]) Comment: Performed By: #### SERFOL, C MP, B12, ALCO, CBCDIF #### [facility] [address] [place], [place] [address] ammonia on Ammonia (P) [Mass/Vol] 35 16-60 umol/L Normal 019 [facility] ([id number]) Comment: Performed By: #### SERFOL, C MP, B12, ALCO, CBCDIF #### [facility] [address] [place], [place] [address] progress on 2019-03 PROGRESS HNO ID: [id number] Normal 04-15-2019 [facility] Author: Aleshia (Rt) Carlo Howe [place] ([id number]) Service: ? Author Type: Graphic Technician Type: Progress Notes Filed: 04/15/2019 3:24 PM Note Text: Radiology Service Progress Note DATE OF SERVICE: April 15, 2019 TIME: 3:23 PM PATIENT IDENTITY VERIFICATION COMPLETED USING TWO (2) METHOD S: Patient confirmed name verbally and Date of . PATIENT GENDER DATA: Male PATIENT RELEVANT IMPLANT DATA REVIEWED: Yes ALLERGIES: Reviewed and unchanged CONTRAST ALLERGY: NO. EXAM: MRI - CONTRAST TYPE: GROUP II PERIPHERAL IV DATA: Ambulatory: A peripheral IV was started in the Left antecubital site with a Angio cath: 22 gauge. RADIOLOGY DEPARTMENT: MR; Exam(s) Completed: Head: Routine B rain SIGNATURE: RT Montse PATIENT NAME: Christopher Smith DATE: April 15, 2019 TIME: 3:23 PM mri brain wo/w ivcon on 2019-04-15 MRI BRAIN WO/W * * *Final Report* * * Normal [facility] IVCON DATE OF EXAM: Apr 15 2019 3:39PM [place] ([id number]) M 0295 - MRI BRAIN WO/W IVCON / PROCEDURE REASON: multiple diagnoses * * * * Physician Interpretation * * * * EXAMINATION: MRI BRAIN WO/W IVCON CLINICAL HISTORY: Gait disorder . Pt has tremors to point th at he cant walk without assistance symptoms for past year, getting wors e. TECHNIQUE: Routine brain MRI protocol without and with contr ast including diffusion images. MQ: MRBWOW_2 Contrast: 13 mL Dotarem IV COMPARISON: None. RESULT: Postcontrast imaging is mildly degraded by motion artifact. Acute Change: There is no evidence of restricted diffusion t o suggest an acute infarct. Hemorrhage: No evidence of prior parenchymal hemorrhage with in the constraints of the acquisition. Mass Lesion/ Mass Effect: There is a 5 x 3 mm enhancing lesi on within the left internal auditory canal suspicious for a vestibular angela wannoma. Otherwise, no evidence of an intracranial mass or extra-axia l fluid collection. No significant mass effect. Chronic Change: The white matter is within normal limits of signal intensity for age. Parenchyma: There is mild generalized parenchymal volume los s. The brain parenchyma is otherwise within normal limits of signal intensity and morphology. Ventricles: Ventriculomegaly corresponds to the degree of pa renchymal volume loss. Skull Base: Hypothalamic and pituitary region are grossly no rmal. Craniocervical junction is normal. No significant marrow rep lacement process. Vasculature: Major intracranial arterial structures, and dur al venous sinuses show typical flow void, suggesting patency by spin e cho criteria. Other: The visualized paranasal sinuses and mastoid air cell s are clear. The orbits and extracranial soft tissues are unremarkable. There is somewhat poor delineation of the left semicircular canals possibly related to the thick acquisition slices. 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 No extension through the porou s acusticus. Somewhat poor delineation of the left semicircular canals. T his may relate to the thick acquisition slices and can be assessed o n follow-up brain MRI IAC protocol. Meat Wrapper: JAUN Transcribe Date/Time: Apr 15 2019 3:59P Dictated by : JOHN CHACON DO This examination was interpreted and the report reviewed and electronically signed by: ALEXANDRIA RICHTER MD on Apr 15 2019 4:18PM EST [id number] vitamin b12 on 2018 Cobalamin (Vitamin B12) 283 227-3797 pg/mL Normal 2018 [facility] [Mass/Vol] [place] ([id number]) Comment: Performed By: #### SERFOL, C MP, B12, ALCO, CBCDIF #### [facility] [address] [place], [place] [address] progress on 2019-03 PROGRESS HNO ID: [id number] Normal 04-03-2019 [facility] Author: Tana Josue) Podlogar [place] ([id number]) Service: ? Author Type: Nurse Practitioner Type: Progress Notes Filed: 04/05/2019 11:05 AM Note Text: 04/03/2019 Patient presents with: Gait Problem: pt states random periods of imbalance over las t year, seems like more his rt side per , states rt ear leaks and rt s chiquita bothersome SUBJECTIVE: This is a 43 year old that is here today for Abo ve Complaints. For the past year has been experiencing random periods of im balance. Says when he stands up he has no balance. If he closes eye forge t it. He reports it is like when I stand up I know I want to go but my legs won't let me. reports Seems that right leg is stiffier than left. Patient reports like soemtimes he will stand up but then he will nee d to waste picker his leg to get it to move. Also positive for tremors and mus melvin weakness. Patient admits to drinking a 12 pack a beer daily for years. Does report he needs a drink in the morning to get going. He denies illi cit drug use. Denies weight loss, fevers, chills, headaches, night sweats, insomnia, visual changes, falling slurred speech, confusion, lighthead edness, dizziness, presyncope, syncope, extremity numbness, tingling , weakness, or alcohol usage today. Patient reports sometimes right ear leaks brownish colored f luid. Wears earplugs for work. Has not been to a doctor in years or been seen in ER for thi s problem. He work for time and he tells me his boss has been concerned ab out his him. He reports his boss has asked him several times if he is forrest nk. He denies that he drinks more than one drink before work. He does not drive anymore due to unclear reasons. Family hx of Parkinson's. PAST MEDICAL HISTORY Diagnosis Date - Unspecified asthma(493.90) ALLERGIES Vicodin [Hydrocodone-Acetaminophen] MEDICATIONS No current outpatient medications on file. No current facility-administered medications for this visit. Medications and allergies reviewed by this provider. SOCIAL HISTORY Social History Socioeconomic History Marital status: Spouse name: Not on file Number of children: Not on file Years of education: Not on file Highest education level: Not on file Social Needs Financial resource strain: Not on file Food insecurity - worry: Not on file Food insecurity - inability: Not on file Transportation needs - medical: Not on file Transportation needs - non-medical: Not on file Occupational History Not on file Tobacco Use Smoking status: Passive Smoke Exposure - Never Smoker Smokeless tobacco: Never Used Substance and Sexual Activity Alcohol use: Yes Comment: ocassionaly Drug use: Not on file Sexual activity: Not on file Other Topics Concerns: Not on file Social History Narrative Not on file REVIEW OF SYSTEMS GENERAL: No weight loss, malaise or fevers HEENT: Negative for frequent or significant headaches, No ch anges in hearing or vision, no nose bleeds or other nasal problems NECK: Negative for lumps, goiter, pain and significant neck swelling RESPIRATORY: Negative for cough, hemoptysis, wheezing, COPD, dyspnea or shortness of breath CARDIOVASCULAR: Negative for chest pain, leg swelling, hyper tension, CHF or palpitations GI: No nausea, vomiting, or diarrhea and No heartburn or ref lux symptoms : No history of dysuria, frequency or incontinence MUSCULOSKELETAL: Negative for joint pain or swelling, back p ain or muscle pain SKIN: Negative for lesions, rash, and itching PSYCH: Negative for sleep disturbance, mood disorder and rec ent psychosocial stressors HEMATOLOGY/LYMPHOLOGY: Negative for prolonged bleeding, brui sing easily or swollen nodes ENDOCRINE: Negative for cold or heat intolerance, polyuria, polydipsia and goiter NEURO: No history of headaches, syncope, paralysis or, seizu res All other reviewed and negative other than HPI. OBJECTIVE: BP 118/62 (BP Site: Left Arm, BP Position: Sitting, BP Cuff Size: Regular Adult) Pulse 84 Resp 18 Wt 66 kg (145 lb 6.4 oz) . Vit al signs reviewed by this provider. APPEARANCE Well appearing, alert, in no acute distress, well -hydrated, well nourished. and Thin EYES PERRLA, conjunctiva and sclera normal. Vertical nystagm us EARS External ears normal, canals clear THROAT normal, no erythema NECK Supple, no adenopathy; thyroid symmetric, normal size, no bruits HEART RRR with normal S1 and S2, no murmurs, no gallops, no JVD appreciated LUNG clear to auscultation. No wheezes, rhonchi, or rales ABDOMEN bowel sounds normoactive, no bruits, soft, non-tende r, non-distended EXTREMITIES Extremities normal, No deformities, No skin disc oloration and No edema NEURO Awake, alert and oriented x 3, Cranial nerves II-XII g rossly intact, negative findings: speech normal, cranial nerves 2-12 intact , muscle tone normal, rapid alternating movements normal, finger to nose n ormal, sensation to light touch and pinprick normal, plantar respon se downgoing bilaterally and positive findings: nystagmus horizontal with EOM, none on resting, resting tremor of head observed, muscular weakness even in hand grasp and foot pushes, reflexes - KJ: 1+/1+, ankle: 1+/1+. N o clonus, unable to illicit Babinski. Positive Romberg. Pronotor drift normal. Positive bradykinesia with walking. He is unable to walk [place] l to toe without almost falling down. Positive cogwheel rigidity in a irving SKIN Skin color, texture, turgor normal, no suspicious rashe s or lesions to exposed skin ASSESSMENT/PLAN: 1. Gait disturbance - ICD9: 781.2, ICD10: R26.9 (primary matt gnosis) - consider parkinson's vs hepatic encephalopathy vs MS vs ne uro-muscular disorders vs unknown - no red flag exam findings - red flag symptoms discussed, verbalizes understanding - COMP METABOLIC PANEL - CBC + DIFF - FOLATE SERUM - VITAMIN B12 BLOOD - UA DIP B/O - ALCOHOL/ETHANOL BLD - PAIN PANEL, UR QUANT - TOX SCREEN ROUT UR - CONSULT TO NEUROLOGY - URINALYSIS WITH MICROSCOPIC - MRI BRAIN WO/W IVCON - IV CONTRAST (RADIOLOGY PROCEDURE) - needs to make appointment to establish care with physician - follow-up pending testing 2. Rigidity - ICD9: 780.99, ICD10: R29.898 - COMP METABOLIC PANEL - CBC + DIFF - FOLATE SERUM - VITAMIN B12 BLOOD - UA DIP B/O - ALCOHOL/ETHANOL BLD - PAIN PANEL, UR QUANT - TOX SCREEN ROUT UR - CONSULT TO NEUROLOGY - URINALYSIS WITH MICROSCOPIC - MRI BRAIN WO/W IVCON - IV CONTRAST (RADIOLOGY PROCEDURE) - plan as above 3. Positive Romberg test - ICD9: 796.4, ICD10: R29.818 - COMP METABOLIC PANEL - CBC + DIFF - FOLATE SERUM - VITAMIN B12 BLOOD - UA DIP B/O - ALCOHOL/ETHANOL BLD - PAIN PANEL, UR QUANT - TOX SCREEN ROUT UR - CONSULT TO NEUROLOGY - URINALYSIS WITH MICROSCOPIC - MRI BRAIN WO/W IVCON - IV CONTRAST (RADIOLOGY PROCEDURE) - plan as above 4. Tremors of nervous system - ICD9: 781.0, ICD10: R25.1 - COMP METABOLIC PANEL - CBC + DIFF - FOLATE SERUM - VITAMIN B12 BLOOD - UA DIP B/O - ALCOHOL/ETHANOL BLD - PAIN PANEL, UR QUANT - TOX SCREEN ROUT UR - CONSULT TO NEUROLOGY - URINALYSIS WITH MICROSCOPIC - MRI BRAIN WO/W IVCON - IV CONTRAST (RADIOLOGY PROCEDURE) - plan as above 5. Nystagmus - ICD9: 379.50, ICD10: H55.00 - COMP METABOLIC PANEL - CBC + DIFF - FOLATE SERUM - VITAMIN B12 BLOOD - UA DIP B/O - ALCOHOL/ETHANOL BLD - PAIN PANEL, UR QUANT - TOX SCREEN ROUT UR - CONSULT TO NEUROLOGY - URINALYSIS WITH MICROSCOPIC - MRI BRAIN WO/W IVCON - IV CONTRAST (RADIOLOGY PROCEDURE) - plan as above 6. Postural instability - ICD9: 729.90, ICD10: R29.3 - COMP METABOLIC PANEL - CBC + DIFF - FOLATE SERUM - VITAMIN B12 BLOOD - UA DIP B/O - ALCOHOL/ETHANOL BLD - PAIN PANEL, UR QUANT - TOX SCREEN ROUT UR - CONSULT TO NEUROLOGY - URINALYSIS WITH MICROSCOPIC - MRI BRAIN WO/W IVCON - IV CONTRAST (RADIOLOGY PROCEDURE) - plan as above 7. Alcohol abuse - ICD9: 305.00, ICD10: F10.10 - COMP METABOLIC PANEL - CBC + DIFF - FOLATE SERUM - VITAMIN B12 BLOOD - UA DIP B/O - ALCOHOL/ETHANOL BLD - PAIN PANEL, UR QUANT - TOX SCREEN ROUT UR - CONSULT TO NEUROLOGY - URINALYSIS WITH MICROSCOPIC - MRI BRAIN WO/W IVCON - IV CONTRAST (RADIOLOGY PROCEDURE) - is agreeable for me to test for ETOH and illicit drugs - discussed I do not Recommend abrupt cessation of alcohol a nd if and when he is ready to quit he would likely need to be detoxed with medical observation, verbalizes understanding - can discuss further after testing - plan as above 8. Bradykinesia - ICD9: 781.0, ICD10: R25.8 - COMP METABOLIC PANEL - CBC + DIFF - FOLATE SERUM - VITAMIN B12 BLOOD - UA DIP B/O - ALCOHOL/ETHANOL BLD - PAIN PANEL, UR QUANT - TOX SCREEN ROUT UR - CONSULT TO NEUROLOGY - URINALYSIS WITH MICROSCOPIC - MRI BRAIN WO/W IVCON - IV CONTRAST (RADIOLOGY PROCEDURE) - plan as above Tana Podlogar, PERIANESTHESIA RN.STORAGE MANAGEMENT ARCHITECT Prescription instructions reviewed with patient as applicabl e. Patient advised if symptoms do not improve or if symptoms worsen dorota ner, to contact their primary care physician. Potential red flag sym ptoms discussed with the patient. Reviewed appropriate action plan to take if red flag symptoms occur. Patient agreeable to treatment plan . folate, serum on 15-04-07 Folate [Mass/Vol] 8.7 >4.7 ng/mL Normal 04-03-[address] [facility] ([id number]) Comment: Performed By: #### SERFOL, C MP, B12, ALCO, CBCDIF #### [facility] [address] [address] ethanol on Ethanol [Mass/Vol] 201 <11 mg/dL High 04-03-2019 [facility] ([id number]) Comment: Result Comment: Values > 100 mg/dL may indicate intoxication Corrected on 04/07 AT 1324: Previously reported as Test results pending. Submitted for staff review. Performed By: #### SERFOL, C MP, B12, ALCO, CBCDIF #### [facility] [address] [address] comp metabolic panel on 2019-04-03 Albumin [Mass/Vol] 4.0 3.9-4.9 g/dL Normal 04-03-2019 [facility] ([id number]) Comment: Performed By: #### SERFOL, C MP, B12, ALCO, CBCDIF #### [facility] [address] [place] [address] ALP [Catalytic activity/Vol] 148 38-113 U/L High 0 04-03-2019 [facility] ([id number]) Comment: Performed By: #### SERFOL, C MP, B12, ALCO, CBCDIF #### [facility] [address] [place] [id number] ALT [Catalytic activity/Vol] 204 10-54 U/L High 0 04-03-2019 [facility] ([id number]) Comment: Performed By: #### SERFOL, C MP, B12, ALCO, CBCDIF #### [facility] [address] [place], [place] [address] Anion gap [Moles/Vol] 18 9-18 mmol/L Normal 04-03-20 19 [facility] ([id number]) Comment: Performed By: #### SERFOL, C MP, B12, ALCO, CBCDIF #### [facility] [address] [place], [place] [address] AST [Catalytic activity/Vol] 374 14-40 U/L High 0 04-03-2019 [facility] ([id number]) Comment: Performed By: #### SERFOL, C MP, B12, ALCO, CBCDIF #### [address] [place], [place] [address] Bilirubin [Mass/Vol] 2.6 0.2-1.3 mg/dL High 9 [facility] ([id number]) Comment: Performed By: #### SERFOL, C MP, B12, ALCO, CBCDIF #### [facility] [address] [place], [place] [address] Calcium [Mass/Vol] 9.2 8.5-10.2 mg/dL Normal 04-03-2019 [facility] ([id number]) Comment: Performed By: #### SERFOL, C MP, B12, ALCO, CBCDIF #### [facility] [address] [place], [place] [address] Chloride [Moles/Vol] 96 97-105 mmol/L Low 9 [facility] ([id number]) Comment: Performed By: #### SERFOL, C MP, B12, ALCO, CBCDIF #### [facility] [address] [place], [place] [address] CO2 [Moles/Vol] 22 22-30 mmol/L Normal 04-03-2019 [facility] ([id number]) Comment: Performed By: #### SERFOL, C MP, B12, ALCO, CBCDIF #### [facility] [address] [place], [place] [id number] Creatinine [Mass/Vol] 0.66 0.73-1.22 mg/dL Low 04-03-20 19 [facility] ([id number]) Comment: Performed By: #### SERFOL, C MP, B12, ALCO, CBCDIF #### [facility] [address] [place], [place] [address] eGFR- Amer. >60 Normal 04-03-2019 [facility] ([id number]) Comment: Performed By: #### SERFOL, C MP, B12, ALCO, CBCDIF #### [facility] [address] [place], [place] [address] GFR/1.73 sq M predicted >60 mL/min/{1.73_m2} Normal 04-03-2019 [facility] among non-blacks [facility] ([id number]) (S/P/Bld) [Vol rate/Area] Comment: Result Comment: eGFR (Estima delfin GFR) Units of measure: mL/min/1.73 meters squared eGFR is derived from the ree xpressed MDRD Study equation using the following parameters: serum creatinine, age, gender and race. The creatinine assay has been calibrated to be traceable to IDMS. An eGFR <60 mL/min/1.73m2 fo r >3 months is consistent with chronic kidney disease. Refer to KDOQI guidelines for clinical interpretation. In patients with unstable re nal function, e.g. those with acute kidney injury, the eGFR may not accurately reflect actual GFR. Performed By: #### SERFOL, C MP, B12, ALCO, CBCDIF #### [facility] [address] [place], [place] [address] Glucose [Mass/Vol] 108 74-99 mg/dL High 04-03-2019 [facility] ([id number]) Comment: Result Comment: The [place] Diabetes Association (ADA) provides guidance for cutoff values for fasting glucose and random glucose. The ADA defines fasting as no caloric intake for at least 8 hours. Fas ting plasma glucose results between 100 to 125 mg/dL indicate increased risk for diabetes (prediabetes). Fasting plasma glucose resul ts greater than or equal to 126 mg/dL meet the criteria for diagnosis of diabetes. In the absence of unequivocal hyperglycemia, results should be confirmed by repeat testing. In a patient with classic s ymptoms of hyperglycemia or hyperglycemic crisis, random plasma glucose results greater than or equal to 200 mg/dL meet the criteria for diagnosis of diabetes. Reference: Standards of [facility] in Diabetes 2016, [place] [employer] Association. Diabetes Care. 2016.39(Suppl 1). Performed By: #### SERFOL, C MP, B12, ALCO, CBCDIF #### [address] [place] [address] Potassium [Moles/Vol] 4.0 3.7-5.1 mmol/L Normal 04-03-20 19 [facility] ([id number]) Comment: Performed By: #### SERFOL, C MP, B12, ALCO, CBCDIF #### [address] [place], [place] [address] Protein [Mass/Vol] 9.1 6.3-8.0 g/dL High 04-03-2019 [facility] ([id number]) Comment: Performed By: #### SERFOL, C MP, B12, ALCO, CBCDIF #### [address] [place], [place] [address] Sodium [Moles/Vol] 136 136-144 mmol/L Normal 04-03-2019 [facility] ([id number]) Comment: Performed By: #### SERFOL, C MP, B12, ALCO, CBCDIF #### [address] [place], [place] [address] Urea nitrogen [Mass/Vol] 3 9-24 mg/dL Low 04-03 [facility] ([id number]) Comment: Performed By: #### SERFOL, C MP, B12, ALCO, CBCDIF #### [facility] [address] [place], [place] [address] cnov on 2019-04-03 CNOV Office Visit (FAMPWS) Normal 04-03-20 [place] [facility] CHRISTOPHER SMITH ([id number]) 1975 M [place] Date Time Provider Department ([id number]) 04/03/19 4:00 PM [facility] your visit today, we recorded the following informati on about you: Pulse Respiration Blood pressure Weight 84/minute 18/minute 118/62 66 kg Tana Tony APRN.CNP 04/05/2019 11:05 AM Signed 04/03/2019 Patient presents with: Gait Problem: pt states random periods o f imbalance over last year, seems like more his rt side per , states rt ear leaks and rt side b othersome SUBJECTIVE: This is a 43 year old that i s here today for Above Complaints. For the past year has been experiencing random perio ds of imbalance. Says when he stands up he has no balance. If he closes eye forget it. He reports it is like when I stand up I know I want to go but my legs won't l et me. reports Seems that right leg is stiffier than left. Patient reports like soemtimes he will stand up but then he will need to waste picker his leg to get it to move. Also positive for tremors and muscle weakness. Linda ent admits to drinking a 12 pack a beer daily for year s. Does report he needs a drink in the morning to get going. He denies illicit drug use. Denies weight loss, fevers, chills, headaches, n ight sweats, insomnia, visual changes, falling slurred speech, confusion, lightheadedness, dizziness, presyncope, syncope, extremity numbness, tinglin g, weakness, or alcohol usage today. Patient reports sometimes right ear leaks brownish colored f luid. Wears earplugs for work. Has not been to a doctor in years or bee n seen in ER for this problem. He work for time and he tells me his boss has be en concerned about his him. He reports his boss has asked him several times if he is dr nato. He denies that he drinks more than one drink before work. He does not drive anymore d ue to unclear reasons. Family hx of Parkinson's. PAST MEDICAL HISTORY Diagnosis Date - Unspecified asthma(493.90) ALLERGIES Vicodin [Hydrocodone-Acetaminophen] MEDICATIONS No current outpatient medications on file. No current facility-administered medications for this visit. Medications and allergies reviewed by this provider. SOCIAL HISTORY Social History Socioeconomic History Marital status: Spouse name: Not on file Number of children: Not on file Years of education: Not on file Highest education level: Not on file Social Needs Financial resource strain: Not on file Food insecurity - worry: Not on file Food insecurity - inability: Not on file Transportation needs - medical: Not on file Transportation needs - non-medical: Not on file Occupational History Not on file Tobacco Use Smoking status: Passive Smoke Exposure - Never Smoker Smokeless tobacco: Never Used Substance and Sexual Activity Alcohol use: Yes Comment: ocassionaly Drug use: Not on file Sexual activity: Not on file Other Topics Concerns: Not on file Social History Narrative Not on file REVIEW OF SYSTEMS GENERAL: No weight loss, malaise or fevers HEENT: Negative for frequent or significant headaches, No changes in hearing or vision, no nose bleeds or other nasal problems NECK: Negative for lumps, goiter, pain and significant neck swelling RESPIRATORY: Negative for cough, hemoptysis, wheezing, COPD, dyspnea or shortness of breath CARDIOVASCULAR: Negative for chest pain, leg swelling, hyp ertension, CHF or palpitations GI: No nausea, vomiting, or diarrhea and No heartburn or ref lux symptoms : No history of dysuria, frequency or incontinence MUSCULOSKELETAL: Negative for joint pain or swelling, back pain or muscle pain SKIN: Negative for lesions, rash, and itching PSYCH: Negative for sleep disturbance, mood disorder a nd recent psychosocial stressors HEMATOLOGY/LYMPHOLOGY: Negative for prolonged bleeding, brui sing easily or swollen nodes ENDOCRINE: Negative for cold or heat intolerance, polyuria, polydipsia and goiter NEURO: No history of headaches, syncope, paralysis or, seizu res All other reviewed and negative other than HPI. OBJECTIVE: BP 118/62 (BP Site: Left Arm, BP Position: Sitting, BP Cuff Size: Regular Adult) Pulse 84 Resp 18 Wt 66 kg (145 lb 6.4 oz) . Vit al signs reviewed by this provider. APPEARANCE Well appearing, alert, in no acute distress, we ll-hydrated, well nourished. and Thin EYES PERRLA, conjunctiva and sclera normal. Vertical nystagm us EARS External ears normal, canals clear THROAT normal, no erythema NECK Supple, no adenopathy; thyroid symmetric, normal size, no bruits HEART RRR with normal S1 and S2, no murmurs, no gallops, n o JVD appreciated LUNG clear to auscultation. No wheezes, rhonchi, or rales ABDOMEN bowel sounds normoactive, no bruits, soft, non -tender, non-distended EXTREMITIES Extremities normal, No deformities, No ski n discoloration and No edema NEURO Awake, alert and oriented x 3, Cranial nerves II-XII g rossly intact, negative findings: speech normal, cranial nerves 2-12 intact , muscle tone normal, rapid alternating mo vements normal, finger to nose normal, sensation to light touch and pinprick normal, plantar response downgoin g bilaterally and positive findings: nystagmus horizontal with EOM, none on re sting, resting tremor of head observed, muscular weakne ss even in hand grasp and foot pushes, reflexes - KJ: 1+/1+, ankle: 1+/1+. No clonus, unable to ill icit Babinski. Positive Romberg. Pronotor d rift normal. Positive bradykinesia with walking. He is unable to walk heel to toe without almost falling d own. Positive cogwheel rigidity in arms SKIN Skin color, texture, turgor normal, no suspicious paradise hes or lesions to exposed skin ASSESSMENT/PLAN: 1. Gait disturbance - ICD9: 781.2, ICD10: R26.9 (primary matt gnosis) - consider parkinson's vs hepatic encephalopathy vs MS vs ne uro-muscular disorders vs unknown - no red flag exam findings - red flag symptoms discussed, verbalizes understanding - COMP METABOLIC PANEL - CBC + DIFF - FOLATE SERUM - VITAMIN B12 BLOOD - UA DIP B/O - ALCOHOL/ETHANOL BLD - PAIN PANEL, UR QUANT - TOX SCREEN ROUT UR - CONSULT TO NEUROLOGY - URINALYSIS WITH MICROSCOPIC - MRI BRAIN WO/W IVCON - IV CONTRAST (RADIOLOGY PROCEDURE) - needs to make appointment to establish care with physician - follow-up pending testing 2. Rigidity - ICD9: 780.99, ICD10: R29.898 - COMP METABOLIC PANEL - CBC + DIFF - FOLATE SERUM - VITAMIN B12 BLOOD - UA DIP B/O - ALCOHOL/ETHANOL BLD - PAIN PANEL, UR QUANT - TOX SCREEN ROUT UR - CONSULT TO NEUROLOGY - URINALYSIS WITH MICROSCOPIC - MRI BRAIN WO/W IVCON - IV CONTRAST (RADIOLOGY PROCEDURE) - plan as above 3. Positive Romberg test - ICD9: 796.4, ICD10: R29.818 - COMP METABOLIC PANEL - CBC + DIFF - FOLATE SERUM - VITAMIN B12 BLOOD - UA DIP B/O - ALCOHOL/ETHANOL BLD - PAIN PANEL, UR QUANT - TOX SCREEN ROUT UR - CONSULT TO NEUROLOGY - URINALYSIS WITH MICROSCOPIC - MRI BRAIN WO/W IVCON - IV CONTRAST (RADIOLOGY PROCEDURE) - plan as above 4. Tremors of nervous system - ICD9: 781.0, ICD10: R25.1 - COMP METABOLIC PANEL - CBC + DIFF - FOLATE SERUM - VITAMIN B12 BLOOD - UA DIP B/O - ALCOHOL/ETHANOL BLD - PAIN PANEL, UR QUANT - TOX SCREEN ROUT UR - CONSULT TO NEUROLOGY - URINALYSIS WITH MICROSCOPIC - MRI BRAIN WO/W IVCON - IV CONTRAST (RADIOLOGY PROCEDURE) - plan as above 5. Nystagmus - ICD9: 379.50, ICD10: H55.00 - COMP METABOLIC PANEL - CBC + DIFF - FOLATE SERUM - VITAMIN B12 BLOOD - UA DIP B/O - ALCOHOL/ETHANOL BLD - PAIN PANEL, UR QUANT - TOX SCREEN ROUT UR - CONSULT TO NEUROLOGY - URINALYSIS WITH MICROSCOPIC - MRI BRAIN WO/W IVCON - IV CONTRAST (RADIOLOGY PROCEDURE) - plan as above 6. Postural instability - ICD9: 729.90, ICD10: R29.3 - COMP METABOLIC PANEL - CBC + DIFF - FOLATE SERUM - VITAMIN B12 BLOOD - UA DIP B/O - ALCOHOL/ETHANOL BLD - PAIN PANEL, UR QUANT - TOX SCREEN ROUT UR - CONSULT TO NEUROLOGY - URINALYSIS WITH MICROSCOPIC - MRI BRAIN WO/W IVCON - IV CONTRAST (RADIOLOGY PROCEDURE) - plan as above 7. Alcohol abuse - ICD9: 305.00, ICD10: F10.10 - COMP METABOLIC PANEL - CBC + DIFF - FOLATE SERUM - VITAMIN B12 BLOOD - UA DIP B/O - ALCOHOL/ETHANOL BLD - PAIN PANEL, UR QUANT - TOX SCREEN ROUT UR - CONSULT TO NEUROLOGY - URINALYSIS WITH MICROSCOPIC - MRI BRAIN WO/W IVCON - IV CONTRAST (RADIOLOGY PROCEDURE) - is agreeable for me to test for ETOH and illicit drugs - discussed I do not Recommend abrupt cessation of alcohol and if and when he is ready to quit he would likely need to be deto xed with medical observation, verbalizes understanding - can discuss further after testing - plan as above 8. Bradykinesia - ICD9: 781.0, ICD10: R25.8 - COMP METABOLIC PANEL - CBC + DIFF - FOLATE SERUM - VITAMIN B12 BLOOD - UA DIP B/O - ALCOHOL/ETHANOL BLD - PAIN PANEL, UR QUANT - TOX SCREEN ROUT UR - CONSULT TO NEUROLOGY - URINALYSIS WITH MICROSCOPIC - MRI BRAIN WO/W IVCON - IV CONTRAST (RADIOLOGY PROCEDURE) - plan as above Tana Porterlogestelita, COLE.STORAGE MANAGEMENT ARCHITECT Prescription instructions reviewed with patient as applicable. Patient advised if symptoms do not improve or if symptoms worsen sooner, to contact their primary care physician. Potential red flag symptoms discusse d with the patient. Reviewed appropriate action plan to nikita e if red flag symptoms occur. Patient agreeable to treatment plan. Referring Provider: SELF [[id number]] Allergies As of Date: 04/03/2019 Noted Allergy Reaction VICODIN (HYDROCODONE-ACETAMINOPHE*04/03/2019 4 - Hives Date Reviewed: 04/03/2019 Reviewed by: Maty Jones (Environmental Engineering Assistant) LUANA Hatch - Fully Assessed Reason for Visit: Gait Problem [139] Cmt: pt states random periods of imbalanc e over last year, seems like more his rt side per , states rt ear leaks and rt side bothersome Primary Visit Diagnosis:Gait disturbance [R26.9] Other Visit Diagnoses:Rigidity [R29.898] Positive Romberg test [R29.818] Tremors of nervous system [R25.1] Nystagmus [H55.00] Postural instability [R29.3] Alcohol abuse [F10.10] Bradykinesia [R25.8] Order(s):[] iv contrast (will be provided with radiology test)CT Brain WO/W - No IV access, insert saline lock prior to the sedatio n, infusion, injection for imaging exam. Discontinue saline loc k post exam. If Pt. has a central line or IVAD, may access for admi nistration according to line specific nursing protocol. Once exam is co mplete flush line and de-access according to line specific nursing protocol in the CT contrast administration guidelines link.Disp: 1 Ea chRfl: 0 COMP METABOLIC PANEL [SQCMP] Order #: [id number] FUTURE CBC + DIFF [SQCBCDIF] Order #: [id number] FUTURE FOLATE SERUM [SQSERFOL] Order #: [id number] FUTURE VITAMIN B12 BLOOD [SQB12] Order #: [id number] FUTURE UA DIP B/O [[id number]] Order #: [id number] ALCOHOL/ETHANOL BLD [SQALCO] Order #: [id number] FUTURE PAIN PANEL, UR QUANT [SQUQNTPP] Order #: [id number] TOX SCREEN ROUT UR [SQUTOX2] Order #: [id number] FUTURE CONSULT TO NEUROLOGY [9019] Order #: [id number]: 1 URINALYSIS WITH MICROSCOPIC [SQUAWMIC] Order #: [id number] MRI BRAIN WO/W IVCON [[id number]] Order #: [id number] FUTURE iv contrast (will be provided with radiology test)MRI Brain Inject, intravenously, once for 1 dose.No IV access, insert saline l ock prior to beginning of sedation, infusion, injection of imaging exam.Discontinue saline lock post exam. If Pt. has a central line or IVAD, may access for administration according to line specif ic nursing protocol.Once exam is complete flush line and de-access acco rding to line specific nursing protocol in the MR contrast administra tion guidelines linkDisp: 1 EachRfl: 0 Prescriptions as of 04/03/2019 Sig: IV CONTRAST (RADIOLOGY PROCED* MRI Brain Inject, intravenous * IV CONTRAST (RADIOLOGY PROCED* CT Brain WO/W - No IV access, * Problem List As Of Date 04/03/2019 Noted Resolved ASTHMA UNSPECIFIED [J45.909] INVALID FOR* ALLERGIC RHINITIS NOS [J30.9] INVALID FOR* TOBACCO USE DISORDER [F17.200] INVALID FOR* Prescriptions ordered this encounter Disp Refills Start End IV CONTRAST (RADIOLOGY PROCEDURE) 1 Ea* 0 04/03/2019 019 Class: In Office Sig: CT Brain WO/W - No IV access, insert saline lock prior to the sedation, infusion, injection for imaging exam. Discontinue saline loc k post exam. If Pt. has a central line or IVAD, may access for administra tion according to line specific nursing protocol. Once exam is co mplete flush line and de-access according to line specific nursing protoc ol in the CT contrast administration guidelines link. IV CONTRAST (RADIOLOGY PROCEDURE) 1 Ea* 0 04/05/2019 019 Class: In Office Sig: MRI Brain Inject, intravenously, once for 1 dose.No IV access, insert saline lock prior to beginning of sedation, infusion, inject ion of imaging exam.Discontinue saline lock post exam. If Pt. has a central line or IVAD, may access for administration according to robert e specific nursing protocol.Once exam is complete flush line and de-acc ess according to line specific nursing protocol in the MR contra st administration guidelines link Medications Discontinued During This Encounter diclofenac, EC, (VOLTAREN) 75 mg EC * 30 t* 2 06/16/20122018 Route: ORAL Sig: Take 1 tablet by mouth twice daily with meals. Disc: Course of therapy completed cyclobenzaprine 10 mg tablet 30 t* 1 06/16/2012 04/05/2019 Route: ORAL Sig: Take 1 tablet by mouth three times daily as needed for Muscle Spasm. Disc: Course of therapy completed Follow-up and Disposition History Recorded Letter Text Encounter Status:Closed by PODLOGTANA SILVERMAN CNP on 04/05/19 cbc and differential on 2019-04-03 Abs Baso 0.10 <0.11 k/uL Normal 04-03-2019 [facility] ([id number]) Comment: Performed By: #### SERFOL, C MP, B12, ALCO, CBCDIF #### [facility] [address] [place], [place] [address] Abs Talbot 0.32 <0.87 k/uL Normal 04-03-2019 [facility] ([id number]) Comment: Performed By: #### SERFOL, C MP, B12, ALCO, CBCDIF #### [place] [address] Abs Neut 2.29 1.45-7.50 k/uL Normal 04-03-2019 [facility] ([id number]) Comment: Performed By: #### SERFOL, C MP, B12, ALCO, CBCDIF #### [place] [address] Absolute nRBC <0.01 <0.01 Normal 04-03-2019 [facility] ([id number]) Comment: Performed By: #### SERFOL, C MP, B12, ALCO, CBCDIF #### [place] [phone] Basophils/100 WBC (Bld) 2.2 % Normal 2018 [facility] ([id number]) Comment: Performed By: #### SERFOL, C MP, B12, ALCO, CBCDIF #### [place] [address] DTYPE Auto Diff Normal 04-03-2019 [facility] ([id number]) Comment: Performed By: #### SERFOL, C MP, B12, ALCO, CBCDIF #### [place] [address] Eosinophils (Bld) [#/Vol] 0.26 <0.46 k/uL Normal [facility] ([id number]) Comment: Performed By: #### SERFOL, C MP, B12, ALCO, CBCDIF #### [place] [address] Eosinophils/100 WBC (Bld) 5.8 % Normal [facility] ([id number]) Comment: Performed By: #### SERFOL, C MP, B12, ALCO, CBCDIF #### [address] [place], [place] [address] Erythrocyte distribution 14.6 11.5-15.0 % Normal 04-03 [facility] width (RBC) [Ratio] [place] ([id number]) Comment: Performed By: #### SERFOL, C MP, B12, ALCO, CBCDIF #### [place] [id number] [place] [address] Hematocrit (Bld) [Volume 49.2 39.0-51.0 % Normal 04-03 [facility] fraction] [place] ([id number]) Comment: Performed By: #### SERFOL, C MP, B12, ALCO, CBCDIF #### [facility] [address] [place] [address] Hemoglobin (Bld) 16.6 13.0-17.0 g/dL Normal 04-03-2019 [facility] [place] [Mass/Vol] [place] ([id number]) Comment: Performed By: #### SERFOL, C MP, B12, ALCO, CBCDIF #### [facility] [address] [place], [place] [address] Lymphocytes (Bld) [#/Vol] 1.49 1.00-4.00 k/uL Normal [facility] ([id number]) Comment: Performed By: #### SERFOL, C MP, B12, ALCO, CBCDIF #### [facility] [address] [place] [address] Lymphocytes/100 WBC (Bld) 33.3 % Normal [facility] ([id number]) Comment: Performed By: #### SERFOL, C MP, B12, ALCO, CBCDIF #### [address] [address] MCH (RBC) [Entitic mass] 33.8 26.0-34.0 pG Normal 04-03 [facility] ([id number]) Comment: Performed By: #### SERFOL, C MP, B12, ALCO, CBCDIF #### [facility] [address] [place] [address] MCHC (RBC) [Mass/Vol] 33.7 30.5-36.0 g/dL Normal 04-03-20 19 [facility] ([id number]) Comment: Performed By: #### SERFOL, C MP, B12, ALCO, CBCDIF #### [facility] [place] [address] MCV (RBC) [Entitic vol] 100.2 80.0-100.0 fL High 04-03 [facility] ([id number]) Comment: Performed By: #### SERFOL, C MP, B12, ALCO, CBCDIF #### [place] [address] Monocytes/100 WBC (Bld) 7.1 % Normal 2018 [facility] ([id number]) Comment: Performed By: #### SERFOL, C MP, B12, ALCO, CBCDIF #### [place] [address] Neutrophils/100 WBC (Bld) 51.6 % Normal [facility] ([id number]) Comment: Performed By: #### SERFOL, C MP, B12, ALCO, CBCDIF #### [place] [address] NRBCs 0.0 0 /100 WBC Normal 04-03-2019 [facility] ([id number]) Comment: Performed By: #### SERFOL, C MP, B12, ALCO, CBCDIF #### [place] [address] Platelet mean volume (Bld) 13.0 9.0-12.7 fL High [facility] [Entitic vol] ([id number] ) Comment: Performed By: #### SERFOL, C MP, B12, ALCO, CBCDIF #### [facility] [address] [place] [address] Platelets (Bld) [#/Vol] 66 150-400 k/uL Low 2018 [facility] ([id number]) Comment: Result Comment: Result check ed and verified No clot detected. Platelet count confirmed by manual review of peripheral blood smear. Performed By: #### SERFOL, C MP, B12, ALCO, CBCDIF #### [facility] [place] [address] RBC (Bld) [#/Vol] 4.91 4.20-6.00 m/uL Normal 04-03-[address] [facility] ([id number]) Comment: Performed By: #### SERFOL, C MP, B12, ALCO, CBCDIF #### [facility] [place] [address] WBC (Bld) [#/Vol] 4.48 3.70-11.00 k/uL Normal 04-03-2019 [facility] ([id number]) Comment: Performed By: #### SERFOL, C MP, B12, ALCO, CBCDIF #### [facility] [address] [place] [address] Summary Purpose Family History No Family History Records Found Advance Directives No Advanced Directives Records Found Additional Source Comments FOR RECORDS PERTAINING TO PATIENTS WHO ARE OR HAVE BEEN ENROLLED IN A CHEMICAL DEPENDENCY/SUBSTANCE ABUSE PROGRAM, SOME INFORMATION MAY BE OMITTED. This clinical summary was aggregated from multiple sources. Caution should be exercised in using it in the provision of clinical care. This summary normalizes information from multiple sources, and as a consequence, information in this document may materially changethe coding, format and clinical context of patient data. In addition, data may be omittedin some cases. CLINICAL DECISIONS SHOULD BE BASED ON THE PRIMARY CLINICAL RECORDS. [facility] provides no warranty or guarantee of the accuracy or completeness of information in this document. UNRECOGNIZED CONTENT PROVIDED BELOW FOR UNRECOGNIZED SECTION No Status Records Found UNRECOGNIZED CONTENT PROVIDED BELOW FOR UNRECOGNIZED SECTION INFORMATION SOURCE DATE CREATED AUTHOR AUTHOR'S ORGANIZATIO N 07/10/2019 [facility] [place]
== END 2019-04-21 06:05 | disposition left against medical advice (07) | DRG 770 ==
LOC: ED 17:59 → MS3 20:02
PROVIDERS: Admitting Provider Family Medicine; Emergency Provider Emergency Medicine; Family Provider Family Medicine; PCP Family Medicine; Visit Provider Internal Medicine
DX: F10.229 Alcohol dependence with intoxication, unspecified (principal); F10.239 Alcohol dependence with withdrawal, unspecified; Y90.8 Blood alcohol level of 240 mg/100 ml or more; K21.9 Gastro-esophageal reflux disease without esophagitis; D69.59 Other secondary thrombocytopenia; D36.10 Benign neoplasm of peripheral nerves and autonomic nervous system, unspecified; G31.2 Degeneration of nervous system due to alcohol; K70.30 Alcoholic cirrhosis of liver without ascites; D69.6 Thrombocytopenia, unspecified; R11.2 Nausea with vomiting, unspecified; Z81.1 Family history of alcohol abuse and dependence; F17.210 Nicotine dependence, cigarettes, uncomplicated; K70.10 Alcoholic hepatitis without ascites
CPT/HCPCS: 36415; 70450; 74177; 80048; 80053; 80076; 80307; 80320; 83690; 83735; 84100; 85025; 85610; 96361; 96374; 96375; 97162; 97166; 97530; 99218; 99285; J7030; J7120; Q9967; A4216; G0378; G0480; J2405